=== PATIENT | male | born 1940 | race Caucasian/White ===

== ENCOUNTER → 2017-03-21 | Day surgery (SDC) | payer MEDICARE, OTHER ==
[~2017-03-21] MED LIST: ASCO10002 PO; ASPI-630 PO; IV RINGERS,LACTATED 1000ML 1,000 ML IV SCH; LEVO125T5 PO; LEVO88TA4 PO; LIDOCAINE 1% PF 2 ML VIAL. ID PRN; LIDOCAINE 2% PF Vial for OR 5 ML VIAL. ONE; MIDAZOLAM HCL/PF 2 MG/2 ML VIAL. IV PRN; MULT-18 PO; PRAV40TA2 PO; PROPOFOL 20 ML IV ONE; fentaNYL PF VIAL 100 MCG/2 ML VIAL IV PRN
[2017-03-21 10:21] VITALS: BP 102/55
== END | disposition home or self-care (01) ==
LOC: SURG 08:39
PROVIDERS: ATTEND Internal Medicine Gastroenterology
DX: K64.0 First degree hemorrhoids (principal); K57.30 Diverticulosis of large intestine without perforation or abscess without bleeding; E78.00 Pure hypercholesterolemia, unspecified; E03.9 Hypothyroidism, unspecified; E16.2 Hypoglycemia, unspecified; Z86.39 Personal history of other endocrine, nutritional and metabolic disease; Z90.49 Acquired absence of other specified parts of digestive tract; Z87.891 Personal history of nicotine dependence
CPT/HCPCS: 45378; J2704; J2001

== ENCOUNTER → 2017-11-09 | Outpatient (CLI) | payer MEDICARE, OTHER | END | disposition home or self-care (01) | LOC: KCIC US 07:46 | DX: N40.0 Benign prostatic hyperplasia without lower urinary tract symptoms (principal); D71 Functional disorders of polymorphonuclear neutrophils; Z90.49 Acquired absence of other specified parts of digestive tract | CPT/HCPCS: 76700; 76856 ==

== ENCOUNTER → 2017-11-21 | Outpatient (CLI) | payer MEDICARE, OTHER | END | disposition home or self-care (01) | LOC: ECHO 10:29 | DX: I51.7 Cardiomegaly (principal) | CPT/HCPCS: 93306 ==

== ENCOUNTER → 2017-11-25 | Outpatient (CLI) | payer MEDICARE, OTHER | END | disposition home or self-care (01) | LOC: KCIC 09:52 | DX: I51.7 Cardiomegaly (principal); M48.56XD Collapsed vertebra, not elsewhere classified, lumbar region, subsequent encounter for fracture with routine healing | CPT/HCPCS: 71046 ==

== ENCOUNTER → 2018-01-04 | Outpatient (CLI) | payer MEDICARE, OTHER | END | disposition home or self-care (01) | LOC: KCIC CT 11:36 | DX: M48.54XA Collapsed vertebra, not elsewhere classified, thoracic region, initial encounter for fracture (principal); I25.10 Atherosclerotic heart disease of native coronary artery without angina pectoris; D71 Functional disorders of polymorphonuclear neutrophils; E78.00 Pure hypercholesterolemia, unspecified; E03.9 Hypothyroidism, unspecified; Z87.891 Personal history of nicotine dependence; Z86.39 Personal history of other endocrine, nutritional and metabolic disease | CPT/HCPCS: 71250 ==

== ENCOUNTER → 2018-07-14 | Outpatient (CLI) | payer MEDICARE, OTHER ==
[2017-03-21 10:21] VITALS: BP 102/55
[~2018-07-14] MED LIST changes: -IV RINGERS,LACTATED 1000ML 1,000 ML IV SCH; -LIDOCAINE 1% PF 2 ML VIAL. ID PRN; -LIDOCAINE 2% PF Vial for OR 5 ML VIAL. ONE; -MIDAZOLAM HCL/PF 2 MG/2 ML VIAL. IV PRN; -PROPOFOL 20 ML IV ONE; -fentaNYL PF VIAL 100 MCG/2 ML VIAL IV PRN
--- NOTE | 2018-07-14 09:18 | KCIC ---
CT chest without contrast dated 07/14/2018. Comparison made to January 04, 2018. CLINICAL INDICATION: Follow-up interstitial lung disease. TECHNIQUE: Contiguous axial imaging the chest performed without the administration of intravenous contrast. Thin cut high-resolution imaging performed in inspiration using HRCT protocol. One or more of the following individualized dose reduction techniques were utilized for this examination: 1. Automated exposure control 2. Adjustment of the mA and/or kV according to patient size 3. Use of iterative reconstruction technique FINDINGS: Heart size mildly enlarged. No pericardial effusion. Coronary artery calcifications with prominent callus C[place] of the mitral valve. Mild aneurysmal dilation of the ascending thoracic aorta measuring 4 cm transverse dimension, unchanged. There are mildly enlarged subcarinal, precarinal and right paratracheal and left paratracheal lymph nodes, similar to prior study. Subcarinal lymph node measures up to 1.5 similar short axis, unchanged. There are also calcified mediastinal lymph nodes and left hilar lymph nodes. No axillary adenopathy. Central airways are patent. Diffuse bronchiectasis. There are irregular peripheral shadows throughout both lungs, basilar predominant with associated honeycomb cystic change, similar to prior study. There is some thickening of the fissures, unchanged. No pneumothorax. Superimposed mild emphysema. There is an area of consolidation in the superior segment right lower lobe with small air bronchogram. This abuts the pleura and is best appreciated on sagittal image 41. Was not present on the prior study. Limited images of the upper abdomen are unremarkable. Gallbladder surgically absent. Bone windows show no acute findings. There are multiple thoracic and upper lumbar wedge compression deformities, similar to prior study. IMPRESSION: 1. Moderate to severe interstitial fibrosis, possibly related to usual interstitial pneumonia, not significantly changed from prior study. 2. Small focal zone of consolidation in the superior segment right lower lobe is new from prior study. This could be related to superimposed pneumonia or atelectasis. Developing mass considered less likely. Continued follow-up imaging is recommended to ensure stability. 3. Mild mediastinal lymphadenopathy, nonspecific but unchanged. 4. Coronary artery calcifications and mild aortic ectasia. 5. Multiple remote thoracic and lumbar wedge compression fractures, unchanged. Electronically signed by: Julio Pierson MD (07/14/2018 9:13 AM) [id number]
== END | disposition home or self-care (01) ==
LOC: KCIC CT 08:30
PROVIDERS: ATTEND Internal Medicine Pulmonary Disease
DX: J84.10 Pulmonary fibrosis, unspecified (principal); J43.9 Emphysema, unspecified; I25.10 Atherosclerotic heart disease of native coronary artery without angina pectoris; I77.810 Thoracic aortic ectasia; R59.0 Localized enlarged lymph nodes; M48.54XD Collapsed vertebra, not elsewhere classified, thoracic region, subsequent encounter for fracture with routine healing; M48.56XD Collapsed vertebra, not elsewhere classified, lumbar region, subsequent encounter for fracture with routine healing; Z87.891 Personal history of nicotine dependence
CPT/HCPCS: 71250

== ENCOUNTER 2018-08-23 12:31 | Inpatient (IN) | payer MEDICARE, OTHER ==
[~2018-08-23] VITALS: Ht 180.3 cm; Wt 71.8 kg
[2018-08-23] MEDS ORDERED: IPRATRPIUM/ALBUTEROL 0.5/2.5MG 3 ML NEBU. NEB ONE (13:15)
--- NOTE | 2018-08-23 13:26 | PHYS DOC ---
Past Medical History Past Medical History: Cancer, Hypothyroid Additional Past Medical Histor: THYROID CA, "FIBROSIS LUNGS" Past Surgical History: Cholecystectomy, Other Additional Past Surgical Histo: THYROID, LEG Alcohol Use: None Drug Use: None Adult General Chief Complaint Chief Complaint: COUGH HPI HPI Patient is a 78-year-old male with a past history of pulmonary fibrosis who presents to the emergency department for evaluation. He states he was at home, when he began experiencing a large volume hemoptysis, filling up about half of a coffee cup. He called his lockstitch waistband setter, and was sent to the emergency department. He does report some chronic ongoing shortness of breath but is no more short of breath today than he has been at baseline. He has not had any fevers or chills, although he states he was diagnosed with pneumonia a few weeks ago and is currently completing a course of amoxicillin. There are no alleviating or exacerbating factors to his symptoms otherwise. Review of Systems Review of Systems Constitutional: Denies fever or chills [] Eyes: Denies change in visual acuity, redness, or eye pain [] HENT: Denies nasal congestion or sore throat [] Respiratory: No additional information not addressed in HPI [] Cardiovascular: The patient denies any chest pain, palpitations, or orthopnea [] GI: Denies abdominal pain, nausea, vomiting, bloody stools or diarrhea [] : Denies dysuria or hematuria [] Musculoskeletal: Denies back pain or joint pain [] Integument: Denies rash or skin lesions [] Neurologic: Denies headache, focal weakness or sensory changes [] Endocrine: Denies polyuria or polydipsia [] All other systems were reviewed and found to be within normal limits, except as documented in this note. Current Medications Current Medications Current Medications Medications (Trade) Dose Ordered Sig/Wendi Start Time Stop Time Status Last Admin Dose Admin Albuterol/ Ipratropium (Duoneb) 3 ml 1X ONCE 08/23/18 13:15 08/23/18 13:18 DC 08/23/18 14:02 3 ML Allergies Allergies Allergies Coded Allergies Type Severity Reaction Last Updated Verified No Known Drug Allergies 03/21/17 No Physical Exam Physical Exam PHYSICAL EXAM: CONSTITUTIONAL: Well developed, well nourished HEAD: normocephalic, atraumatic EENT: PERRL, EOMI. Conjunctivae normal color, sclerae non-icteric; moist mucous membranes. The patient has upper and lower dentures. No evidence of oral or pharyngeal bleeding. NECK: Supple, non-tender; no meningismus. LUNGS: There are scattered crackles in all lung sherman consistent with a history of pulmonary fibrosis with some rhonchi in the right greater than left bases. HEART: Regular rate and rhythm, there is a harsh holosystolic murmur CHEST: No deformity; non-tender ABDOMEN: The abdomen is soft, and non-tender, no masses or bruits. EXTREM: Normal ROM; no deformity, no calf tenderness. Normal pulses palpable in all extremities. There is no pedal edema. SKIN: No rash; no diaphoresis NEURO: Alert; normal speech and cognition; CN's grossly intact; strength grossly intact without focal deficit. BACK: No CVA TTP. Current Patient Data Vital Signs Vital Signs Date Time Temp Pulse Resp B/P (MAP) Pulse Ox O2 Delivery O2 Flow Rate FiO2 08/23/18 14:02 98 Room Air 08/23/18 13:41 76 22 131/65 (87) 08/23/18 12:46 98.9 98.9 Lab Values Laboratory Tests Test 08/23/18 12:50 White Blood Count 7.9 x10^3/uL (4.0-11.0) Red Blood Count 4.26 x10^6/uL (4.30-5.70) L Hemoglobin 12.1 g/dL (13.0-17.5) L Hematocrit 37.0 % (39.0-53.0) L Mean Corpuscular Volume 87 fL (79-100) Mean Corpuscular Hemoglobin 29 pg (25-35) Mean Corpuscular Hemoglobin Concent 33 g/dL (31-37) Red Cell Distribution Width 14.7 % (11.5-14.5) H Platelet Count 241 x10^3/uL (140-400) Neutrophils (%) (Auto) 67 % (31-73) Lymphocytes (%) (Auto) 21 % (24-48) L Monocytes (%) (Auto) 8 % (0-9) Eosinophils (%) (Auto) 3 % (0-3) Basophils (%) (Auto) 1 % (0-3) Neutrophils # (Auto) 5.3 x10^3uL (1.8-7.7) Lymphocytes # (Auto) 1.7 x10^3/uL (1.0-4.8) Monocytes # (Auto) 0.7 x10^3/uL (0.0-1.1) Eosinophils # (Auto) 0.2 x10^3/uL (0.0-0.7) Basophils # (Auto) 0.0 x10^3/uL (0.0-0.2) Prothrombin Time 13.5 SEC (11.7-14.0) Prothrombin Time INR 1.1 (0.8-1.1) Sodium Level 134 mmol/L (136-145) L Potassium Level 4.1 mmol/L (3.5-5.1) Chloride Level 98 mmol/L (98-107) Carbon Dioxide Level 26 mmol/L (21-32) Anion Gap 10 (6-14) Blood Urea Nitrogen 19 mg/dL (8-26) Creatinine 1.0 mg/dL (0.7-1.3) Estimated GFR (Cockcroft-Gault) 72.1 BUN/Creatinine Ratio 19 (6-20) Glucose Level 102 mg/dL (70-99) H Lactic Acid Level 1.1 mmol/L (0.4-2.0) Calcium Level 8.5 mg/dL (8.5-10.1) Total Bilirubin 0.6 mg/dL (0.2-1.0) Aspartate Amino Transferase (AST) 14 U/L (15-37) L Alanine Aminotransferase (ALT) 14 U/L (16-63) L Alkaline Phosphatase 79 U/L (46-116) Troponin I Quantitative 0.289 ng/mL (0.000-0.055) C-Reactive Protein, Quantitative 22.7 mg/L (0-3.3) H SB-Tqb-L-Type Natriuretic Peptide 379 pg/mL (0-449) Total Protein 8.8 g/dL (6.4-8.2) H Albumin 3.4 g/dL (3.4-5.0) Albumin/Globulin Ratio 0.6 (1.0-1.7) L Laboratory Tests 08/23/18 12:50 Laboratory Tests 08/23/18 12:50 EKG EKG [Normal sinus rhythm at a rate of 80 beats for minute with frequent APCs, left axis deviation, normal intervals, there are no acute ischemic ST/T changes.] Radiology/Procedures Radiology/Procedures [PROCEDURE: CHEST PA & LATERAL EXAM: CHEST 2 VIEWS. HISTORY: Shortness of breath, hemoptysis, pneumonia. COMPARISON: 11/25/2017. FINDINGS: Frontal and lateral views of the chest are obtained. Subpleural and basilar predominant interstitial opacities are not clearly changed. Lung volumes are small on the right greater than left. There is no pneumothorax or pleural effusion. The heart is mildly enlarged. Surgical clips are noted in the right upper quadrant and at the base of the neck. Moderate compression deformities are noted in the upper lumbar spine. IMPRESSION: 1. Stable interstitial fibrosis without clear superimposed infiltrate. 2. Mild cardiomegaly. ] Course & Med Decision Making Course & Med Decision Making Pertinent Labs and Imaging studies reviewed. (See chart for details) [2:25 PM: The patient's condition remains stable. I discussed the case with Dr. Flores, on-call for the patient's PCP, who will admit the patient for further observation and pulmonary consultation.] Dragon Disclaimer Dragon Disclaimer This electronic medical record was generated, in whole or in part, using a voice recognition dictation system. Departure Departure Impression: Primary Impression: Hemoptysis Additional Impression: Pulmonary fibrosis Disposition: ADMITTED INPATIENT Admitting Physician: Kiersten Flores Condition: STABLE Referrals: MILANA CLARK MD (PCP) Problem Qualifiers ALON FLANAGAN MD Aug 23, 2018 13:26
[2018-08-23 13:27] LABS: BASO % 1 % (0-3); EOS # 0.2 x10^3/uL (0.0-0.7); EOS % 3 % (0-3); HEMOGLOBIN 12.1 g/dL (13.0-17.5); LYMPH # 1.7 x10^3/uL (1.0-4.8); LYMPH % 21 % (24-48); MEAN CORPUSCULAR HEMOGLOBIN 29 pg (25-35); MEAN CORPUSCULAR HGB CONC 33 g/dL (31-37); MEAN CORPUSCULAR VOLUME 87 fL (79-100); MONO # 0.7 x10^3/uL (0.0-1.1); MONO % 8 % (0-9); NEUT # 5.3 x10^3uL (1.8-7.7); NEUT % 67 % (31-73); PLATELET COUNT 241 x10^3/uL (140-400); RED BLOOD COUNT 4.26 x10^6/uL (4.30-5.70); RED CELL DISTRIBUTION WIDTH 14.7 % (11.5-14.5); WHITE BLOOD COUNT 7.9 x10^3/uL (4.0-11.0)
[2018-08-23 13:36] LABS: PROTHROMBIN TIME PATIENT 13.5 SEC (11.7-14.0)
[2018-08-23 13:39] LABS: CALCIUM 8.5 mg/dL (8.5-10.1); GFR 72.1; POTASSIUM 4.1 mmol/L (3.5-5.1)
[2018-08-23 13:45] LABS: ALBUMIN 3.4 g/dL (3.4-5.0); ALBUMIN/GLOBULIN RATIO 0.6 (1.0-1.7); C-REACTIVE PROTEIN 22.7 mg/L (0-3.3); TOTAL BILIRUBIN 0.6 mg/dL (0.2-1.0); TOTAL PROTEIN 8.8 g/dL (6.4-8.2)
--- NOTE | 2018-08-23 13:52 | RAD ---
EXAM: CHEST 2 VIEWS. HISTORY: Shortness of breath, hemoptysis, pneumonia. COMPARISON: 11/25/2017. FINDINGS: Frontal and lateral views of the chest are obtained. Subpleural and basilar predominant interstitial opacities are not clearly changed. Lung volumes are small on the right greater than left. There is no pneumothorax or pleural effusion. The heart is mildly enlarged. Surgical clips are noted in the right upper quadrant and at the base of the neck. Moderate compression deformities are noted in the upper lumbar spine. IMPRESSION: 1. Stable interstitial fibrosis without clear superimposed infiltrate. 2. Mild cardiomegaly. Electronically signed by: Shweta Asif MD (08/23/2018 1:49 PM) [place] [id number]
--- NOTE | 2018-08-23 14:33 | EKG ---
[facility] [address] [place] [address] Test Date: 2018-08-23 Test Time: 13:34:37 Pat Name: ROSALVA LEONARDO Department: Room: Gender: M Client Strategist: : 1940 Requested By: ALON FLANAGAN Order Number: [id number] Reading MD: Tommy Lynn MD Measurements Intervals [place] Rate: 80 P: NC: QRS: -34 QRSD: 92 T: 28 QT: 388 QTc: 451 Interpretive Statements SR PAC'S Electronically Signed On 08-31-2018 9:48:35 CDT by Tommy Lynn MD
[2018-08-23] MEDS ORDERED: AMOX1TAB61 PO (19:21)
[2018-08-23 19:30] VITALS: BP 107/49
[2018-08-23] MEDS: AMOXICILLIN/K CLAV 875/125MG TABLET. PO SCH (22:38)
[2018-08-23 23:08] VITALS: BP 126/69
[2018-08-24 03:24] VITALS: BP 125/75
[2018-08-24] MEDS: LEVOTHYROXINE 125 MCG TABLET PO SCH (06:08)
[2018-08-24 06:55] VITALS: BP 124/68
[2018-08-24] MEDS: LACTOBACILLUS RHAMNOSUS GG 1 CAPSULE. PO SCH ×2 (08:21→22:29)
[2018-08-24] MEDS: AMOXICILLIN/K CLAV 875/125MG TABLET. PO SCH (08:21)
--- NOTE | 2018-08-24 10:48 | PDOC2 ---
KATLIN NEAL BASE MANAGER 08/24/18 1048: CARDIAC CONSULT DATE OF CONSULT Date of Consult DATE: 08/24/18 TIME: 10:40 REASON FOR CONSULT Reason for Consult: Increase trop REFERRING PHYSICIAN Referring Physician: Schuyler SOURCE Source: Chart review, Patient HISTORY OF PRESENT ILLNESS HISTORY OF PRESENT ILLNESS This is a pleasant 78 yo male admitted for complains of blood in the sputum. This is dark red sometimes it is large in amount. Denies any fever, night sweats. No HIDALGO or chest pain. He does have known valvular disease. Denies any exertional CP nor HIDALGO. He has lost only 17 pounds in the last 6 months. Denies any nausea, palpitations. No prior cardiac disease but significant for pulmonary fibrosis, MR. No changes to his activity tolerance. PAST MEDICAL HISTORY Cardiovascular: HTN, Hyperlipidemia, Valve insufficiency (MV stenosis), Pulmonary hypertension Pulmonary: Other (pulmonary fiborsis with prior asbestos exposure) CENTRAL NERVOUS SYSTEM: Other GI: GERD Heme/Onc: No pertinent hx Hepatobiliary: No pertinent hx Psych: No pertinent hx Musculoskeletal: Osteoarthritis ENT: Allergic Rhinitis Renal/: Benign prostatic enlarg. Endocrine: Diabetes (2), Hypothyroidism Dermatology: No pertinent hx PAST SURGICAL HISTORY Past Surgical History: Cholecystectomy, Other (partial thyroidectomy) FAMILY HISTORY Family History noncontributory to CV SOCIAL HISTORY Smoke: Quit (>10 yrs) ALCOHOL: none Drugs: None Lives: Alone CURRENT MEDICATIONS CURRENT MEDICATIONS Current Medications Medications (Trade) Dose Ordered Sig/Wendi Route PRN Reason Start Time Stop Time Status Last Admin Dose Admin Albuterol/ Ipratropium (Duoneb) 3 ml 1X ONCE NEB 08/23/18 13:15 08/23/18 13:18 DC 08/23/18 14:02 Amoxicillin/ Clavulanate Potassium (Augmentin 875/ 125mg) 1 tab BID PO 08/23/18 23:00 08/24/18 08:21 Levothyroxine Sodium (Synthroid) 125 mcg DAILY06 PO 08/24/18 06:00 08/24/18 06:08 Lactobacillus Rhamnosus (Culturelle) 1 cap BID PO 08/24/18 09:00 08/24/18 08:21 ALLERGIES ALLERGIES: Coded Allergies: No Known Drug Allergies (Unverified , 03/21/17) ROS Review of System 14 point ROS evaluated with pertinent positives noted per HPI PHYSICAL EXAM General: Alert, Oriented X3, Cooperative, No acute distress HEENT: Atraumatic, Mucous membr. moist/pink Lungs: Other (diffuse crackles, hemoptysis) Heart: Regular rate, Normal S1, Normal S2, Other (5/6 murmur pansystolic loudest to apex) Abdomen: Soft, No tenderness Extremities: No cyanosis, No edema Skin: No breakdown, No significant lesion Neuro: Strength at 5/5 X4 ext, Sensation intact Psych/Mental Status: Mental status NL, Mood NL MUSCULOSKELETAL: Osteoarthritic changes both hands VITALS VITALS Vital Signs Date Time Temp Pulse Resp B/P (MAP) Pulse Ox O2 Delivery O2 Flow Rate FiO2 08/24/18 08:00 Room Air 08/24/18 06:55 98.3 77 17 124/68 (86) 95 98.3 LABS Lab: Laboratory Tests Test 08/23/18 12:50 08/23/18 22:35 08/24/18 04:43 White Blood Count 7.9 x10^3/uL (4.0-11.0) Red Blood Count 4.26 x10^6/uL (4.30-5.70) Hemoglobin 12.1 g/dL (13.0-17.5) Hematocrit 37.0 % (39.0-53.0) Mean Corpuscular Volume 87 fL (79-100) Mean Corpuscular Hemoglobin 29 pg (25-35) Mean Corpuscular Hemoglobin Concent 33 g/dL (31-37) Red Cell Distribution Width 14.7 % (11.5-14.5) Platelet Count 241 x10^3/uL (140-400) Neutrophils (%) (Auto) 67 % (31-73) Lymphocytes (%) (Auto) 21 % (24-48) Monocytes (%) (Auto) 8 % (0-9) Eosinophils (%) (Auto) 3 % (0-3) Basophils (%) (Auto) 1 % (0-3) Neutrophils # (Auto) 5.3 x10^3uL (1.8-7.7) Lymphocytes # (Auto) 1.7 x10^3/uL (1.0-4.8) Monocytes # (Auto) 0.7 x10^3/uL (0.0-1.1) Eosinophils # (Auto) 0.2 x10^3/uL (0.0-0.7) Basophils # (Auto) 0.0 x10^3/uL (0.0-0.2) Erythrocyte Sedimentation Rate 44 (0-15) Prothrombin Time 13.5 SEC (11.7-14.0) Prothromb Time International Ratio 1.1 (0.8-1.1) Sodium Level 134 mmol/L (136-145) Potassium Level 4.1 mmol/L (3.5-5.1) Chloride Level 98 mmol/L (98-107) Carbon Dioxide Level 26 mmol/L (21-32) Anion Gap 10 (6-14) Blood Urea Nitrogen 19 mg/dL (8-26) Creatinine 1.0 mg/dL (0.7-1.3) Estimated GFR (Cockcroft-Gault) 72.1 BUN/Creatinine Ratio 19 (6-20) Glucose Level 102 mg/dL (70-99) Lactic Acid Level 1.1 mmol/L (0.4-2.0) Calcium Level 8.5 mg/dL (8.5-10.1) Total Bilirubin 0.6 mg/dL (0.2-1.0) Aspartate Amino Transf (AST/SGOT) 14 U/L (15-37) Alanine Aminotransferase (ALT/SGPT) 14 U/L (16-63) Alkaline Phosphatase 79 U/L (46-116) Troponin I Quantitative 0.289 ng/mL (0.000-0.055) 0.204 ng/mL (0.000-0.055) 0.185 ng/mL (0.000-0.055) C-Reactive Protein, Quantitative 22.7 mg/L (0-3.3) LU-Iaf-J-Type Natriuretic Peptide 379 pg/mL (0-449) Total Protein 8.8 g/dL (6.4-8.2) Albumin 3.4 g/dL (3.4-5.0) Albumin/Globulin Ratio 0.6 (1.0-1.7) IMAGES IMAGES IMPRESSION: 1. Moderate to severe interstitial fibrosis, possibly related to usual interstitial pneumonia, not significantly changed from prior study. 2. Small focal zone of consolidation in the superior segment right lower lobe is new from prior study. This could be related to superimposed pneumonia or atelectasis. Developing mass considered less likely. Continued follow-up imaging is recommended to ensure stability. 3. Mild mediastinal lymphadenopathy, nonspecific but unchanged. 4. Coronary artery calcifications and mild aortic ectasia. 5. Multiple remote thoracic and lumbar wedge compression fractures, unchanged. DATE: 07/14/18 0905 ECHOCARDIOGRAM ECHOCARDIOGRAM TTE <Conclusion> The left ventricular systolic function is normal and the ejection fraction is within normal range.The Ejection Fraction is 55%. There is normal LV segmental wall motion. The ascending aorta is mildly dilated at 3.5 cm. DATE: 11/21/17 1414 CEDRIC <Conclusion> The left ventricle is normal size. The left ventricular systolic function is normal and the ejection fraction is within normal range. The left atrium is mildly dilated. There is no significant aortic valvulve stenosis. No significant aortic regurgitation. Moderate to moderate severe eccentric mitral regurgitation. Trace to mild tricuspid regurgitation. Trace pulmonic regurgitation. DATE: 07/30/13 1346 ASSESSMENT/PLAN ASSESSMENT/PLAN 1. Hemoptysis: probably from combination of valvular disease and pulmonary fibrosis with recent PNA 2. Severe pulmonary fibrosis with past chronic asbestos exposure: No SOA 3. MR 4. Elevated troponin: peaked at 0.28. EKG SR with PACs/LAFB with biatrial enlargement and LVH. No acute ST-T wave changes. Possibly type 2. No cardiac symptoms. 5. Hx of Pneumonia: noted a month ago and treated as outpt 6. HTN: controlled. Denies 7. HLP: no antilipemics 8. DM2: Denies 9. Hypothyroidism: past partial thyroidectomy r/t CA 10. Coronary calcifications: per recent CT Recommendations Echo, TSH, lipids Depending on TTE result RHC/LHC would be a consideration as well as CEDRIC otherwise stress test. Pulmonary consult pending. ASA, statin per level NICANOR EASON MD 08/24/18 2310: CARDIAC CONSULT ASSESSMENT/PLAN ASSESSMENT/PLAN Pt. seen and examined. Agree with above EXPORT FREIGHT SPECIALIST note. Patient presenting with hemoptysis. Does not need any further CV eval after echo. If echo abn, consider outpt w/u. May need ENT eval for his hemoptysis, defer to primary and pulm. Thanks. Will follow along peripherally. No clear cardiac symptoms of note. KATLIN NEAL APRN Aug 24, 2018 10:48 NICANOR EASON MD Aug 24, 2018 23:10
[2018-08-24 10:54] VITALS: BP 137/68
--- NOTE | 2018-08-24 12:13 | HP ---
ADMIT DATE: 08/23/2018 CHIEF COMPLAINT: Hemoptysis. HISTORY OF PRESENT ILLNESS AND HOSPITAL COURSE: This patient is a 78-year-old male, who states on the day of admission, he started coughing up at least a cup of blood. Due to the severity of symptoms, he came to Emergency Room for further evaluation. He was found to have mild anemia in combination with chronic lung disease, as well as elevated troponin. Given these findings, he was admitted for further evaluation by Pulmonary and Cardiology. PAST MEDICAL HISTORY: Significant for: 1. History of partial thyroidectomy for thyroid cancer. 2. Hypothyroidism. 3. Hypercholesterol. 4. Mitral regurgitation. 5. Hypertension. 6. Type 2 diabetes, diet controlled. 7. Pulmonary fibrosis, possibly due from asbestos versus idiopathic pulmonary fibrosis. 8. BPH. 9. Reflux disease. 10. Recent weight loss. FAMILY HISTORY: Mother with complications of diabetes. Father with complications of throat cancer. SOCIAL HISTORY: The patient is a former smoker, smoked for approximately 10 years from his 20s to his 30s, approximately a pack per day. 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 The patient does not use alcohol. The patient lives alone and is retired. ALLERGIES: The patient has no known drug allergies. PAST SURGICAL HISTORY: Significant for cholecystectomy and partial thyroidectomy. REVIEW OF SYSTEMS: Positive for ongoing weight loss, weight documented at 174 in the office chart in 10/2017. Weight down to 158 today, the patient routinely was 190s during his adult life. The patient has no complaints of cough, fever. The patient has chronic shortness of breath due to pulmonary fibrosis. The patient denies any night sweats, nausea, vomiting, diarrhea. The patient had 16-pound weight loss in the last 10 months. PHYSICAL EXAMINATION: GENERAL: This is a well-nourished, well-developed male, in no apparent distress. On my exam, he is alert and oriented x 3. HEENT: Benign. NECK: Supple. CARDIAC: Regular rate and rhythm with a grade 2/3 soft systolic ejection murmur. LUNGS: Revealed coarse wheezes and breath sounds bilaterally. ABDOMEN: Soft and nontender. EXTREMITIES: Had 2+ pulses, no significant edema. NEUROLOGIC: Showed no unilateral findings. ASSESSMENT: 1. Hemoptysis. 2. Elevated troponin. 3. Pulmonary fibrosis. 4. Weight loss. PLAN: To proceed with Pulmonary consultation and Cardiology consultation, obtain CAT scan of the chest and monitor for further bleeding. MILANA CLARK MD DR: ROSALINA/aaron JOB#: [id number] / [id number]
--- NOTE | 2018-08-24 14:07 | CARD ---
MR#: [id number] Date of Study: 08/24/2018 Ordering Physician: KATLIN NEAL, Referring Physician: Christian MANTILLA Tech: Sahara Villarreal RDCS APPROVED REPORT EXAM: Two-dimensional and M-mode echocardiogram with Doppler and color Doppler. Other Information Quality : GoodHR: 77bpm Rhythm : NSR INDICATION Elevated Troponin 2D DIMENSIONS RVDd3.0 (2.9-3.5cm)Left Atrium(2D)4.8 (1.6-4.0cm) IVSd1.3 (0.7-1.1cm)Aortic Root(2D)3.9 (2.0-3.7cm) LVDd5.7 (3.9-5.9cm)LVOT Diameter2.3 (1.8-2.4cm) PWd1.4 (0.7-1.1cm)LVDs3.9 (2.5-4.0cm) FS (%) 31.8 %SV94.4 ml LVEF(%)59.2 (>50%) M-Mode DIMENSIONS Left Atrium(MM)4.76 (2.5-4.0cm)Aortic Root4.17 (2.2-3.7cm) Aortic Valve AoV Peak Long.125.5cm/sAoV VTI20.0cm AO Peak GR.6.3mmHgLVOT Peak Long.74.9cm/s AO Mean GR.3mmHgAVA (VMAX)2.38cm2 DAYANNA (VTI)2.40cm2 Mitral Valve MV E Ygmfsehn049.0cm/sMV E Peak Gr.6mmHg MV DECEL [id number] A Yzvlqbyf13.9cm/s MV E Mean Gr.3mmHgE/A Ratio1.4 MV A [id number] Pulmonary Valve PV Peak Lfiifkrs855.4cm/s Tricuspid Valve TR P. Gxtuijha174hr/sRAP REQDSPNK1obGn TR Peak Gr.15qpOoEDXS23ayIv LEFT VENTRICLE The left ventricle is normal size. There is mild concentric left ventricular hypertrophy. The left ve ntricular systolic function is normal. The Ejection Fraction is 55-60%. There is normal LV segmental wall motion. Transmitral Doppler flow pattern is Grade II-pseudonormal filling dynamics. RIGHT VENTRICLE The right ventricle is normal size. There is normal right ventricular wall thickness. The right ventr icular systolic function is normal. ATRIA The left atrium is moderately dilated. The right atrium size is normal. The interatrial septum is int act with no evidence for an atrial septal defect or patent foramen ovale as noted on 2-D or Doppler i maging. AORTIC VALVE The aortic valve is mildly calcified. The aortic valve is trileaflet. Doppler and Color Flow revealed no significant aortic regurgitation. There is no significant aortic valvular stenosis. There is no a ortic valvular vegetation. MITRAL VALVE Flail versus prolapsed posterior leaflet of mitral valve. There is no evidence of mitral valve prolap se. There is no mitral valve stenosis. Doppler and Color-flow revealed moderate to severe mitral regu rgitation. TRICUSPID VALVE The tricuspid valve is normal in structure and function. Doppler and Color Flow revealed trace tricus pid regurgitation. The PA pressure was estimated at 26 mmHg. There is no tricuspid valve prolapse or vegetation. There is no tricuspid valve stenosis. PULMONIC VALVE The pulmonic valve is not well visualized. GREAT VESSELS The aortic root is mildly enlarged. The ascending aorta is normal in size. The IVC is normal in size and collapses >50% with inspiration. PERICARDIAL EFFUSION There is no evidence of significant pericardial effusion. Critical Notification Critical Value: No <Conclusion> The left ventricular systolic function is normal. The Ejection Fraction is 55-60%. There is normal LV segmental wall motion. The left atrium is moderately dilated. Moderate to severe mitral regurgitation. Trace tricuspid regurgitation. The PA pressure was estimated at 26 mmHg. There is no evidence of significant pericardial effusion. Signed by : David Hurtado, Electronically Approved : 08/24/2018 14:05:59
[2018-08-24] MEDS ORDERED: PIP/TAZO PER PHARMACY MC PRN (14:30)
[2018-08-24] MEDS: VANCOMYCIN PER PHARMACY MC PRN ×3 (14:33→17:32)
--- NOTE | 2018-08-24 14:44 | CONS ---
DATE OF CONSULTATION: ATTENDING PHYSICIAN: Julio Payan MD REASON FOR CONSULTATION: Hemoptysis, pulmonary fibrosis. HISTORY OF PRESENT ILLNESS: The patient is a 78-year-old male who has been followed by my partner, Dr. Mike in the office. The patient has history of IPF, not biopsy proven but by characteristic CT chest findings. He started developed cough with purulent sputum production and was placed on Augmentin by Dr. Mike. The patient states that purulent sputum production started to improve; however, after he ran out of antibiotics, he started to have coughing up blood. The patient states that the hemoptysis has been persistent and has been consistent with bright red blood. He denies any fever, denies any chills, denies any weight loss. He has mild chronic exertional dyspnea with prolonged ambulation, otherwise done very well. He is not on any medication for his pulmonary fibrosis. CT of the chest was reviewed by me, which was done today. It has not been read by radiologist yet. He has unchanged findings of pulmonary fibrosis consistent with IPF. He has a persistent consolidation involving the right lower lobe. There appeared to be some cavitation in the right lower lobe mass-like density based on a previous CT from 07/14/2018. It is no longer seen. I have been asked to see him for further evaluation. He denies any headaches. No nausea, vomiting. No diarrhea. No dysuria. No focal weakness. No leg edema. PAST MEDICAL HISTORY: History of partial thyroidectomy for thyroid cancer, history of pulmonary fibrosis, highly likely IPF by characteristic CT chest findings, history of hypothyroidism, hypercholesterolemia, mitral regurgitation, hypertension, type 2 diabetes, BPH, reflux disease. PAST SURGICAL HISTORY: No recent surgeries. He had cholecystectomy and partial thyroidectomy in the past. SOCIAL HISTORY: Smoked for about 12 years before quitting some 40 years ago. 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 REVIEW OF SYSTEMS: Twelve-point system obtained. Pertinent positives discussed in my history of present illness, otherwise noncontributory. All systems that were negative were reviewed as well. MEDICATIONS: All reviewed. He is still on oral Augmentin. PHYSICAL EXAMINATION: VITAL SIGNS: Reviewed. He is afebrile, pulse ox is 96% on room air. NECK: Supple. LUNGS: With crackles, 1/3, at both the bases. CARDIOVASCULAR: Regular rate and rhythm. ABDOMEN: Soft, nontender. EXTREMITIES: With no pitting edema. LABORATORY DATA: Reviewed. ESR is 44. White cell count 7.9, hemoglobin is 12.1 and platelets are 241. Troponin is 0.2. TSH 4.2. BUN and creatinine 19 and 1.0. Echocardiogram showed an EF of 55-60%. The pulmonary artery pressure is 26. He has moderate to severe mitral regurgitation. IMPRESSION: 1. Persistent hemoptysis for the last 2 weeks in a patient who had a mass-like consolidation on CT chest in July. There appeared to be some cavitation at that time and the hemoptysis was likely related to infectious etiology such as pneumonia complicated by a lung abscess. The patient did improve initially with Augmentin, now has persistent and recurrent hemoptysis. His CT chest showing persistent consolidation. At this point, I would treat as an infectious etiology; however, the possibility of a lung malignancy and endobronchial lesion cannot be completely ruled out. 2. 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 3. Minimal history of tobacco use. Doubt clinically significant chronic obstructive pulmonary disease. 4. Mildly increased troponin level. RECOMMENDATION: 1. At this point, I will start IV antibiotics with Zosyn and vancomycin. 2. Discontinue Augmentin. 3. Monitor hemoptysis closely. If it does not improve with broad-spectrum antibiotics, then he would need a bronchoscopy. 4. I would also recommend doing a PET scan as an outpatient if no improvement in symptoms or chest CTs. 5. Add bronchodilators p.r.n. 6. Obtain procalcitonin level as well. 7. Further recommendations to follow. 8. The patient may be a candidate for IPF treatment with FDA approved medications. We will leave up to Dr. Mike as an outpatient. 9. Discussed with RN. We will follow along with you. LAUREL MOREL MD DR: GAGANDEEP/aaron JOB#: [id number] / [id number]
[2018-08-24 15:00] VITALS: BP 120/67
[2018-08-24] MEDS ORDERED: VANCOMYCIN 1.75 GM in IV NORMAL SALINE 500ML BAG 500 ML IV ONE (15:00)
--- NOTE | 2018-08-24 15:56 | NUR ---
SW following pt for anticipated dc needs. Chart reviewed. Pt lives at home alone. No discharge recommendations or SW needs noted at this time. Will continue to assess needs.
[2018-08-24] MEDS: PIPERACILLIN/TAZOBACTAM 3.375 GM in IV NORMAL SALINE 50ML 50 ML IV SCH ×2 (16:17→22:30)
[2018-08-24] MEDS: ASPIRIN ENTERIC COATED 81 MG TABLET.DR. PO SCH (16:17)
--- NOTE | 2018-08-24 16:18 | RAD ---
CT of the chest without contrast, 08/24/2018: HISTORY: Hemoptysis, weight loss, pulmonary fibrosis, asbestos exposure Noncontrast scans were obtained and compared to a study from 07/14/2018. There is extensive bilateral peripheral honeycombing and streaky opacities compatible with fibrosis. In some areas there appears to be a component of traction bronchiectasis. There are tree-in-bud type opacities in the superior aspect of the right lower lobe which have worsened. These are likely on an inflammatory basis. There is mild residual peripheral consolidation posteriorly in the superior segment of the right lower lobe. Scattered small pleural opacities are compatible with scarring. No pleural fluid is evident. There is calcific plaquing of the thoracic aorta. The ascending aorta is at the upper limits of normal in size measuring 4 cm in width. Moderate coronary artery calcification is present. There is considerable calcification of the mitral annulus. Calcified mediastinal and left hilar lymph nodes are present compatible with old granulomatous disease. Slightly enlarged mediastinal lymph nodes are unchanged. The largest of these lies in the subcarinal region and measures 1.5 cm in short axis dimension. Several thoracic and upper lumbar vertebral compression fractures are present and appear unchanged since 07/14/2018. IMPRESSION: 1. Moderate to severe pulmonary fibrosis. 2. Worsening mild right lower lobe tree-in-bud type opacities compatible with pneumonia. 3. Mild unchanged mediastinal adenopathy. 4. Coronary artery disease. PQRS Compliance Statement: One or more of the following individualized dose reduction techniques were utilized for this examination: 1. Automated exposure control 2. Adjustment of the mA and/or kV according to patient size 3. Use of iterative reconstruction technique Electronically signed by: Cornelio Berrios MD (08/24/2018 4:15 PM) [facility]
--- NOTE | 2018-08-24 17:33 | NUR ---
Pharmacy Vancomycin Dosing Note S:Consulted to monitor and dose vancomycin started 08/24/18. O:ROSALVA LEONARDO is a 78 year old M with CAP . Height: 5 feet, 11 inches Weight: 71.338611 kg [place] Body Weight: 75.30 Adjusted Body Weight: 73.90 Dosing Weight: Actual Other Antibiotics: ZOSYN LABS: Last BUN: Last Creatinine: 1.0 Creatinine Clearance: 60 mL/min Last WBC: 7.9 Last Procalcitonin: ORDERED Tmax (past 24 hours): 98.4 Microbiology: I/O: 600 Drug Levels: Last level: on at Last dose given 08/24/18 at 1500 Vancomycin Dosing: Loading Dose: 1750 mg x1 Dosing Weight: Actual Target Trough: 15-20 A: Based on: WEIGHT AND RENAL FUNCTION, VANCOMYCIN 1.75GM IV BOLUS GIVEN, P: 1. Begin Vancomycin 1000 mg IV q12h TOMORROW 2. Follow up Trough level on 08/26/18 at 0500 3. Pharmacy will continue to monitor, follow and adjust therapy as needed. REGAN JUARES [facility], 08/24/18 [id number]
[2018-08-24 19:52] VITALS: BP 105/57
[2018-08-24] MEDS: ATORVASTATIN CALCIUM 20 MG TABLET PO SCH (22:29)
[2018-08-24 23:21] VITALS: BP 110/57
[2018-08-25] MEDS: PIPERACILLIN/TAZOBACTAM 3.375 GM in IV NORMAL SALINE 50ML 50 ML IV SCH ×4 (02:30→18:14)
[2018-08-25 03:03] VITALS: BP 115/54
[2018-08-25] MEDS: LEVOTHYROXINE 125 MCG TABLET PO SCH (04:58)
[2018-08-25] MEDS: VANCOMYCIN 1 GM in IV NORMAL SALINE 250ML 250 ML IV SCH ×2 (04:59→17:03)
[2018-08-25 07:30] VITALS: BP 99/64
[2018-08-25] MEDS: ASPIRIN ENTERIC COATED 81 MG TABLET.DR. PO SCH (08:24)
[2018-08-25] MEDS: LACTOBACILLUS RHAMNOSUS GG 1 CAPSULE. PO SCH ×2 (08:24→20:10)
--- NOTE | 2018-08-25 09:42 | NUR ---
SW following. RN reported pt is independent with ADL's. No SW needs noted. Will continue to follow.
--- NOTE | 2018-08-25 10:32 | PDOC ---
PROGRESS NOTES Subjective Subjective Patient feels better but continues to have hemoptysis. Patient ambulatory Objective Objective Vital Signs Date Time Temp Pulse Resp B/P (MAP) Pulse Ox O2 Delivery O2 Flow Rate FiO2 08/25/18 08:00 Room Air 08/25/18 07:30 98.1 69 18 99/64 (76) 97 98.1 Intake and Output 08/25/18 07:00 Intake Total 2120 ml Balance 2120 ml Intake Oral 2120 ml # Voids 7 Physical Exam Abdomen: Normal bowel sounds Heart: Regular rate Extremities: No edema General: Alert Lungs: Other (coarse breath sounds throughout with wheezes.) Assessment Assessment Problems Medical Problems: (1) Hemoptysis Status: Acute (2) Pulmonary fibrosis Status: Acute Community-acquired pneumonia Hemoptysis Elevated troponin. Pulmonary fibrosis. Weight loss. Plan Plan of Care Continue IV antibiotics. Continue pulmonary toilet Consider bronchoscopy if indicated. Comment Review of Relevant I have reviewed the following items tri (where applicable) has been applied. Labs Laboratory Tests Test 08/23/18 12:50 08/23/18 22:35 08/24/18 04:43 08/25/18 04:45 White Blood Count 7.9 x10^3/uL (4.0-11.0) Red Blood Count 4.26 x10^6/uL (4.30-5.70) Hemoglobin 12.1 g/dL (13.0-17.5) Hematocrit 37.0 % (39.0-53.0) Mean Corpuscular Volume 87 fL (79-100) Mean Corpuscular Hemoglobin 29 pg (25-35) Mean Corpuscular Hemoglobin Concent 33 g/dL (31-37) Red Cell Distribution Width 14.7 % (11.5-14.5) Platelet Count 241 x10^3/uL (140-400) Neutrophils (%) (Auto) 67 % (31-73) Lymphocytes (%) (Auto) 21 % (24-48) Monocytes (%) (Auto) 8 % (0-9) Eosinophils (%) (Auto) 3 % (0-3) Basophils (%) (Auto) 1 % (0-3) Neutrophils # (Auto) 5.3 x10^3uL (1.8-7.7) Lymphocytes # (Auto) 1.7 x10^3/uL (1.0-4.8) Monocytes # (Auto) 0.7 x10^3/uL (0.0-1.1) Eosinophils # (Auto) 0.2 x10^3/uL (0.0-0.7) Basophils # (Auto) 0.0 x10^3/uL (0.0-0.2) Erythrocyte Sedimentation Rate 44 (0-15) Prothrombin Time 13.5 SEC (11.7-14.0) Prothromb Time International Ratio 1.1 (0.8-1.1) Sodium Level 134 mmol/L (136-145) Potassium Level 4.1 mmol/L (3.5-5.1) Chloride Level 98 mmol/L (98-107) Carbon Dioxide Level 26 mmol/L (21-32) Anion Gap 10 (6-14) Blood Urea Nitrogen 19 mg/dL (8-26) Creatinine 1.0 mg/dL (0.7-1.3) Estimated GFR (Cockcroft-Gault) 72.1 BUN/Creatinine Ratio 19 (6-20) Glucose Level 102 mg/dL (70-99) Lactic Acid Level 1.1 mmol/L (0.4-2.0) Calcium Level 8.5 mg/dL (8.5-10.1) Total Bilirubin 0.6 mg/dL (0.2-1.0) Aspartate Amino Transf (AST/SGOT) 14 U/L (15-37) Alanine Aminotransferase (ALT/SGPT) 14 U/L (16-63) Alkaline Phosphatase 79 U/L (46-116) Troponin I Quantitative 0.289 ng/mL (0.000-0.055) 0.204 ng/mL (0.000-0.055) 0.185 ng/mL (0.000-0.055) C-Reactive Protein, Quantitative 22.7 mg/L (0-3.3) CV-Ovy-P-Type Natriuretic Peptide 379 pg/mL (0-449) Total Protein 8.8 g/dL (6.4-8.2) Albumin 3.4 g/dL (3.4-5.0) Albumin/Globulin Ratio 0.6 (1.0-1.7) Triglycerides Level 35 mg/dL (0-150) Cholesterol Level 162 mg/dL (0-200) LDL Cholesterol, Calculated 114 mg/dL (0-100) VLDL Cholesterol, Calculated 7 mg/dL (0-40) Non-HDL Cholesterol Calculated 121 mg/dL (0-129) HDL Cholesterol 41 mg/dL (40-60) Cholesterol/HDL Ratio 4.0 Procalcitonin < 0.10 ng/mL (0.00-0.10) < 0.10 ng/mL (0.00-0.10) Thyroid Stimulating Hormone (TSH) 4.258 uIU/mL (0.358-3.74) Laboratory Tests Test 08/25/18 04:45 Procalcitonin < 0.10 ng/mL (0.00-0.10) Microbiology 08/23/18 Blood Culture - Preliminary, Resulted NO GROWTH AFTER 1 DAY Medications Current Medications Albuterol/ Ipratropium (Duoneb) 3 ml 1X ONCE NEB Last administered on 14:02; Start 08/23/18 at 13:15; Stop 08/23/18 at 13:18; Status DC Amoxicillin/ Clavulanate Potassium (Augmentin 875/ 125mg) 1 tab BID PO Last administered on 08/24/18at 08:21; Start 08/23/18 at 23:00; Stop 08/24/18 at 14:20 ; Status DC Levothyroxine Sodium (Synthroid) 125 mcg DAILY06 PO Last administered on at 04:58; Start 08/24/18 at 06:00 Lactobacillus Rhamnosus (Culturelle) 1 cap BID PO Last administered on 08:24; Start 08/24/18 at 09:00 Piperacillin Sod/ Tazobactam Sod (Zosyn Per Pharmacy) 1 each PRN DAILY PRN MC SEE COMMENTS; Start 08/24/18 at 14:30 Vancomycin HCl (Vanco Per Pharmacy) 1 each PRN DAILY PRN MC SEE COMMENTS Last administered on 08/24/18at 17:32; Start 08/24/18 at 14:30 Vancomycin HCl 1.75 gm/Sodium Chloride 500 ml @ 250 mls/hr 1X ONCE IV Last administered on 08/24/18at 17:20; Start 08/24/18 at 15:00; Stop 08/24/18 at 16:59 ; Status DC Piperacillin Sod/ Tazobactam Sod 3.375 gm/Sodium Chloride 50 ml @ 100 mls/hr Q6H IV Last administered on 08/25/18at 06:06; Start 08/24/18 at 14:30 Aspirin (Ecotrin) 81 mg DAILYWBKFT PO Last administered on 08/25/18at 08:24; Start 08/24/18 at 16:00 Atorvastatin Calcium (Lipitor) 20 mg QHS PO Last administered on 08/24/18at 22: 29; Start 08/24/18 at 21:00 Vancomycin HCl 1 gm/Sodium Chloride 250 ml @ 250 mls/hr Q12H IV Last administered on 08/25/18at 04:59; Start 08/25/18 at 05:30 Vancomycin HCl (Vancomycin Trough Level) 1 each 1X ONCE MC ; Start 08/26/18 at 05:00; Stop 08/26/18 at 05:01 Active Scripts Active Reported Augmentin 875-125 Tablet (Amoxicillin/Potassium Clav) 1 Each Tablet 1 Tab PO BID Levothyroxine Sodium 125 Mcg Tablet 125 Mcg PO DAILY Vitals/I & O Vital Sign - Last 24 Hours 08/24/18 08/24/18 08/24/18 08/24/18 10:54 15:00 19:52 19:57 Temp 97.7 97.6 98.0 97.7 97.6 98.0 Pulse 82 85 68 Resp 20 18 18 B/P (MAP) 137/68 (91) 120/67 (84) 105/57 (73) Pulse Ox 96 94 96 O2 Delivery Room Air Room Air Room Air Room Air 08/24/18 08/25/18 08/25/18 08/25/18 23:21 03:03 07:30 08:00 Temp 97.8 97.8 98.1 97.8 97.8 98.1 Pulse 66 66 69 Resp 18 18 18 B/P (MAP) 110/57 (74) 115/54 (74) 99/64 (76) Pulse Ox 96 96 97 O2 Delivery Room Air Room Air Room Air Room Air Intake and Output 08/24/18 08/24/18 08/25/18 15:00 23:00 07:00 Intake Total 520 ml 1300 ml 300 ml Balance 520 ml 1300 ml 300 ml MILANA CLARK MD Aug 25, 2018 10:32
[2018-08-25 10:53] VITALS: BP 107/68
--- NOTE | 2018-08-25 11:06 | PDOC ---
PULMONARY PROGRESS NOTES Subjective hemoptysis improved yesterday but re-occured this am, no soa Vitals Vital Signs Date Time Temp Pulse Resp B/P (MAP) Pulse Ox O2 Delivery O2 Flow Rate FiO2 08/25/18 10:53 98.2 78 19 107/68 (81) 97 Room Air 98.2 General: Alert, No acute distress Lungs: Crackles (bases) Cardiovascular: S1 Abdomen: Soft Neuro Exam: Alert Extremities: No Edema Skin: Warm Labs Laboratory Tests Test 08/23/18 12:50 08/23/18 22:35 08/24/18 04:43 08/25/18 04:45 White Blood Count 7.9 x10^3/uL (4.0-11.0) Red Blood Count 4.26 x10^6/uL (4.30-5.70) Hemoglobin 12.1 g/dL (13.0-17.5) Hematocrit 37.0 % (39.0-53.0) Mean Corpuscular Volume 87 fL (79-100) Mean Corpuscular Hemoglobin 29 pg (25-35) Mean Corpuscular Hemoglobin Concent 33 g/dL (31-37) Red Cell Distribution Width 14.7 % (11.5-14.5) Platelet Count 241 x10^3/uL (140-400) Neutrophils (%) (Auto) 67 % (31-73) Lymphocytes (%) (Auto) 21 % (24-48) Monocytes (%) (Auto) 8 % (0-9) Eosinophils (%) (Auto) 3 % (0-3) Basophils (%) (Auto) 1 % (0-3) Neutrophils # (Auto) 5.3 x10^3uL (1.8-7.7) Lymphocytes # (Auto) 1.7 x10^3/uL (1.0-4.8) Monocytes # (Auto) 0.7 x10^3/uL (0.0-1.1) Eosinophils # (Auto) 0.2 x10^3/uL (0.0-0.7) Basophils # (Auto) 0.0 x10^3/uL (0.0-0.2) Erythrocyte Sedimentation Rate 44 (0-15) Prothrombin Time 13.5 SEC (11.7-14.0) Prothromb Time International Ratio 1.1 (0.8-1.1) Sodium Level 134 mmol/L (136-145) Potassium Level 4.1 mmol/L (3.5-5.1) Chloride Level 98 mmol/L (98-107) Carbon Dioxide Level 26 mmol/L (21-32) Anion Gap 10 (6-14) Blood Urea Nitrogen 19 mg/dL (8-26) Creatinine 1.0 mg/dL (0.7-1.3) Estimated GFR (Cockcroft-Gault) 72.1 BUN/Creatinine Ratio 19 (6-20) Glucose Level 102 mg/dL (70-99) Lactic Acid Level 1.1 mmol/L (0.4-2.0) Calcium Level 8.5 mg/dL (8.5-10.1) Total Bilirubin 0.6 mg/dL (0.2-1.0) Aspartate Amino Transf (AST/SGOT) 14 U/L (15-37) Alanine Aminotransferase (ALT/SGPT) 14 U/L (16-63) Alkaline Phosphatase 79 U/L (46-116) Troponin I Quantitative 0.289 ng/mL (0.000-0.055) 0.204 ng/mL (0.000-0.055) 0.185 ng/mL (0.000-0.055) C-Reactive Protein, Quantitative 22.7 mg/L (0-3.3) OW-Fpq-O-Type Natriuretic Peptide 379 pg/mL (0-449) Total Protein 8.8 g/dL (6.4-8.2) Albumin 3.4 g/dL (3.4-5.0) Albumin/Globulin Ratio 0.6 (1.0-1.7) Triglycerides Level 35 mg/dL (0-150) Cholesterol Level 162 mg/dL (0-200) LDL Cholesterol, Calculated 114 mg/dL (0-100) VLDL Cholesterol, Calculated 7 mg/dL (0-40) Non-HDL Cholesterol Calculated 121 mg/dL (0-129) HDL Cholesterol 41 mg/dL (40-60) Cholesterol/HDL Ratio 4.0 Procalcitonin < 0.10 ng/mL (0.00-0.10) < 0.10 ng/mL (0.00-0.10) Thyroid Stimulating Hormone (TSH) 4.258 uIU/mL (0.358-3.74) Laboratory Tests Test 08/25/18 04:45 Procalcitonin < 0.10 ng/mL (0.00-0.10) Medications Active Scripts Medications Dose Route/Sig Max Daily Dose Days Date Category Augmentin 875-125 Tablet (Amoxicillin/Potassium Clav) 1 Each Tablet 1 Tab PO BID 08/23/18 Reported Levothyroxine Sodium 125 Mcg Tablet 125 Mcg PO DAILY 07/30/13 Reported Impression . 1. Persistent hemoptysis for the last 2 weeks in a patient who had a mass-like consolidation on CT chest in July. There appeared to be some cavitation at that time and the hemoptysis was likely related to infectious etiology such as pneumonia complicated by possible lung abscess. The patient did improve initially with Augmentin, now has persistent and recurrent hemoptysis. His CT chest showing residual consolidation. At this point, I would treat as an infectious etiology; however, the possibility of a lung malignancy and endobronchial lesion cannot be completely ruled out. 2. 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 3. Minimal history of tobacco use. Doubt clinically significant chronic obstructive pulmonary disease. 4. Mildly increased troponin level. Plan . 1. IV antibiotics with Zosyn and vancomycin. 2. off Augmentin. 3. Monitor hemoptysis closely. If it does not improve with broad-spectrum antibiotics, then he would need a bronchoscopy Tuesday. 4. I would also recommend doing a PET scan as an outpatient if no improvement in symptoms or chest CTs. 5. bronchodilators p.r.n. 6. Normal procalcitonin level . will do CTA chest to r/o PE as well causing hemoptysis 7. Further recommendations to follow. 8. The patient may be a candidate for IPF treatment with FDA approved medications. We will leave up to Dr. Mike as an outpatient. 9. Discussed with RN/ PT. We will follow along with you. LAUREL MOREL MD Aug 25, 2018 11:06
[2018-08-25] MEDS ORDERED: IOHEXOL 350 MG/ML 100 ML VIAL. IV ONE (11:15)
[2018-08-25] MEDS ORDERED: CONTRAST GIVEN. MC PRN (11:30)
[2018-08-25] MEDS: VANCOMYCIN PER PHARMACY MC PRN (13:32)
--- NOTE | 2018-08-25 15:29 | RAD ---
CTA of the chest with contrast, 08/25/2018: HISTORY: Persistent hemoptysis Multidetector CT imaging was performed following an IV bolus injection of iodinated contrast material. Multiplanar reconstructions were produced including coronal and sagittal MIP images. Comparison is made to yesterday's noncontrast exam. The central pulmonary arteries are well opacified and no filling defects are seen to suggest pulmonary emboli. There is mild aortic calcific plaquing without evidence of aneurysm. Moderate coronary artery calcifications are present. The heart is generally enlarged. There are calcified mediastinal lymph nodes compatible with old granulomatous disease. Slightly enlarged mediastinal and mildly prominent hilar lymph nodes are present. There are extensive fibrotic changes in both lungs with peripheral honeycombing and areas of traction bronchiectasis. There are tree-in-bud type opacities primarily in the right lower lobe. A smaller more dense focal consolidation is again noted posteriorly in the right lower lobe. There is an air-fluid level within this process suggesting an area of cavitation versus an infected bulla. Abscess or cavitary neoplasm cannot be excluded. This was present on yesterday's study but is better defined on today's thinner slices. No new pulmonary abnormality is seen when compared to yesterday's study. IMPRESSION: 1. No CT evidence of central pulmonary emboli. 2. Moderate to severe pulmonary fibrosis. 3. Probable superimposed pneumonitis in the right lower lobe with a small cavitary component posteriorly as described above. 4. Mild mediastinal and bilateral hilar adenopathy. 5. Cardiomegaly with coronary artery disease. PQRS Compliance Statement: One or more of the following individualized dose reduction techniques were utilized for this examination: 1. Automated exposure control 2. Adjustment of the mA and/or kV according to patient size 3. Use of iterative reconstruction technique Electronically signed by: Cornelio Berrios MD (08/25/2018 3:26 PM) [facility]
[2018-08-25] MEDS ORDERED: IOHEXOL 350 MG/ML 100 ML VIAL. ONE (16:15)
[2018-08-25 19:00] VITALS: BP 111/64
[2018-08-25] MEDS: ATORVASTATIN CALCIUM 20 MG TABLET PO SCH (20:10)
[2018-08-25 23:00] VITALS: BP 111/71
[2018-08-26] MEDS: PIPERACILLIN/TAZOBACTAM 3.375 GM in IV NORMAL SALINE 50ML 50 ML IV SCH ×5 (00:29→23:18)
[2018-08-26 03:00] VITALS: BP 105/62
[2018-08-26] MEDS: VANCOMYCIN 1 GM in IV NORMAL SALINE 250ML 250 ML IV SCH (05:38)
[2018-08-26 06:13] LABS: VANC TR 11.5 mcg/mL (10.0-20.0)
[2018-08-26] MEDS: VANCOMYCIN PER PHARMACY MC PRN (06:27)
--- NOTE | 2018-08-26 06:27 | NUR ---
Pharmacy Vancomycin Dosing Note S:Consulted to monitor and dose vancomycin started 08/24/18. O:ROSALVA LEONARDO is a 78 year old M with CAP possible lung abscesses . Height: 5 feet, 11 inches Weight: 71.493940 kg [place] Body Weight: 75.30 Adjusted Body Weight: 73.90 Dosing Weight: Actual Other Antibiotics: ZOSYN 3.375G IV Q6HRS LABS: Last BUN: 19 Last Creatinine: 1.0 Creatinine Clearance: 60 mL/min Last WBC: 7.9 Last Procalcitonin: < 0.1 Tmax (past 24 hours): 98.2 Microbiology: BLOOD CX (08/23): NGTD I/O: 2100/output not documented; 2 voids Drug Levels: Last Trough level: 11.5 on 08/26/18 at 0500 Last dose given 08/25/18 at 0549 Vancomycin Dosing: Loading Dose: 1750 mg x1 Dosing Weight: Actual Target Trough: 15-20 A: Based on: TROUGH P: 1. Begin Vancomycin 1250 mg IV q12h 2. Follow up Trough level on 08/28/18 at 0530 3. Pharmacy will continue to monitor, follow and adjust therapy as needed. KIMBERLY ROSENBERG RPH, [id number] Signed: 08/26/18 at 06 by KIMBERLY ROSENBERG RPH PHA Signed: 08/26/18 at 0628 by KIMBERLY ROSENBERG [facility]
[2018-08-26] MEDS: LEVOTHYROXINE 125 MCG TABLET PO SCH (06:28)
[2018-08-26 06:55] VITALS: BP 121/60
[2018-08-26] MEDS: ASPIRIN ENTERIC COATED 81 MG TABLET.DR. PO SCH (08:25)
[2018-08-26] MEDS: LACTOBACILLUS RHAMNOSUS GG 1 CAPSULE. PO SCH ×2 (08:25→20:51)
--- NOTE | 2018-08-26 09:09 | PDOC ---
PROGRESS NOTES Subjective Subjective Patient slowly improving. sputum with less blood Objective Objective Vital Signs Date Time Temp Pulse Resp B/P (MAP) Pulse Ox O2 Delivery O2 Flow Rate FiO2 08/26/18 06:55 97.8 67 17 121/60 (80) 96 Room Air 97.8 Intake and Output 08/26/18 07:00 Intake Total 1300 ml Output Total 250 ml Balance 1050 ml Intake Oral 1300 ml Output Urine Total 250 ml # Voids 7 Physical Exam Abdomen: Normal bowel sounds Heart: No murmurs Extremities: No edema General: Alert Lungs: Other (course) Assessment Assessment Problems Medical Problems: (1) Hemoptysis Status: Acute (2) Pulmonary fibrosis Status: Acute Community-acquired pneumonia Hemoptysis Elevated troponin. Pulmonary fibrosis. Weight loss. Plan Plan of Care Continue IV antibiotics. Continue pulmonary toilet Consider bronchoscopy Tuesday if continued symptoms PET scan as outpatient Comment Review of Relevant I have reviewed the following items tri (where applicable) has been applied. Labs Laboratory Tests Test 08/25/18 04:45 08/26/18 05:15 Procalcitonin < 0.10 ng/mL (0.00-0.10) Vancomycin Level Trough 11.5 mcg/mL (10.0-20.0) Vancomycin Last Dose Date 08/25/18 Vancomycin Last Dose Time 1730 Laboratory Tests Test 08/26/18 05:15 Vancomycin Level Trough 11.5 mcg/mL (10.0-20.0) Vancomycin Last Dose Date 08/25/18 Vancomycin Last Dose Time 1730 Microbiology 08/23/18 Blood Culture - Preliminary, Resulted NO GROWTH AFTER 2 DAYS Medications Current Medications Albuterol/ Ipratropium (Duoneb) 3 ml 1X ONCE NEB Last administered on at 14:02; Start 08/23/18 at 13:15; Stop 08/23/18 at 13:18; Status DC Amoxicillin/ Clavulanate Potassium (Augmentin 875/ 125mg) 1 tab BID PO Last administered on 08/24/18at 08:21; Start 08/23/18 at 23:00; Stop 08/24/18 at 14:20 ; Status DC Levothyroxine Sodium (Synthroid) 125 mcg DAILY06 PO Last administered on at 06:28; Start 08/24/18 at 06:00 Lactobacillus Rhamnosus (Culturelle) 1 cap BID PO Last administered on at 08:25; Start 08/24/18 at 09:00 Piperacillin Sod/ Tazobactam Sod (Zosyn Per Pharmacy) 1 each PRN DAILY PRN MC SEE COMMENTS; Start 08/24/18 at 14:30 Vancomycin HCl (Vanco Per Pharmacy) 1 each PRN DAILY PRN MC SEE COMMENTS Last administered on 08/26/18at 06:27; Start 08/24/18 at 14:30 Vancomycin HCl 1.75 gm/Sodium Chloride 500 ml @ 250 mls/hr 1X ONCE IV Last administered on 08/24/18at 17:20; Start 08/24/18 at 15:00; Stop 08/24/18 at 16:59 ; Status DC Piperacillin Sod/ Tazobactam Sod 3.375 gm/Sodium Chloride 50 ml @ 100 mls/hr Q6H IV Last administered on 08/26/18at 06:28; Start 08/24/18 at 14:30 Aspirin (Ecotrin) 81 mg DAILYWBKFT PO Last administered on 08/26/18at 08:25; Start 08/24/18 at 16:00 Atorvastatin Calcium (Lipitor) 20 mg QHS PO Last administered on 08/25/18at 20: 10; Start 08/24/18 at 21:00 Vancomycin HCl 1 gm/Sodium Chloride 250 ml @ 250 mls/hr Q12H IV Last administered on 08/26/18at 05:38; Start 08/25/18 at 05:30; Stop 08/26/18 at 12:00 Vancomycin HCl (Vancomycin Trough Level) 1 each 1X ONCE MC Last administered on 08/26/18at 05:00; Start 08/26/18 at 05:00; Stop 08/26/18 at 05:01; Status DC Iohexol (Omnipaque 350 Mg/ml) 90 ml 1X ONCE IV Last administered on 08/25/18at 14:40; Start 08/25/18 at 11:15; Stop 08/25/18 at 11:16; Status DC Info (CONTRAST GIVEN -- Rx MONITORING) 1 each PRN DAILY PRN MC SEE COMMENTS; Start 08/25/18 at 11:30; Stop 08/27/18 at 11:29 Iohexol (Omnipaque 350 Mg/ml) 100 ml STK-MED ONCE .ROUTE ; Start 08/25/18 at 16: 15; Stop 08/25/18 at 16:16; Status DC Vancomycin HCl 1.25 gm/Sodium Chloride 250 ml @ 167 mls/hr Q12H IV ; Start at 18:00 Vancomycin HCl (Vancomycin Trough Level) 1 each 1X ONCE MC ; Start 08/28/18 at 05:30; Stop 08/28/18 at 05:31 Active Scripts Active Reported Augmentin 875-125 Tablet (Amoxicillin/Potassium Clav) 1 Each Tablet 1 Tab PO BID Levothyroxine Sodium 125 Mcg Tablet 125 Mcg PO DAILY Vitals/I & O Vital Sign - Last 24 Hours 08/25/18 08/25/18 08/25/18 08/25/18 10:53 19:00 20:00 23:00 Temp 98.2 98.0 97.7 98.2 98.0 97.7 Pulse 78 70 62 Resp 19 18 18 B/P (MAP) 107/68 (81) 111/64 (80) 111/71 (84) Pulse Ox 97 95 93 O2 Delivery Room Air Room Air Room Air Room Air 08/26/18 08/26/18 03:00 06:55 Temp 98.3 97.8 98.3 97.8 Pulse 59 67 Resp 18 17 B/P (MAP) 105/62 (76) 121/60 (80) Pulse Ox 93 96 O2 Delivery Room Air Room Air Intake and Output 08/25/18 08/25/18 08/26/18 15:00 23:00 07:00 Intake Total 600 ml 700 ml Output Total 250 ml Balance 350 ml 700 ml MILANA CLARK MD Aug 26, 2018 09:09
--- NOTE | 2018-08-26 09:16 | PDOC ---
PULMONARY PROGRESS NOTES Subjective hemoptysis improved, no sob, no pain Vitals Vital Signs Date Time Temp Pulse Resp B/P (MAP) Pulse Ox O2 Delivery O2 Flow Rate FiO2 08/26/18 06:55 97.8 67 17 121/60 (80) 96 Room Air 97.8 ROS: No Nausea General: Alert, No acute distress HEENT: Other (nc at perrl ) Lungs: Crackles (bases) Cardiovascular: S1, S2 Abdomen: Soft, Non-tender Neuro Exam: Alert Extremities: No Edema Skin: Warm Labs Laboratory Tests Test 08/25/18 04:45 08/26/18 05:15 Procalcitonin < 0.10 ng/mL (0.00-0.10) Vancomycin Level Trough 11.5 mcg/mL (10.0-20.0) Vancomycin Last Dose Date 08/25/18 Vancomycin Last Dose Time 173 Laboratory Tests Test 08/26/18 05:15 Vancomycin Level Trough 11.5 mcg/mL (10.0-20.0) Vancomycin Last Dose Date 08/25/18 Vancomycin Last Dose Time 1730 Medications Active Scripts Medications Dose Route/Sig Max Daily Dose Days Date Category Augmentin 875-125 Tablet (Amoxicillin/Potassium Clav) 1 Each Tablet 1 Tab PO BID 08/23/18 Reported Levothyroxine Sodium 125 Mcg Tablet 125 Mcg PO DAILY 07/30/[address] 1. No CT evidence of central pulmonary emboli. 2. Moderate to severe pulmonary fibrosis. 3. Probable superimposed pneumonitis in the right lower lobe with a small cavitary component posteriorly as described above. 4. Mild mediastinal and bilateral hilar adenopathy. 5. Cardiomegaly with coronary artery disease. Impression . 1. Persistent hemoptysis for the last 2 weeks in a patient who had a mass-like consolidation on CT chest in July. There appeared to be some cavitation at that time and the hemoptysis was likely related to infectious etiology such as pneumonia complicated by possible lung abscess. The patient did improve initially with Augmentin, now has persistent and recurrent hemoptysis. His CT chest showing residual consolidation. At this point, I would treat as an infectious etiology; however, the possibility of a lung malignancy and endobronchial lesion cannot be completely ruled out. 2. 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 3. Minimal history of tobacco use. Doubt clinically significant chronic obstructive pulmonary disease. 4. Mildly increased troponin level. Plan . 1. IV antibiotics with Zosyn and vancomycin. 2. BD 3. Monitor hemoptysis closely. If it does not improve with broad-spectrum antibiotics, then he would need a bronchoscopy Tuesday. improving 4. PET scan as an outpatient if no improvement in symptoms or chest CTs. 5. The patient may be a candidate for IPF treatment with FDA approved medications. We will leave up to Dr. Mike as an outpatient. 6. Normal procalcitonin level . CTA chest reviewed, no PE 7. Further recommendations to follow. Discussed with PT. We will follow along with you. MICHOACANO HAYS MD Aug 26, 2018 09:15
[2018-08-26 10:37] VITALS: BP 116/58
[2018-08-26 11:52] LABS: CREATININE 1.1 mg/dL (0.7-1.3); GFR 64.6
[2018-08-26 14:40] VITALS: BP 108/66
[2018-08-26] MEDS: VANCOMYCIN 1.25 GM in IV NORMAL SALINE 250ML 250 ML IV SCH (19:27)
[2018-08-26 19:44] VITALS: BP 113/67
[2018-08-26] MEDS: ATORVASTATIN CALCIUM 20 MG TABLET PO SCH (20:51)
[2018-08-26 23:44] VITALS: BP 121/62
[2018-08-27 03:34] VITALS: BP 124/78
[2018-08-27] MEDS: PIPERACILLIN/TAZOBACTAM 3.375 GM in IV NORMAL SALINE 50ML 50 ML IV SCH ×4 (05:46→23:17)
[2018-08-27] MEDS: LEVOTHYROXINE 125 MCG TABLET PO SCH (06:28)
[2018-08-27] MEDS: VANCOMYCIN 1.25 GM in IV NORMAL SALINE 250ML 250 ML IV SCH ×2 (06:28→19:47)
[2018-08-27 06:55] VITALS: BP 109/66
[2018-08-27] MEDS: LACTOBACILLUS RHAMNOSUS GG 1 CAPSULE. PO SCH ×2 (08:25→19:54)
[2018-08-27] MEDS: ASPIRIN ENTERIC COATED 81 MG TABLET.DR. PO SCH (08:25)
[2018-08-27 09:06] LABS: GFR 72.1
--- NOTE | 2018-08-27 09:06 | PDOC ---
PULMONARY PROGRESS NOTES Subjective still has significant hemoptysis, no sob, no pain Vitals Vital Signs Date Time Temp Pulse Resp B/P (MAP) Pulse Ox O2 Delivery O2 Flow Rate FiO2 08/27/18 08:00 Room Air 08/27/18 06:55 97.6 75 17 109/66 (80) 97 97.6 ROS: No Nausea General: Alert, Oriented X4, No acute distress HEENT: Other (nc at perrl ) Lungs: Crackles (bases) Cardiovascular: S1, S2 Abdomen: Soft, Non-tender Neuro Exam: Alert Extremities: No Edema Skin: Warm Labs Laboratory Tests Test 08/26/18 05:15 Creatinine 1.1 mg/dL (0.7-1.3) Estimated GFR (Cockcroft-Gault) 64.6 Vancomycin Level Trough 11.5 mcg/mL (10.0-20.0) Vancomycin Last Dose Date 08/25/18 Vancomycin Last Dose Time 1730 Medications Active Scripts Medications Dose Route/Sig Max Daily Dose Days Date Category Augmentin 875-125 Tablet (Amoxicillin/Potassium Clav) 1 Each Tablet 1 Tab PO BID 08/23/18 Reported Levothyroxine Sodium 125 Mcg Tablet 125 Mcg PO DAILY 07/30/[address] 1. No CT evidence of central pulmonary emboli. 2. Moderate to severe pulmonary fibrosis. 3. Probable superimposed pneumonitis in the right lower lobe with a small cavitary component posteriorly as described above. 4. Mild mediastinal and bilateral hilar adenopathy. 5. Cardiomegaly with coronary artery disease. Impression . 1. Persistent hemoptysis for the last 2 weeks in a patient who had a mass-like consolidation on CT chest in July. There appeared to be some cavitation at that time and the hemoptysis was likely related to infectious etiology such as pneumonia complicated by possible lung abscess. The patient did improve initially with Augmentin, now has persistent and recurrent hemoptysis. His CT chest showing residual consolidation. At this point, I would treat as an infectious etiology; however, the possibility of a lung malignancy and endobronchial lesion cannot be completely ruled out. 2. 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 3. Minimal history of tobacco use. Doubt clinically significant chronic obstructive pulmonary disease. 4. Mildly increased troponin level. Plan . 1. IV antibiotics with Zosyn and vancomycin. 2. BD 3. still has sig hemoptysis bronch tuesday, npo after midnight 4. may need PET scan as an outpatient. 5. The patient may be a candidate for IPF treatment with FDA approved medications. We will leave up to Dr. Mike as an outpatient. 6. Normal procalcitonin level . CTA chest reviewed, no PE 7. Further recommendations to follow. Discussed with PT, RN. We will follow along with you. MICHOACANO HAYS MD Aug 27, 2018 09:06
[2018-08-27 10:39] VITALS: BP 105/53
[2018-08-27] MEDS: VANCOMYCIN PER PHARMACY MC PRN (11:49)
--- NOTE | 2018-08-27 14:28 | PDOC ---
PROGRESS NOTES Subjective Subjective Patient feels better but having increased hemoptysis this AM. Objective Objective Vital Signs Date Time Temp Pulse Resp B/P (MAP) Pulse Ox O2 Delivery O2 Flow Rate FiO2 08/27/18 10:39 97.7 59 18 105/53 (70) 96 Room Air 97.7 Intake and Output 08/27/18 07:00 Intake Total 2240 ml Output Total 1250 ml Balance 990 ml Intake Oral 2240 ml Output Urine Total 1250 ml # Voids 6 Physical Exam Abdomen: Normal bowel sounds Heart: Regular rate Extremities: No edema General: Alert Lungs: Other (Course BS) Assessment Assessment Problems Medical Problems: (1) Hemoptysis Status: Acute (2) Pulmonary fibrosis Status: Acute Community-acquired pneumonia Hemoptysis Elevated troponin. Pulmonary fibrosis. Weight loss. Plan Plan of Care Continue IV antibiotics. Continue pulmonary toilet Consider bronchoscopy Tuesday if continued symptoms PET scan as outpatient Comment Review of Relevant I have reviewed the following items tri (where applicable) has been applied. Labs Laboratory Tests Test 08/26/18 05:15 08/27/18 08:10 Creatinine 1.1 mg/dL (0.7-1.3) 1.0 mg/dL (0.7-1.3) Estimated GFR (Cockcroft-Gault) 64.6 72.1 Vancomycin Level Trough 11.5 mcg/mL (10.0-20.0) Vancomycin Last Dose Date 08/25/18 Vancomycin Last Dose Time 1730 Laboratory Tests Test 08/27/18 08:10 Creatinine 1.0 mg/dL (0.7-1.3) Estimated GFR (Cockcroft-Gault) 72.1 Microbiology 08/23/18 Blood Culture - Preliminary, Resulted NO GROWTH AFTER 4 DAYS 08/25/18 - Final, Complete 08/25/18 - Final, Complete 08/25/18 - Final, Complete 08/25/18 - Final, Complete 08/25/18 - Final, Complete 08/25/18 Gram Stain Evaluation - Final, Complete 08/25/18 Sputum Culture - Final, Complete 08/25/18 Sputum Result 1 - Final, Complete Medications Current Medications Albuterol/ Ipratropium (Duoneb) 3 ml 1X ONCE NEB Last administered on at 14:02; Start 08/23/18 at 13:15; Stop 08/23/18 at 13:18; Status DC Amoxicillin/ Clavulanate Potassium (Augmentin 875/ 125mg) 1 tab BID PO Last administered on 08/24/18 08:21; Start 08/23/18 at 23:00; Stop 08/24/18 at 14:20 ; Status DC Levothyroxine Sodium (Synthroid) 125 mcg DAILY06 PO Last administered on at 06:28; Start 08/24/18 at 06:00 Lactobacillus Rhamnosus (Culturelle) 1 cap BID PO Last administered on 08:25; Start 08/24/18 at 09:00 Piperacillin Sod/ Tazobactam Sod (Zosyn Per Pharmacy) 1 each PRN DAILY PRN MC SEE COMMENTS; Start 08/24/18 at 14:30 Vancomycin HCl (Vanco Per Pharmacy) 1 each PRN DAILY PRN MC SEE COMMENTS Last administered on 08/27/18at 11:49; Start 08/24/18 at 14:30 Vancomycin HCl 1.75 gm/Sodium Chloride 500 ml @ 250 mls/hr 1X ONCE IV Last administered on 08/24/18at 17:20; Start 08/24/18 at 15:00; Stop 08/24/18 at 16:59 ; Status DC Piperacillin Sod/ Tazobactam Sod 3.375 gm/Sodium Chloride 50 ml @ 100 mls/hr Q6H IV Last administered on 08/27/18 12:06; Start 08/24/18 at 14:30 Aspirin (Ecotrin) 81 mg DAILYWBKFT PO Last administered on 08/27/18 08:25; Start 08/24/18 at 16:00 Atorvastatin Calcium (Lipitor) 20 mg QHS PO Last administered on 08/26/18at 20: 51; Start 08/24/18 at 21:00 Vancomycin HCl 1 gm/Sodium Chloride 250 ml @ 250 mls/hr Q12H IV Last administered on 08/26/18 05:38; Start 08/25/18 at 05:30; Stop 08/26/18 at 12:00 ; Status DC Vancomycin HCl (Vancomycin Trough Level) 1 each 1X ONCE MC Last administered on 08/26/18at 05:00; Start 08/26/18 at 05:00; Stop 08/26/18 at 05:01; Status DC Iohexol (Omnipaque 350 Mg/ml) 90 ml 1X ONCE IV Last administered on 08/25/18at 14:40; Start 08/25/18 at 11:15; Stop 08/25/18 at 11:16; Status DC Info (CONTRAST GIVEN -- Rx MONITORING) 1 each PRN DAILY PRN MC SEE COMMENTS; Start 08/25/18 at 11:30; Stop 08/27/18 at 11:29; Status DC Iohexol (Omnipaque 350 Mg/ml) 100 ml STK-MED ONCE .ROUTE ; Start 08/25/18 at 16: 15; Stop 08/25/18 at 16:16; Status DC Vancomycin HCl 1.25 gm/Sodium Chloride 250 ml @ 167 mls/hr Q12H IV Last administered on 08/27/18at 06:28; Start 08/26/18 at 18:00 Vancomycin HCl (Vancomycin Trough Level) 1 each 1X ONCE MC ; Start 08/28/18 at 05:30; Stop 08/28/18 at 05:31 Active Scripts Active Reported Augmentin 875-125 Tablet (Amoxicillin/Potassium Clav) 1 Each Tablet 1 Tab PO BID Levothyroxine Sodium 125 Mcg Tablet 125 Mcg PO DAILY Vitals/I & O Vital Sign - Last 24 Hours 08/26/18 08/26/18 08/26/18 08/26/18 14:40 19:44 19:55 23:44 Temp 97.9 97.5 98.0 97.9 97.5 98.0 Pulse 68 72 65 Resp 20 16 16 B/P (MAP) 108/66 (80) 113/67 (82) 121/62 (81) Pulse Ox 99 96 96 O2 Delivery Room Air Room Air Room Air Room Air 08/27/18 08/27/18 08/27/18 08/27/18 03:34 06:55 08:00 10:39 Temp 97.4 97.6 97.7 97.4 97.6 97.7 Pulse 69 75 59 Resp 16 17 18 B/P (MAP) 124/78 (93) 109/66 (80) 105/53 (70) Pulse Ox 97 97 96 O2 Delivery Room Air Room Air Room Air Room Air Intake and Output 08/26/18 08/26/18 08/27/18 15:00 23:00 07:00 Intake Total 540 ml 1200 ml 500 ml Output Total 1250 ml Balance 540 ml 1200 ml -750 ml MILANA CLARK MD Aug 27, 2018 14:28
[2018-08-27 14:45] VITALS: BP 111/47
[2018-08-27 19:18] VITALS: BP 121/71
[2018-08-27] MEDS: ATORVASTATIN CALCIUM 20 MG TABLET PO SCH (19:54)
[2018-08-27 23:45] VITALS: BP 110/64
[2018-08-28 03:01] VITALS: BP 137/77
[2018-08-28] MEDS: PIPERACILLIN/TAZOBACTAM 3.375 GM in IV NORMAL SALINE 50ML 50 ML IV SCH ×4 (05:39→23:38)
[2018-08-28 06:40] LABS: VANC TR 16.2 mcg/mL (10.0-20.0)
[2018-08-28] MEDS: VANCOMYCIN PER PHARMACY MC PRN (06:51)
--- NOTE | 2018-08-28 06:51 | NUR ---
Pharmacy Vancomycin Dosing Note S:Consulted to monitor and dose vancomycin started 08/24/18. O:ROSALVA LEONARDO is a 78 year old M with CAP possible lung abscesses . Height: 5 feet, 11 inches Weight: 71.450834 kg [place] Body Weight: 75.30 Adjusted Body Weight: 73.90 Dosing Weight: Actual Other Antibiotics: ZOSYN 3.375G IV Q6HRS LABS: Last BUN: 19 Last Creatinine: 1.0 Creatinine Clearance: 60 mL/min Last WBC: 7.9 Last Procalcitonin: < 0.1 Tmax (past 24 hours): 98.2 Microbiology: BLOOD CX (08/23): NGTD I/O: 2240 / 1250; 2 voids Drug Levels: Last Trough level: 16.2, TRUE TROUGH 14.7 on 08/28/18 at 0530 Last dose given 08/27/18 at 0628 Vancomycin Dosing: Loading Dose: 1750 mg x1 Dosing Weight: Actual Target Trough: 15-20 A: Based on: TRUE TROUGH P: 1. Continue Vancomycin 1250 mg IV q12h 2. Follow up Trough level IF NEEDED 3. Pharmacy will continue to monitor, follow and adjust therapy as needed. KIMBERLY ROSENBERG RPH, 08/28/18 [id number] Signed: 08/28/18 at 0652 by KIMBERLY ROSENBERG RPH PHA
[2018-08-28 07:00] VITALS: BP 153/81
[2018-08-28] MEDS: ASPIRIN ENTERIC COATED 81 MG TABLET.DR. PO SCH (08:00)
[2018-08-28] MEDS: LEVOTHYROXINE 125 MCG TABLET PO SCH (08:41)
[2018-08-28] MEDS: LACTOBACILLUS RHAMNOSUS GG 1 CAPSULE. PO SCH ×2 (09:00→20:23)
[2018-08-28] MEDS ORDERED: LIDOCAINE 4% TOPICAL 50 ML SOLUTION. MM PRN (09:30)
[2018-08-28] MEDS ORDERED: LIDOCAINE 2% VISCOUS 100 ML BOTTLE. MM PRN (09:30)
[2018-08-28] MEDS ORDERED: LIDOCAINE 1% Multi-Dose 20 ML VIAL. INJ PRN (09:30)
[2018-08-28] MEDS ORDERED: ALBUTEROL SULFATE 2.5 MG/3 ML NEBU. NEB PRN (09:30)
[2018-08-28] MEDS ORDERED: EPINEPHrine 1 MG/ML VIAL INJ PRN (09:30)
--- NOTE | 2018-08-28 09:55 | PDOC ---
PULMONARY PROGRESS NOTES Subjective still has hemoptysis, no sob, no pain Vitals Vital Signs Date Time Temp Pulse Resp B/P (MAP) Pulse Ox O2 Delivery O2 Flow Rate FiO2 08/28/18 07:00 97.6 75 18 153/81 (105) 97 Room Air 97.6 ROS: No Nausea General: Alert, Oriented X4, No acute distress HEENT: Other (nc at perrl ) Lungs: Crackles (bases) Cardiovascular: S1, S2 Abdomen: Soft, Non-tender Neuro Exam: Alert Extremities: No Edema Skin: Warm Labs Laboratory Tests Test 08/27/18 08:10 08/28/18 05:30 Creatinine 1.0 mg/dL (0.7-1.3) Estimated GFR (Cockcroft-Gault) 72.1 Vancomycin Level Trough 16.2 mcg/mL (10.0-20.0) Vancomycin Last Dose Date 08/27/18 Vancomycin Last Dose Time 1800 Laboratory Tests Test 08/28/18 05:30 Vancomycin Level Trough 16.2 mcg/mL (10.0-20.0) Vancomycin Last Dose Date 08/27/18 Vancomycin Last Dose Time 1800 Medications Active Scripts Medications Dose Route/Sig Max Daily Dose Days Date Category Augmentin 875-125 Tablet (Amoxicillin/Potassium Clav) 1 Each Tablet 1 Tab PO BID 08/23/18 Reported Levothyroxine Sodium 125 Mcg Tablet 125 Mcg PO DAILY 07/30/[address] 1. No CT evidence of central pulmonary emboli. 2. Moderate to severe pulmonary fibrosis. 3. Probable superimposed pneumonitis in the right lower lobe with a small cavitary component posteriorly as described above. 4. Mild mediastinal and bilateral hilar adenopathy. 5. Cardiomegaly with coronary artery disease. Impression . 1. Persistent hemoptysis for the last 2 weeks in a patient who had a mass-like consolidation on CT chest in July. There appeared to be some cavitation at that time and the hemoptysis was likely related to infectious etiology such as pneumonia complicated by possible lung abscess. The patient did improve initially with Augmentin, now has persistent and recurrent hemoptysis. His CT chest showing residual consolidation. At this point, Abx have not improved symptoms, the possibility of a lung malignancy and endobronchial lesion cannot be completely ruled out. Bronch today 2. 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 3. Minimal history of tobacco use. Doubt clinically significant chronic obstructive pulmonary disease. 4. Mildly increased troponin level. Plan . 1. IV antibiotics with Zosyn and vancomycin. 2. BD 3. still has sig hemoptysis bronch today/ May need Bronchial angiogram 4. may need PET scan as an outpatient. 5. The patient may be a candidate for IPF treatment with FDA approved medications. We will leave up to Dr. Mike as an outpatient. 6. Normal procalcitonin level . CTA chest reviewed, no PE 7. Further recommendations to follow. Discussed with PT, RN. We will follow along with you. LAUREL MOREL MD Aug 28, 2018 09:55
[2018-08-28] MEDS: VANCOMYCIN 1.25 GM in IV NORMAL SALINE 250ML 250 ML IV SCH ×2 (10:11→20:23)
[2018-08-28 11:00] VITALS: BP 117/59
[2018-08-28] MEDS ORDERED: LIDOCAINE 1% Multi-Dose 20 ML VIAL. ONE (11:21)
[2018-08-28] MEDS ORDERED: LIDOCAINE 2% VISCOUS 100 ML BOTTLE. ONE (11:21)
[2018-08-28] MEDS ORDERED: EPINEPHrine 1 MG/ML VIAL ONE (11:21)
--- NOTE | 2018-08-28 12:51 | NUR ---
Pt taken to outpatient for bronchoscopy.
--- NOTE | 2018-08-28 13:05 | PDOC ---
PROGRESS NOTES Subjective Subjective Patient continues to have hemoptysis. Patient states that every time he gets up and walks that he has more production of sputum with blood. Bronchoscopy planned for 1:00 today. Objective Objective Vital Signs Date Time Temp Pulse Resp B/P (MAP) Pulse Ox O2 Delivery O2 Flow Rate FiO2 08/28/18 11:00 98.0 71 18 117/59 (78) 99 Room Air 98.0 Intake and Output 08/28/18 07:00 Intake Total 2020 ml Output Total 225 ml Balance 1795 ml Intake Oral 2020 ml Output Urine Total 225 ml # Voids 7 Physical Exam Abdomen: Normal bowel sounds Heart: Other (grade 3/6 systolic ejection murmur.) Extremities: No edema General: Alert Lungs: Other (coarse breath sounds and wheezing bilaterally.) Assessment Assessment Problems Medical Problems: (1) Hemoptysis Status: Acute (2) Pulmonary fibrosis Status: Acute Community-acquired pneumonia Hemoptysis Elevated troponin. Pulmonary fibrosis. Weight loss. Plan Plan of Care Continue IV antibiotics. Continue pulmonary toilet Bronchoscopy at 1 PM PET scan as outpatient Comment Review of Relevant I have reviewed the following items tri (where applicable) has been applied. Labs Laboratory Tests Test 08/27/18 08:10 08/28/18 05:30 Creatinine 1.0 mg/dL (0.7-1.3) Estimated GFR (Cockcroft-Gault) 72.1 Vancomycin Level Trough 16.2 mcg/mL (10.0-20.0) Vancomycin Last Dose Date 08/27/18 Vancomycin Last Dose Time 1800 Laboratory Tests Test 08/28/18 05:30 Vancomycin Level Trough 16.2 mcg/mL (10.0-20.0) Vancomycin Last Dose Date 08/27/18 Vancomycin Last Dose Time 1800 Microbiology 08/23/18 Blood Culture - Preliminary, Resulted NO GROWTH AFTER 4 DAYS 08/25/18 - Final, Complete 08/25/18 - Final, Complete 08/25/18 - Final, Complete 08/25/18 - Final, Complete 08/25/18 - Final, Complete 08/25/18 Gram Stain Evaluation - Final, Complete 08/25/18 Sputum Culture - Final, Complete 08/25/18 Sputum Result 1 - Final, Complete Medications Current Medications Albuterol/ Ipratropium (Duoneb) 3 ml 1X ONCE NEB Last administered on at 14:02; Start 08/23/18 at 13:15; Stop 08/23/18 at 13:18; Status DC Amoxicillin/ Clavulanate Potassium (Augmentin 875/ 125mg) 1 tab BID PO Last administered on 08/24/18 08:21; Start 08/23/18 at 23:00; Stop 08/24/18 at 14:20 ; Status DC Levothyroxine Sodium (Synthroid) 125 mcg DAILY06 PO Last administered on 08:41; Start 08/24/18 at 06:00 Lactobacillus Rhamnosus (Culturelle) 1 cap BID PO Last administered on 19:54; Start 08/24/18 at 09:00 Piperacillin Sod/ Tazobactam Sod (Zosyn Per Pharmacy) 1 each PRN DAILY PRN MC SEE COMMENTS; Start 08/24/18 at 14:30 Vancomycin HCl (Vanco Per Pharmacy) 1 each PRN DAILY PRN MC SEE COMMENTS Last administered on 08/28/18at 06:51; Start 08/24/18 at 14:30 Vancomycin HCl 1.75 gm/Sodium Chloride 500 ml @ 250 mls/hr 1X ONCE IV Last administered on 08/24/18 17:20; Start 08/24/18 at 15:00; Stop 08/24/18 at 16:59 ; Status DC Piperacillin Sod/ Tazobactam Sod 3.375 gm/Sodium Chloride 50 ml @ 100 mls/hr Q6H IV Last administered on 08/28/18 05:39; Start 08/24/18 at 14:30 Aspirin (Ecotrin) 81 mg DAILYWBKFT PO Last administered on 08/27/18at 08:25; Start 08/24/18 at 16:00 Atorvastatin Calcium (Lipitor) 20 mg QHS PO Last administered on 08/27/18 19: 54; Start 08/24/18 at 21:00 Vancomycin HCl 1 gm/Sodium Chloride 250 ml @ 250 mls/hr Q12H IV Last administered on 08/26/18 05:38; Start 08/25/18 at 05:30; Stop 08/26/18 at 12:00 ; Status DC Vancomycin HCl (Vancomycin Trough Level) 1 each 1X ONCE MC Last administered on 08/26/18at 05:00; Start 08/26/18 at 05:00; Stop 08/26/18 at 05:01; Status DC Iohexol (Omnipaque 350 Mg/ml) 90 ml 1X ONCE IV Last administered on 08/25/18at 14:40; Start 08/25/18 at 11:15; Stop 08/25/18 at 11:16; Status DC Info (CONTRAST GIVEN -- Rx MONITORING) 1 each PRN DAILY PRN MC SEE COMMENTS; Start 08/25/18 at 11:30; Stop 08/27/18 at 11:29; Status DC Iohexol (Omnipaque 350 Mg/ml) 100 ml STK-MED ONCE .ROUTE ; Start 08/25/18 at 16: 15; Stop 08/25/18 at 16:16; Status DC Vancomycin HCl 1.25 gm/Sodium Chloride 250 ml @ 167 mls/hr Q12H IV Last administered on 08/28/18at 10:11; Start 08/26/18 at 18:00 Vancomycin HCl (Vancomycin Trough Level) 1 each 1X ONCE MC Last administered on 08/28/18at 05:39; Start 08/28/18 at 05:30; Stop 08/28/18 at 05:31; Status DC Albuterol Sulfate (Ventolin Neb Soln) 2.5 mg PRN 1X PRN NEB SHORTNESS OF BREATH ; Start 08/28/18 at 09:30; Stop 08/29/18 at 09:29 Lidocaine HCl (Lidocaine 2% Viscous) 100 ml PRN 1X PRN MM MOUTH PAIN; Start at 09:30; Stop 08/29/18 at 09:29 Lidocaine HCl (Lidocaine 1% 20ml Vial) 20 ml PRN 1X PRN INJ SEE COMMENTS; Start 08/28/18 at 09:30; Stop 08/29/18 at 09:29 Epinephrine HCl (Adrenalin) 1 mg PRN 1X PRN INJ SEE COMMENTS; Start 08/28/18 at 09:30; Stop 08/29/18 at 09:29 Lidocaine HCl 50 ml PRN 1X PRN MM SEE COMMENTS; Start 08/28/18 at 09:30; Stop 08/29/18 at 09:29 Epinephrine HCl (Adrenalin) 1 mg STK-MED ONCE .ROUTE ; Start 08/28/18 at 11:21; Stop 08/28/18 at 11:22; Status DC Lidocaine HCl (Lidocaine 1% 20ml Vial) 20 ml STK-MED ONCE .ROUTE ; Start at 11:21; Stop 08/28/18 at 11:22; Status DC Lidocaine HCl (Lidocaine 2% Viscous) 100 ml STK-MED ONCE .ROUTE ; Start at 11:21; Stop 08/28/18 at 11:22; Status DC Ringer's Solution 1,000 ml @ 100 mls/hr Q10H IV ; Start 08/28/18 at 13:00 Active Scripts Active Reported Augmentin 875-125 Tablet (Amoxicillin/Potassium Clav) 1 Each Tablet 1 Tab PO BID Levothyroxine Sodium 125 Mcg Tablet 125 Mcg PO DAILY Vitals/I & O Vital Sign - Last 24 Hours 08/27/18 08/27/18 08/27/18 08/27/18 14:45 19:18 20:04 23:45 Temp 97.6 97.7 97.7 97.6 97.7 97.7 Pulse 74 76 70 Resp 18 16 16 B/P (MAP) 111/47 (68) 121/71 (88) 110/64 (79) Pulse Ox 95 96 96 O2 Delivery Room Air Room Air Room Air Room Air 08/28/18 08/28/18 08/28/18 08/28/18 03:01 07:00 08:00 11:00 Temp 97.7 97.6 98.0 97.7 97.6 98.0 Pulse 66 75 71 Resp 16 18 18 B/P (MAP) 137/77 (97) 153/81 (105) 117/59 (78) Pulse Ox 96 97 99 O2 Delivery Room Air Room Air Room Air Room Air Intake and Output 08/27/18 08/27/18 08/28/18 15:00 23:00 07:00 Intake Total 840 ml 780 ml 400 ml Output Total 225 ml Balance 840 ml 780 ml 175 ml MILANA CLARK MD Aug 28, 2018 13:05
[2018-08-28] MEDS: IV RINGERS,LACTATED 1000ML 1,000 ML IV SCH ×2 (13:10→23:00)
[2018-08-28] MEDS ORDERED: PROPOFOL 20 ML IV ONE (13:33)
--- NOTE | 2018-08-28 14:24 | OP ---
DATE OF SURGERY: INDICATIONS: Persistent hemoptysis. DESCRIPTION OF PROCEDURE: Informed consent was obtained from the patient. All risks and benefits were explained, and he agreed to proceed with the procedure. Propofol was used by Anesthesia for sedation. Bronch was introduced via the right nostril. The upper airway was passed. Vocal cords move equally with respirations. The trachea was entered. No tracheal lesions seen. Sarah was sharp. The right lung was first examined. All subsegments of right upper lobe, right middle and right lower lobe were examined. No endobronchial lesion seen. No remnants of any dark blood or recent bleeding seen. Bronch was then introduced into the left lung. Again, all the subsegments of left upper lobe, lingula and left lower lobe were examined. No endobronchial lesions seen. No remnants of any recent bleeding observed. While I was pulling the scope back, I did not see any abnormalities in the laryngeal area as well. IMPRESSION: 1. No endobronchial lesions seen. 2. No remnants of any recent bleeding observed in all the subsegments of both the lungs. 3. If the patient's hemoptysis does not resolve, then he would need a bronchial angiogram. LAUREL MOREL MD DR: GAGANDEEP/aaron JOB#: [id number] / [id number]
--- NOTE | 2018-08-28 14:40 | NUR ---
Pt returns from bronchoscopy. NPO until 3pm.
[2018-08-28 15:00] VITALS: BP 118/52
--- NOTE | 2018-08-28 16:07 | PATHOLOGY ---
Note [facility] Accession Number: [id number] TESTS RESULT FLAG UNITS REF RANGE LAB Clinician Provided Cytology Information No. of containers..01 Other (Miscellaneous) Source: SPUTUM DIAGNOSIS: 02 SPUTUM NEGATIVE FOR MALIGNANT CELLS. FEW BRONCHIAL EPITHELIAL CELLS AND PULMONARY MACROPHAGES, SQUAMOUS EPITHELIAL CELLS, AND INFLAMMATORY CELLS PRESENT. Signed out by: Hammad Sanchez MD, Pathologist NPI- [id number] Performed by: Angy Kinney, Associate Automation Engineer ([facility]) Gross description: 01 10ML, BROWN, CLOUDY /LCS FLAG LEGEND: L-Low Normal,H-High Normal,LL-Alert Low,HH-Alert High <-Panic Low,>-Panic High,A-Abnormal,AA-Critical Abnormal Performed at: [facility] [address] [place] [address] [address] [place] [address] Khari Loving MD, 02 [facility] [address] [place] [address] Hammad Sanchez MD, Specimen Comment: A courtesy copy of this report has been sent to Specimen Comment: [phone], , . Specimen Comment: Report sent to DR ANNALEE Ferris / DR CLARK Specimen Comment: A duplicate report has been generated due to demographic updates. Performed at: [address] [place] [address] [address] [place] [facility] [address], [place], [place] [id number] MD Khari Loving MD Phone: [phone]
[2018-08-28 19:00] VITALS: BP 93/58
[2018-08-28] MEDS: ATORVASTATIN CALCIUM 20 MG TABLET PO SCH (20:23)
[2018-08-28 23:00] VITALS: BP 121/70
[2018-08-29 03:00] VITALS: BP 117/61
[2018-08-29] MEDS: PIPERACILLIN/TAZOBACTAM 3.375 GM in IV NORMAL SALINE 50ML 50 ML IV SCH ×2 (05:26→12:50)
[2018-08-29] MEDS: LEVOTHYROXINE 125 MCG TABLET PO SCH (06:10)
[2018-08-29] MEDS: VANCOMYCIN 1.25 GM in IV NORMAL SALINE 250ML 250 ML IV SCH (06:12)
[2018-08-29 06:50] VITALS: BP 119/67
[2018-08-29] MEDS: ASPIRIN ENTERIC COATED 81 MG TABLET.DR. PO SCH (09:54)
[2018-08-29] MEDS: LACTOBACILLUS RHAMNOSUS GG 1 CAPSULE. PO SCH (09:54)
[2018-08-29] MEDS: VANCOMYCIN PER PHARMACY MC PRN ×2 (10:14→10:15)
--- NOTE | 2018-08-29 10:17 | PDOC ---
PULMONARY PROGRESS NOTES Subjective almost resolved hemoptysis Vitals Vital Signs Date Time Temp Pulse Resp B/P (MAP) Pulse Ox O2 Delivery O2 Flow Rate FiO2 08/29/18 06:50 97.5 69 17 119/67 (84) 94 Room Air 97.5 08/28/18 13:53 10 ROS: No Nausea General: Alert, Oriented X4, No acute distress HEENT: Other (nc at perrl ) Lungs: Crackles (bases) Cardiovascular: S1, S2 Abdomen: Soft, Non-tender Neuro Exam: Alert Extremities: No Edema Skin: Warm Labs Laboratory Tests Test 08/28/18 05:30 Vancomycin Level Trough 16.2 mcg/mL (10.0-20.0) Vancomycin Last Dose Date 08/27/18 Vancomycin Last Dose Time 1800 Medications Active Scripts Medications Dose Route/Sig Max Daily Dose Days Date Category Augmentin 875-125 Tablet (Amoxicillin/Potassium Clav) 1 Each Tablet 1 Tab PO BID 08/23/18 Reported Levothyroxine Sodium 125 Mcg Tablet 125 Mcg PO DAILY 07/30/[address] 1. No CT evidence of central pulmonary emboli. 2. Moderate to severe pulmonary fibrosis. 3. Probable superimposed pneumonitis in the right lower lobe with a small cavitary component posteriorly as described above. 4. Mild mediastinal and bilateral hilar adenopathy. 5. Cardiomegaly with coronary artery disease. Impression . 1. hemoptysis POA for the last 2 weeks in a patient who had a mass-like consolidation on CT chest in July. There appeared to be some cavitation at that time and the hemoptysis was likely related to infectious etiology such as pneumonia complicated by possible lung abscess. The patient did improve initially with Augmentin, and then had recurrent hemoptysis. His CT chest showing residual consolidation. s/p Bronch. No endobronchial lesion 2. 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 3. Minimal history of tobacco use. Doubt clinically significant chronic obstructive pulmonary disease. 4. Mildly increased troponin level. Plan . 1. change to PO abx 2. BD 3. Hemoptysis almost resolved.Bronch with no endobronchial lesion 4. ok with dc home on PO abx 5. The patient may be a candidate for IPF treatment with FDA approved medications. We will leave up to Dr. Mike as an outpatient. 6. Normal procalcitonin level . CTA chest reviewed, no PE Discussed with PT, RN. LAUREL MOREL MD Aug 29, 2018 10:17
[2018-08-29 10:26] VITALS: BP 119/71
[2018-08-29] MEDS ORDERED: ATOR20TA58 PO (13:12)
[2018-08-29] MEDS ORDERED: DOXY100T9 PO (13:16)
[2018-08-29 14:29] VITALS: BP 122/68
--- NOTE | 2018-08-29 15:45 | NUR ---
Reviewed d/c information with patient, no further questions for me at this time, understands to not take the doxy, and to instead take 14 tabs total BID. IV d/c with no complications. All belongings packed and sent with patient.
--- NOTE | 2018-09-18 18:39 | DS ---
DATE OF DISCHARGE: 08/29/2018 ADMIT DIAGNOSIS: Hemoptysis. SECONDARY DIAGNOSES: 1. Elevated troponin. 2. Pulmonary fibrosis. 3. Persistent weight loss. DISMISSAL DIAGNOSIS: 1. Community-acquired pneumonia. 2. Persistent hemoptysis. 3. Pulmonary fibrosis. 4. Elevated troponin. 5. Weight loss. 6. Chronic hypothyroidism. 7. High cholesterol. 8. Mitral regurgitation. 9. Hypertension. 10. Type 2 diabetes, diet controlled. 11. Benign prostatic hypertrophy. 12. Reflux disease. 13. Remote history of thyroid cancer, status post thyroidectomy. HISTORY OF PRESENT ILLNESS AND HOSPITAL COURSE: This patient is a 78-year-old male who had persistent hemoptysis, came to the Emergency Room, was found to have elevated troponins and persistent weight loss. Therefore, he was admitted for further evaluation by Cardiology and Pulmonary Medicine. CAT scan revealed recurrent pneumonia and the patient was reinstituted on antibiotics. He had pneumonia approximately one month prior to this admission. CAT scan also showed worsening pulmonary fibrosis with increased mediastinal adenopathy. Due to weight loss, concerns for cancer were entertained and the patient did undergo bronchoscopy which proved negative. The patient's hemoptysis decreased. Cardiology deemed troponin levels to be demand related and no acute cardiac abnormalities at this time. The patient was nearly back to baseline with decreased hemoptysis, therefore, he was discharged to home on the following medications: Atorvastatin 20 mg daily, Augmentin 875 b.i.d. and Synthroid 125 mcg daily. DISCHARGE INSTRUCTIONS: He will follow up in the office in 1 week for continued care and with Pulmonary Medicine for pulmonary fibrosis in 2-4 weeks. MILANA CLARK MD DR: ROSALINA/aaron JOB#: [id number] / [id number]
== END 2018-08-29 15:00 | disposition home or self-care (01) | DRG 871 ==
LOC: ER 12:31 → 6 SOUTH 14:25
PROVIDERS: ADMIT Family Medicine; ATTEND Family Medicine
PROC: 0BJ08ZZ Inspection of Tracheobronchial Tree, Via Natural or Artificial Opening Endoscopic (ICD-10-PCS; principal; 2018-08-28 13:30)
DX: A41.9 Sepsis, unspecified organism (principal); J85.1 Abscess of lung with pneumonia; R04.2 Hemoptysis; J44.0 Chronic obstructive pulmonary disease with (acute) lower respiratory infection; J84.112 Idiopathic pulmonary fibrosis; R63.4 Abnormal weight loss; R74.8 Abnormal levels of other serum enzymes; D64.9 Anemia, unspecified; E11.9 Type 2 diabetes mellitus without complications; E78.5 Hyperlipidemia, unspecified; I10 Essential (primary) hypertension; M19.90 Unspecified osteoarthritis, unspecified site; I25.10 Atherosclerotic heart disease of native coronary artery without angina pectoris; J84.89 Other specified interstitial pulmonary diseases; I34.0 Nonrheumatic mitral (valve) insufficiency; K21.9 Gastro-esophageal reflux disease without esophagitis; N40.0 Benign prostatic hyperplasia without lower urinary tract symptoms; E89.0 Postprocedural hypothyroidism; Z60.2 Problems related to living alone; Z77.090 Contact with and (suspected) exposure to asbestos; Z80.8 Family history of malignant neoplasm of other organs or systems; Z83.3 Family history of diabetes mellitus; Z85.850 Personal history of malignant neoplasm of thyroid; Z87.01 Personal history of pneumonia (recurrent); Z87.891 Personal history of nicotine dependence; Z90.49 Acquired absence of other specified parts of digestive tract; Z79.899 Other long term (current) drug therapy
CPT/HCPCS: 31622; 36415; 71046; 71250; 71275; 80053; 80061; 80202; 82565; 83605; 83880; 84145; 84443; 84484; 85025; 85610; 85651; 86140; 87040; 87070; 87205; 88112; 93005; 93306; 94640; J2543; J2704; J3370; J7040; J7050; J7120; J7613; J7620; Q9967; 99285-25; J7030

== ENCOUNTER → 2018-10-16 | Outpatient (CLI) | payer MEDICARE, OTHER ==
[~2018-10-16] MED LIST changes: +AMOX1TAB61 PO; +ATOR20TA58 PO; +DOXY100T9 PO
--- NOTE | 2018-10-16 15:27 | KCIC ---
CT CHEST WO CONTRAST Indication: Lung abscess. Exposure: One or more of the following individualized dose reduction techniques were utilized for this examination: 1. Automated exposure control 2. Adjustment of the mA and/or kV according to patient size 3. Use of iterative reconstruction technique. Technique: Standard imaging without intravenous contrast. Comparison with August 25, 2018 CTA of the chest. FINDINGS: Limited vascular evaluation without contrast no evidence of aortic aneurysm. Mild atheromatous calcification. Cardiac calcifications. Small mediastinal lymph nodes are again identified. No significant new pathologic lymph node enlargement is suspected. Limited hilar lymph node evaluation due to the lack of contrast. No dominant thyroid mass. No evidence of pericardial or pleural effusion. There is diffuse esophageal wall thickening, probably similar as prior study. Cavitary lesion at the posterior right lobe of the liver is again identified. The solid or consolidating component of this process has diminished, with slight increase in the amount of air density. Measures about 4.2 cm x 2.0 cm x 4.4 cm. Extensive fibrotic changes again seen with honeycombing. No dense areas of lobar consolidation are identified elsewhere in either lung. Apical pleural thickening and irregularity is again seen. Trachea and mainstem bronchi are patent. Limited scans through the upper abdomen again demonstrate perinephric stranding similar to prior study. No definite acute findings are seen in the upper abdomen. Degenerative spondylosis of the spine is again seen. Mild thoracic compression fracture deformities appear stable. IMPRESSION: 1. Decreased consolidation in the posterior left lower lobe since prior study. The amount of air within the cavitary lesion has increased. 2. Otherwise similar findings as prior study. Electronically signed by: Julio Ventura MD (10/16/2018 3:24 PM) [id number]
== END | disposition home or self-care (01) ==
LOC: KCIC CT 08:55
PROVIDERS: ATTEND Internal Medicine Pulmonary Disease
DX: J98.4 Other disorders of lung (principal); I70.8 Atherosclerosis of other arteries; I25.10 Atherosclerotic heart disease of native coronary artery without angina pectoris; K22.8 Other specified diseases of esophagus; K76.9 Liver disease, unspecified
CPT/HCPCS: 71250

== ENCOUNTER 2019-06-25 10:04 | Emergency (ER) | payer OTHER, MEDICARE ==
[~2019-06-25] VITALS: Ht 182.9 cm; Wt 79.4 kg
[~2019-06-25 10:04] MED LIST changes: +DOXY-96 PO; -DOXY100T9 PO
[2019-06-25 10:16] VITALS: BP 156/74
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
[2019-06-25] MEDS ORDERED: ACET-704 PO (11:39)
[2019-06-25] MEDS ORDERED: CYCL5TAB PO (11:39)
[2019-06-25] MEDS ORDERED: ACETAMINOPHEN/CODEINE 300/30MG TABLET. PO ONE (11:45)
== END 2019-06-25 11:48 | disposition home or self-care (01) ==
LOC: ER 10:04
DX: S16.1XXA Strain of muscle, fascia and tendon at neck level, initial encounter (principal); S43.409A Unspecified sprain of unspecified shoulder joint, initial encounter; M25.512 Pain in left shoulder; M25.511 Pain in right shoulder; E03.9 Hypothyroidism, unspecified; Z90.49 Acquired absence of other specified parts of digestive tract; Z98.890 Other specified postprocedural states; Z85.9 Personal history of malignant neoplasm, unspecified; V59.9XXA Occupant (driver) (passenger) of pick-up truck or van injured in unspecified traffic accident, initial encounter; Y93.89 Activity, other specified; Y92.413 State road as the place of occurrence of the external cause; Y99.8 Other external cause status
CPT/HCPCS: 70450; 72125; 73030; 99284

== ENCOUNTER → 2019-11-28 | Outpatient (CLI) | payer MEDICARE, BC ==
[~2019-11-28] MED LIST changes: +ACET-704 PO; +CYCL5TAB PO
--- NOTE | 2019-11-28 12:29 | KCIC ---
PA and lateral views of the chest. Comparison: CT from 10/16/2018. 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 No pneumothorax or effusion. Diffuse chronic interstitial opacities appear to progress slightly since the prior examination. Multiple lumbar age-indeterminate compression deformities are identified Impression: 1. Probable progression of the patient's interstitial fibrotic changes. 2. Multiple compression deformities of the lumbar spine age indeterminate but likely chronic. Correlate with any back pain. Electronically signed by: Gavino Moreno MD (11/28/2019 12:26 PM) [id number]
== END ==
LOC: KCIC 11:16
PROVIDERS: ATTEND Internal Medicine Pulmonary Disease
DX: R91.8 Other nonspecific abnormal finding of lung field (principal); M43.8X6 Other specified deforming dorsopathies, lumbar region; Z87.891 Personal history of nicotine dependence
CPT/HCPCS: 71046

== ENCOUNTER → 2020-03-31 | Outpatient (CLI) | payer MEDICARE, BC ==
[~2020-03-31] MED LIST changes: +ASCO100019 PO; -ASCO10002 PO
--- NOTE | 2020-03-31 16:34 | KCIC ---
Chest CT without contrast Clinical indications: Shortness of air. Productive cough. COMPARISON: October 16, 2018. TECHNIQUE: Noncontrast helical CT scanning of the chest was performed. Without IV contrast, the sensitivity to detect organ pathology is decreased. PQRS compliance Statement One or more of the following individualized dose reduction techniques were utilized for this study: 1. Automated exposure control 2. Adjustment of the mA and/or kV according to patient size 3. Use of iterative reconstruction technique FINDINGS: Calcified granulomatous lymph nodes are seen within the mediastinum. No enlarging thoracic lymphadenopathy is seen. Heart size is mildly enlarged. No pericardial effusion is seen. Calcified atheromatous disease of the coronary arteries is seen. Minimal right-sided pleural effusion is seen. Bilateral peripheral honeycombing is seen bilaterally with a lower lung zone predominance. This is unchanged. There is air-filled cystic lesion of the posterior aspect of the right lower lobe. This was seen previously but has enlarged. It measures 4.5 cm in greatest dimension. This could represent a prominent bulla which has increased in size. There is mild wall thickening. No air-fluid level is seen within it today. No lung consolidation is seen around it today.Bilateral dilated bronchi are seen consistent with bronchiectasis. Dilated bronchus is seen extending towards the superior medial edge of this bulla. No pneumothorax is seen. No adrenal mass is evident. Cyst of the left lobe of the liver is seen. Small hiatal hernia is present. No lytic process is seen. Multiple compression fractures of the spine are seen which are unchanged from the prior study. IMPRESSION: Chronic pulmonary fibrosis. Chronic bulla of the posterior right lower lobe with a thick wall. It has increased in size but no air-fluid level is seen within it. There is no new lung consolidation around it. However, a minimal right-sided pleural effusion is now seen. Chronic bronchiectasis. Mild cardiomegaly. Calcified atheromatous disease of the coronary arteries. Electronically signed by: Pro Horn MD (03/31/2020 4:32 PM) [id number]
== END ==
LOC: KCIC CT 12:20
PROVIDERS: ATTEND Family Medicine
DX: J47.9 Bronchiectasis, uncomplicated (principal); J84.10 Pulmonary fibrosis, unspecified; K76.89 Other specified diseases of liver; J98.4 Other disorders of lung; M48.50XA Collapsed vertebra, not elsewhere classified, site unspecified, initial encounter for fracture; I25.10 Atherosclerotic heart disease of native coronary artery without angina pectoris; I51.7 Cardiomegaly; Z87.09 Personal history of other diseases of the respiratory system
CPT/HCPCS: 71250

== ENCOUNTER 2020-05-24 14:20 | Inpatient (IN) | payer MEDICARE, BC ==
[~2020-05-24] VITALS: Ht 177.8 cm; Wt 64.0 kg
[2020-05-24] MEDS ORDERED: MORPHINE SULFATE 4 MG/ML VIAL. IV/SQ PRN ×2 (14:45)
[2020-05-24 15:07] LABS: BASO % 0 % (0-3); EOS % 0 % (0-3); HEMATOCRIT 30.4 % (39.0-53.0); LYMPH # 0.5 x10^3/uL (1.0-4.8); LYMPH % 4 % (24-48); MEAN CORPUSCULAR HEMOGLOBIN 28 pg (25-35); MEAN CORPUSCULAR HGB CONC 33 g/dL (31-37); MEAN CORPUSCULAR VOLUME 85 fL (79-100); MONO % 7 % (0-9); NEUT # 11.6 x10^3/uL (1.8-7.7); NEUT % 89 % (31-73); PLATELET COUNT 198 x10^3/uL (140-400); RED BLOOD COUNT 3.58 x10^6/uL (4.30-5.70); RED CELL DISTRIBUTION WIDTH 16.5 % (11.5-14.5)
[2020-05-24 15:23] LABS: CALCIUM 8.1 mg/dL (8.5-10.1); CREATININE 1.2 mg/dL (0.7-1.3); GFR 58.1; POTASSIUM 3.8 mmol/L (3.5-5.1)
[2020-05-24] MEDS ORDERED: IV NORMAL SALINE 1000ML BAG 1,000 ML IV ONE (15:30)
[2020-05-24 15:33] LABS: % LYMPHS 1 % (24-48); % MONOS 6 % (0-10); % SEGS 93 % (35-66)
--- NOTE | 2020-05-24 15:33 | RAD ---
AP chest x-ray HISTORY: Shortness of breath. COMPARISON: Chest x-ray November 28, 2019 FINDINGS: Mild cardiomegaly stable. Aortic arch calcified plaque. Surgical clips lower neck. No pneum othorax. No pleural effusions. Chronic pulmonary fibrosis again demonstrated however there are increa sed new opacities about the left perihilar lung and left lung base which raises suspicion of a superi mposed pneumonic infiltrate. IMPRESSION: Left perihilar and lower lobe infiltrate may represent pneumonia, superimposed upon a william kground of chronic pulmonary fibrosis. Electronically signed by: Gregorio Vasques MD (05/24/2020 3:30 PM) [id number]
[2020-05-24 15:34] LABS: PLT ESTIMATE ADEQUATE (ADEQUATE)
[2020-05-24 15:37] LABS: ALBUMIN 2.7 g/dL (3.4-5.0); ALBUMIN/GLOBULIN RATIO 0.6 (1.0-1.7); MAGNESIUM 1.8 mg/dL (1.8-2.4); TOTAL BILIRUBIN 1.1 mg/dL (0.2-1.0); TOTAL PROTEIN 7.6 g/dL (6.4-8.2)
[2020-05-24] MEDS ORDERED: ASPIRIN CHEWABLE 81 MG TABLET. PO ONE (15:45)
[2020-05-24] MEDS ORDERED: IOHEXOL 350 MG/ML 100 ML VIAL. IV ONE (16:00)
[2020-05-24] MEDS ORDERED: CONTRAST GIVEN. MC PRN (16:00)
[2020-05-24 16:15] LABS: INFLUENZA B PATIENT NEGATIVE (NEGATIVE)
[2020-05-24 16:17] LABS: INFLUENZA A PATIENT POSITIVE (NEGATIVE)
[2020-05-24] MEDS ORDERED: cefTRIAXone IV Push 1 GM VIAL. IVP ONE (16:30)
[2020-05-24] MEDS ORDERED: AZITHRMYCN 500MG IVPB FOR OMNI 250 ML IV ONE (16:30)
[2020-05-24] MEDS ORDERED: OSELTAMIVIR 75 MG CAPSULE PO ONE (16:34)
[2020-05-24] MEDS: OSELTAMIVIR 30 MG CAPSULE PO SCH (16:38)
--- NOTE | 2020-05-24 16:44 | PHYS DOC ---
Past Medical History Past Medical History: Cancer, Hypothyroid Additional Past Medical Histor: THYROID CA, "FIBROSIS LUNGS", HEART MURMUR (ANTOINETTE CARROLL APRN) Past Surgical History: Cholecystectomy, Other Additional Past Surgical Histo: THYROIDECTOMY, L LEG HARDWARE (ANTOINETTE CARROLL APRN) Smoking Status: Former Smoker Alcohol Use: None Drug Use: None (ANTOINETTE CARROLL APRN) General Adult EDM: Chief Complaint: SHORTNESS OF BREATH HPI: HPI: Patient is a 80 year old male with history of lung fibrosis, former smoker, hypothyroidism, who presents to the ED today complaining of shortness of breath, symptoms began a couple minutes prior to coming to the ED when he was at [facility]. Patient also reports coughing up blood yesterday. Denies any chest pain. Patient denies any fever. Denies any chest pain. He arrives in the ED with O2 sats at 69% on room air. He was put on 4 L of oxygen satting right now around 92%. (ANTOINETTE CARROLL APRN) Review of Systems: Review of Systems: Constitutional: Denies fever or chills. [] Eyes: Denies change in visual acuity. [] HENT: Denies nasal congestion or sore throat. [] Respiratory: Reports cough and shortness of breath. [] Cardiovascular: Denies chest pain or edema. [] GI: Denies abdominal pain, nausea, vomiting, bloody stools or diarrhea. [] : Denies dysuria. [] Musculoskeletal: Denies back pain or joint pain. [] Integument: Denies rash. [] Neurologic: Denies headache, focal weakness or sensory changes. [] Psychiatric: Denies depression or anxiety. [] (ANTOINETTE CARROLL APRN) Heart Score: Risk Factors: Risk Factors: DM, Current or recent (<one month) smoker, HTN, HLP, family history of CAD, obesity. Risk Scores: Score 0 - 3: 2.5% MACE over next 6 weeks - Discharge Home Score 4 - 6: 20.3% MACE over next 6 weeks - Admit for Clinical Observation Score 7 - 10: 72.7% MACE over next 6 weeks - Early Invasive Strategies (ANTOINETTE CARROLL APRN) Current Medications: Current Medications Medications (Trade) Dose Ordered Sig/Wendi Start Time Stop Time Status Last Admin Dose Admin Aspirin (Aspirin Chewable) 324 mg 1X ONCE 05/24/20 15:45 05/24/20 15:46 DC Azithromycin 250 ml @ 250 mls/hr 1X ONCE 05/24/20 16:30 05/24/20 17:29 Ceftriaxone Sodium (Rocephin) 1 gm 1X ONCE 05/24/20 16:30 05/24/20 16:32 DC Info (CONTRAST GIVEN -- Rx MONITORING) 1 each PRN DAILY PRN 05/24/20 16:00 05/26/20 15:59 Iohexol (Omnipaque 350 Mg/ml) 90 ml 1X ONCE 05/24/20 16:00 05/24/20 16:01 DC 05/24/20 16:23 90 ML Morphine Sulfate (Morphine Sulfate) 4 mg PRN Q15MIN PRN 05/24/20 14:45 05/25/20 14:44 UNV Oseltamivir Phosphate (Tamiflu) 75 mg STK-MED ONCE 05/24/20 16:34 05/24/20 16:34 DC Sodium Chloride 1,000 ml @ 1,000 mls/hr 1X ONCE 05/24/20 15:30 05/24/20 16:29 DC 05/24/20 15:27 1,000 MLS/HR (MUTUNGA,ANTOINETTE CONTRACT OFFICER) Allergies: Allergies: Allergies Coded Allergies Type Severity Reaction Last Updated Verified No Known Drug Allergies 08/28/18 No (MUTUNGA,ANTOINETTE CONTRACT OFFICER) Physical Exam: PE: Constitutional: Well developed, well nourished, no acute distress, non-toxic appearance. [] HENT: Normocephalic, atraumatic, bilateral external ears normal, oropharynx moist, no oral exudates, nose normal. [] Eyes: PERRLA, EOMI, conjunctiva normal, no discharge. [] Neck: Normal range of motion, no tenderness, supple, no stridor. [] Cardiovascular:Heart rate regular rhythm, Lungs & Thorax: Coarse lung sounds. Patient appears short of air on arrival. Abdomen: Bowel sounds normal, soft, no tenderness, no masses, no pulsatile masses. [] Skin: Warm, dry, no erythema, no rash. [] Back: No tenderness, no CVA tenderness. [] Extremities: No tenderness, no cyanosis, no clubbing, ROM intact, no edema. [] Neurologic: Alert and oriented X 3, normal motor function, normal sensory function, no focal deficits noted. [] Psychologic: Affect normal, judgement normal, mood normal. [] (ANTOINETTE CARROLL APRN) Current Patient Data: Labs: Laboratory Tests Test 05/24/20 14:45 05/24/20 15:22 White Blood Count 13.0 x10^3/uL (4.0-11.0) H Red Blood Count 3.58 x10^6/uL (4.30-5.70) L Hemoglobin 10.0 g/dL (13.0-17.5) L Hematocrit 30.4 % (39.0-53.0) L Mean Corpuscular Volume 85 fL (79-100) Mean Corpuscular Hemoglobin 28 pg (25-35) Mean Corpuscular Hemoglobin Concent 33 g/dL (31-37) Red Cell Distribution Width 16.5 % (11.5-14.5) H Platelet Count 198 x10^3/uL (140-400) Neutrophils (%) (Auto) 89 % (31-73) H Lymphocytes (%) (Auto) 4 % (24-48) L Monocytes (%) (Auto) 7 % (0-9) Eosinophils (%) (Auto) 0 % (0-3) Basophils (%) (Auto) 0 % (0-3) Neutrophils # (Auto) 11.6 x10^3/uL (1.8-7.7) H Lymphocytes # (Auto) 0.5 x10^3/uL (1.0-4.8) L Monocytes # (Auto) 1.0 x10^3/uL (0.0-1.1) Eosinophils # (Auto) 0.0 x10^3/uL (0.0-0.7) Basophils # (Auto) 0.0 x10^3/uL (0.0-0.2) Segmented Neutrophils % 93 % (35-66) H Lymphocytes % 1 % (24-48) L Monocytes % 6 % (0-10) Platelet Estimate Adequate (ADEQUATE) D-Dimer (Delores) 1.39 ug/mlFEU (0.00-0.50) H Sodium Level 133 mmol/L (136-145) L Potassium Level 3.8 mmol/L (3.5-5.1) Chloride Level 98 mmol/L (98-107) Carbon Dioxide Level 30 mmol/L (21-32) Anion Gap 5 (6-14) L Blood Urea Nitrogen 28 mg/dL (8-26) H Creatinine 1.2 mg/dL (0.7-1.3) Estimated GFR (Cockcroft-Gault) 58.1 BUN/Creatinine Ratio 23 (6-20) H Glucose Level 143 mg/dL (70-99) H Lactic Acid Level 1.9 mmol/L (0.4-2.0) Calcium Level 8.1 mg/dL (8.5-10.1) L Magnesium Level 1.8 mg/dL (1.8-2.4) Total Bilirubin 1.1 mg/dL (0.2-1.0) H Aspartate Amino Transferase (AST) 18 U/L (15-37) Alanine Aminotransferase (ALT) 14 U/L (16-63) L Alkaline Phosphatase 68 U/L (46-116) Troponin I Quantitative 0.094 ng/mL (0.000-0.055) FA-Iwi-W-Type Natriuretic Peptide 5559 pg/mL (0-449) H Total Protein 7.6 g/dL (6.4-8.2) Albumin 2.7 g/dL (3.4-5.0) L Albumin/Globulin Ratio 0.6 (1.0-1.7) L Procalcitonin 0.67 ng/mL (0.00-0.10) H Thyroid Stimulating Hormone (TSH) 1.490 uIU/mL (0.358-3.74) Influenza Type A Antigen Positive (NEGATIVE) Influenza Type B Antigen Negative (NEGATIVE) Laboratory Tests 05/24/20 14:45 Laboratory Tests 05/24/20 14:45 Vital Signs: Vital Signs Date Time Temp Pulse Resp B/P (MAP) Pulse Ox O2 Delivery O2 Flow Rate FiO2 05/24/20 14:20 98.6 116 24 96/55 (69) 69 Room Air 98.6 (ANTOINETTE CARROLL APRN) EKG: EK interpreted by Dr. Marin sinus rhythm HR 84 no STEMI[] (ANTOINETTE CARROLL APRN) Radiology/Procedures: Radiology/Procedures: []PROCEDURE: PORTABLE CHEST 1V AP chest x-ray HISTORY: Shortness of breath. COMPARISON: Chest x-ray November 28, 2019 FINDINGS: Mild cardiomegaly stable. Aortic arch calcified plaque. Surgical clips lower neck. No pneumothorax. No pleural effusions. Chronic pulmonary fibrosis again demonstrated however there are increased new opacities about the left perihilar lung and left lung base which raises suspicion of a superimposed pneumonic infiltrate. IMPRESSION: Left perihilar and lower lobe infiltrate may represent pneumonia, superimposed upon a background of chronic pulmonary fibrosis. Electronically signed by: Jeremy Vasques MD (05/24/2020 3:30 PM) [id number] DICTATED and SIGNED BY: JEREMY VASQUES MD DATE: 05/24/20 [id number] (ANTOINETTE CARROLL APRN) Course & Med Decision Making: Course & Med Decision Making Pertinent Labs and Imaging studies reviewed. (See chart for details) This is a 80-year-old male patient presenting to the ED today complaining of sudden onset of shortness of breath while he was at [employer]. Arrives in the ED with O2 sats of 69% on room air. Was put on oxygen 4 L currently satting above 92%. Patient is afebrile EKG is negative Chest x-ray noted for left perihilar and lower lobe infiltrate may represent pneumonia, superimposed upon a background of chronic pulmonary fibrosis. Positive for influenza A. CBC with a WBC of 13.3, CMP with no acute findings. Troponin 0.094, patient has no chest pain. This is likely from Covid, flu, or pneumonia. Was given an aspirin. BNP 5559. Lactic is normal. Procalcitonin 0.67. Patient was started on IV fluids. Also started on Rocephin and azithromycin. Given Tamiflu in the ED. Spoke with Dr. Lundy who accepted patient for admission (ANTOINETTE CARROLL APRN) Sydni Disclaimer: Sydni Disclaimer: This electronic medical record was generated, in whole or in part, using a voice recognition dictation system. (ANTOINETTE CARROLL APRN) Departure Departure Impression: Primary Impression: Left lower lobe pneumonia Qualified Codes: J18.9 - Pneumonia, unspecified organism Additional Impressions: Respiratory failure Qualified Codes: J96.01 - Acute respiratory failure with hypoxia Elevated troponin Person under investigation for COVID-19 Influenza A Disposition: 09 ADMITTED INPT THIS HOSP Condition: STABLE Referrals: MILANA CLARK MD (PCP) Attending Signature Attending Signature I have reviewed the PA/SENIOR PRODUCTION MANAGER's note and plan of care. I was available for consultation as needed during the patient's visit in the emergency department. I agree with the clinical impression, plan, and disposition. (MILANA MARIN DO) ANTOINETTE CARROLL APRN May 24, 2020 16:44 MILANA MARIN DO May 25, 2020 10:35
--- NOTE | 2020-05-24 16:54 | RAD ---
Study: CT CHEST WITH CONTRAST - PULMONARY ANGIOGRAM History: Shortness of breath Comparison: CT chest 03/31/[address] chest 01/04/2018 Technique: Helical CT of the chest performed after the administration of 90 mL Omnipaque 350 intrave nous contrast and timed for angiographic evaluation of the pulmonary arteries per PE protocol. Sheth l and sagittal 3D MIP reformations were obtained. One or more of the following individualized dose reduction techniques were utilized for this examinat ion: 1. Automated exposure control 2. Adjustment of the mA and/or kV according to patient size 3. Use of iterative reconstruction technique. Findings: Pulmonary Arteries: Contrast bolus is adequate. There is no acute pulmonary embolism. Heart/Systemic Vasculature: Mild cardiomegaly. There are coronary artery calcifications. Microcalcifi cations are noted. No pericardial effusion. The thoracic aorta is normal in caliber. Mild calcified a ortic atherosclerosis. Mediastinum: Mediastinal and hilar lymphadenopathy with ill-defined soft tissue extending along the c entral bronchovascular structures is similar to prior. Lungs: There are new bilateral ground glass opacities, greatest throughout the left lung. Subpleural cysts throughout both lungs with honeycombing, greatest in the bases, is unchanged. Large thick-angi d cavitary lesion with surrounding subpleural consolidation in the posterior superior segment right l ower lobe is redemonstrated. The cavitation is slightly larger, now 5.2 x 3.9 x 3.2 cm. This has cont inued to increase in size from 01/04/2018. There is a new small left pleural effusion. Neck/Axilla/Body Wall: Unremarkable. Upper Abdomen: Extensive calcifications in the spleen. Otherwise unremarkable. Bones: Multiple compression fractures including T3, T4 T6, T7 and L1 with up to moderate height loss are unchanged. No retropulsion of cortex. IMPRESSION: 1. No evidence for acute pulmonary embolism. 2. Large cavitary lesion with surrounding subpleural consolidation in the posterior superior segment right lower lobe has continued to mildly increase in size. Given the continued growth over time this is suspicious for malignancy. Consider biopsy or PET/CT. 3. New bilateral ground glass opacities, greatest throughout the left lung, may be infectious or inf lammatory. New small left pleural effusion. 4. 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 Mediastinal and hilar lymphadenopathy. 6. Multiple compression fractures, unchanged. Electronically signed by: Janice Mcdaniels MD (05/24/2020 4:51 PM) [id number]
--- NOTE | 2020-05-24 17:09 | EKG ---
[facility] [address] [place] [address] Test Date: 2020-05-24 Test Time: 15:26:22 Pat Name: ROSALVA LEONARDO Department: Room: Gender: M Pattern Chart Writer: : 1940 Requested By: ANTOINETTE ACRROLL Order Number: [id number] Reading MD: Measurements Intervals [place] Rate: 84 P: OR: QRS: -41 QRSD: 96 T: 37 QT: 368 QTc: 438 Interpretive Statements IRREGULAR RHYTHM, NO P-WAVE FOUND ABNORMAL LEFT AXIS DEVIATION R-S TRANSITION ZONE IN V LEADS DISPLACED TO THE RIGHT INCOMPLETE RIGHT BUNDLE BRANCH BLOCK ABNORMAL ECG RI6.01 No previous ECG available for comparison
--- NOTE | 2020-05-24 17:14 | PDOC1 ---
History and Physical Date of Admission Date of Admission DATE: 05/24/20 TIME: 17:13 Identification/Chief Complaint Chief Complaint Shortness of breath Source Source: Patient History of Present Illness History of Present Illness Mr Sullivan is an 80 yo M w/ PMHx thyroid cancer s/p resection on suppressive levothyroxine dosing, pulmonary fibrosis, heart murmur who presents to the ED today complaining of sudden onset of shortness of breath while he was at [employer] purchasing [employer] tickets. Noted with O2 saturations of 69% on room air. Was put on oxygen 4 L currently satting above 92%. Patient is afebrile. Patient also reports coughing up blood yesterday. Denies any chest pain. Patient denies any fever. Denies any chest pain. No recent sick contacts. He does recall while he was dressing a deer in his garage 2 days ago he started experiencing chills that he has since not been able to shake off. 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 EKG sinus rhythm HR 84 no STEMI Chest x-ray noted for left perihilar and lower lobe infiltrate may represent pneumonia, superimposed upon a background of chronic pulmonary fibrosis. Positive for influenza A. CBC with a WBC of 13.3, Hb 10, Platelets 198, Na 133, K 3.8, BUN 28, Cr 1.2, Glucose 143, d dimer 1.39, Troponin 0.094, Albumin 2.7, BNP 5559. Lactic is normal. Procalcitonin 0.67. TSH 1 With elevated d dimer a CTPA was performed revealing no PE, but T3, T4 T6, T7 and L1 compression fractures, large cavitary lesion with surrounding subpleural consolidation in the posterior superior segment right lower lobe has continued to mildly increase in size and new bilateral ground glass opacities, greatest throughout the left lung, may be infectious or inflammatory. New small left pleural effusion with similar UIP and mediastinal and hilar lymphadenopathy. Was given an aspirin. Patient was started on IV fluids. Also started on Rocephin and azithromycin. Given Tamiflu in the ED. Admitted for further care Past Medical History Cardiovascular: HTN, Hyperlipidemia, Valve insufficiency, Pulmonary hypertension Pulmonary: Other CENTRAL NERVOUS SYSTEM: Other GI: GERD Heme/Onc: No pertinent hx Hepatobiliary: No pertinent hx Psych: No pertinent hx Musculoskeletal: Osteoarthritis Renal/: Benign prostatic enlarg. Endocrine: Diabetes, Hypothyroidism Past Surgical History Past Surgical History: Cholecystectomy, Other Family History Family History Reviewed Family History: Family History Unknown Social History Smoke: Quit ALCOHOL: none Drugs: None Current Problem List Problem List Problems Medical Problems: (1) Elevated troponin Status: Acute (2) Left lower lobe pneumonia Status: Acute (3) Person under investigation for COVID-19 Status: Acute (4) Respiratory failure Status: Acute Current Medications Current Medications Current Medications Morphine Sulfate (Morphine Sulfate) 4 mg PRN Q15MIN PRN IV/SQ PAIN GREATER THAN 3/10; Start 05/24/20 at 14:45; Stop 05/25/20 at 14:44 Morphine Sulfate (Morphine Sulfate) 4 mg PRN Q15MIN PRN IV/SQ PAIN GREATER THAN 3/10; Start 05/24/20 at 14:45; Stop 05/25/20 at 14:44; Status UNV Sodium Chloride 1,000 ml @ 1,000 mls/hr 1X ONCE IV Last administered on 05/24/20at 15:27; Start 05/24/20 at 15:30; Stop 05/24/20 at 16:29; Status DC Aspirin (Aspirin Chewable) 324 mg 1X ONCE PO Last administered on 05/24/20at 16:20; Start 05/24/20 at 15:45; Stop 05/24/20 at 15:46; Status DC Iohexol (Omnipaque 350 Mg/ml) 90 ml 1X ONCE IV Last administered on 05/24/20at 16:23; Start 05/24/20 at 16:00; Stop 05/24/20 at 16:01; Status DC Info (CONTRAST GIVEN -- Rx MONITORING) 1 each PRN DAILY PRN MC SEE COMMENTS; Start 05/24/20 at 16:00; Stop 05/26/20 at 15:59 Oseltamivir Phosphate (Tamiflu) 30 mg BID PO Last administered on 05/24/20at 16:38; Start 05/24/20 at 17:00; Stop 05/29/20 at 16:59 Ceftriaxone Sodium (Rocephin) 1 gm 1X ONCE IVP Last administered on 05/24/20at 16:43; Start 05/24/20 at 16:30; Stop 05/24/20 at 16:32; Status DC Azithromycin 250 ml @ 250 mls/hr 1X ONCE IV Last administered on 05/24/20at 16:46; Start 05/24/20 at 16:30; Stop 05/24/20 at 17:29 Oseltamivir Phosphate (Tamiflu) 75 mg STK-MED ONCE PO ; Start 05/24/20 at 16:34; Stop 05/24/20 at 16:34; Status DC Active Scripts Active Cyclobenzaprine Hcl 5 Mg Tablet 1 Tab PO TID Tylenol With Codeine #3 Tablet (Acetaminophen/Codeine Phosphate) 1 Each Tablet 1 Tab PO PRN Q6HRS PRN Atorvastatin Calcium 20 Mg Tablet 20 Mg PO QHS 90 Days Reported Augmentin 875-125 Tablet (Amoxicillin/Potassium Clav) 1 Each Tablet 1 Tab PO BID Levothyroxine Sodium 125 Mcg Tablet 125 Mcg PO DAILY Allergies Allergies: Coded Allergies: No Known Drug Allergies (Unverified , 08/28/18) ROS General: YES: Chills, Fatigue, Malaise; No: Night Sweats, Appetite, Other PSYCHOLOGICAL ROS: No: Anxiety, Behavioral Disorder, Concentration difficultie, Decreased libido, Depression, Disorientation, Hallucinations, Hostility, Irritablity, Memory difficulties, Mood Swings, Obsessive thoughts, Physical abuse, Sexual abuse, Sleep disturbances, Suicidal ideation, Other Eyes: No Blurry vision, No Decreased vision, No Double vision, No Dry eyes, No Excessive tearing, No Eye Pain, No Itchy Eyes, No Loss of vision, No Photophobia, No Scotomata, No Uses contacts, No Uses glasses, No Other HEENT: No: Heacaches, Visual Changes, Hearing change, Nasal congestion, Nasal discharge, Oral lesions, Sinus pain, Sore Throat, Epistaxis, Sneezing, Snoring, Tinnitus, Vertigo, Vocal changes, Other ALLERGY AND IMMUNOLOGY: No: Hives, Insect Bite Sensitivity, Itchy/Watery Eyes, Nasal Congestion, Post Nasal Drip, Seasonal Allergies, Other Hematological and Lymphatic: No: Bleeding Problems, Blood Clots, Blood Transfusions, Brusing, Night Sweats, Pallor, Swollen Lymph Nodes, Other ENDOCRINE: No: Breast Changes, Galactorrhea, Hair Pattern Changes, Hot Flashes, Malaise/lethargy, Mood Swings, Palpitations, Polydipsia/polyuria, Skin Changes, Temperature Intolerance, Unexpected Weight Changes, Other Breast: No New/Changing Breast Lumps, No Nipple changes, No Nipple discharge, No Other Respiratory: YES: Cough, Hemoptysis, Shortness of breath, SOB with excertion, Sputum Changes, Tachypnea, Wheezing; No: Orthopnea, Pleuritic Pain, Stridor, Other Cardiovascular: No Chest Pain, No Palpitations, No Orthopnea, No Paroxysmal Noc. Dyspnea, No Edema, No Lt Headedness, No Other Gastrointestinal: No Nausea, No Vomiting, No Abdominal Pain, No Diarrhea, No Constipation, No Melena, No Hematochezia, No Other Genitourinary: No Dysuria, No Frequency, No Incontinence, No Hematuria, No Retention, No Discharge, No Urgency, No Pain, No Flank Pain, No Other, No , No , No , No , No , No , No Musculoskeletal: No Gait Disturbance, No Joint Pain, No Joint Stiffness, No Joint Swelling, No Muscle Pain, No Muscular Weakness, No Pain In:, No Swelling In:, No Other Neurological: No Behavorial Changes, No Bowel/Bladder ControlChng, No Confusion, No Dizziness, No Gait Disturbance, No Headaches, No Impaired Coord/balance, No Memory Loss, No Numbness/Tingling, No Seizures, No Speech Problems, No Tremors, No Visual Changes, No Weakness, No Other Skin: No Dry Skin, No Eczema, No Hair Changes, No Lumps, No Mole Changes, No Mottling, No Nail Changes, No Pruritus, No Rash, No Skin Lesion Changes, No Other, No Acne Physical Exam General: Alert, Oriented X3, Cooperative, moderate distress HEENT: Atraumatic, PERRLA, EOMI, Mucous membr. moist/pink Lungs: Other (bilateral fine crackles) Heart: S1S2, RRR, no thrills, no rubs, murmurs (3/6 BLANK) Abdomen: Normal bowel sounds, Soft, No tenderness, No hepatosplenomegaly, No masses Rectal Exam: not examined Extremities: No clubbing, No cyanosis, No edema, Normal pulses, No tenderness/swelling Skin: No rashes, No breakdown, No significant lesion Neuro: Normal gait, Normal speech, Strength at 5/5 X4 ext, Normal tone, Sensation intact, Cranial nerves 3-12 NL, Reflexes 2+ Psych/Mental Status: Mental status NL, Mood NL Vitals Vitals Vital Signs Date Time Temp Pulse Resp B/P (MAP) Pulse Ox O2 Delivery O2 Flow Rate FiO2 05/24/20 14:20 98.6 116 24 96/55 (69) 69 Room Air 98.6 Labs Labs Laboratory Tests Test 05/24/20 14:45 05/24/20 15:22 White Blood Count 13.0 x10^3/uL (4.0-11.0) Red Blood Count 3.58 x10^6/uL (4.30-5.70) Hemoglobin 10.0 g/dL (13.0-17.5) Hematocrit 30.4 % (39.0-53.0) Mean Corpuscular Volume 85 fL (79-100) Mean Corpuscular Hemoglobin 28 pg (25-35) Mean Corpuscular Hemoglobin Concent 33 g/dL (31-37) Red Cell Distribution Width 16.5 % (11.5-14.5) Platelet Count 198 x10^3/uL (140-400) Neutrophils (%) (Auto) 89 % (31-73) Lymphocytes (%) (Auto) 4 % (24-48) Monocytes (%) (Auto) 7 % (0-9) Eosinophils (%) (Auto) 0 % (0-3) Basophils (%) (Auto) 0 % (0-3) Neutrophils # (Auto) 11.6 x10^3/uL (1.8-7.7) Lymphocytes # (Auto) 0.5 x10^3/uL (1.0-4.8) Monocytes # (Auto) 1.0 x10^3/uL (0.0-1.1) Eosinophils # (Auto) 0.0 x10^3/uL (0.0-0.7) Basophils # (Auto) 0.0 x10^3/uL (0.0-0.2) Segmented Neutrophils % 93 % (35-66) Lymphocytes % 1 % (24-48) Monocytes % 6 % (0-10) Platelet Estimate Adequate (ADEQUATE) D-Dimer (Delores) 1.39 ug/mlFEU (0.00-0.50) Sodium Level 133 mmol/L (136-145) Potassium Level 3.8 mmol/L (3.5-5.1) Chloride Level 98 mmol/L (98-107) Carbon Dioxide Level 30 mmol/L (21-32) Anion Gap 5 (6-14) Blood Urea Nitrogen 28 mg/dL (8-26) Creatinine 1.2 mg/dL (0.7-1.3) Estimated GFR (Cockcroft-Gault) 58.1 BUN/Creatinine Ratio 23 (6-20) Glucose Level 143 mg/dL (70-99) Lactic Acid Level 1.9 mmol/L (0.4-2.0) Calcium Level 8.1 mg/dL (8.5-10.1) Magnesium Level 1.8 mg/dL (1.8-2.4) Total Bilirubin 1.1 mg/dL (0.2-1.0) Aspartate Amino Transf (AST/SGOT) 18 U/L (15-37) Alanine Aminotransferase (ALT/SGPT) 14 U/L (16-63) Alkaline Phosphatase 68 U/L (46-116) Troponin I Quantitative 0.094 ng/mL (0.000-0.055) PY-Ufl-R-Type Natriuretic Peptide 5559 pg/mL (0-449) Total Protein 7.6 g/dL (6.4-8.2) Albumin 2.7 g/dL (3.4-5.0) Albumin/Globulin Ratio 0.6 (1.0-1.7) Procalcitonin 0.67 ng/mL (0.00-0.10) Thyroid Stimulating Hormone (TSH) 1.490 uIU/mL (0.358-3.74) Influenza Type A Antigen Positive (NEGATIVE) Influenza Type B Antigen Negative (NEGATIVE) Laboratory Tests Test 05/24/20 14:45 05/24/20 15:22 White Blood Count 13.0 x10^3/uL (4.0-11.0) Red Blood Count 3.58 x10^6/uL (4.30-5.70) Hemoglobin 10.0 g/dL (13.0-17.5) Hematocrit 30.4 % (39.0-53.0) Mean Corpuscular Volume 85 fL (79-100) Mean Corpuscular Hemoglobin 28 pg (25-35) Mean Corpuscular Hemoglobin Concent 33 g/dL (31-37) Red Cell Distribution Width 16.5 % (11.5-14.5) Platelet Count 198 x10^3/uL (140-400) Neutrophils (%) (Auto) 89 % (31-73) Lymphocytes (%) (Auto) 4 % (24-48) Monocytes (%) (Auto) 7 % (0-9) Eosinophils (%) (Auto) 0 % (0-3) Basophils (%) (Auto) 0 % (0-3) Neutrophils # (Auto) 11.6 x10^3/uL (1.8-7.7) Lymphocytes # (Auto) 0.5 x10^3/uL (1.0-4.8) Monocytes # (Auto) 1.0 x10^3/uL (0.0-1.1) Eosinophils # (Auto) 0.0 x10^3/uL (0.0-0.7) Basophils # (Auto) 0.0 x10^3/uL (0.0-0.2) Segmented Neutrophils % 93 % (35-66) Lymphocytes % 1 % (24-48) Monocytes % 6 % (0-10) Platelet Estimate Adequate (ADEQUATE) D-Dimer (Delores) 1.39 ug/mlFEU (0.00-0.50) Sodium Level 133 mmol/L (136-145) Potassium Level 3.8 mmol/L (3.5-5.1) Chloride Level 98 mmol/L (98-107) Carbon Dioxide Level 30 mmol/L (21-32) Anion Gap 5 (6-14) Blood Urea Nitrogen 28 mg/dL (8-26) Creatinine 1.2 mg/dL (0.7-1.3) Estimated GFR (Cockcroft-Gault) 58.1 BUN/Creatinine Ratio 23 (6-20) Glucose Level 143 mg/dL (70-99) Lactic Acid Level 1.9 mmol/L (0.4-2.0) Calcium Level 8.1 mg/dL (8.5-10.1) Magnesium Level 1.8 mg/dL (1.8-2.4) Total Bilirubin 1.1 mg/dL (0.2-1.0) Aspartate Amino Transf (AST/SGOT) 18 U/L (15-37) Alanine Aminotransferase (ALT/SGPT) 14 U/L (16-63) Alkaline Phosphatase 68 U/L (46-116) Troponin I Quantitative 0.094 ng/mL (0.000-0.055) AL-Zzt-T-Type Natriuretic Peptide 5559 pg/mL (0-449) Total Protein 7.6 g/dL (6.4-8.2) Albumin 2.7 g/dL (3.4-5.0) Albumin/Globulin Ratio 0.6 (1.0-1.7) Procalcitonin 0.67 ng/mL (0.00-0.10) Thyroid Stimulating Hormone (TSH) 1.490 uIU/mL (0.358-3.74) Influenza Type A Antigen Positive (NEGATIVE) Influenza Type B Antigen Negative (NEGATIVE) Images Images Chest radiograph: Mild cardiomegaly stable. Aortic arch calcified plaque. Surgical clips lower neck. No pneumothorax. No pleural effusions. Chronic pulmonary fibrosis again demonstrated however there are increased new opacities about the left perihilar lung and left lung base which raises suspicion of a superimposed pneumonic infiltrate. IMPRESSION: Left perihilar and lower lobe infiltrate may represent pneumonia, superimposed upon a background of chronic pulmonary fibrosis. CTPA: Pulmonary Arteries: Contrast bolus is adequate. There is no acute pulmonary embolism. Heart/Systemic Vasculature: Mild cardiomegaly. There are coronary artery calcifications. Microcalcifications are noted. No pericardial effusion. The thoracic aorta is normal in caliber. Mild calcified aortic atherosclerosis. Mediastinum: Mediastinal and hilar lymphadenopathy with ill-defined soft tissue extending along the central bronchovascular structures is similar to prior. Lungs: There are new bilateral ground glass opacities, greatest throughout the left lung. Subpleural cysts throughout both lungs with honeycombing, greatest in the bases, is unchanged. Large thick-walled cavitary lesion with surrounding subpleural consolidation in the posterior superior segment right lower lobe is redemonstrated. The cavitation is slightly larger, now 5.2 x 3.9 x 3.2 cm. This has continued to increase in size from 01/04/2018. There is a new small left pleural effusion. Neck/Axilla/Body Wall: Unremarkable. Upper Abdomen: Extensive calcifications in the spleen. Otherwise unremarkable. Bones: Multiple compression fractures including T3, T4 T6, T7 and L1 with up to moderate height loss are unchanged. No retropulsion of cortex. IMPRESSION: 1. No evidence for acute pulmonary embolism. 2. Large cavitary lesion with surrounding subpleural consolidation in the posterior superior segment right lower lobe has continued to mildly increase in size. Given the continued growth over time this is suspicious for malignancy. Consider biopsy or PET/CT. 3. New bilateral ground glass opacities, greatest throughout the left lung, may be infectious or inflammatory. New small left pleural effusion. 4. 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 Mediastinal and hilar lymphadenopathy. 6. Multiple compression fractures, unchanged. VTE Prophylaxis Ordered VTE Prophylaxis Devices: Contraindicated VTE Pharmacological Prophylaxi: Yes Assessment/Plan Assessment/Plan A/P: Acute respiratory failure with hypoxia - likely related to influenza A, worsening of pulmonary fibrosis, enlarged cavitary lesion and possible COVID 19. Tamiflu, wean O2 as tolerated. Pulm toileting Sepsis - due to above, given fluids and tamiflu and empiric CAP antibiotics. will continue Influenza A - cont tamiflu. he did receive his flu vaccine this year Large cavitary lesion with surrounding subpleural consolidation in the posterior superior segment right lower lobe has continued to mildly increase in size - concerning for carcinoma. Consult pulm Hyponatremia - Na 133 likely hypovolemic, will hydrate and monitor Pneumonia - Abnormal CT chest - Bilateral ground glass opacities likely from influenza, however COVID 19 testing is also pending. 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
[2020-05-24] MEDS ORDERED: MULT-686 PO (20:06)
[2020-05-24 20:08] VITALS: BP 124/76
[2020-05-24] MEDS ORDERED: guaiFENesin ORAL 200 MG/10 ML LIQUID. PO PRN (20:15)
[2020-05-24] MEDS ORDERED: DOCUSATE SODIUM 100 MG CAPSULE. PO PRN (20:15)
[2020-05-24] MEDS ORDERED: ONDANSETRON PF 4 MG/2 ML VIAL. IV PRN (20:15)
[2020-05-24] MEDS: ALBUTEROL SULFATE 8GM INHALER. INH PRN (22:14)
[2020-05-24] MEDS: ENOXAPARIN 40 MG/0.4 ML SYRINGE. SQ SCH (22:15)
[2020-05-24] MEDS: DOXYCYCLINE HYCLATE 100 MG in IV DEXTROSE 5% 100ML 100 ML IV SCH (22:16)
[2020-05-24 23:51] VITALS: BP 104/60
[2020-05-25] VITALS (7 sets, daily range): BP systolic 98–151; BP diastolic 59–81
[2020-05-25] MEDS ORDERED: ONDANSETRON PF 4 MG/2 ML VIAL. IV PRN
[2020-05-25] MEDS ORDERED: MORPHINE SULFATE 2 MG/ML VIAL. IV PRN
[2020-05-25] MEDS ORDERED: ACETAMINOPHEN 325 MG TABLET. PO PRN
[2020-05-25 06:06] LABS: BASO # 0.1 x10^3/uL (0.0-0.2); BASO % 1 % (0-3); EOS # 0.1 x10^3/uL (0.0-0.7); EOS % 1 % (0-3); HEMATOCRIT 26.1 % (39.0-53.0); HEMOGLOBIN 8.5 g/dL (13.0-17.5); LYMPH # 0.7 x10^3/uL (1.0-4.8); LYMPH % 8 % (24-48); MEAN CORPUSCULAR HEMOGLOBIN 28 pg (25-35); MEAN CORPUSCULAR HGB CONC 33 g/dL (31-37); MEAN CORPUSCULAR VOLUME 85 fL (79-100); MONO # 0.7 x10^3/uL (0.0-1.1); MONO % 8 % (0-9); NEUT # 7.2 x10^3/uL (1.8-7.7); NEUT % 82 % (31-73); PLATELET COUNT 155 x10^3/uL (140-400); RED BLOOD COUNT 3.07 x10^6/uL (4.30-5.70); RED CELL DISTRIBUTION WIDTH 16.4 % (11.5-14.5); WHITE BLOOD COUNT 8.8 x10^3/uL (4.0-11.0)
[2020-05-25] MEDS: LEVOTHYROXINE 150 MCG TABLET PO SCH (06:33)
[2020-05-25] MEDS: ACETAMINOPHEN 325 MG TABLET. PO PRN ×3 (08:32→22:09)
[2020-05-25] MEDS: OSELTAMIVIR 30 MG CAPSULE PO SCH ×2 (08:36→21:53)
[2020-05-25] MEDS: ZINC SULFATE 220 MG CAPSULE. PO SCH (08:36)
[2020-05-25] MEDS: MULTIVITAMIN with MINERAL TABLET. PO SCH (08:36)
[2020-05-25] MEDS: DOXYCYCLINE HYCLATE 100 MG in IV DEXTROSE 5% 100ML 100 ML IV SCH ×2 (08:37→21:53)
--- NOTE | 2020-05-25 08:51 | CONS ---
DATE OF CONSULTATION: 05/25/2020 I was asked to see this 80-year-old gentleman for hemoptysis, influenza A, COVID-19 PUI. HISTORY OF PRESENT ILLNESS: He has history of [id number] smoking, quit smoking 40 years ago. He is a patient of Dr. Mike for pulmonary fibrosis, he is not on any treatment for that. He has had episodes of hemoptysis on and off for many years. He had a bronchoscopy done last August, which did not show any endobronchial lesion. He presented to the Emergency Room with shortness of breath, hemoptysis. He denies any chest pain, fever or chills. On arrival to the Emergency Room, his O2 saturation was 69% on room air. He was placed on 4 liters of oxygen. He is currently on 4 liters of oxygen, his saturation is 96%. PAST MEDICAL HISTORY: Pulmonary fibrosis, thyroid cancer, cholecystectomy, thyroidectomy for thyroid cancer, mitral regurgitation, hypertension, diabetes mellitus. SOCIAL HISTORY: History of [id number] smoking, quit smoking 40 years ago. FAMILY HISTORY: Hypertension. ALLERGIES: No known drug allergies. MEDICATIONS: Rocephin, doxycycline, Tamiflu, Lovenox 40 mg subcutaneous daily, Synthroid, zinc. REVIEW OF SYSTEMS: As mentioned as above. Overnight, he had a small amount of hemoptysis. Other systems are otherwise negative. PHYSICAL EXAMINATION: GENERAL: This is a thin gentleman. He is alert, no distress. VITAL SIGNS: His O2 saturation on 4 liters of oxygen is 96%, respiratory rate 22, heart rate 100, blood pressure 120/65, temperature 98. HEENT: Normocephalic, atraumatic. CARDIOVASCULAR: Regular rate and rhythm. LUNGS: Chest inspection, there are no accessory muscle use. ABDOMEN: There is no paradoxical abdominal motion. SKIN: There is no rash. LABORATORY DATA: I reviewed the following lab data. His CT angiogram did not show pulmonary embolism, but showed large cavitary lesion in the posterior superior segment of right lower lobe, continued to mildly increase in size. No bilateral ground-glass opacities, moderate to severe interstitial lung disease, mediastinal hilar lymphadenopathy, multiple compression fractures. His influenza A is positive. His troponin 0.09, 0.10, 0.09. Sodium 133, potassium 3.8, chloride 98, CO2 of 30, BUN 28, creatinine 1.2, lactic acid 1.9. BNP 5559. Procalcitonin 0.67. WBC is 13, hemoglobin 10, platelets 198. IMPRESSION: 1. Acute respiratory failure, multifactorial in etiology including influenza A, rule out COVID-19 pneumonia, interstitial lung disease, no pulmonary embolism. 2. Abnormal CT of the chest with slowly enlarging cavitary lesion and hemoptysis. Differential diagnosis including inflammatory versus infectious versus granulomatous versus malignancy. 3. History of thyroid cancer. 4. Mitral regurgitation. 5. Influenza A. 6. Elevated troponin? and non-ST elevation myocardial infarction. PLAN AND RECOMMENDATIONS: 1. Titrate the FiO2 to keep O2 saturation 92%. 2. Continue Tamiflu. 3. Follow up COVID-19 testing. 4. Monitor his hemoptysis. He may require bronchoscopy. I also would recommend PET scan as an outpatient as he has history of thyroid cancer. I will discuss with Dr. Guillory. 5. Obtain records from office. He has been followed by Dr. Mike. 6. The findings and recommendations were discussed with RN and the patient. Thank you very much for allowing me to participate in care of this very nice gentleman. MICHOACANO HAYS M.D. : GIN/aaron JOB#: [id number] / [id number]
[2020-05-25] MEDS: cefTRIAXone IV Push 1 GM VIAL. IVP SCH (09:48)
--- NOTE | 2020-05-25 12:52 | PDOC ---
GENERAL General: Patient examined chart reviewed today's hospital day 1 for this patient admitted with acute hypoxic respiratory failure found to have influenza A. He was also noted to have a large lung mass that appears to be increasing in size. Patient tells me that he has been working with his primary care doctor Dr. Payan on this and does not remember if he seen a lung doctor in recent time. He is on the Covid unit waiting for his test result. He does tell me he had a flu vaccination this year is surprised that he has contracted influenza. He is feeling about the same today still dyspneic. He is otherwise without acute complaint. We appreciate subspecialty support. Pulmonary has been consulted for next steps on the mass. Problems: (1) Lung mass (2) Influenza A (3) Person under investigation for COVID-19 VITAL SIGNS Vital Signs/I&O: Vital Signs Date Time Temp Pulse Resp B/P (MAP) Pulse Ox O2 Delivery O2 Flow Rate FiO2 05/25/20 11:00 97.8 85 22 136/66 (89) 96 Nasal Cannula 6.0 97.8 I & O 05/24/20 05/24/20 05/25/20 15:00 23:00 07:00 Intake Total 120 ml Output Total 200 ml Balance -80 ml In general the patient is pleasant dyspneic today otherwise in no acute distress HEENT exam is unremarkable Chest bilateral equal air entry though diminished throughout inspiratory and expiratory wheezes noted at the bilateral bases Heart S1-S2 normal regular rate and rhythm no murmurs or gallops are noted Abdomen soft nontender nondistended no masses organomegaly noted Extremity exam is unremarkable for acute abnormality ALLERGIES Allergies: Allergies Coded Allergies Type Severity Reaction Last Updated Verified No Known Drug Allergies 08/28/18 No MEDS Medications: Current Medications Medications (Trade) Dose Ordered Sig/Wendi Start Time Stop Time Status Last Admin Dose Admin Acetaminophen (Tylenol) 650 mg PRN Q4HRS PRN 05/25/20 00:00 05/25/20 23:59 Albuterol Sulfate (Ventolin Hfa) 1 puff PRN QID PRN 05/24/20 20:30 05/24/20 22:14 Aspirin (Aspirin Chewable) 324 mg 1X ONCE 05/24/20 15:45 05/24/20 15:46 DC 05/24/20 16:20 Azithromycin 250 ml @ 250 mls/hr 1X ONCE 05/24/20 16:30 05/24/20 17:29 DC 05/24/20 16:46 Ceftriaxone Sodium (Rocephin) 1 gm Q24H 05/25/20 09:30 05/25/20 09:48 Docusate Sodium (Colace) 100 mg PRN BID PRN 05/24/20 20:15 Doxycycline Hyclate 100 mg/ Dextrose 100 ml @ 50 mls/hr Q12HR 05/24/20 21:00 05/25/20 08:37 Enoxaparin Sodium (Lovenox 40mg Syringe) 40 mg Q24H 05/24/20 20:15 05/24/20 22:15 Guaifenesin (Robitussin) 200 mg PRN Q4HRS PRN 05/24/20 20:15 Info (CONTRAST GIVEN -- Rx MONITORING) 1 each PRN DAILY PRN 05/24/20 16:00 05/26/20 15:59 Iohexol (Omnipaque 350 Mg/ml) 90 ml 1X ONCE 05/24/20 16:00 05/24/20 16:01 DC 05/24/20 16:23 Levothyroxine Sodium (Synthroid) 150 mcg DAILY06 05/25/20 06:00 05/25/20 06:33 Morphine Sulfate (Morphine Sulfate) 2 mg PRN Q2HR PRN 05/25/20 00:00 05/25/20 23:59 Multivitamins (Thera M Plus) 1 tab DAILY 05/25/20 09:00 05/25/20 08:36 Ondansetron HCl (Zofran) 4 mg PRN Q8HRS PRN 05/25/20 00:00 05/25/20 00:03 DC Oseltamivir Phosphate (Tamiflu) 75 mg STK-MED ONCE 05/24/20 16:34 05/24/20 16:34 DC Sodium Chloride 1,000 ml @ 1,000 mls/hr 1X ONCE 05/24/20 15:30 05/24/20 16:29 DC 05/24/20 15:27 Zinc Sulfate (Orazinc) 220 mg DAILY 05/25/20 09:00 05/25/20 08:36 Zolpidem Tartrate (Ambien) 5 mg PRN QHS PRN 05/24/20 20:15 Current Medications Medications (Trade) Dose Ordered Sig/Wendi Route PRN Reason Start Time Stop Time Status Last Admin Dose Admin Sodium Chloride 1,000 ml @ 1,000 mls/hr 1X ONCE IV 05/24/20 15:30 05/24/20 16:29 DC 05/24/20 15:27 Aspirin (Aspirin Chewable) 324 mg 1X ONCE PO 05/24/20 15:45 05/24/20 15:46 DC 05/24/20 16:20 Iohexol (Omnipaque 350 Mg/ml) 90 ml 1X ONCE IV 05/24/20 16:00 05/24/20 16:01 DC 05/24/20 16:23 Oseltamivir Phosphate (Tamiflu) 30 mg BID PO 05/24/20 17:00 05/29/20 16:59 05/25/20 08:36 Ceftriaxone Sodium (Rocephin) 1 gm 1X ONCE IVP 05/24/20 16:30 05/24/20 16:32 DC 05/24/20 16:43 Azithromycin 250 ml @ 250 mls/hr 1X ONCE IV 05/24/20 16:30 05/24/20 17:29 DC 05/24/20 16:46 Acetaminophen (Tylenol) 650 mg PRN Q4HRS PRN PO TEMP OVER 100.4F OR MILD PAIN 05/24/20 20:15 05/25/20 08:32 Enoxaparin Sodium (Lovenox 40mg Syringe) 40 mg Q24H SQ 05/24/20 20:15 05/24/20 22:15 Levothyroxine Sodium (Synthroid) 150 mcg DAILY06 PO 05/25/20 06:00 05/25/20 06:33 Multivitamins (Thera M Plus) 1 tab DAILY PO 05/25/20 09:00 05/25/20 08:36 Zinc Sulfate (Orazinc) 220 mg DAILY PO 05/25/20 09:00 05/25/20 08:36 Albuterol Sulfate (Ventolin Hfa) 1 puff PRN QID PRN INH WHEEZING 05/24/20 20:30 05/24/20 22:14 Doxycycline Hyclate 100 mg/ Dextrose 100 ml @ 50 mls/hr Q12HR IV 05/24/20 21:00 05/25/20 08:37 Ceftriaxone Sodium (Rocephin) 1 gm Q24H IVP 05/25/20 09:30 05/25/20 09:48 LAB Lab: Laboratory Tests Test 05/24/20 14:45 05/24/20 15:22 05/24/20 21:45 05/25/20 00:30 White Blood Count 13.0 x10^3/uL (4.0-11.0) H Red Blood Count 3.58 x10^6/uL (4.30-5.70) L Hemoglobin 10.0 g/dL (13.0-17.5) L Hematocrit 30.4 % (39.0-53.0) L Mean Corpuscular Volume 85 fL (79-100) Mean Corpuscular Hemoglobin 28 pg (25-35) Mean Corpuscular Hemoglobin Concent 33 g/dL (31-37) Red Cell Distribution Width 16.5 % (11.5-14.5) H Platelet Count 198 x10^3/uL (140-400) Neutrophils (%) (Auto) 89 % (31-73) H Lymphocytes (%) (Auto) 4 % (24-48) L Monocytes (%) (Auto) 7 % (0-9) Eosinophils (%) (Auto) 0 % (0-3) Basophils (%) (Auto) 0 % (0-3) Neutrophils # (Auto) 11.6 x10^3/uL (1.8-7.7) H Lymphocytes # (Auto) 0.5 x10^3/uL (1.0-4.8) L Monocytes # (Auto) 1.0 x10^3/uL (0.0-1.1) Eosinophils # (Auto) 0.0 x10^3/uL (0.0-0.7) Basophils # (Auto) 0.0 x10^3/uL (0.0-0.2) Segmented Neutrophils % 93 % (35-66) H Lymphocytes % 1 % (24-48) L Monocytes % 6 % (0-10) Platelet Estimate Adequate (ADEQUATE) D-Dimer (Delores) 1.39 ug/mlFEU (0.00-0.50) H Sodium Level 133 mmol/L (136-145) L Potassium Level 3.8 mmol/L (3.5-5.1) Chloride Level 98 mmol/L (98-107) Carbon Dioxide Level 30 mmol/L (21-32) Anion Gap 5 (6-14) L Blood Urea Nitrogen 28 mg/dL (8-26) H Creatinine 1.2 mg/dL (0.7-1.3) Estimated GFR (Cockcroft-Gault) 58.1 BUN/Creatinine Ratio 23 (6-20) H Glucose Level 143 mg/dL (70-99) H Lactic Acid Level 1.9 mmol/L (0.4-2.0) Calcium Level 8.1 mg/dL (8.5-10.1) L Magnesium Level 1.8 mg/dL (1.8-2.4) Total Bilirubin 1.1 mg/dL (0.2-1.0) H Aspartate Amino Transferase (AST) 18 U/L (15-37) Alanine Aminotransferase (ALT) 14 U/L (16-63) L Alkaline Phosphatase 68 U/L (46-116) Troponin I Quantitative 0.094 ng/mL (0.000-0.055) 0.109 ng/mL (0.000-0.055) 0.092 ng/mL (0.000-0.055) XX-Tnw-X-Type Natriuretic Peptide 5559 pg/mL (0-449) H Total Protein 7.6 g/dL (6.4-8.2) Albumin 2.7 g/dL (3.4-5.0) L Albumin/Globulin Ratio 0.6 (1.0-1.7) L Procalcitonin 0.67 ng/mL (0.00-0.10) H Thyroid Stimulating Hormone (TSH) 1.490 uIU/mL (0.358-3.74) Influenza Type A Antigen Positive (NEGATIVE) Influenza Type B Antigen Negative (NEGATIVE) Test 05/25/20 02:30 White Blood Count 8.8 x10^3/uL (4.0-11.0) Red Blood Count 3.07 x10^6/uL (4.30-5.70) L Hemoglobin 8.5 g/dL (13.0-17.5) L Hematocrit 26.1 % (39.0-53.0) L Mean Corpuscular Volume 85 fL (79-100) Mean Corpuscular Hemoglobin 28 pg (25-35) Mean Corpuscular Hemoglobin Concent 33 g/dL (31-37) Red Cell Distribution Width 16.4 % (11.5-14.5) H Platelet Count 155 x10^3/uL (140-400) Neutrophils (%) (Auto) 82 % (31-73) H Lymphocytes (%) (Auto) 8 % (24-48) L Monocytes (%) (Auto) 8 % (0-9) Eosinophils (%) (Auto) 1 % (0-3) Basophils (%) (Auto) 1 % (0-3) Neutrophils # (Auto) 7.2 x10^3/uL (1.8-7.7) Lymphocytes # (Auto) 0.7 x10^3/uL (1.0-4.8) L Monocytes # (Auto) 0.7 x10^3/uL (0.0-1.1) Eosinophils # (Auto) 0.1 x10^3/uL (0.0-0.7) Basophils # (Auto) 0.1 x10^3/uL (0.0-0.2) Laboratory Tests 05/24/20 14:45 05/25/20 02:30 Laboratory Tests 05/24/20 14:45 IMAGING Imaging: PATIENT: ROSALVA LEONARDO HACCOUNT: [id number] : 1940 LOCATION: ER AGE: 80 SEX: M EXAM STATUS: REG ER ORD. PHYSICIAN: ANTOINETTE CARROLL APRN REASON: SOA PROCEDURE: CT ANGIOGRAPHY CHEST Study: CT CHEST WITH CONTRAST - PULMONARY ANGIOGRAM History: Shortness of breath Comparison: CT chest 03/31/[address] chest 01/04/2018 Technique: Helical CT of the chest performed after the administration of 90 mL Omnipaque 350 intravenous contrast and timed for angiographic evaluation of the pulmonary arteries per PE protocol. Coronal and sagittal 3D MIP reformations were obtained. One or more of the following individualized dose reduction techniques were utilized for this examination: 1. Automated exposure control 2. Adjustment of the mA and/or kV according to patient size 3. Use of iterative reconstruction technique. Findings: Pulmonary Arteries: Contrast bolus is adequate. There is no acute pulmonary embolism. Heart/Systemic Vasculature: Mild cardiomegaly. There are coronary artery calcifications. Microcalcifications are noted. No pericardial effusion. The thoracic aorta is normal in caliber. Mild calcified aortic atherosclerosis. Mediastinum: Mediastinal and hilar lymphadenopathy with ill-defined soft tissue extending along the central bronchovascular structures is similar to prior. Lungs: There are new bilateral ground glass opacities, greatest throughout the left lung. Subpleural cysts throughout both lungs with honeycombing, greatest in the bases, is unchanged. Large thick-walled cavitary lesion with surrounding subpleural consolidation in the posterior superior segment right lower lobe is redemonstrated. The cavitation is slightly larger, now 5.2 x 3.9 x 3.2 cm. This has continued to increase in size from 01/04/2018. There is a new small left pleural effusion. Neck/Axilla/Body Wall: Unremarkable. Upper Abdomen: Extensive calcifications in the spleen. Otherwise unremarkable. Bones: Multiple compression fractures including T3, T4 T6, T7 and L1 with up to moderate height loss are unchanged. No retropulsion of cortex. IMPRESSION: 1. No evidence for acute pulmonary embolism. 2. Large cavitary lesion with surrounding subpleural consolidation in the posterior superior segment right lower lobe has continued to mildly increase in size. Given the continued growth over time this is suspicious for malignancy. Consider biopsy or PET/CT. 3. New bilateral ground glass opacities, greatest throughout the left lung, may be infectious or inflammatory. New small left pleural effusion. 4. 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 Mediastinal and hilar lymphadenopathy. 6. Multiple compression fractures, unchanged. ASSESSMENT & PLAN A&P Plan as noted above This note was created using [employer] and may have omissions and/or errors due to the nature of real-time voice supervisor broadloom. Justifications for Admission Other Justification EDVIN LÓPEZ MD May 25, 2020 12:52
[2020-05-25] MEDS: ALBUTEROL SULFATE 8GM INHALER. INH PRN (21:52)
[2020-05-25] MEDS: ENOXAPARIN 40 MG/0.4 ML SYRINGE. SQ SCH (21:54)
[2020-05-25 22:56] LABS: BASE EXCESS ABG 1 mmol/L (-3-3); FIO2 ABG 50; HCO3 ABG 27 mmol/L (21-28); PCO2 ABG 46 mmHg (35-46); PO2 ABG 61 mmHg (65-108); SAT O2 ABG 90 % (92-99)
[2020-05-26] MEDS ORDERED: SODIUM CHLORIDE 0.65% NASAL SPRAY 45ML BOTTLE. NS PRN (02:00)
[2020-05-26 03:00] VITALS: BP 157/75
--- NOTE | 2020-05-26 05:15 | NUR ---
Patient noted to be desatting to mid 70's lower 80's with very slow recovery time. Respiratory notified, blood gasses drawn. Patient was admitted on 4 L NC, patient was at 8 L NC when this RN arrived. Respiratory placed patient on venti mask at 50%, patient eventually recovered. It was noticed by RN and patient that he is now having copious amounts of hemoptysis. Small amount noted on arrival by RN during prior shift stacker. Dr. Patricio notified of decline in respiratory status, verbal orders received to transfer patient to ICU if he continues to decline.
--- NOTE | 2020-05-26 05:20 | NUR ---
Patient began to desat to upper 70's low 80's with venti mask on, patient also complaining of venti mask being uncomfortable and dry. Patient requesting at this time to be placed back on NC, RN explains that this is not possible at this time as he will continue to desat even further and he will require transfer to ICU, patient VU. RT paged and they placed patient on 100% NRB. Patient's sat recovered to 95%, patient states "this mask is more comfortable then the other mask" and is agreeable to try this. RN also got saline mist spray ordered for patient d/t c/o dry nares. At time of this note patient is continuing to sat in the low 90's with NRB, will continue to monitor.
[2020-05-26] MEDS: LEVOTHYROXINE 150 MCG TABLET PO SCH (05:54)
[2020-05-26 07:56] VITALS: BP 136/82
[2020-05-26] MEDS: DOXYCYCLINE HYCLATE 100 MG in IV DEXTROSE 5% 100ML 100 ML IV SCH ×2 (08:02→20:49)
[2020-05-26] MEDS: cefTRIAXone IV Push 1 GM VIAL. IVP SCH (08:03)
[2020-05-26] MEDS: ZINC SULFATE 220 MG CAPSULE. PO SCH (08:03)
[2020-05-26] MEDS: OSELTAMIVIR 30 MG CAPSULE PO SCH ×2 (08:03→23:09)
[2020-05-26] MEDS: MULTIVITAMIN with MINERAL TABLET. PO SCH (08:03)
[2020-05-26 08:16] LABS: BASE EXCESS ABG 2 mmol/L (-3-3); HCO3 ABG 29 mmol/L (21-28); PCO2 ABG 57 mmHg (35-46); PO2 ABG 63 mmHg (65-108); SAT O2 ABG 91 % (92-99)
[2020-05-26 08:17] LABS: FIO2 ABG 100
--- NOTE | 2020-05-26 08:46 | PDOC ---
PULMONARY PROGRESS NOTE Subjective This note was in error disregard Diagnosis PROBLEM LIST Problems Medical Problems: (1) Elevated troponin Status: Acute (2) Influenza A Status: Acute (3) Left lower lobe pneumonia Status: Acute (4) Person under investigation for COVID-19 Status: Acute (5) Respiratory failure Status: Acute Objective Vital Signs Date Time Temp Pulse Resp B/P (MAP) Pulse Ox O2 Delivery O2 Flow Rate FiO2 05/26/20 07:56 97.6 119 28 136/82 (100) 89 NonRebreather Mask 15.0 97.6 Intake and Output 05/26/20 07:00 Intake Total 960 ml Output Total 1150 ml Balance -190 ml Intake Oral 860 ml IV Total 100 ml Output Urine Total 1150 ml # Voids 2 # Bowel Movements 1 VITALS/I&O Vital Sign - Last 24 Hours 05/25/20 05/25/20 05/25/20 05/25/20 11:00 15:00 16:00 19:00 Temp 97.8 98.0 99.3 98.2 97.8 98.0 99.3 98.2 Pulse 85 113 97 111 Resp 22 20 20 22 B/P (MAP) 136/66 (89) 144/61 (88) 151/81 (104) 132/64 (86) Pulse Ox 96 91 95 87 O2 Delivery Nasal Cannula Nasal Cannula Nasal Cannula Nasal Cannula O2 Flow Rate 6.0 6.0 2.0 2.0 05/25/20 05/25/20 05/25/20 05/26/20 21:00 23:00 23:15 03:00 Temp 98.2 98.0 98.2 98.0 Pulse 120 116 Resp 34 23 B/P (MAP) 138/62 (87) 157/75 (102) Pulse Ox 89 87 92 O2 Delivery Venturi Mask NonRebreather Mask Nasal Cannula NonRebreather Mask O2 Flow Rate 15.0 2.0 8.0 05/26/20 07:56 Temp 97.6 97.6 Pulse 119 Resp 28 B/P (MAP) 136/82 (100) Pulse Ox 89 O2 Delivery NonRebreather Mask O2 Flow Rate 15.0 Intake and Output 05/25/20 05/25/20 05/26/20 15:00 23:00 07:00 Intake Total 860 ml 100 ml Output Total 250 ml 500 ml 400 ml Balance 610 ml -400 ml -400 ml Review of Relevant I have reviewed the following items tri (where applicable) has been applied. Labs Laboratory Tests Test 05/24/20 14:45 05/24/20 15:22 05/24/20 21:45 05/25/20 00:30 White Blood Count 13.0 x10^3/uL (4.0-11.0) Red Blood Count 3.58 x10^6/uL (4.30-5.70) Hemoglobin 10.0 g/dL (13.0-17.5) Hematocrit 30.4 % (39.0-53.0) Mean Corpuscular Volume 85 fL (79-100) Mean Corpuscular Hemoglobin 28 pg (25-35) Mean Corpuscular Hemoglobin Concent 33 g/dL (31-37) Red Cell Distribution Width 16.5 % (11.5-14.5) Platelet Count 198 x10^3/uL (140-400) Neutrophils (%) (Auto) 89 % (31-73) Lymphocytes (%) (Auto) 4 % (24-48) Monocytes (%) (Auto) 7 % (0-9) Eosinophils (%) (Auto) 0 % (0-3) Basophils (%) (Auto) 0 % (0-3) Neutrophils # (Auto) 11.6 x10^3/uL (1.8-7.7) Lymphocytes # (Auto) 0.5 x10^3/uL (1.0-4.8) Monocytes # (Auto) 1.0 x10^3/uL (0.0-1.1) Eosinophils # (Auto) 0.0 x10^3/uL (0.0-0.7) Basophils # (Auto) 0.0 x10^3/uL (0.0-0.2) Segmented Neutrophils % 93 % (35-66) Lymphocytes % 1 % (24-48) Monocytes % 6 % (0-10) Platelet Estimate Adequate (ADEQUATE) D-Dimer (Delores) 1.39 ug/mlFEU (0.00-0.50) Sodium Level 133 mmol/L (136-145) Potassium Level 3.8 mmol/L (3.5-5.1) Chloride Level 98 mmol/L (98-107) Carbon Dioxide Level 30 mmol/L (21-32) Anion Gap 5 (6-14) Blood Urea Nitrogen 28 mg/dL (8-26) Creatinine 1.2 mg/dL (0.7-1.3) Estimated GFR (Cockcroft-Gault) 58.1 BUN/Creatinine Ratio 23 (6-20) Glucose Level 143 mg/dL (70-99) Lactic Acid Level 1.9 mmol/L (0.4-2.0) Calcium Level 8.1 mg/dL (8.5-10.1) Magnesium Level 1.8 mg/dL (1.8-2.4) Total Bilirubin 1.1 mg/dL (0.2-1.0) Aspartate Amino Transf (AST/SGOT) 18 U/L (15-37) Alanine Aminotransferase (ALT/SGPT) 14 U/L (16-63) Alkaline Phosphatase 68 U/L (46-116) Troponin I Quantitative 0.094 ng/mL (0.000-0.055) 0.109 ng/mL (0.000-0.055) 0.092 ng/mL (0.000-0.055) OV-Aqg-N-Type Natriuretic Peptide 5559 pg/mL (0-449) Total Protein 7.6 g/dL (6.4-8.2) Albumin 2.7 g/dL (3.4-5.0) Albumin/Globulin Ratio 0.6 (1.0-1.7) Procalcitonin 0.67 ng/mL (0.00-0.10) Thyroid Stimulating Hormone (TSH) 1.490 uIU/mL (0.358-3.74) Influenza Type A Antigen Positive (NEGATIVE) Influenza Type B Antigen Negative (NEGATIVE) Test 05/25/20 02:30 05/25/20 22:51 05/26/20 08:14 White Blood Count 8.8 x10^3/uL (4.0-11.0) Red Blood Count 3.07 x10^6/uL (4.30-5.70) Hemoglobin 8.5 g/dL (13.0-17.5) Hematocrit 26.1 % (39.0-53.0) Mean Corpuscular Volume 85 fL (79-100) Mean Corpuscular Hemoglobin 28 pg (25-35) Mean Corpuscular Hemoglobin Concent 33 g/dL (31-37) Red Cell Distribution Width 16.4 % (11.5-14.5) Platelet Count 155 x10^3/uL (140-400) Neutrophils (%) (Auto) 82 % (31-73) Lymphocytes (%) (Auto) 8 % (24-48) Monocytes (%) (Auto) 8 % (0-9) Eosinophils (%) (Auto) 1 % (0-3) Basophils (%) (Auto) 1 % (0-3) Neutrophils # (Auto) 7.2 x10^3/uL (1.8-7.7) Lymphocytes # (Auto) 0.7 x10^3/uL (1.0-4.8) Monocytes # (Auto) 0.7 x10^3/uL (0.0-1.1) Eosinophils # (Auto) 0.1 x10^3/uL (0.0-0.7) Basophils # (Auto) 0.1 x10^3/uL (0.0-0.2) O2 Saturation 90 % (92-99) 91 % (92-99) Arterial Blood pH 7.38 (7.35-7.45) 7.33 (7.35-7.45) Arterial Blood pCO2 at Patient Temp 46 mmHg (35-46) 57 mmHg (35-46) Arterial Blood pO2 at Patient Temp 61 mmHg (65-108) 63 mmHg (65-108) Arterial Blood HCO3 27 mmol/L (21-28) 29 mmol/L (21-28) Arterial Blood Base Excess 1 mmol/L (-3-3) 2 mmol/L (-3-3) FiO2 50 100 Laboratory Tests Test 05/25/20 22:51 05/26/20 08:14 O2 Saturation 90 % (92-99) 91 % (92-99) Arterial Blood pH 7.38 (7.35-7.45) 7.33 (7.35-7.45) Arterial Blood pCO2 at Patient Temp 46 mmHg (35-46) 57 mmHg (35-46) Arterial Blood pO2 at Patient Temp 61 mmHg (65-108) 63 mmHg (65-108) Arterial Blood HCO3 27 mmol/L (21-28) 29 mmol/L (21-28) Arterial Blood Base Excess 1 mmol/L (-3-3) 2 mmol/L (-3-3) FiO2 50 100 Microbiology 05/24/20 Blood Culture - Preliminary, Resulted NO GROWTH AFTER 1 DAY Medications Current Medications Morphine Sulfate (Morphine Sulfate) 4 mg PRN Q15MIN PRN IV/SQ PAIN GREATER THAN 3/10; Start 05/24/20 at 14:45; Stop 05/25/20 at 14:44; Status DC Morphine Sulfate (Morphine Sulfate) 4 mg PRN Q15MIN PRN IV/SQ PAIN GREATER THAN 3/10; Start 05/24/20 at 14:45; Stop 05/25/20 at 14:44; Status UNV Sodium Chloride 1,000 ml @ 1,000 mls/hr 1X ONCE IV Last administered on 05/24/20at 15:27; Start 05/24/20 at 15:30; Stop 05/24/20 at 16:29; Status DC Aspirin (Aspirin Chewable) 324 mg 1X ONCE PO Last administered on 05/24/20at 16:20; Start 05/24/20 at 15:45; Stop 05/24/20 at 15:46; Status DC Iohexol (Omnipaque 350 Mg/ml) 90 ml 1X ONCE IV Last administered on 05/24/20at 16:23; Start 05/24/20 at 16:00; Stop 05/24/20 at 16:01; Status DC Info (CONTRAST GIVEN -- Rx MONITORING) 1 each PRN DAILY PRN MC SEE COMMENTS; Start 05/24/20 at 16:00; Stop 05/26/20 at 15:59 Oseltamivir Phosphate (Tamiflu) 30 mg BID PO Last administered on 05/26/20at 08:03; Start 05/24/20 at 17:00; Stop 05/29/20 at 16:59 Ceftriaxone Sodium (Rocephin) 1 gm 1X ONCE IVP Last administered on 05/24/20at 16:43; Start 05/24/20 at 16:30; Stop 05/24/20 at 16:32; Status DC Azithromycin 250 ml @ 250 mls/hr 1X ONCE IV Last administered on 05/24/20at 16:46; Start 05/24/20 at 16:30; Stop 05/24/20 at 17:29; Status DC Oseltamivir Phosphate (Tamiflu) 75 mg STK-MED ONCE PO ; Start 05/24/20 at 16:34; Stop 05/24/20 at 16:34; Status DC Ondansetron HCl (Zofran) 4 mg PRN Q4HRS PRN IV NAUSEA/VOMITING; Start 05/24/20 at 20:15 Zolpidem Tartrate (Ambien) 5 mg PRN QHS PRN PO INSOMNIA; Start 05/24/20 at 20:15 Acetaminophen (Tylenol) 650 mg PRN Q4HRS PRN PO TEMP OVER 100.4F OR MILD PAIN Last administered on 05/25/20at 22:09; Start 05/24/20 at 20:15 Docusate Sodium (Colace) 100 mg PRN BID PRN PO HARD STOOLS; Start 05/24/20 at 20:15 Guaifenesin (Robitussin) 200 mg PRN Q4HRS PRN PO COUGH; Start 05/24/20 at 20:15 Enoxaparin Sodium (Lovenox 40mg Syringe) 40 mg Q24H SQ Last administered on 05/25/20at 21:54; Start 05/24/20 at 20:15 Levothyroxine Sodium (Synthroid) 150 mcg DAILY06 PO Last administered on 05/26/20 05:54; Start 05/25/20 at 06:00 Multivitamins (Thera M Plus) 1 tab DAILY PO Last administered on 05/26/20 08:03; Start 05/25/20 at 09:00 Zinc Sulfate (Orazinc) 220 mg DAILY PO Last administered on 05/26/20 08:03; Start 05/25/20 at 09:00 Albuterol Sulfate (Ventolin Hfa) 1 puff PRN QID PRN INH WHEEZING Last administered on 05/25/20at 21:52; Start 05/24/20 at 20:30 Doxycycline Hyclate 100 mg/ Dextrose 100 ml @ 50 mls/hr Q12HR IV Last administered on 05/26/20at 08:02; Start 05/24/20 at 21:00 Ceftriaxone Sodium (Rocephin) 1 gm Q24H IVP Last administered on 05/26/20at 08:03; Start 05/25/20 at 09:30 Ondansetron HCl (Zofran) 4 mg PRN Q8HRS PRN IV NAUSEA/VOMITING; Start 05/25/20 at 00:00; Stop 05/25/20 at 00:03; Status DC Morphine Sulfate (Morphine Sulfate) 2 mg PRN Q2HR PRN IV PAIN; Start 05/25/20 at 00:00; Stop 05/25/20 at 23:59; Status DC Acetaminophen (Tylenol) 650 mg PRN Q4HRS PRN PO FEVER > 100.3'F; Start 05/25/20 at 00:00; Stop 05/25/20 at 23:59; Status DC Sodium Chloride (Saline Mist Nasal) 1 petra PRN Q1HR PRN NS NASAL CONGESTION Last administered on 05/26/20at 02:10; Start 05/26/20 at 02:00 Active Scripts Active Reported Men 50 Plus Multivitamin Tab (Multivit-Min/FA/Lycopen/Lutein) 1 Each Tablet 1 Each PO DAILY Levothyroxine Sodium 125 Mcg Tablet 150 Mcg PO DAILY KAVITHA MCKENNA MD May 26, 2020 08:46
[2020-05-26] MEDS: methylPREDNISolone SOD SUCC PF 40 MG/ML VIAL. IV SCH ×2 (10:26→20:49)
[2020-05-26 11:33] VITALS: BP 152/79
--- NOTE | 2020-05-26 11:59 | PDOC ---
[employer] PROGRESS NOTE Date of Service DOS: DATE: 05/26/20 TIME: 11:57 Chief Complaint Chief Complaint Acute respiratory failure with hypoxia Pulmonary fibrosis Influenza Sepsis Possible lung cancer Large cavitary lesion with surrounding subpleural consolidation in the posterior superior segment right lower lobe has continued to mildly increase in size - concerning for carcinoma. Hyponatremia Pneumonia Elevated Troponin 0.094 Severe protein calorie malnutrition T3, T4 T6, T7 and L1 compression fractures Hypothyroidism History of Present Illness History of Present Illness 05/26/2020 Patient seen and examined on the [facility] floor He is gasping for air appears to possibly be terminal On BiPAP Discussed with RN and case management Chart reviewed I asked case management to arrange possible hospice Vitals/I&O Vitals/I&O: Vital Signs Date Time Temp Pulse Resp B/P (MAP) Pulse Ox O2 Delivery O2 Flow Rate FiO2 05/26/20 11:33 97.1 119 42 152/79 (103) 100 BiPAP/CPAP 97.1 05/26/20 08:00 15.0 I & O 05/25/20 05/25/20 05/26/20 15:00 23:00 07:00 Intake Total 860 ml 100 ml Output Total 250 ml 500 ml 400 ml Balance 610 ml -400 ml -400 ml Physical Exam General: Alert, Oriented X3, Cooperative, moderate distress Lungs: Crackles Abdomen: Normal bowel sounds, Soft, No tenderness, No hepatosplenomegaly, No masses Extremities: No clubbing, No cyanosis, No edema, Normal pulses, No tenderness/swelling Skin: No rashes, No breakdown, No significant lesion Labs Labs: Laboratory Tests Test 05/25/20 22:51 05/26/20 08:14 O2 Saturation 90 % (92-99) 91 % (92-99) Arterial Blood pH 7.38 (7.35-7.45) 7.33 (7.35-7.45) Arterial Blood pCO2 at Patient Temp 46 mmHg (35-46) 57 mmHg (35-46) Arterial Blood pO2 at Patient Temp 61 mmHg (65-108) 63 mmHg (65-108) Arterial Blood HCO3 27 mmol/L (21-28) 29 mmol/L (21-28) Arterial Blood Base Excess 1 mmol/L (-3-3) 2 mmol/L (-3-3) FiO2 50 100 Assessment and Plan Assessmemt and Plan Problems Medical Problems: (1) Elevated troponin Status: Acute (2) Influenza A Status: Acute (3) Left lower lobe pneumonia Status: Acute (4) Person under investigation for COVID-19 Status: Acute (5) Respiratory failure Status: Acute Acute respiratory failure with hypoxia - likely related to influenza A, worsening of pulmonary fibrosis, enlarged cavitary lesion and possible COVID 19. Tamiflu, wean O2 as tolerated. Pulm toileting Sepsis - due to above, given fluids and tamiflu and empiric CAP antibiotics. will continue Influenza A - cont tamiflu. he did receive his flu vaccine this year Large cavitary lesion with surrounding subpleural consolidation in the posterior superior segment right lower lobe has continued to mildly increase in size - concerning for carcinoma. Consult pulm Hyponatremia - Na 133 likely hypovolemic, will hydrate and monitor Pneumonia - Abnormal CT chest - Bilateral ground glass opacities likely from influenza, however COVID 19 testing is also pending. 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 Medications: Current Medications Medications (Trade) Dose Ordered Sig/Wendi Route PRN Reason Start Time Stop Time Status Last Admin Dose Admin Sodium Chloride (Saline Mist Nasal) 1 petra PRN Q1HR PRN NS NASAL CONGESTION 05/26/20 02:00 05/26/20 02:10 Lorazepam (Ativan Inj) 1 mg PRN Q2HR PRN IVP ANXIETY / AGITATION 05/26/20 10:30 05/26/20 10:26 Methylprednisolone Sodium Succinate (SOLU-Medrol 40MG VIAL) 40 mg Q12HR IV 05/26/20 11:00 05/26/20 10:26 Justifications for Admission Other Justification DEVON RUSH III DO May 26, 2020 11:59
--- NOTE | 2020-05-26 13:53 | PDOC ---
PULMONARY PROGRESS NOTES DATE: 05/26/20 TIME: 13:39 Subjective Patient still short of air, coughed up bright red blood this morning. Vitals Vital Signs Date Time Temp Pulse Resp B/P (MAP) Pulse Ox O2 Delivery O2 Flow Rate FiO2 05/26/20 11:33 97.1 119 42 152/79 (103) 100 BiPAP/CPAP 97.1 05/26/20 08:00 15.0 Comments Patient seen during the pandemic, no respiratory distress noted no paroxysmal breathing pattern no increasing edema no skin rashes ROS: No Nausea, No Chest Pain Lungs: Crackles Labs Laboratory Tests Test 05/24/20 14:45 05/24/20 15:22 05/24/20 21:45 05/25/20 00:30 White Blood Count 13.0 x10^3/uL (4.0-11.0) Red Blood Count 3.58 x10^6/uL (4.30-5.70) Hemoglobin 10.0 g/dL (13.0-17.5) Hematocrit 30.4 % (39.0-53.0) Mean Corpuscular Volume 85 fL (79-100) Mean Corpuscular Hemoglobin 28 pg (25-35) Mean Corpuscular Hemoglobin Concent 33 g/dL (31-37) Red Cell Distribution Width 16.5 % (11.5-14.5) Platelet Count 198 x10^3/uL (140-400) Neutrophils (%) (Auto) 89 % (31-73) Lymphocytes (%) (Auto) 4 % (24-48) Monocytes (%) (Auto) 7 % (0-9) Eosinophils (%) (Auto) 0 % (0-3) Basophils (%) (Auto) 0 % (0-3) Neutrophils # (Auto) 11.6 x10^3/uL (1.8-7.7) Lymphocytes # (Auto) 0.5 x10^3/uL (1.0-4.8) Monocytes # (Auto) 1.0 x10^3/uL (0.0-1.1) Eosinophils # (Auto) 0.0 x10^3/uL (0.0-0.7) Basophils # (Auto) 0.0 x10^3/uL (0.0-0.2) Segmented Neutrophils % 93 % (35-66) Lymphocytes % 1 % (24-48) Monocytes % 6 % (0-10) Platelet Estimate Adequate (ADEQUATE) D-Dimer (Delores) 1.39 ug/mlFEU (0.00-0.50) Sodium Level 133 mmol/L (136-145) Potassium Level 3.8 mmol/L (3.5-5.1) Chloride Level 98 mmol/L (98-107) Carbon Dioxide Level 30 mmol/L (21-32) Anion Gap 5 (6-14) Blood Urea Nitrogen 28 mg/dL (8-26) Creatinine 1.2 mg/dL (0.7-1.3) Estimated GFR (Cockcroft-Gault) 58.1 BUN/Creatinine Ratio 23 (6-20) Glucose Level 143 mg/dL (70-99) Lactic Acid Level 1.9 mmol/L (0.4-2.0) Calcium Level 8.1 mg/dL (8.5-10.1) Magnesium Level 1.8 mg/dL (1.8-2.4) Total Bilirubin 1.1 mg/dL (0.2-1.0) Aspartate Amino Transf (AST/SGOT) 18 U/L (15-37) Alanine Aminotransferase (ALT/SGPT) 14 U/L (16-63) Alkaline Phosphatase 68 U/L (46-116) Troponin I Quantitative 0.094 ng/mL (0.000-0.055) 0.109 ng/mL (0.000-0.055) 0.092 ng/mL (0.000-0.055) VG-Fge-E-Type Natriuretic Peptide 5559 pg/mL (0-449) Total Protein 7.6 g/dL (6.4-8.2) Albumin 2.7 g/dL (3.4-5.0) Albumin/Globulin Ratio 0.6 (1.0-1.7) Procalcitonin 0.67 ng/mL (0.00-0.10) Thyroid Stimulating Hormone (TSH) 1.490 uIU/mL (0.358-3.74) Influenza Type A Antigen Positive (NEGATIVE) Influenza Type B Antigen Negative (NEGATIVE) Test 05/25/20 02:30 05/25/20 22:51 05/26/20 08:14 White Blood Count 8.8 x10^3/uL (4.0-11.0) Red Blood Count 3.07 x10^6/uL (4.30-5.70) Hemoglobin 8.5 g/dL (13.0-17.5) Hematocrit 26.1 % (39.0-53.0) Mean Corpuscular Volume 85 fL (79-100) Mean Corpuscular Hemoglobin 28 pg (25-35) Mean Corpuscular Hemoglobin Concent 33 g/dL (31-37) Red Cell Distribution Width 16.4 % (11.5-14.5) Platelet Count 155 x10^3/uL (140-400) Neutrophils (%) (Auto) 82 % (31-73) Lymphocytes (%) (Auto) 8 % (24-48) Monocytes (%) (Auto) 8 % (0-9) Eosinophils (%) (Auto) 1 % (0-3) Basophils (%) (Auto) 1 % (0-3) Neutrophils # (Auto) 7.2 x10^3/uL (1.8-7.7) Lymphocytes # (Auto) 0.7 x10^3/uL (1.0-4.8) Monocytes # (Auto) 0.7 x10^3/uL (0.0-1.1) Eosinophils # (Auto) 0.1 x10^3/uL (0.0-0.7) Basophils # (Auto) 0.1 x10^3/uL (0.0-0.2) O2 Saturation 90 % (92-99) 91 % (92-99) Arterial Blood pH 7.38 (7.35-7.45) 7.33 (7.35-7.45) Arterial Blood pCO2 at Patient Temp 46 mmHg (35-46) 57 mmHg (35-46) Arterial Blood pO2 at Patient Temp 61 mmHg (65-108) 63 mmHg (65-108) Arterial Blood HCO3 27 mmol/L (21-28) 29 mmol/L (21-28) Arterial Blood Base Excess 1 mmol/L (-3-3) 2 mmol/L (-3-3) FiO2 50 100 Laboratory Tests Test 05/25/20 22:51 05/26/20 08:14 O2 Saturation 90 % (92-99) 91 % (92-99) Arterial Blood pH 7.38 (7.35-7.45) 7.33 (7.35-7.45) Arterial Blood pCO2 at Patient Temp 46 mmHg (35-46) 57 mmHg (35-46) Arterial Blood pO2 at Patient Temp 61 mmHg (65-108) 63 mmHg (65-108) Arterial Blood HCO3 27 mmol/L (21-28) 29 mmol/L (21-28) Arterial Blood Base Excess 1 mmol/L (-3-3) 2 mmol/L (-3-3) FiO2 50 100 Medications Active Scripts Medications Dose Route/Sig Max Daily Dose Days Date Category Men 50 Plus Multivitamin Tab (Multivit-Min/FA/Lycopen/Lutein) 1 Each Tablet 1 Each PO DAILY 05/24/20 Reported Levothyroxine Sodium 125 Mcg Tablet 150 Mcg PO DAILY 07/30/13 Reported Impression . IMPRESSION: 1. Acute respiratory failure, multifactorial in etiology including influenza A, rule out COVID-19 pneumonia, interstitial lung disease, no pulmonary embolism. 2. Abnormal CT of the chest with slowly enlarging cavitary lesion and hemoptysis. Differential diagnosis including inflammatory versus infectious versus granulomatous versus malignancy. 3. History of thyroid cancer. 4. Mitral regurgitation. 5. Influenza A. 6. Elevated troponin? and non-ST elevation myocardial infarction. 7. Positive influenza A 8. Possible COVID-19 9. Elevated troponin 10. Chronic interstitial lung disease, possible IPF Plan . We will continue current support, May require a bronchoscopy in the future, will await SARS-CoV-2 results Oxygen supplementation Empiric antibiotics Hold anticoagulation Consult cardiology KAVITHA MCKENNA MD May 26, 2020 13:53
--- NOTE | 2020-05-26 14:00 | NUR ---
Pt family friend, Maikel Harkins, called to receive an update; Maikel stated that pt does not have any family in town but his grandson is his emergency contact. Maikel stated he was the one to bring patient to hospital and he has possession of his wallet and house keys. Maikle's phone number is [phone]. Will continue to monitor.
[2020-05-26 15:14] VITALS: BP 130/77
--- NOTE | 2020-05-26 16:00 | NUR ---
This RN updated dar Jauregui about the amount of oxygen patient is needing. PT dar stated "I appreciate you guys doing everything." This RN explained Bi-pap to family member and he verbalized understanding of the next steps after being placed on a Bi-pap, i.e, ICU transfer and possible intubation. Dar verbalized understanding of the plan of care moving forward. Dar requested to be called with any updates or changes, regardless of the time. Will continue to monitor.
--- NOTE | 2020-05-26 17:45 | NUR ---
Per Dr. Jones, no need to re-swab for COVID. Okay to transfer.
[2020-05-26 19:00] VITALS: BP 116/63
[2020-05-26] MEDS: LACTOBACILLUS RHAMNOSUS GG 1 CAPSULE. PO SCH (20:50)
[2020-05-26 23:00] VITALS: BP 124/69
[2020-05-27 03:00] VITALS: BP 132/67
[2020-05-27] MEDS: LEVOTHYROXINE 150 MCG TABLET PO SCH (05:13)
[2020-05-27 07:00] VITALS: BP 114/66
--- NOTE | 2020-05-27 07:25 | NUR ---
IP: Pt being influenza + required droplet precautions for 7 days and 24 hours without a fever whichever is longest.
--- NOTE | 2020-05-27 07:52 | PDOC2 ---
MARINO PERLA INSIDE SALES EXECUTIVE 05/27/20 0752: CARDIAC CONSULT DATE OF CONSULT Date of Consult DATE: 05/27/20 TIME: 07:49 REASON FOR CONSULT Reason for Consult: Elevated troponin REFERRING PHYSICIAN Referring Physician: Dr. Guillory SOURCE Source: Chart review, Patient HISTORY OF PRESENT ILLNESS HISTORY OF PRESENT ILLNESS This is an 80 yo male who presented with shortness of breath and hemoptysis. Patient reports he ambulated in gas station the day of arrival and became very dyspneic. Nearly passed out so he decided to come to the ED for further evaluation and treatment. Was noted to be significantly hypoxic upon arrival with oxygen saturations in the upper 60's. Was placed on NC. Troponin notes to be mildly elevated, which prompted this consult. David any chest pain, dizziness, diaphoresis, or nausea/vomiting. SOA has improved. PAST MEDICAL HISTORY GI: GERD Heme/Onc: Cancer (thyroid) PAST SURGICAL HISTORY Past Surgical History: Cholecystectomy, Other (thrroidectomy) FAMILY HISTORY Family History: Hypertension SOCIAL HISTORY Smoke: Quit ALCOHOL: none Drugs: None CURRENT MEDICATIONS CURRENT MEDICATIONS Current Medications Medications (Trade) Dose Ordered Sig/Wendi Route PRN Reason Start Time Stop Time Status Last Admin Dose Admin Lorazepam (Ativan Inj) 1 mg PRN Q2HR PRN IVP ANXIETY / AGITATION 05/26/20 10:30 05/26/20 10:26 Methylprednisolone Sodium Succinate (SOLU-Medrol 40MG VIAL) 40 mg Q12HR IV 05/26/20 11:00 05/26/20 20:49 ALLERGIES ALLERGIES: Coded Allergies: No Known Drug Allergies (Unverified , 08/28/18) ROS Review of System 14 point ROS conducted with pertinent positives noted above in hPI PHYSICAL EXAM General: Alert, Oriented X3, Cooperative, No acute distress HEENT: Atraumatic Lungs: Other (diminished, on NC) Heart: Other (ST with PAC's ) Abdomen: Soft, No tenderness Extremities: No edema, Normal pulses Skin: No significant lesion Neuro: Normal speech, Sensation intact Psych/Mental Status: Mental status NL, Mood NL MUSCULOSKELETAL: Osteoarthritic changes both hands VITALS/I&O VITALS/I&O: Vital Signs Date Time Temp Pulse Resp B/P (MAP) Pulse Ox O2 Delivery O2 Flow Rate FiO2 05/27/20 03:50 98 BiPAP/CPAP 05/27/20 03:00 97.9 115 23 132/67 (88) 15.0 97.9 I & O 05/26/20 05/26/20 05/27/20 15:00 23:00 07:00 Intake Total 200 ml 50 ml 0 ml Output Total 200 ml Balance 200 ml 50 ml -200 ml LABS Lab: Laboratory Tests Test 05/26/20 08:14 O2 Saturation 91 % (92-99) L Arterial Blood pH 7.33 (7.35-7.45) L Arterial Blood pCO2 at Patient Temp 57 mmHg (35-46) H Arterial Blood pO2 at Patient Temp 63 mmHg (65-108) L Arterial Blood HCO3 29 mmol/L (21-28) H Arterial Blood Base Excess 2 mmol/L (-3-3) FiO2 100 ECHOCARDIOGRAM ECHOCARDIOGRAM <Conclusion> The left ventricular systolic function is normal. The Ejection Fraction is 55-60%. There is normal LV segmental wall motion. The left atrium is moderately dilated. Moderate to severe mitral regurgitation. Trace tricuspid regurgitation. The PA pressure was estimated at 26 mmHg. There is no evidence of significant pericardial effusion. DATE: 08/24/181405 ASSESSMENT/PLAN ASSESSMENT/PLAN 1. Acute respiratory failure in setting of PNA, influenza A, ILD. Plans for bronch 2. Hemoptysis; CT also noted with enlarging cavitary lesion with concerns for possible malignancy 3. Influenza A; Tamiflu 4. Mild troponin elevation; peak 0.109. Most probably type II, demand ischemia. CP free. 5. Valvular disease; moderate to severe mitral regurgitation per echo 08/29 6. H/o thyroid CA; s/p thyroidectomy Recommendations ASA if no further hemoptysis Lipids Echo to assess LV systolic function Consider outpatient ischemic evaluation Lung optimization, ongoing treatment of Influenza NICANOR EASON MD 05/27/20 1627: CARDIAC CONSULT ASSESSMENT/PLAN ASSESSMENT/PLAN Patient seen and examined. Agree with above nurse practitioner note. Supportive care. MARINO PERLA APRN May 27, 2020 07:52 NICANOR EASON MD May 27, 2020 16:27
--- NOTE | 2020-05-27 08:45 | PDOC ---
PULMONARY PROGRESS NOTES DATE: 05/27/20 TIME: 08:45 Subjective Patient still short of air, coughed up bright red blood this morning. Vitals Vital Signs Date Time Temp Pulse Resp B/P (MAP) Pulse Ox O2 Delivery O2 Flow Rate FiO2 05/27/20 07:49 96 BiPAP/CPAP 05/27/20 07:00 97.1 95 20 114/66 (82) 15.0 97.1 Comments Patient seen during the COVID-19 pandemic, no respiratory distress noted no paroxysmal breathing pattern no increasing edema no skin rashes ROS: No Nausea, No Chest Pain Lungs: Crackles Labs Laboratory Tests Test 05/25/20 22:51 05/26/20 08:14 O2 Saturation 90 % (92-99) 91 % (92-99) Arterial Blood pH 7.38 (7.35-7.45) 7.33 (7.35-7.45) Arterial Blood pCO2 at Patient Temp 46 mmHg (35-46) 57 mmHg (35-46) Arterial Blood pO2 at Patient Temp 61 mmHg (65-108) 63 mmHg (65-108) Arterial Blood HCO3 27 mmol/L (21-28) 29 mmol/L (21-28) Arterial Blood Base Excess 1 mmol/L (-3-3) 2 mmol/L (-3-3) FiO2 50 100 Medications Active Scripts Medications Dose Route/Sig Max Daily Dose Days Date Category Men 50 Plus Multivitamin Tab (Multivit-Min/FA/Lycopen/Lutein) 1 Each Tablet 1 Each PO DAILY 05/24/20 Reported Levothyroxine Sodium 125 Mcg Tablet 150 Mcg PO DAILY 07/30/13 Reported Impression . IMPRESSION: 1. Acute respiratory failure, multifactorial in etiology including influenza A, rule out COVID-19 pneumonia, interstitial lung disease, no pulmonary embolism. 2. Abnormal CT of the chest with slowly enlarging cavitary lesion and hemoptysis. Differential diagnosis including inflammatory versus infectious versus granulomatous versus malignancy. 3. History of thyroid cancer. 4. Mitral regurgitation. 5. Influenza A. 6. Elevated troponin? and non-ST elevation myocardial infarction. 7. Positive influenza A 8. Possible COVID-19 9. Elevated troponin 10. Chronic interstitial lung disease, possible IPF Plan . We will continue current support, May require a bronchoscopy in the future, will await SARS-CoV-2 results Oxygen supplementation Empiric antibiotics Hold anticoagulation Consult cardiology KAVITHA MCKENNA MD May 27, 2020 08:45
[2020-05-27] MEDS: MULTIVITAMIN with MINERAL TABLET. PO SCH (10:02)
[2020-05-27] MEDS: LACTOBACILLUS RHAMNOSUS GG 1 CAPSULE. PO SCH ×2 (10:02→20:18)
[2020-05-27] MEDS: OSELTAMIVIR 30 MG CAPSULE PO SCH ×2 (10:03→20:18)
[2020-05-27] MEDS: DOXYCYCLINE HYCLATE 100 MG in IV DEXTROSE 5% 100ML 100 ML IV SCH ×2 (10:03→20:18)
[2020-05-27] MEDS: ZINC SULFATE 220 MG CAPSULE. PO SCH (10:03)
[2020-05-27] MEDS: cefTRIAXone IV Push 1 GM VIAL. IVP SCH (10:04)
[2020-05-27] MEDS: methylPREDNISolone SOD SUCC PF 40 MG/ML VIAL. IV SCH ×2 (10:04→20:18)
[2020-05-27 10:53] VITALS: BP 121/68
[2020-05-27 14:16] LABS: CHOLESTEROL/HDL RATIO 3.7
[2020-05-27 15:00] VITALS: BP 114/74
[2020-05-27 19:00] VITALS: BP 120/83
[2020-05-27] MEDS: ACETAMINOPHEN 325 MG TABLET. PO PRN (22:34)
[2020-05-27 23:00] VITALS: BP 130/80
[2020-05-28 03:00] VITALS: BP 129/78
[2020-05-28] MEDS: LEVOTHYROXINE 150 MCG TABLET PO SCH (05:08)
[2020-05-28 07:00] VITALS: BP 134/55
--- NOTE | 2020-05-28 08:21 | PDOC ---
PULMONARY PROGRESS NOTES DATE: 05/28/20 TIME: 08:20 Subjective Patient feels better not coughing up any blood today. Vitals Vital Signs Date Time Temp Pulse Resp B/P (MAP) Pulse Ox O2 Delivery O2 Flow Rate FiO2 05/28/20 05:30 100 Nasal Cannula 10.0 05/28/20 03:00 97.5 113 20 129/78 (95) 97.5 ROS: No Nausea, No Chest Pain General: Alert Lungs: Crackles Cardiovascular: S1, S2 Abdomen: Soft Neuro Exam: Alert Extremities: No Edema Labs Laboratory Tests Test 05/27/20 13:33 Triglycerides Level 64 mg/dL (0-150) Cholesterol Level 110 mg/dL (0-200) LDL Cholesterol, Calculated 67 mg/dL (0-100) VLDL Cholesterol, Calculated 13 mg/dL (0-40) Non-HDL Cholesterol Calculated 80 mg/dL (0-129) HDL Cholesterol 30 mg/dL (40-60) Cholesterol/HDL Ratio 3.7 Laboratory Tests Test 05/27/20 13:33 Triglycerides Level 64 mg/dL (0-150) Cholesterol Level 110 mg/dL (0-200) LDL Cholesterol, Calculated 67 mg/dL (0-100) VLDL Cholesterol, Calculated 13 mg/dL (0-40) Non-HDL Cholesterol Calculated 80 mg/dL (0-129) HDL Cholesterol 30 mg/dL (40-60) Cholesterol/HDL Ratio 3.7 Medications Active Scripts Medications Dose Route/Sig Max Daily Dose Days Date Category Men 50 Plus Multivitamin Tab (Multivit-Min/FA/Lycopen/Lutein) 1 Each Tablet 1 Each PO DAILY 05/24/20 Reported Levothyroxine Sodium 125 Mcg Tablet 150 Mcg PO DAILY 07/30/13 Reported Impression . IMPRESSION: 1. Acute respiratory failure, multifactorial in etiology including influenza A, rule out COVID-19 pneumonia, interstitial lung disease, no pulmonary embolism. 2. Abnormal CT of the chest with slowly enlarging cavitary lesion and hemoptysis. Differential diagnosis including inflammatory versus infectious versus granulomatous versus malignancy. 3. History of thyroid cancer. 4. Mitral regurgitation. 5. Influenza A. 6. Elevated troponin? and non-ST elevation myocardial infarction. 7. Positive influenza A 8. Possible COVID-19 9. Elevated troponin 10. Chronic interstitial lung disease, possible IPF Plan . Reviewed risks benefits and alternatives to bronchoscopy patient consented Hold anticoagulation Oxygen supplementation Empiric antibiotics Consult cardiology KAVITHA MCKENNA MD May 28, 2020 08:20
[2020-05-28] MEDS ORDERED: EPINEPHrine 1 MG/ML VIAL INJ PRN (09:00)
[2020-05-28] MEDS ORDERED: LIDOCAINE 1% Multi-Dose 20 ML VIAL. INJ PRN (09:00)
[2020-05-28] MEDS ORDERED: LIDOCAINE 4% TOPICAL 50 ML SOLUTION. MM PRN (09:00)
[2020-05-28] MEDS ORDERED: LIDOCAINE 2% VISCOUS 100 ML BOTTLE. MM PRN (09:00)
[2020-05-28] MEDS ORDERED: ALBUTEROL SULFATE 2.5 MG/3 ML NEBU. NEB ONE (09:30)
[2020-05-28] MEDS: methylPREDNISolone SOD SUCC PF 40 MG/ML VIAL. IV SCH ×2 (09:33→22:18)
[2020-05-28] MEDS: cefTRIAXone IV Push 1 GM VIAL. IVP SCH (09:34)
[2020-05-28] MEDS ORDERED: PROPOFOL 10 MG/ML (20ML) VIAL. IV ONE (10:14)
[2020-05-28] MEDS ORDERED: EPINEPHrine 1 MG/ML VIAL ONE (10:40)
[2020-05-28] MEDS ORDERED: LIDOCAINE 4% TOPICAL 50 ML SOLUTION. ONE (10:40)
[2020-05-28] MEDS ORDERED: LIDOCAINE 2% VISCOUS 100 ML BOTTLE. ONE (10:40)
[2020-05-28] MEDS ORDERED: LIDOCAINE 1% Multi-Dose 20 ML VIAL. ONE (10:40)
[2020-05-28] MEDS: IV RINGERS,LACTATED 1000ML 1,000 ML IV SCH (10:41)
[2020-05-28 11:00] VITALS: BP 132/67
--- NOTE | 2020-05-28 12:28 | PDOC ---
CARDIO Progress Notes Date and Time Date of Service 05/28/20 Time of Evaluation 1220 Subjective Subjective: No Chest Pain, No Palpitations, Other (SOA improved. Slighty SOA post bronch ) Vitals Vitals Vital Signs Date Time Temp Pulse Resp B/P (MAP) Pulse Ox O2 Delivery O2 Flow Rate FiO2 05/28/20 12:01 99 101 24 131/78 98 Nasal Cannula 8 99.0 Weight Weight [ ] Input and Output Intake and Output Intake and Output 05/28/20 07:00 Intake Total 1590 ml Output Total 900 ml Balance 690 ml Intake Oral 1590 ml Output Urine Total 900 ml Laboratory Labs Laboratory Tests Test 05/27/20 13:33 Triglycerides Level 64 mg/dL (0-150) Cholesterol Level 110 mg/dL (0-200) LDL Cholesterol, Calculated 67 mg/dL (0-100) VLDL Cholesterol, Calculated 13 mg/dL (0-40) Non-HDL Cholesterol Calculated 80 mg/dL (0-129) HDL Cholesterol 30 mg/dL (40-60) Cholesterol/HDL Ratio 3.7 Microbiology Micro Microbiology 05/24/20 Blood Culture - Preliminary, Resulted NO GROWTH AFTER 3 DAYS Physical Exam HEENT: Neck Supple W Full Motion Chest: Symmetric LUNGS: Other (on NC) Heart: S1S2, RRR (SR/ST, SA), murmurs (2/6 systolic murmur ) Abdomen: Soft N/T Extremities: No Edema Neurology: alert, oriented, follow commands Assessment Assessment 1. Acute respiratory failure in setting of PNA, influenza A, ILD. Plans for bronch 2. Hemoptysis; CT also noted with enlarging cavitary lesion with concerns for possible malignancy 3. Influenza A; Tamiflu 4. Mild troponin elevation; peak 0.109. Most probably type II, demand ischemia. CP free. 5. Valvular disease; moderate to severe mitral regurgitation per echo 08/29 6. H/o thyroid CA; s/p thyroidectomy Recommendations ASA therapy Consider outpatient ischemic evaluation Lung optimization, ongoing treatment of Influenza Supportive care Justicifation of Admission Dx: Justifications for Admission: Justification of Admission Dx: Yes Comments: PNA, influenza MARINO PERLA APRN May 28, 2020 12:28
--- NOTE | 2020-05-28 13:42 | PDOC4 ---
PROCEDURE Procedure Bronchoscopy, bronchoalveolar lavage Date of procedure 05/28/2020 Indication patient with hemoptysis, enlarging right lower lobe cavitary mass risk benefits and alternatives reviewed with patient he consented Anesthesia please see anesthesia's note Description: Timeout was performed prior to sedation, vital signs and O2 saturation were maintained within normal limits throughout the procedure. Patient was sedated, bronchoscope was passed through the right nares. Vocal cords were identified moving bilaterally without any dysfunction. The vocal cords were then anesthetized with a total of 5 cc of 4% lidocaine. The bronchoscope was passed through the vocal cords into the proximal trachea. The proximal and distal trachea was normal. The right and left segments and subsegments were inspected. There was no endobronchial lesion. There was no evidence of bleeding. There was no evidence of old blood clots. The scope was wedged into the posterior segment of the right lower lobe. The bronchial lavage was performed the return was slightly cloudy in nature. Findings #1 normal vocal cords #2 normal trachea #3 no endobronchial lesion #4 no active bleeding. Patient tolerated procedure well with no immediate complications. We will await the BAL results. KAVITHA MCKENNA MD May 28, 2020 13:42
[2020-05-28] MEDS: OSELTAMIVIR 30 MG CAPSULE PO SCH ×2 (13:55→22:17)
[2020-05-28] MEDS: LACTOBACILLUS RHAMNOSUS GG 1 CAPSULE. PO SCH ×2 (13:55→22:17)
[2020-05-28] MEDS: MULTIVITAMIN with MINERAL TABLET. PO SCH (13:55)
[2020-05-28] MEDS: DOXYCYCLINE HYCLATE 100 MG in IV DEXTROSE 5% 100ML 100 ML IV SCH ×2 (13:55→22:17)
[2020-05-28] MEDS: ZINC SULFATE 220 MG CAPSULE. PO SCH (13:55)
[2020-05-28 15:00] VITALS: BP 107/65
[2020-05-28 19:00] VITALS: BP 110/71
[2020-05-28 23:00] VITALS: BP 106/68
[2020-05-29] MEDS: IV RINGERS,LACTATED 1000ML 1,000 ML IV SCH ×2 (00:05→12:01)
[2020-05-29 03:00] VITALS: BP 94/62
[2020-05-29 07:00] VITALS: BP 119/53
[2020-05-29] MEDS: LEVOTHYROXINE 150 MCG TABLET PO SCH (07:35)
--- NOTE | 2020-05-29 08:18 | PDOC ---
PULMONARY PROGRESS NOTES DATE: 05/29/20 TIME: 08:18 Subjective Pt. remains on 8 liters N/C no further hemoptysis afebrile no other concerns from nursing Vitals Vital Signs Date Time Temp Pulse Resp B/P (MAP) Pulse Ox O2 Delivery O2 Flow Rate FiO2 05/29/20 05:06 95 BiPAP/CPAP 05/29/20 03:00 104 94/62 (73) 05/28/20 23:00 97.9 24 2.0 97.9 ROS: No Nausea, No Chest Pain General: Alert Lungs: Crackles Cardiovascular: S1, S2 Abdomen: Soft Neuro Exam: Alert Extremities: No Edema Labs Laboratory Tests Test 05/27/20 13:33 Triglycerides Level 64 mg/dL (0-150) Cholesterol Level 110 mg/dL (0-200) LDL Cholesterol, Calculated 67 mg/dL (0-100) VLDL Cholesterol, Calculated 13 mg/dL (0-40) Non-HDL Cholesterol Calculated 80 mg/dL (0-129) HDL Cholesterol 30 mg/dL (40-60) Cholesterol/HDL Ratio 3.7 Medications Active Scripts Medications Dose Route/Sig Max Daily Dose Days Date Category Men 50 Plus Multivitamin Tab (Multivit-Min/FA/Lycopen/Lutein) 1 Each Tablet 1 Each PO DAILY 05/24/20 Reported Levothyroxine Sodium 125 Mcg Tablet 150 Mcg PO DAILY 07/30/13 Reported Impression . IMPRESSION: 1. Acute respiratory failure, multifactorial in etiology including influenza A, rule out COVID-19 pneumonia, interstitial lung disease, no pulmonary embolism. 2. Abnormal CT of the chest with slowly enlarging cavitary lesion and hemoptysis. Differential diagnosis including inflammatory versus infectious versus granulomatous versus malignancy. 3. History of thyroid cancer. 4. Mitral regurgitation. 5. Influenza A. 6. Elevated troponin? and non-ST elevation myocardial infarction. 7. Positive influenza A 8. Possible COVID-19 9. Elevated troponin 10. Chronic interstitial lung disease, possible IPF Plan . Continue supplemental oxygen as needed to keep sats above 92% Wean oxygen as tolerated and D/C BIPAP NEBS change steroids to po, with taper Continue ABX: rocephin and DOXY 6 min walk prior to D/C S/P bronchoscopy on 05/28/20-- see report follow BAL Hold anticoagulation Follow cardiologys recs PT/OT DVT/GI PPX D/W KAVITHA GLEASON MD May 29, 2020 08:18
[2020-05-29] MEDS: MULTIVITAMIN with MINERAL TABLET. PO SCH (08:34)
[2020-05-29] MEDS: ASPIRIN ENTERIC COATED 81 MG TABLET.DR. PO SCH (08:34)
[2020-05-29] MEDS: OSELTAMIVIR 30 MG CAPSULE PO SCH (08:34)
[2020-05-29] MEDS: ZINC SULFATE 220 MG CAPSULE. PO SCH (08:34)
[2020-05-29] MEDS: LACTOBACILLUS RHAMNOSUS GG 1 CAPSULE. PO SCH ×2 (08:34→23:38)
[2020-05-29] MEDS: cefTRIAXone IV Push 1 GM VIAL. IVP SCH (08:34)
[2020-05-29] MEDS: methylPREDNISolone SOD SUCC PF 40 MG/ML VIAL. IV SCH (08:34)
[2020-05-29] MEDS: DOXYCYCLINE HYCLATE 100 MG in IV DEXTROSE 5% 100ML 100 ML IV SCH ×2 (08:35→23:38)
--- NOTE | 2020-05-29 09:24 | PDOC ---
[employer] PROGRESS NOTE Date of Service DOS: DATE: 05/29/20 TIME: 09:20 Chief Complaint Chief Complaint Acute respiratory failure with hypoxia Pulmonary fibrosis Influenza Sepsis Possible lung cancer Large cavitary lesion with surrounding subpleural consolidation in the posterior superior segment right lower lobe has continued to mildly increase in size - concerning for carcinoma. Hyponatremia Pneumonia Elevated Troponin 0.094 Severe protein calorie malnutrition T3, T4 T6, T7 and L1 compression fractures Hypothyroidism History of Present Illness History of Present Illness 05/26/2020 Patient seen and examined on the [facility] floor He is gasping for air appears to possibly be terminal On BiPAP Discussed with RN and case management Chart reviewed I asked case management to arrange possible hospice 05/29 Patient seen and examined Discussed with RN Chart Reviewed Patient is comfortable but short of breath Vitals/I&O Vitals/I&O: Vital Signs Date Time Temp Pulse Resp B/P (MAP) Pulse Ox O2 Delivery O2 Flow Rate FiO2 05/29/20 08:59 96 Nasal Cannula 10.0 05/29/20 07:00 98.0 84 18 119/53 (75) 98.0 I & O 05/28/20 05/28/20 05/29/20 15:00 23:00 07:00 Intake Total 200 ml 300 ml 100 ml Output Total 200 ml 600 ml 150 ml Balance 0 ml -300 ml -50 ml Physical Exam General: Alert, Oriented X3, Cooperative, No acute distress Heart: Regular rate, Other (ST with PAC's ) Lungs: Crackles Abdomen: Soft, No tenderness Extremities: No edema, Normal pulses Skin: No rashes, No significant lesion Review of Systems Review of Systems: Denies headache or changes in vision. Denies chest pain or palpitations. Assessment and Plan Assessmemt and Plan Problems Medical Problems: (1) Elevated troponin Status: Acute (2) Influenza A Status: Acute (3) Left lower lobe pneumonia Status: Acute (4) [facility] Status: Acute (5) Respiratory failure Status: Acute Assessment: Acute respiratory failure with hypoxia Pulmonary fibrosis Influenza Sepsis Possible lung cancer Large cavitary lesion with surrounding subpleural consolidation in the posterior superior segment right lower lobe has continued to mildly increase in size - con cerning for carcinoma. Hyponatremia Pneumonia Elevated Troponin 0.094 Severe protein calorie malnutrition T3, T4 T6, T7 and L1 compression fractures Hypothyroidism Plan: IV antibiotics O2 Breathing treatments DVT prophylaxis PT/OT Home meds Full code Comment Review of Relevant I have reviewed the following items tri (where applicable) has been applied. Medications: Current Medications Medications (Trade) Dose Ordered Sig/Wendi Route PRN Reason Start Time Stop Time Status Last Admin Dose Admin Albuterol Sulfate (Ventolin Neb Soln) 2.5 mg 1X ONCE NEB 05/28/20 09:30 05/28/20 09:31 DC 05/28/20 10:45 Ringer's Solution 1,000 ml @ 75 mls/hr [id number] IV 05/28/20 10:45 05/28/20 10:41 Aspirin (Ecotrin) 81 mg [id number] PO 05/29/20 08:00 05/29/20 08:34 Justifications for Admission Other Justification DEVON RUSH III DO May 29, 2020 09:24
[2020-05-29 11:00] VITALS: BP 124/76
--- NOTE | 2020-05-29 11:42 | PDOC ---
CARDIO Progress Notes Date and Time Date of Service 05/29/20 Time of Evaluation 1140 Subjective Subjective: No Chest Pain, No Palpitations, Other (Not more SOA) Vitals Vitals Vital Signs Date Time Temp Pulse Resp B/P (MAP) Pulse Ox O2 Delivery O2 Flow Rate FiO2 05/29/20 11:00 97.9 112 18 124/76 (92) 91 Nasal Cannula 8.0 97.9 Weight Weight [ ] Input and Output Intake and Output Intake and Output 05/29/20 07:00 Intake Total 600 ml Output Total 950 ml Balance -350 ml Intake Oral 400 ml IV Total 200 ml Output Urine Total 950 ml Microbiology Micro Microbiology 05/28/20 - Final, Complete 05/24/20 Blood Culture - Preliminary, Resulted NO GROWTH AFTER 4 DAYS Physical Exam HEENT: Neck Supple W Full Motion Chest: Symmetric LUNGS: Other (on NC) Heart: S1S2, RRR (SR/ST, SA), murmurs (2/6 systolic murmur ) Abdomen: Soft N/T Extremities: No Edema Neurology: alert, oriented, follow commands Assessment Assessment 1. Acute respiratory failure in setting of PNA, influenza A, ILD. S/p bronch 2. Hemoptysis; CT also noted with enlarging cavitary lesion vs malignancy 3. Influenza A; Tamiflu 4. Mild troponin elevation; peak 0.109. Most probably type II, demand ischemia. CP free. 5. Valvular disease; moderate to severe mitral regurgitation per echo 08/29 6. H/o thyroid CA; s/p thyroidectomy Recommendations ASA therapy Consider outpatient ischemic evaluation Lung optimization, ongoing treatment of Influenza Supportive care Justicifation of Admission Dx: Justifications for Admission: Justification of Admission Dx: Yes MARINO PERLA APRN May 29, 2020 11:42
[2020-05-29 15:00] VITALS: BP 138/63
--- NOTE | 2020-05-29 17:06 | PATHOLOGY ---
Note [facility] Accession Number: [id number] TESTS RESULT FLAG UNITS REF RANGE LAB Clinician Provided Cytology Information No. of containers..01 Other (Miscellaneous) Source: RLL BAL DIAGNOSIS: 02 RLL BAL NEGATIVE FOR MALIGNANT CELLS. BRONCHIAL EPITHELIAL CELLS, PULMONARY MACROPHAGES, AND NEUTROPHILS PRESENT. THIS INTERPRETATION INCLUDES EVALUATION OF A CELL BLOCK. Signed out by: 02 Hammad Sanchez MD, Pathologist NPI- [id number] Performed by: Elkin Servin, High Tension Tester ([facility]) Gross description: 01 7.5ML, URBINA, 1TP 1CB /LCS 05/29/2020 0746 Local FLAG LEGEND: L-Low Normal,H-High Normal,LL-Alert Low,HH-Alert High <-Panic Low,>-Panic High,A-Abnormal,AA-Critical Abnormal Performed at: [address] [facility] [address] [place] [address] Tapan Vick MD, 02 [facility] [address] [place] [address] Hammad Sanchez MD, Specimen Comment: A courtesy copy of this report has been sent to [phone], [phone] Specimen Comment: [id number] Specimen Comment: Report sent to DR MCKENNA / DR CLARK Specimen Comment: A duplicate report has been generated due to demographic updates. Performed at: 01 [facility] [address], [place], [place] [id number] MD Tapan Vick MD Phone: [phone]
[2020-05-29 19:08] VITALS: BP 153/83
[2020-05-29 23:12] VITALS: BP 131/74
[2020-05-29] MEDS: METOPROLOL TART IMMED RELEASE 25 MG TABLET. PO SCH (23:38)
[2020-05-29] MEDS: ZOLPIDEM 5 MG TABLET. PO PRN (23:43)
[2020-05-30] MEDS: IV RINGERS,LACTATED 1000ML 1,000 ML IV SCH ×2 (02:45→15:33)
[2020-05-30 03:12] VITALS: BP 152/69
[2020-05-30] MEDS: LEVOTHYROXINE 150 MCG TABLET PO SCH (06:59)
[2020-05-30 07:00] VITALS: BP 123/62
[2020-05-30] MEDS: ASPIRIN ENTERIC COATED 81 MG TABLET.DR. PO SCH (08:22)
[2020-05-30] MEDS: LACTOBACILLUS RHAMNOSUS GG 1 CAPSULE. PO SCH ×2 (08:22→20:09)
[2020-05-30] MEDS: predniSONE 10 MG TABLET PO SCH (08:22)
[2020-05-30] MEDS: METOPROLOL TART IMMED RELEASE 25 MG TABLET. PO SCH ×2 (08:23→20:10)
[2020-05-30] MEDS: ZINC SULFATE 220 MG CAPSULE. PO SCH (08:23)
[2020-05-30] MEDS: cefTRIAXone IV Push 1 GM VIAL. IVP SCH (08:24)
[2020-05-30] MEDS: MULTIVITAMIN with MINERAL TABLET. PO SCH (08:24)
[2020-05-30] MEDS: DOXYCYCLINE HYCLATE 100 MG in IV DEXTROSE 5% 100ML 100 ML IV SCH ×2 (08:24→20:11)
[2020-05-30 09:31] LABS: BASO % 0 % (0-3); EOS # 0.2 x10^3/uL (0.0-0.7); EOS % 2 % (0-3); HEMATOCRIT 31.6 % (39.0-53.0); HEMOGLOBIN 10.2 g/dL (13.0-17.5); LYMPH # 0.6 x10^3/uL (1.0-4.8); LYMPH % 6 % (24-48); MEAN CORPUSCULAR HEMOGLOBIN 28 pg (25-35); MEAN CORPUSCULAR HGB CONC 32 g/dL (31-37); MEAN CORPUSCULAR VOLUME 85 fL (79-100); MONO # 0.6 x10^3/uL (0.0-1.1); MONO % 7 % (0-9); NEUT # 7.4 x10^3/uL (1.8-7.7); NEUT % 84 % (31-73); PLATELET COUNT 217 x10^3/uL (140-400); RED BLOOD COUNT 3.71 x10^6/uL (4.30-5.70); RED CELL DISTRIBUTION WIDTH 15.4 % (11.5-14.5); WHITE BLOOD COUNT 8.8 x10^3/uL (4.0-11.0)
--- NOTE | 2020-05-30 09:33 | PDOC ---
PULMONARY PROGRESS NOTES DATE: 05/30/20 TIME: 09:33 Subjective Patient with mild hemoptysis today. Requires oxygen 8 L Vitals Vital Signs Date Time Temp Pulse Resp B/P (MAP) Pulse Ox O2 Delivery O2 Flow Rate FiO2 05/30/20 08:49 92 Nasal Cannula 10.0 05/30/20 08:23 94 123/62 05/30/20 07:00 98.1 30 98.1 ROS: No Nausea, No Chest Pain General: Alert Lungs: Crackles Cardiovascular: S1, S2 Abdomen: Soft Neuro Exam: Alert Extremities: No Edema Medications Active Scripts Medications Dose Route/Sig Max Daily Dose Days Date Category Men 50 Plus Multivitamin Tab (Multivit-Min/FA/Lycopen/Lutein) 1 Each Tablet 1 Each PO DAILY 05/24/20 Reported Levothyroxine Sodium 125 Mcg Tablet 150 Mcg PO DAILY 07/30/13 Reported Impression . IMPRESSION: 1. Acute respiratory failure, multifactorial in etiology including influenza A, rule out COVID-19 pneumonia, interstitial lung disease, no pulmonary embolism. 2. Abnormal CT of the chest with slowly enlarging cavitary lesion and hemoptysis. Differential diagnosis including inflammatory versus infectious versus granulomatous versus malignancy. 3. History of thyroid cancer. 4. Mitral regurgitation. 5. Influenza A. 6. Elevated troponin? and non-ST elevation myocardial infarction. 7. Positive influenza A 8. Possible COVID-19 9. Elevated troponin 10. Chronic interstitial lung disease, possible IPF 11. Status post bronchoscopy BAL negative so far AFB smear negative Plan . Discussed with RN with quantitate hemoptysis Wean oxygen as tolerated and D/C BIPAP NEBS change steroids to po, with taper Continue ABX: rocephin and DOXY 6 min walk prior to D/C S/P bronchoscopy on 05/28/20-- see report follow BAL Hold anticoagulation Follow cardiologys recs PT/OT DVT/GI PPX D/W KAVITHA GLEASON MD May 30, 2020 09:33
[2020-05-30 09:52] LABS: CREATININE 0.6 mg/dL (0.7-1.3); GFR 129.3; POTASSIUM 4.5 mmol/L (3.5-5.1)
--- NOTE | 2020-05-30 10:33 | PDOC ---
[employer] PROGRESS NOTE Date of Service DOS: DATE: 05/30/20 TIME: 10:30 Chief Complaint Chief Complaint Acute respiratory failure with hypoxia Pulmonary fibrosis Influenza Sepsis Possible lung cancer Large cavitary lesion with surrounding subpleural consolidation in the posterior superior segment right lower lobe has continued to mildly increase in size - concerning for carcinoma. Hyponatremia Pneumonia Elevated Troponin 0.094 Severe protein calorie malnutrition T3, T4 T6, T7 and L1 compression fractures Hypothyroidism History of Present Illness History of Present Illness 05/26/2020 Patient seen and examined on the [facility]-19 floor He is gasping for air appears to possibly be terminal On BiPAP Discussed with RN and case management Chart reviewed I asked case management to arrange possible hospice 05/29 Patient seen and examined Discussed with RN Chart Reviewed Patient is comfortable but short of breath 05/30 Patient seen and examined Discussed with RN Discussed with case management Chart reviewed Patient is short of breath but is comfortable Vitals/I&O Vitals/I&O: Vital Signs Date Time Temp Pulse Resp B/P (MAP) Pulse Ox O2 Delivery O2 Flow Rate FiO2 05/30/20 08:49 92 Nasal Cannula 10.0 05/30/20 08:23 94 123/62 05/30/20 07:00 98.1 30 98.1 I & O 05/29/20 05/29/20 05/30/20 15:00 23:00 07:00 Intake Total 600 ml 200 ml 180 ml Output Total 200 ml 400 ml 150 ml Balance 400 ml -200 ml 30 ml Physical Exam General: Alert, Oriented X3, Cooperative, No acute distress Heart: Regular rate, Other (ST with PAC's, patient has 4/6 systolic and diastolic murmur) Lungs: Crackles Abdomen: Soft, No tenderness Extremities: No edema, Normal pulses Skin: No rashes, No significant lesion Labs Labs: Laboratory Tests Test 05/30/20 08:55 05/30/20 09:15 Sodium Level 135 mmol/L (136-145) Potassium Level 4.5 mmol/L (3.5-5.1) Chloride Level 96 mmol/L (98-107) Carbon Dioxide Level 38 mmol/L (21-32) Anion Gap 1 (6-14) Blood Urea Nitrogen 26 mg/dL (8-26) Creatinine 0.6 mg/dL (0.7-1.3) Estimated GFR (Cockcroft-Gault) 129.3 Glucose Level 143 mg/dL (70-99) Calcium Level 8.0 mg/dL (8.5-10.1) White Blood Count 8.8 x10^3/uL (4.0-11.0) Red Blood Count 3.71 x10^6/uL (4.30-5.70) Hemoglobin 10.2 g/dL (13.0-17.5) Hematocrit 31.6 % (39.0-53.0) Mean Corpuscular Volume 85 fL (79-100) Mean Corpuscular Hemoglobin 28 pg (25-35) Mean Corpuscular Hemoglobin Concent 32 g/dL (31-37) Red Cell Distribution Width 15.4 % (11.5-14.5) Platelet Count 217 x10^3/uL (140-400) Neutrophils (%) (Auto) 84 % (31-73) Lymphocytes (%) (Auto) 6 % (24-48) Monocytes (%) (Auto) 7 % (0-9) Eosinophils (%) (Auto) 2 % (0-3) Basophils (%) (Auto) 0 % (0-3) Neutrophils # (Auto) 7.4 x10^3/uL (1.8-7.7) Lymphocytes # (Auto) 0.6 x10^3/uL (1.0-4.8) Monocytes # (Auto) 0.6 x10^3/uL (0.0-1.1) Eosinophils # (Auto) 0.2 x10^3/uL (0.0-0.7) Basophils # (Auto) 0.0 x10^3/uL (0.0-0.2) Review of Systems Review of Systems: Denies chest pain or palpitations Denies headache or changes in vision Denies itching or rashes Assessment and Plan Assessmemt and Plan Problems Medical Problems: (1) Elevated troponin Status: Acute (2) Influenza A Status: Acute (3) Left lower lobe pneumonia Status: Acute (4) Person under investigation for COVID-19 Status: Acute (5) Respiratory failure Status: Acute Assessment: Acute respiratory failure with hypoxia Pulmonary fibrosis Influenza Sepsis Possible lung cancer Large cavitary lesion with surrounding subpleural consolidation in the posterior superior segment right lower lobe has continued to mildly increase in size - concerning for carcinoma. Hyponatremia Pneumonia Elevated Troponin 0.094 Severe protein calorie malnutrition T3, T4 T6, T7 and L1 compression fractures Hypothyroidism Plan: O2 IV antibiotics Breathing treatments Discharge disposition pending DVT prophylaxis PT/OT Full code Home meds Comment Review of Relevant I have reviewed the following items tri (where applicable) has been applied. Medications: Current Medications Medications (Trade) Dose Ordered Sig/Wendi Route PRN Reason Start Time Stop Time Status Last Admin Dose Admin Prednisone (Prednisone) 40 mg DAILY PO 05/30/20 09:00 06/02/20 08:59 05/30/20 08:22 Metoprolol Tartrate (Lopressor) 12.5 mg BID PO 05/29/20 21:00 05/30/20 08:23 Justifications for Admission Other Justification DEVON RUSH III DO May 30, 2020 10:33
[2020-05-30 10:46] VITALS: BP 116/58
--- NOTE | 2020-05-30 14:30 | CARD ---
MR#: [id number] Date of Study: 05/29/2020 Ordering Physician: MARINO PERLA, Referring Physician: MARINO PERLA, Tech: Yin Jacobo FABRICIO APPROVED REPORT EXAM: Two-dimensional and M-mode echocardiogram with Doppler and color Doppler. Other Information Quality : Good INDICATION Elevated Troponin, Influenza A 2D DIMENSIONS Left Atrium(2D)4.9 (1.6-4.0cm)IVSd1.2 (0.7-1.1cm) Aortic Root(2D)3.7 (2.0-3.7cm)LVDd5.2 (3.9-5.9cm) LVOT Diameter2.1 (1.8-2.4cm)PWd1.1 (0.7-1.1cm) LVDs3.2 (2.5-4.0cm)FS (%) 39.1 % SV89.5 mlLVEF(%)60.0 (>50%) Aortic Valve AoV Peak Long.111.6cm/sAoV VTI18.6cm AO Peak GR.5.0mmHgLVOT VTI 12.19cm AO Mean GR.3mmHgAVA (VTI)2.20cm2 Mitral Valve MV E Sqpifode432.4cm/sMV DECEL MAKV378yl MV A Xducroei212.6cm/sE/A Ratio1.1 TDI Lateral E' P. V3.80cm/sMedial E' P. V6.24cm/s E/Lateral E'36.4E/Medial E'22.2 Tricuspid Valve TR P. Vibaijfc902hs/sRAP [id number] TR Peak Gr.[id number] LEFT VENTRICLE The left ventricle is normal size. There is mild concentric left ventricular hypertrophy. The left ve ntricular systolic function is normal and the ejection fraction is within normal range. The Ejection Fraction is 55-60%. There is normal LV segmental wall motion. Transmitral Doppler flow pattern is Gra de II-pseudonormal filling dynamics. RIGHT VENTRICLE The right ventricle is normal size. The right ventricular systolic function is normal. ATRIA The left atrium is mildly dilated. The right atrium size is normal. The interatrial septum is intact with no evidence for an atrial septal defect or patent foramen ovale as noted on 2-D or Doppler imagi ng. AORTIC VALVE The aortic valve is mildly thickened but opens well. Doppler and Color Flow revealed mild aortic regu rgitation. There is no significant aortic valvular stenosis. MITRAL VALVE The mitral valve is mildly thickened. Mitral annular calcification is mild to moderate. There is no e vidence of mitral valve prolapse. There is no mitral valve stenosis. Doppler and Color-flow revealed moderate eccentric mitral regurgitation. TRICUSPID VALVE The tricuspid valve is normal in structure and function. Doppler and Color Flow revealed mild tricusp id regurgitation. The PA pressure was estimated at 50 mmHg. There is no tricuspid valve stenosis. PULMONIC VALVE The pulmonic valve is not well visualized. Doppler and Color Flow revealed no pulmonic valvular regur gitation. There is no pulmonic valvular stenosis. GREAT VESSELS The aortic root is normal in size. The ascending aorta is not well seen. The IVC is normal in size an d collapses <50% with inspiration. PERICARDIAL EFFUSION There is no evidence of significant pericardial effusion. Critical Notification Critical Value: No <Conclusion> The left ventricle is normal size. The left ventricular systolic function is normal and the ejection fraction is within normal range. The Ejection Fraction is 55-60%. There is normal LV segmental wall motion. There is mild concentric left ventricular hypertrophy. Doppler and Color Flow revealed mild aortic regurgitation. There is no significant aortic valvular stenosis. Doppler and Color-flow revealed moderate eccentric mitral regurgitation. Doppler and Color Flow revealed mild tricuspid regurgitation. The PA pressure was estimated at 50 mmHg. Signed by : José Miguel Moses MD Electronically Approved : 05/30/2020 14:29:49
[2020-05-30 14:49] VITALS: BP 117/69
[2020-05-30 19:00] VITALS: BP 131/64
[2020-05-30] MEDS: ZOLPIDEM 5 MG TABLET. PO PRN (20:09)
[2020-05-30 23:00] VITALS: BP 114/69
[2020-05-31 03:00] VITALS: BP 133/76
[2020-05-31 07:00] VITALS: BP 111/59
[2020-05-31] MEDS: LEVOTHYROXINE 150 MCG TABLET PO SCH (07:14)
[2020-05-31 07:25] LABS: BASO % 0 % (0-3); EOS # 0.2 x10^3/uL (0.0-0.7); EOS % 3 % (0-3); HEMOGLOBIN 10.1 g/dL (13.0-17.5); LYMPH # 0.5 x10^3/uL (1.0-4.8); LYMPH % 6 % (24-48); MEAN CORPUSCULAR HEMOGLOBIN 28 pg (25-35); MEAN CORPUSCULAR HGB CONC 33 g/dL (31-37); MEAN CORPUSCULAR VOLUME 84 fL (79-100); MONO # 0.7 x10^3/uL (0.0-1.1); MONO % 10 % (0-9); NEUT # 6.1 x10^3/uL (1.8-7.7); NEUT % 81 % (31-73); PLATELET COUNT 203 x10^3/uL (140-400); RED BLOOD COUNT 3.67 x10^6/uL (4.30-5.70); RED CELL DISTRIBUTION WIDTH 15.4 % (11.5-14.5); WHITE BLOOD COUNT 7.6 x10^3/uL (4.0-11.0)
[2020-05-31 07:42] LABS: CALCIUM 7.9 mg/dL (8.5-10.1); CREATININE 0.5 mg/dL (0.7-1.3); GFR 159.6; POTASSIUM 4.2 mmol/L (3.5-5.1)
[2020-05-31] MEDS: ASPIRIN ENTERIC COATED 81 MG TABLET.DR. PO SCH (08:00)
--- NOTE | 2020-05-31 08:42 | PDOC ---
[employer] PROGRESS NOTE Date of Service DOS: DATE: 05/31/20 TIME: 08:40 Chief Complaint Chief Complaint Acute respiratory failure with hypoxia Pulmonary fibrosis Influenza Sepsis Possible lung cancer Large cavitary lesion with surrounding subpleural consolidation in the posterior superior segment right lower lobe has continued to mildly increase in size - concerning for carcinoma. Hyponatremia Pneumonia Elevated Troponin 0.094 Severe protein calorie malnutrition T3, T4 T6, T7 and L1 compression fractures Hypothyroidism History of Present Illness History of Present Illness 05/26/2020 Patient seen and examined on the [facility]- floor He is gasping for air appears to possibly be terminal On BiPAP Discussed with RN and case management Chart reviewed I asked case management to arrange possible hospice 05/29 Patient seen and examined Discussed with RN Chart Reviewed Patient is comfortable but short of breath 05/30 Patient seen and examined Discussed with RN Discussed with case management Chart reviewed Patient is short of breath but is comfortable 05/31 Patient seen and examined Discussed with RN Chart Reviewed Patient is tired and short of breath Vitals/I&O Vitals/I&O: Vital Signs Date Time Temp Pulse Resp B/P (MAP) Pulse Ox O2 Delivery O2 Flow Rate FiO2 05/31/20 07:00 98.2 84 20 111/59 (76) 90 Room Air 10.0 98.2 I & O 0 05/30/20 05/30/20 05/31/20 15:00 23:00 07:00 Intake Total 500 ml 400 ml 200 ml Output Total 600 ml 550 ml Balance -100 ml -150 ml 200 ml Physical Exam General: Alert, Oriented X3, Cooperative, No acute distress Heart: Regular rate, Other (ST with PAC's, patient has 4/6 systolic and diastolic murmur) Lungs: Crackles Abdomen: Soft, No tenderness Extremities: No edema, Normal pulses Skin: No rashes, No significant lesion Labs Labs: Laboratory Tests Test 05/30/20 08:55 05/30/20 09:15 05/31/20 07:00 Sodium Level 135 mmol/L (136-145) 136 mmol/L (136-145) Potassium Level 4.5 mmol/L (3.5-5.1) 4.2 mmol/L (3.5-5.1) Chloride Level 96 mmol/L (98-107) 95 mmol/L (98-107) Carbon Dioxide Level 38 mmol/L (21-32) 41 mmol/L (21-32) Anion Gap 1 (6-14) 0 (6-14) Blood Urea Nitrogen 26 mg/dL (8-26) 21 mg/dL (8-26) Creatinine 0.6 mg/dL (0.7-1.3) 0.5 mg/dL (0.7-1.3) Estimated GFR (Cockcroft-Gault) 129.3 159.6 Glucose Level 143 mg/dL (70-99) 101 mg/dL (70-99) Calcium Level 8.0 mg/dL (8.5-10.1) 7.9 mg/dL (8.5-10.1) White Blood Count 8.8 x10^3/uL (4.0-11.0) 7.6 x10^3/uL (4.0-11.0) Red Blood Count 3.71 x10^6/uL (4.30-5.70) 3.67 x10^6/uL (4.30-5.70) Hemoglobin 10.2 g/dL (13.0-17.5) 10.1 g/dL (13.0-17.5) Hematocrit 31.6 % (39.0-53.0) 31.0 % (39.0-53.0) Mean Corpuscular Volume 85 fL (79-100) 84 fL (79-100) Mean Corpuscular Hemoglobin 28 pg (25-35) 28 pg (25-35) Mean Corpuscular Hemoglobin Concent 32 g/dL (31-37) 33 g/dL (31-37) Red Cell Distribution Width 15.4 % (11.5-14.5) 15.4 % (11.5-14.5) Platelet Count 217 x10^3/uL (140-400) 203 x10^3/uL (140-400) Neutrophils (%) (Auto) 84 % (31-73) 81 % (31-73) Lymphocytes (%) (Auto) 6 % (24-48) 6 % (24-48) Monocytes (%) (Auto) 7 % (0-9) 10 % (0-9) Eosinophils (%) (Auto) 2 % (0-3) 3 % (0-3) Basophils (%) (Auto) 0 % (0-3) 0 % (0-3) Neutrophils # (Auto) 7.4 x10^3/uL (1.8-7.7) 6.1 x10^3/uL (1.8-7.7) Lymphocytes # (Auto) 0.6 x10^3/uL (1.0-4.8) 0.5 x10^3/uL (1.0-4.8) Monocytes # (Auto) 0.6 x10^3/uL (0.0-1.1) 0.7 x10^3/uL (0.0-1.1) Eosinophils # (Auto) 0.2 x10^3/uL (0.0-0.7) 0.2 x10^3/uL (0.0-0.7) Basophils # (Auto) 0.0 x10^3/uL (0.0-0.2) 0.0 x10^3/uL (0.0-0.2) Review of Systems Review of Systems: Denies chest pain Denies urgency or burning with urination Denies headache or changes in vision Denies itching or rashes Assessment and Plan Assessmemt and Plan Problems Medical Problems: (1) Elevated troponin Status: Acute (2) Influenza A Status: Acute (3) Left lower lobe pneumonia Status: Acute (4) Person under investigation for COVID-19 Status: Acute (5) Respiratory failure Status: Acute Assessment: Acute respiratory failure with hypoxia Pulmonary fibrosis Influenza Sepsis Possible lung cancer Large cavitary lesion with surrounding subpleural consolidation in the posterior superior segment right lower lobe has continued to mildly increase in size - concerning for carcinoma. Hyponatremia Pneumonia Elevated Troponin 0.094 Severe protein calorie malnutrition T3, T4 T6, T7 and L1 compression fractures Hypothyroidism Plan: O2 Breathing treatments IV antibiotics DVT prophylaxis PT/OT Full code Home meds Comment Review of Relevant I have reviewed the following items tri (where applicable) has been applied. Medications: Current Medications Medications (Trade) Dose Ordered Sig/Wendi Route PRN Reason Start Time Stop Time Status Last Admin Dose Admin Prednisone (Prednisone) 40 mg DAILY PO 05/30/20 09:00 06/02/20 08:59 05/30/20 08:22 Justifications for Admission Other Justification DEVON RUSH III DO May 31, 2020 08:42
[2020-05-31] MEDS: cefTRIAXone IV Push 1 GM VIAL. IVP SCH (09:38)
[2020-05-31] MEDS: DOXYCYCLINE HYCLATE 100 MG in IV DEXTROSE 5% 100ML 100 ML IV SCH ×2 (09:39→21:15)
[2020-05-31] MEDS: LACTOBACILLUS RHAMNOSUS GG 1 CAPSULE. PO SCH ×2 (09:48→21:22)
[2020-05-31] MEDS: predniSONE 10 MG TABLET PO SCH (09:48)
[2020-05-31] MEDS: METOPROLOL TART IMMED RELEASE 25 MG TABLET. PO SCH ×2 (09:49→21:22)
[2020-05-31] MEDS: ZINC SULFATE 220 MG CAPSULE. PO SCH (09:49)
[2020-05-31] MEDS: MULTIVITAMIN with MINERAL TABLET. PO SCH (09:49)
--- NOTE | 2020-05-31 10:37 | PDOC ---
PULMONARY PROGRESS NOTES DATE: 05/31/20 TIME: 10:36 Subjective Less hemoptysis today not more short of air Vitals Vital Signs Date Time Temp Pulse Resp B/P (MAP) Pulse Ox O2 Delivery O2 Flow Rate FiO2 05/31/20 09:49 84 111/59 05/31/20 07:00 98.2 20 90 Room Air 10.0 98.2 ROS: No Nausea, No Chest Pain General: Alert Lungs: Crackles Cardiovascular: S1, S2 Abdomen: Soft Neuro Exam: Alert Extremities: No Edema Labs Laboratory Tests Test 05/30/20 08:55 05/30/20 09:15 05/31/20 07:00 Sodium Level 135 mmol/L (136-145) 136 mmol/L (136-145) Potassium Level 4.5 mmol/L (3.5-5.1) 4.2 mmol/L (3.5-5.1) Chloride Level 96 mmol/L (98-107) 95 mmol/L (98-107) Carbon Dioxide Level 38 mmol/L (21-32) 41 mmol/L (21-32) Anion Gap 1 (6-14) 0 (6-14) Blood Urea Nitrogen 26 mg/dL (8-26) 21 mg/dL (8-26) Creatinine 0.6 mg/dL (0.7-1.3) 0.5 mg/dL (0.7-1.3) Estimated GFR (Cockcroft-Gault) 129.3 159.6 Glucose Level 143 mg/dL (70-99) 101 mg/dL (70-99) Calcium Level 8.0 mg/dL (8.5-10.1) 7.9 mg/dL (8.5-10.1) White Blood Count 8.8 x10^3/uL (4.0-11.0) 7.6 x10^3/uL (4.0-11.0) Red Blood Count 3.71 x10^6/uL (4.30-5.70) 3.67 x10^6/uL (4.30-5.70) Hemoglobin 10.2 g/dL (13.0-17.5) 10.1 g/dL (13.0-17.5) Hematocrit 31.6 % (39.0-53.0) 31.0 % (39.0-53.0) Mean Corpuscular Volume 85 fL (79-100) 84 fL (79-100) Mean Corpuscular Hemoglobin 28 pg (25-35) 28 pg (25-35) Mean Corpuscular Hemoglobin Concent 32 g/dL (31-37) 33 g/dL (31-37) Red Cell Distribution Width 15.4 % (11.5-14.5) 15.4 % (11.5-14.5) Platelet Count 217 x10^3/uL (140-400) 203 x10^3/uL (140-400) Neutrophils (%) (Auto) 84 % (31-73) 81 % (31-73) Lymphocytes (%) (Auto) 6 % (24-48) 6 % (24-48) Monocytes (%) (Auto) 7 % (0-9) 10 % (0-9) Eosinophils (%) (Auto) 2 % (0-3) 3 % (0-3) Basophils (%) (Auto) 0 % (0-3) 0 % (0-3) Neutrophils # (Auto) 7.4 x10^3/uL (1.8-7.7) 6.1 x10^3/uL (1.8-7.7) Lymphocytes # (Auto) 0.6 x10^3/uL (1.0-4.8) 0.5 x10^3/uL (1.0-4.8) Monocytes # (Auto) 0.6 x10^3/uL (0.0-1.1) 0.7 x10^3/uL (0.0-1.1) Eosinophils # (Auto) 0.2 x10^3/uL (0.0-0.7) 0.2 x10^3/uL (0.0-0.7) Basophils # (Auto) 0.0 x10^3/uL (0.0-0.2) 0.0 x10^3/uL (0.0-0.2) Laboratory Tests Test 05/31/20 07:00 White Blood Count 7.6 x10^3/uL (4.0-11.0) Red Blood Count 3.67 x10^6/uL (4.30-5.70) Hemoglobin 10.1 g/dL (13.0-17.5) Hematocrit 31.0 % (39.0-53.0) Mean Corpuscular Volume 84 fL (79-100) Mean Corpuscular Hemoglobin 28 pg (25-35) Mean Corpuscular Hemoglobin Concent 33 g/dL (31-37) Red Cell Distribution Width 15.4 % (11.5-14.5) Platelet Count 203 x10^3/uL (140-400) Neutrophils (%) (Auto) 81 % (31-73) Lymphocytes (%) (Auto) 6 % (24-48) Monocytes (%) (Auto) 10 % (0-9) Eosinophils (%) (Auto) 3 % (0-3) Basophils (%) (Auto) 0 % (0-3) Neutrophils # (Auto) 6.1 x10^3/uL (1.8-7.7) Lymphocytes # (Auto) 0.5 x10^3/uL (1.0-4.8) Monocytes # (Auto) 0.7 x10^3/uL (0.0-1.1) Eosinophils # (Auto) 0.2 x10^3/uL (0.0-0.7) Basophils # (Auto) 0.0 x10^3/uL (0.0-0.2) Sodium Level 136 mmol/L (136-145) Potassium Level 4.2 mmol/L (3.5-5.1) Chloride Level 95 mmol/L (98-107) Carbon Dioxide Level 41 mmol/L (21-32) Anion Gap 0 (6-14) Blood Urea Nitrogen 21 mg/dL (8-26) Creatinine 0.5 mg/dL (0.7-1.3) Estimated GFR (Cockcroft-Gault) 159.6 Glucose Level 101 mg/dL (70-99) Calcium Level 7.9 mg/dL (8.5-10.1) Medications Active Scripts Medications Dose Route/Sig Max Daily Dose Days Date Category Men 50 Plus Multivitamin Tab (Multivit-Min/FA/Lycopen/Lutein) 1 Each Tablet 1 Each PO DAILY 05/24/20 Reported Levothyroxine Sodium 125 Mcg Tablet 150 Mcg PO DAILY 07/30/13 Reported Impression . IMPRESSION: 1. Acute respiratory failure, multifactorial in etiology including influenza A, rule out COVID-19 pneumonia, interstitial lung disease, no pulmonary embolism. 2. Abnormal CT of the chest with slowly enlarging cavitary lesion and hemoptysis. Differential diagnosis including inflammatory versus infectious versus granulomatous versus malignancy. 3. History of thyroid cancer. 4. Mitral regurgitation. 5. Influenza A. 6. Elevated troponin? and non-ST elevation myocardial infarction. 7. Positive influenza A 8. Possible COVID-19 9. Elevated troponin 10. Chronic interstitial lung disease, possible IPF 11. Status post bronchoscopy BAL negative so far AFB smear negative Plan . We will continue close monitoring discussed with RN Discussed with RN with quantitate hemoptysis Wean oxygen as tolerated and D/C BIPAP NEBS change steroids to po, with taper Continue ABX: rocephin and DOXY 6 min walk prior to D/C S/P bronchoscopy on 05/28/20-- see report follow BAL Hold anticoagulation Follow cardiologys recs PT/OT DVT/GI PPX D/W KAVITHA GLEASON MD May 31, 2020 10:37
[2020-05-31 11:00] VITALS: BP 112/53
[2020-05-31 15:00] VITALS: BP 115/62
[2020-05-31 19:00] VITALS: BP 121/74
[2020-05-31] MEDS: ZOLPIDEM 5 MG TABLET. PO PRN (21:21)
--- NOTE | 2020-05-31 22:35 | NUR ---
Patient heard breathing loud, this resume writer enters room, patient has oxygen off, telemetry off, gasping,laying across the bed, this resume writer and DIESEL MACHINIST puts on oxygen, pulls patient up in bed, Saturation at 55%, the non-rebreather placed, Rapid Response called, patient non-verbal, not responding, The BIPAP is applied per RT, saturations did slowly increase, 12 lead EKG obtained, Rapid team assess, Monitoring.
[2020-05-31 23:00] VITALS: BP 129/82
--- NOTE | 2020-06-01 01:41 | NUR ---
Patient frequently pulling off his BIPAP mask, is informed of the need to keep on, without it, has the potential for intubation, unsure if patient is in understanding, saturation drops, non-rebreather placed, 15L,
[2020-06-01 03:01] VITALS: BP 119/74
[2020-06-01] MEDS: LEVOTHYROXINE 150 MCG TABLET PO SCH (06:43)
[2020-06-01 07:36] LABS: BASO % 0 % (0-3); EOS # 0.2 x10^3/uL (0.0-0.7); EOS % 2 % (0-3); LYMPH # 0.5 x10^3/uL (1.0-4.8); LYMPH % 5 % (24-48); MEAN CORPUSCULAR HEMOGLOBIN 28 pg (25-35); MEAN CORPUSCULAR HGB CONC 32 g/dL (31-37); MEAN CORPUSCULAR VOLUME 85 fL (79-100); MONO # 0.7 x10^3/uL (0.0-1.1); MONO % 8 % (0-9); NEUT # 7.8 x10^3/uL (1.8-7.7); NEUT % 85 % (31-73); PLATELET COUNT 235 x10^3/uL (140-400); RED BLOOD COUNT 3.63 x10^6/uL (4.30-5.70); RED CELL DISTRIBUTION WIDTH 15.8 % (11.5-14.5); WHITE BLOOD COUNT 9.2 x10^3/uL (4.0-11.0)
[2020-06-01 07:46] LABS: BLOOD UREA NITROGEN 20 mg/dL (8-26); CALCIUM 7.9 mg/dL (8.5-10.1); CARBON DIOXIDE 43 mmol/L (21-32); CHLORIDE 93 mmol/L (98-107); CREATININE 0.7 mg/dL (0.7-1.3); GFR 108.2; GLUCOSE 115 mg/dL (70-99); POTASSIUM 4.6 mmol/L (3.5-5.1); SODIUM 133 mmol/L (136-145)
[2020-06-01] MEDS: predniSONE 10 MG TABLET PO SCH (07:56)
[2020-06-01] MEDS: ZINC SULFATE 220 MG CAPSULE. PO SCH (07:57)
[2020-06-01] MEDS: cefTRIAXone IV Push 1 GM VIAL. IVP SCH (07:58)
[2020-06-01] MEDS: LACTOBACILLUS RHAMNOSUS GG 1 CAPSULE. PO SCH ×2 (07:58→21:00)
[2020-06-01] MEDS: MULTIVITAMIN with MINERAL TABLET. PO SCH (07:58)
[2020-06-01] MEDS: METOPROLOL TART IMMED RELEASE 25 MG TABLET. PO SCH ×2 (07:58→21:00)
[2020-06-01 07:59] VITALS: BP 110/71
[2020-06-01] MEDS: DOXYCYCLINE HYCLATE 100 MG in IV DEXTROSE 5% 100ML 100 ML IV SCH ×2 (07:59→21:06)
[2020-06-01] MEDS: ALBUTEROL SULFATE 8GM INHALER. INH PRN (08:00)
--- NOTE | 2020-06-01 10:18 | PDOC ---
PROGRESS NOTES Date of Service: DATE: 06/01/20 TIME: 10:18 Chief Complaint Chief Complaint IMPRESSION Acute respiratory failure with hypoxia Pulmonary fibrosis Influenza Sepsis Possible lung cancer Large cavitary lesion with surrounding subpleural consolidation in the posterior superior segment right lower lobe has continued to mildly increase in size - concerning for carcinoma. Hyponatremia Pneumonia Elevated Troponin 0.094 Severe protein calorie malnutrition T3, T4 T6, T7 and L1 compression fractures Hypothyroidism plan conservative care History of Present Illness History of Present Illness 06/01 Patient seen and examined BEDSIDE He is gasping for air appears to possibly be terminal On BiPAP Discussed with RN and case management Chart reviewed I asked case management to arrange possible hospice 05/29 Patient seen and examined Discussed with RN Chart Reviewed Patient is comfortable but short of breath 05/30 Patient seen and examined Discussed with RN Discussed with case management Chart reviewed Patient is short of breath but is comfortable 05/31 Patient seen and examined Discussed with RN Chart Reviewed Patient is tired and short of breath Vitals Vitals Vital Signs Date Time Temp Pulse Resp B/P (MAP) Pulse Ox O2 Delivery O2 Flow Rate FiO2 06/01/20 07:59 97.8 106 24 110/71 (84) 94 NonRebreather Mask 15.0 97.8 Physical Exam General: Alert, Oriented X3, Cooperative, No acute distress, mild distress Heart: Regular rate, Other (ST with PAC's, patient has 4/6 systolic and diastolic murmur) Lungs: Crackles Abdomen: Soft, No tenderness Extremities: No edema, Normal pulses Skin: No rashes, No significant lesion Labs LABS Study: CT CHEST WITH CONTRAST - PULMONARY ANGIOGRAM History: Shortness of breath Comparison: CT chest 03/31/[address] chest 01/04/2018 Technique: Helical CT of the chest performed after the administration of 90 mL Omnipaque 350 intravenous contrast and timed for angiographic evaluation of the pulmonary arteries per PE protocol. Coronal and sagittal 3D MIP reformations were obtained. One or more of the following individualized dose reduction techniques were utilized for this examination: 1. Automated exposure control 2. Adjustment of the mA and/or kV according to patient size 3. Use of iterative reconstruction technique. Findings: Pulmonary Arteries: Contrast bolus is adequate. There is no acute pulmonary embolism. Heart/Systemic Vasculature: Mild cardiomegaly. There are coronary artery calcifications. Microcalcifications are noted. No pericardial effusion. The thoracic aorta is normal in caliber. Mild calcified aortic atherosclerosis. Mediastinum: Mediastinal and hilar lymphadenopathy with ill-defined soft tissue extending along the central bronchovascular structures is similar to prior. Lungs: There are new bilateral ground glass opacities, greatest throughout the left lung. Subpleural cysts throughout both lungs with honeycombing, greatest in the bases, is unchanged. Large thick-walled cavitary lesion with surrounding subpleural consolidation in the posterior superior segment right lower lobe is redemonstrated. The cavitation is slightly larger, now 5.2 x 3.9 x 3.2 cm. This has continued to increase in size from 01/04/2018. There is a new small left pleural effusion. Neck/Axilla/Body Wall: Unremarkable. Upper Abdomen: Extensive calcifications in the spleen. Otherwise unremarkable. Bones: Multiple compression fractures including T3, T4 T6, T7 and L1 with up to moderate height loss are unchanged. No retropulsion of cortex. IMPRESSION: 1. No evidence for acute pulmonary embolism. 2. Large cavitary lesion with surrounding subpleural consolidation in the posterior superior segment right lower lobe has continued to mildly increase in size. Given the continued growth over time this is suspicious for malignancy. Consider biopsy or PET/CT. 3. New bilateral ground glass opacities, greatest throughout the left lung, may be infectious or inflammatory. New small left pleural effusion. 4. 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 Mediastinal and hilar lymphadenopathy. 6. Multiple compression fractures, unchanged. Electronically signed by: Janice Mcdaniels MD (05/24/2020 4:51 PM) [id number] Laboratory Tests Test 05/31/20 22:55 06/01/20 06:35 Glucose (Fingerstick) 140 mg/dL (70-99) White Blood Count 9.2 x10^3/uL (4.0-11.0) Red Blood Count 3.63 x10^6/uL (4.30-5.70) Hemoglobin 10.0 g/dL (13.0-17.5) Hematocrit 31.0 % (39.0-53.0) Mean Corpuscular Volume 85 fL (79-100) Mean Corpuscular Hemoglobin 28 pg (25-35) Mean Corpuscular Hemoglobin Concent 32 g/dL (31-37) Red Cell Distribution Width 15.8 % (11.5-14.5) Platelet Count 235 x10^3/uL (140-400) Neutrophils (%) (Auto) 85 % (31-73) Lymphocytes (%) (Auto) 5 % (24-48) Monocytes (%) (Auto) 8 % (0-9) Eosinophils (%) (Auto) 2 % (0-3) Basophils (%) (Auto) 0 % (0-3) Neutrophils # (Auto) 7.8 x10^3/uL (1.8-7.7) Lymphocytes # (Auto) 0.5 x10^3/uL (1.0-4.8) Monocytes # (Auto) 0.7 x10^3/uL (0.0-1.1) Eosinophils # (Auto) 0.2 x10^3/uL (0.0-0.7) Basophils # (Auto) 0.0 x10^3/uL (0.0-0.2) Sodium Level 133 mmol/L (136-145) Potassium Level 4.6 mmol/L (3.5-5.1) Chloride Level 93 mmol/L (98-107) Carbon Dioxide Level 43 mmol/L (21-32) Anion Gap (6-14) Blood Urea Nitrogen 20 mg/dL (8-26) Creatinine 0.7 mg/dL (0.7-1.3) Estimated GFR (Cockcroft-Gault) 108.2 Glucose Level 115 mg/dL (70-99) Calcium Level 7.9 mg/dL (8.5-10.1) Assessment and Plan Assessmemt and Plan Problems Medical Problems: (1) Elevated troponin Status: Acute (2) Influenza A Status: Acute (3) Left lower lobe pneumonia Status: Acute (4) Person under investigation for COVID-19 Status: Acute (5) Respiratory failure Status: Acute Comment Review of Relevant I have reviewed the following items tri (where applicable) has been applied. Labs Laboratory Tests Test 05/31/20 07:00 05/31/20 22:55 06/01/20 06:35 White Blood Count 7.6 x10^3/uL (4.0-11.0) 9.2 x10^3/uL (4.0-11.0) Red Blood Count 3.67 x10^6/uL (4.30-5.70) 3.63 x10^6/uL (4.30-5.70) Hemoglobin 10.1 g/dL (13.0-17.5) 10.0 g/dL (13.0-17.5) Hematocrit 31.0 % (39.0-53.0) 31.0 % (39.0-53.0) Mean Corpuscular Volume 84 fL (79-100) 85 fL (79-100) Mean Corpuscular Hemoglobin 28 pg (25-35) 28 pg (25-35) Mean Corpuscular Hemoglobin Concent 33 g/dL (31-37) 32 g/dL (31-37) Red Cell Distribution Width 15.4 % (11.5-14.5) 15.8 % (11.5-14.5) Platelet Count 203 x10^3/uL (140-400) 235 x10^3/uL (140-400) Neutrophils (%) (Auto) 81 % (31-73) 85 % (31-73) Lymphocytes (%) (Auto) 6 % (24-48) 5 % (24-48) Monocytes (%) (Auto) 10 % (0-9) 8 % (0-9) Eosinophils (%) (Auto) 3 % (0-3) 2 % (0-3) Basophils (%) (Auto) 0 % (0-3) 0 % (0-3) Neutrophils # (Auto) 6.1 x10^3/uL (1.8-7.7) 7.8 x10^3/uL (1.8-7.7) Lymphocytes # (Auto) 0.5 x10^3/uL (1.0-4.8) 0.5 x10^3/uL (1.0-4.8) Monocytes # (Auto) 0.7 x10^3/uL (0.0-1.1) 0.7 x10^3/uL (0.0-1.1) Eosinophils # (Auto) 0.2 x10^3/uL (0.0-0.7) 0.2 x10^3/uL (0.0-0.7) Basophils # (Auto) 0.0 x10^3/uL (0.0-0.2) 0.0 x10^3/uL (0.0-0.2) Sodium Level 136 mmol/L (136-145) 133 mmol/L (136-145) Potassium Level 4.2 mmol/L (3.5-5.1) 4.6 mmol/L (3.5-5.1) Chloride Level 95 mmol/L (98-107) 93 mmol/L (98-107) Carbon Dioxide Level 41 mmol/L (21-32) 43 mmol/L (21-32) Anion Gap 0 (6-14) (6-14) Blood Urea Nitrogen 21 mg/dL (8-26) 20 mg/dL (8-26) Creatinine 0.5 mg/dL (0.7-1.3) 0.7 mg/dL (0.7-1.3) Estimated GFR (Cockcroft-Gault) 159.6 108.2 Glucose Level 101 mg/dL (70-99) 115 mg/dL (70-99) Calcium Level 7.9 mg/dL (8.5-10.1) 7.9 mg/dL (8.5-10.1) Glucose (Fingerstick) 140 mg/dL (70-99) Laboratory Tests Test 05/31/20 22:55 06/01/20 06:35 Glucose (Fingerstick) 140 mg/dL (70-99) White Blood Count 9.2 x10^3/uL (4.0-11.0) Red Blood Count 3.63 x10^6/uL (4.30-5.70) Hemoglobin 10.0 g/dL (13.0-17.5) Hematocrit 31.0 % (39.0-53.0) Mean Corpuscular Volume 85 fL (79-100) Mean Corpuscular Hemoglobin 28 pg (25-35) Mean Corpuscular Hemoglobin Concent 32 g/dL (31-37) Red Cell Distribution Width 15.8 % (11.5-14.5) Platelet Count 235 x10^3/uL (140-400) Neutrophils (%) (Auto) 85 % (31-73) Lymphocytes (%) (Auto) 5 % (24-48) Monocytes (%) (Auto) 8 % (0-9) Eosinophils (%) (Auto) 2 % (0-3) Basophils (%) (Auto) 0 % (0-3) Neutrophils # (Auto) 7.8 x10^3/uL (1.8-7.7) Lymphocytes # (Auto) 0.5 x10^3/uL (1.0-4.8) Monocytes # (Auto) 0.7 x10^3/uL (0.0-1.1) Eosinophils # (Auto) 0.2 x10^3/uL (0.0-0.7) Basophils # (Auto) 0.0 x10^3/uL (0.0-0.2) Sodium Level 133 mmol/L (136-145) Potassium Level 4.6 mmol/L (3.5-5.1) Chloride Level 93 mmol/L (98-107) Carbon Dioxide Level 43 mmol/L (21-32) Anion Gap (6-14) Blood Urea Nitrogen 20 mg/dL (8-26) Creatinine 0.7 mg/dL (0.7-1.3) Estimated GFR (Cockcroft-Gault) 108.2 Glucose Level 115 mg/dL (70-99) Calcium Level 7.9 mg/dL (8.5-10.1) Microbiology 05/28/20 AFB Specimen Processing Tissue - Final, Resulted 05/28/20 Acid Fast Bacilli Culture, Resulted Pending 05/28/20 Gram Stain - Final, Resulted 05/28/20 Fungal Culture, Resulted Pending 05/28/20 Fungal Culture Result 1, Resulted Pending 05/24/20 Blood Culture - Final, Complete NO GROWTH AFTER 5 DAYS Medications Current Medications Morphine Sulfate (Morphine Sulfate) 4 mg PRN Q15MIN PRN IV/SQ PAIN GREATER THAN 3/10; Start 05/24/20 at 14:45; Stop 05/25/20 at 14:44; Status DC Morphine Sulfate (Morphine Sulfate) 4 mg PRN Q15MIN PRN IV/SQ PAIN GREATER THAN 3/10; Start 05/24/20 at 14:45; Stop 05/25/20 at 14:44; Status UNV Sodium Chloride 1,000 ml @ 1,000 mls/hr 1X ONCE IV Last administered on 05/24/20at 15:27; Start 05/24/20 at 15:30; Stop 05/24/20 at 16:29; Status DC Aspirin (Aspirin Chewable) 324 mg 1X ONCE PO Last administered on 05/24/20at 16:20; Start 05/24/20 at 15:45; Stop 05/24/20 at 15:46; Status DC Iohexol (Omnipaque 350 Mg/ml) 90 ml 1X ONCE IV Last administered on 05/24/20at 16:23; Start 05/24/20 at 16:00; Stop 05/24/20 at 16:01; Status DC Info (CONTRAST GIVEN -- Rx MONITORING) 1 each PRN DAILY PRN MC SEE COMMENTS; Start 05/24/20 at 16:00; Stop 05/26/20 at 15:59; Status DC Oseltamivir Phosphate (Tamiflu) 30 mg BID PO Last administered on 05/29/20at 08:34; Start 05/24/20 at 17:00; Stop 05/29/20 at 16:59; Status DC Ceftriaxone Sodium (Rocephin) 1 gm 1X ONCE IVP Last administered on 05/24/20at 16:43; Start 05/24/20 at 16:30; Stop 05/24/20 at 16:32; Status DC Azithromycin 250 ml @ 250 mls/hr 1X ONCE IV Last administered on 05/24/20at 16:46; Start 05/24/20 at 16:30; Stop 05/24/20 at 17:29; Status DC Oseltamivir Phosphate (Tamiflu) 75 mg STK-MED ONCE PO ; Start 05/24/20 at 16:34; Stop 05/24/20 at 16:34; Status DC Ondansetron HCl (Zofran) 4 mg PRN Q4HRS PRN IV NAUSEA/VOMITING Last administered on 05/29/20at 17:57; Start 05/24/20 at 20:15 Zolpidem Tartrate (Ambien) 5 mg PRN QHS PRN PO INSOMNIA Last administered on 05/31/20at 21:21; Start 05/24/20 at 20:15 Acetaminophen (Tylenol) 650 mg PRN Q4HRS PRN PO TEMP OVER 100.4F OR MILD PAIN Last administered on 05/27/20at 22:34; Start 05/24/20 at 20:15 Docusate Sodium (Colace) 100 mg PRN BID PRN PO HARD STOOLS; Start 05/24/20 at 20:15 Guaifenesin (Robitussin) 200 mg PRN Q4HRS PRN PO COUGH Last administered on 05/27/20 20:25; Start 05/24/20 at 20:15 Enoxaparin Sodium (Lovenox 40mg Syringe) 40 mg Q24H SQ Last administered on 05/25/20at 21:54; Start 05/24/20 at 20:15; Stop 05/26/20 at 13:55; Status DC Levothyroxine Sodium (Synthroid) 150 mcg DAILY06 PO Last administered on 06/01/20 06:43; Start 05/25/20 at 06:00 Multivitamins (Thera M Plus) 1 tab DAILY PO Last administered on 06/01/20 07:58; Start 05/25/20 at 09:00 Zinc Sulfate (Orazinc) 220 mg DAILY PO Last administered on 06/01/20 07:57; Start 05/25/20 at 09:00 Albuterol Sulfate (Ventolin Hfa) 1 puff PRN QID PRN INH WHEEZING Last administered on 06/01/20at 08:00; Start 05/24/20 at 20:30 Doxycycline Hyclate 100 mg/ Dextrose 100 ml @ 50 mls/hr Q12HR IV Last administered on 06/01/20 07:59; Start 05/24/20 at 21:00 Ceftriaxone Sodium (Rocephin) 1 gm Q24H IVP Last administered on 06/01/20 07:58; Start 05/25/20 at 09:30 Ondansetron HCl (Zofran) 4 mg PRN Q8HRS PRN IV NAUSEA/VOMITING; Start 05/25/20 at 00:00; Stop 05/25/20 at 00:03; Status DC Morphine Sulfate (Morphine Sulfate) 2 mg PRN Q2HR PRN IV PAIN; Start 05/25/20 at 00:00; Stop 05/25/20 at 23:59; Status DC Acetaminophen (Tylenol) 650 mg PRN Q4HRS PRN PO FEVER > 100.3'F; Start 05/25/20 at 00:00; Stop 05/25/20 at 23:59; Status DC Sodium Chloride (Saline Mist Nasal) 1 petra PRN Q1HR PRN NS NASAL CONGESTION Last administered on 05/26/20at 02:10; Start 05/26/20 at 02:00 Lorazepam (Ativan Inj) 1 mg PRN Q2HR PRN IVP ANXIETY / AGITATION Last administered on 05/27/20at 22:40; Start 05/26/20 at 10:30 Methylprednisolone Sodium Succinate (SOLU-Medrol 40MG VIAL) 40 mg Q12HR IV Last administered on 05/29/20at 08:34; Start 05/26/20 at 11:00; Stop 05/29/20 at 14:53; Status DC Lactobacillus Rhamnosus (Culturelle) 1 cap BID PO Last administered on 06/01/20at 07:58; Start 05/26/20 at 21:00 Lidocaine HCl (Lidocaine 2% Viscous) 100 ml PRN 1X PRN MM FOR PROCEDURE Last administered on 05/28/20at 10:50; Start 05/28/20 at 09:00; Stop 05/29/20 at 08:59; Status DC Lidocaine HCl (Lidocaine 1% 20ml Vial) 20 ml PRN 1X PRN INJ SEE COMMENTS Last administered on 05/28/20at 10:44; Start 05/28/20 at 09:00; Stop 05/29/20 at 08:59; Status DC Epinephrine HCl (Adrenalin) 1 mg PRN 1X PRN INJ SEE COMMENTS; Start 05/28/20 at 09:00; Stop 05/29/20 at 08:59; Status DC Lidocaine HCl (Lidocaine 4% Topical) 50 ml PRN 1X PRN MM SEE COMMENTS Last administered on 05/28/20at 10:43; Start 05/28/20 at 09:00; Stop 05/29/20 at 08:59; Status DC Albuterol Sulfate (Ventolin Neb Soln) 2.5 mg 1X ONCE NEB Last administered on 05/28/20at 10:45; Start 05/28/20 at 09:30; Stop 05/28/20 at 09:31; Status DC Propofol (Diprivan) 200 mg STK-MED ONCE IV ; Start 05/28/20 at 10:14; Stop 05/28/20 at 10:14; Status DC Ringer's Solution 1,000 ml @ 75 mls/hr [id number] IV Last administered on 05/28/20at 10:41; Start 05/28/20 at 10:45; Stop 05/31/20 at 07:18; Status DC Epinephrine HCl (Adrenalin) 1 mg STK-MED ONCE .ROUTE ; Start 05/28/20 at 10:40; Stop 05/28/20 at 10:40; Status DC Lidocaine HCl (Lidocaine 1% 20ml Vial) 20 ml STK-MED ONCE .ROUTE ; Start 05/28/20 at 10:40; Stop 05/28/20 at 10:40; Status DC Lidocaine HCl (Lidocaine 2% Viscous) 100 ml STK-MED ONCE .ROUTE ; Start 05/28/20 at 10:40; Stop 05/28/20 at 10:40; Status DC Lidocaine HCl (Lidocaine 4% Topical) 50 ml STK-MED ONCE .ROUTE ; Start 05/28/20 at 10:40; Stop 05/28/20 at 10:40; Status DC Aspirin (Ecotrin) 81 mg [id number] PO Last administered on 05/30/20at 08:22; Start 05/29/20 at 08:00; Stop 05/31/20 at 10:21; Status DC Prednisone (Prednisone) 40 mg DAILY PO Last administered on 06/01/20at 07:56; Start 05/30/20 at 09:00; Stop 06/02/20 at 08:59 Metoprolol Tartrate (Lopressor) 12.5 mg BID PO Last administered on 06/01/20at 07:58; Start 05/29/20 at 21:00 Active Scripts Active Reported Men 50 Plus Multivitamin Tab (Multivit-Min/FA/Lycopen/Lutein) 1 Each Tablet 1 Each PO DAILY Levothyroxine Sodium 125 Mcg Tablet 150 Mcg PO DAILY Vitals/I & O Vital Sign - Last 24 Hours 05/31/20 05/31/20 05/31/20 05/31/20 11:00 15:00 19:00 20:00 Temp 98.2 98.3 97.3 98.2 98.3 97.3 Pulse 85 119 86 Resp 18 18 24 B/P (MAP) 112/53 (72) 115/62 (79) 121/74 (90) Pulse Ox 79 76 91 O2 Delivery Room Air Room Air Nasal Cannula Nasal Cannula O2 Flow Rate 10.0 10.0 10.0 05/31/20 05/31/20 05/31/20 06/01/20 21:22 22:50 23:00 03:01 Temp 98.3 97.6 98.3 97.6 Pulse 86 88 82 Resp 20 20 B/P (MAP) 121/74 129/82 (98) 119/74 (89) Pulse Ox 100 100 100 O2 Delivery Nasal Cannula NonRebreather Mask 06/01/20 06/01/20 07:58 07:59 Temp 97.8 97.8 Pulse 95 106 Resp 24 B/P (MAP) 110/71 110/71 (84) Pulse Ox 94 O2 Delivery NonRebreather Mask O2 Flow Rate 15.0 Intake and Output 05/31/20 05/31/20 06/01/20 15:00 23:00 07:00 Intake Total 250 ml 250 ml Output Total 200 ml 550 ml Balance 50 ml 250 ml -550 ml Justicifation of Admission Dx: Justifications for Admission: Justification of Admission Dx: Yes YASSINE MARISCAL MD Jun 01, 2020 10:18
[2020-06-01 11:00] VITALS: BP 101/77
--- NOTE | 2020-06-01 11:43 | NUR ---
IP: May remove pt from droplet precautions.
[2020-06-01] MEDS: ALBUTEROL SULFATE 2.5 MG/3 ML NEBU. NEB SCH ×3 (12:05→20:00)
--- NOTE | 2020-06-01 12:48 | PDOC ---
PULMONARY PROGRESS NOTES DATE: 06/01/20 TIME: 12:46 Subjective Patient reports less hemoptysis Increased shortness of breath and hypoxia overnight with rapid response On 11 L nasal cannula No other concerns from nursing Vitals Vital Signs Date Time Temp Pulse Resp B/P (MAP) Pulse Ox O2 Delivery O2 Flow Rate FiO2 06/01/20 12:06 94 BiPAP/CPAP 06/01/20 11:00 98.6 82 24 101/77 (85) 11.0 98.6 ROS: No Nausea, No Chest Pain General: Alert Lungs: Crackles Cardiovascular: S1, S2 Abdomen: Soft Neuro Exam: Alert Extremities: No Edema Labs Laboratory Tests Test 05/31/20 07:00 05/31/20 22:55 06/01/20 06:35 White Blood Count 7.6 x10^3/uL (4.0-11.0) 9.2 x10^3/uL (4.0-11.0) Red Blood Count 3.67 x10^6/uL (4.30-5.70) 3.63 x10^6/uL (4.30-5.70) Hemoglobin 10.1 g/dL (13.0-17.5) 10.0 g/dL (13.0-17.5) Hematocrit 31.0 % (39.0-53.0) 31.0 % (39.0-53.0) Mean Corpuscular Volume 84 fL (79-100) 85 fL (79-100) Mean Corpuscular Hemoglobin 28 pg (25-35) 28 pg (25-35) Mean Corpuscular Hemoglobin Concent 33 g/dL (31-37) 32 g/dL (31-37) Red Cell Distribution Width 15.4 % (11.5-14.5) 15.8 % (11.5-14.5) Platelet Count 203 x10^3/uL (140-400) 235 x10^3/uL (140-400) Neutrophils (%) (Auto) 81 % (31-73) 85 % (31-73) Lymphocytes (%) (Auto) 6 % (24-48) 5 % (24-48) Monocytes (%) (Auto) 10 % (0-9) 8 % (0-9) Eosinophils (%) (Auto) 3 % (0-3) 2 % (0-3) Basophils (%) (Auto) 0 % (0-3) 0 % (0-3) Neutrophils # (Auto) 6.1 x10^3/uL (1.8-7.7) 7.8 x10^3/uL (1.8-7.7) Lymphocytes # (Auto) 0.5 x10^3/uL (1.0-4.8) 0.5 x10^3/uL (1.0-4.8) Monocytes # (Auto) 0.7 x10^3/uL (0.0-1.1) 0.7 x10^3/uL (0.0-1.1) Eosinophils # (Auto) 0.2 x10^3/uL (0.0-0.7) 0.2 x10^3/uL (0.0-0.7) Basophils # (Auto) 0.0 x10^3/uL (0.0-0.2) 0.0 x10^3/uL (0.0-0.2) Sodium Level 136 mmol/L (136-145) 133 mmol/L (136-145) Potassium Level 4.2 mmol/L (3.5-5.1) 4.6 mmol/L (3.5-5.1) Chloride Level 95 mmol/L (98-107) 93 mmol/L (98-107) Carbon Dioxide Level 41 mmol/L (21-32) 43 mmol/L (21-32) Anion Gap 0 (6-14) (6-14) Blood Urea Nitrogen 21 mg/dL (8-26) 20 mg/dL (8-26) Creatinine 0.5 mg/dL (0.7-1.3) 0.7 mg/dL (0.7-1.3) Estimated GFR (Cockcroft-Gault) 159.6 108.2 Glucose Level 101 mg/dL (70-99) 115 mg/dL (70-99) Calcium Level 7.9 mg/dL (8.5-10.1) 7.9 mg/dL (8.5-10.1) Glucose (Fingerstick) 140 mg/dL (70-99) Laboratory Tests Test 05/31/20 22:55 06/01/20 06:35 Glucose (Fingerstick) 140 mg/dL (70-99) White Blood Count 9.2 x10^3/uL (4.0-11.0) Red Blood Count 3.63 x10^6/uL (4.30-5.70) Hemoglobin 10.0 g/dL (13.0-17.5) Hematocrit 31.0 % (39.0-53.0) Mean Corpuscular Volume 85 fL (79-100) Mean Corpuscular Hemoglobin 28 pg (25-35) Mean Corpuscular Hemoglobin Concent 32 g/dL (31-37) Red Cell Distribution Width 15.8 % (11.5-14.5) Platelet Count 235 x10^3/uL (140-400) Neutrophils (%) (Auto) 85 % (31-73) Lymphocytes (%) (Auto) 5 % (24-48) Monocytes (%) (Auto) 8 % (0-9) Eosinophils (%) (Auto) 2 % (0-3) Basophils (%) (Auto) 0 % (0-3) Neutrophils # (Auto) 7.8 x10^3/uL (1.8-7.7) Lymphocytes # (Auto) 0.5 x10^3/uL (1.0-4.8) Monocytes # (Auto) 0.7 x10^3/uL (0.0-1.1) Eosinophils # (Auto) 0.2 x10^3/uL (0.0-0.7) Basophils # (Auto) 0.0 x10^3/uL (0.0-0.2) Sodium Level 133 mmol/L (136-145) Potassium Level 4.6 mmol/L (3.5-5.1) Chloride Level 93 mmol/L (98-107) Carbon Dioxide Level 43 mmol/L (21-32) Anion Gap (6-14) Blood Urea Nitrogen 20 mg/dL (8-26) Creatinine 0.7 mg/dL (0.7-1.3) Estimated GFR (Cockcroft-Gault) 108.2 Glucose Level 115 mg/dL (70-99) Calcium Level 7.9 mg/dL (8.5-10.1) Medications Active Scripts Medications Dose Route/Sig Max Daily Dose Days Date Category Men 50 Plus Multivitamin Tab (Multivit-Min/FA/Lycopen/Lutein) 1 Each Tablet 1 Each PO DAILY 05/24/20 Reported Levothyroxine Sodium 125 Mcg Tablet 150 Mcg PO DAILY 07/30/13 Reported Impression . IMPRESSION: 1. Acute respiratory failure, multifactorial in etiology including influenza A, rule out COVID-19 pneumonia, interstitial lung disease, no pulmonary embolism. 2. Abnormal CT of the chest with slowly enlarging cavitary lesion and hemoptysis. Differential diagnosis including inflammatory versus infectious versus granulomatous versus malignancy. 3. History of thyroid cancer. 4. Mitral regurgitation. 5. Influenza A. 6. Elevated troponin? and non-ST elevation myocardial infarction. 7. Positive influenza A 8. Possible COVID-19 9. Elevated troponin 10. Chronic interstitial lung disease, possible IPF 11. Status post bronchoscopy BAL negative so far AFB smear negative Plan . Continue supplemental oxygen to keep oxygen saturations greater than 92%, currently on 11 L nasal cannula Hypoxia and rapid response overnight, will obtain new chest x-ray today, pending Continue to quantitate hemoptysis NEBS change steroids to po, with taper Continue ABX: rocephin and DOXY 6 min walk prior to D/C S/P bronchoscopy on 05/28/20-- see report follow BAL Hold anticoagulation Follow cardiologys recs PT/OT DVT/GI PPX D/W KAVITHA GLEASON MD Jun 01, 2020 12:48
[2020-06-01 15:59] VITALS: BP 126/78
--- NOTE | 2020-06-01 18:00 | NUR ---
Patient has been placed back on bi-pap. Has mitts on, as kept pulling off O2, telemetry, pulse ox. Have spoke with RT, will be up to eval pt, and poss recommend blood gases.
--- NOTE | 2020-06-01 18:23 | RAD ---
Examination: XR CHEST 1V History: Reason: resp. failure / Comparison/Correlation: 05/24/2020 Findings: Portable frontal view of the chest was obtained. Surgical clips are present at the base of the neck. Heart size is normal. Extensive interstitial infiltrates have diffusely increased compared to the betzy or exam. No significant pleural effusion. No pneumothorax. Pulmonary vasculature is at the upper limi ts of normal. Right upper quadrant surgical clips are present. No pneumothorax. Impression: Marked increased interstitial infiltrates since the prior exam diffusely. Electronically signed by: Wallace Veal MD (06/01/2020 6:21 PM) [facility]
[2020-06-01 19:00] VITALS: BP 125/67
[2020-06-01 23:01] VITALS: BP 105/56
[2020-06-02] VITALS (7 sets, daily range): BP systolic 107–140; BP diastolic 17–105
--- NOTE | 2020-06-02 00:18 | RAD ---
CT head without contrast dated 06/02/2020. Comparison made to 06/25/2019. CLINICAL INDICATION: Pain after fall. TECHNIQUE: Contiguous axial imaging the head was performed from skull base to vertex. No contrast administered. One or more of the following individualized dose reduction techniques were utilized for this examinat ion: 1. Automated exposure control 2. Adjustment of the mA and/or kV according to patient size 3. Use of iterative reconstruction technique. FINDINGS: Ventricles and sulci are within normal limits for age. No midline shift or mass effect. Brain parench yma is of normal attenuation. No hemorrhage or extra-axial collection. Posterior fossa and brainstem unremarkable. Visualized paranasal sinuses and mastoid air cells are clear. No apparent calvarial abnormality. IMPRESSION: 1. No evidence of acute intracranial abnormality. Electronically signed by: Julio iPerson MD (06/02/2020 12:16 AM) L[facility]
--- NOTE | 2020-06-02 00:56 | NUR ---
@ [id number], this RN was informed by JOSELINE Clement that pt was on the floor. This RN was in the med room getting pain med for another pt and ativan for this said pt. PRAVEEN Bell who was doing I/O's at that time claimed she heard the alarm go off and went in to check the pt who was found on the floor. When this RN went to check pt, he was on the floor face down and was attempting to get up, and he's on his knees when staff assisted him back to bed. Pt able to move all extremities. Noted reddened area to his forehead and skin tear to his left hand. Machine Loader, JOSELINE Rees was informed. Paged out Dr. Martinez who ordered CT of his head. Attempted to get hold of la Jauregui grandson via crusher and binder operator but wasnt able to talk to him. Ct scan head resulted without acute findings. Pt continues to be lethargic, didnt claim any discomfort. Neuro checks done.
[2020-06-02] MEDS: LEVOTHYROXINE 150 MCG TABLET PO SCH (06:00)
[2020-06-02] MEDS: ALBUTEROL SULFATE 2.5 MG/3 ML NEBU. NEB SCH ×4 (07:24→21:40)
[2020-06-02 08:18] LABS: BASE EXCESS ABG 16 mmol/L (-3-3); HCO3 ABG 45 mmol/L (21-28); PO2 ABG 134 mmHg (65-108); SAT O2 ABG 98 % (92-99)
[2020-06-02 08:19] LABS: PCO2 ABG 78 mmHg (35-46)
[2020-06-02 08:20] LABS: FIO2 ABG 60/BIPAP
--- NOTE | 2020-06-02 08:33 | PDOC ---
PULMONARY PROGRESS NOTES DATE: 06/02/20 TIME: 08:33 Subjective Patient now requiring BiPAP, hemoptysis is diminished, Vitals Vital Signs Date Time Temp Pulse Resp B/P (MAP) Pulse Ox O2 Delivery O2 Flow Rate FiO2 06/02/20 07:24 98 BiPAP/CPAP 06/02/20 03:04 97.9 111 20 114/66 (82) 97.9 06/01/20 11:00 11.0 ROS: No Nausea, No Chest Pain General: Alert Lungs: Crackles Cardiovascular: S1, S2 Abdomen: Soft Neuro Exam: Alert Extremities: No Edema Labs Laboratory Tests Test 05/31/20 22:55 06/01/20 06:35 06/01/20 21:40 06/02/20 08:00 Glucose (Fingerstick) 140 mg/dL (70-99) 115 mg/dL (70-99) White Blood Count 9.2 x10^3/uL (4.0-11.0) Red Blood Count 3.63 x10^6/uL (4.30-5.70) Hemoglobin 10.0 g/dL (13.0-17.5) Hematocrit 31.0 % (39.0-53.0) Mean Corpuscular Volume 85 fL (79-100) Mean Corpuscular Hemoglobin 28 pg (25-35) Mean Corpuscular Hemoglobin Concent 32 g/dL (31-37) Red Cell Distribution Width 15.8 % (11.5-14.5) Platelet Count 235 x10^3/uL (140-400) Neutrophils (%) (Auto) 85 % (31-73) Lymphocytes (%) (Auto) 5 % (24-48) Monocytes (%) (Auto) 8 % (0-9) Eosinophils (%) (Auto) 2 % (0-3) Basophils (%) (Auto) 0 % (0-3) Neutrophils # (Auto) 7.8 x10^3/uL (1.8-7.7) Lymphocytes # (Auto) 0.5 x10^3/uL (1.0-4.8) Monocytes # (Auto) 0.7 x10^3/uL (0.0-1.1) Eosinophils # (Auto) 0.2 x10^3/uL (0.0-0.7) Basophils # (Auto) 0.0 x10^3/uL (0.0-0.2) Sodium Level 133 mmol/L (136-145) Potassium Level 4.6 mmol/L (3.5-5.1) Chloride Level 93 mmol/L (98-107) Carbon Dioxide Level 43 mmol/L (21-32) Anion Gap (6-14) Blood Urea Nitrogen 20 mg/dL (8-26) Creatinine 0.7 mg/dL (0.7-1.3) Estimated GFR (Cockcroft-Gault) 108.2 Glucose Level 115 mg/dL (70-99) Calcium Level 7.9 mg/dL (8.5-10.1) O2 Saturation 98 % (92-99) Arterial Blood pH 7.38 (7.35-7.45) Arterial Blood pCO2 at Patient Temp 78 mmHg (35-46) Arterial Blood pO2 at Patient Temp 134 mmHg (65-108) Arterial Blood HCO3 45 mmol/L (21-28) Arterial Blood Base Excess 16 mmol/L (-3-3) FiO2 60/bipap Laboratory Tests Test 06/01/20 21:40 06/02/20 08:00 Glucose (Fingerstick) 115 mg/dL (70-99) O2 Saturation 98 % (92-99) Arterial Blood pH 7.38 (7.35-7.45) Arterial Blood pCO2 at Patient Temp 78 mmHg (35-46) Arterial Blood pO2 at Patient Temp 134 mmHg (65-108) Arterial Blood HCO3 45 mmol/L (21-28) Arterial Blood Base Excess 16 mmol/L (-3-3) FiO2 60/bipap Medications Active Scripts Medications Dose Route/Sig Max Daily Dose Days Date Category Men 50 Plus Multivitamin Tab (Multivit-Min/FA/Lycopen/Lutein) 1 Each Tablet 1 Each PO DAILY 05/24/20 Reported Levothyroxine Sodium 125 Mcg Tablet 150 Mcg PO DAILY 07/30/13 Reported Impression . IMPRESSION: 1. Acute respiratory failure, multifactorial in etiology including influenza A, rule out COVID-19 pneumonia, interstitial lung disease, no pulmonary embolism. 2. Abnormal CT of the chest with slowly enlarging cavitary lesion and hemoptysis. Differential diagnosis including inflammatory versus infectious versus granulomatous versus malignancy. 3. History of thyroid cancer. 4. Mitral regurgitation. 5. Influenza A. 6. Elevated troponin? and non-ST elevation myocardial infarction. 7. Positive influenza A 8. SARS-CoV-2 negative 9. Elevated troponin 10. Chronic interstitial lung disease, possible IPF 11. Status post bronchoscopy BAL negative so far AFB smear negative Plan . Patient requiring BiPAP, continue current support We will ask social service to see if he qualifies for long-term acute care Patient requiring noninvasive ventilation, continue antibiotics, DC steroids Continue to quantitate hemoptysis NEBS change steroids to po, with taper Continue ABX: rocephin and DOXY 6 min walk prior to D/C S/P bronchoscopy on 05/28/20-- see report follow BAL Hold anticoagulation Follow cardiologys recs PT/OT DVT/GI PPX D/W RN KAVITHA MCKENNA MD Jun 02, 2020 08:33
[2020-06-02] MEDS: cefTRIAXone IV Push 1 GM VIAL. IVP SCH (08:58)
[2020-06-02] MEDS: DOXYCYCLINE HYCLATE 100 MG in IV DEXTROSE 5% 100ML 100 ML IV SCH ×2 (08:58→22:11)
[2020-06-02] MEDS: ZINC SULFATE 220 MG CAPSULE. PO SCH (09:11)
[2020-06-02] MEDS: LACTOBACILLUS RHAMNOSUS GG 1 CAPSULE. PO SCH ×2 (09:11→21:00)
[2020-06-02] MEDS: MULTIVITAMIN with MINERAL TABLET. PO SCH (09:11)
[2020-06-02] MEDS: METOPROLOL TART IMMED RELEASE 25 MG TABLET. PO SCH ×2 (09:11→21:00)
[2020-06-02 12:42] LABS: BASO % 0 % (0-3); EOS # 0.2 x10^3/uL (0.0-0.7); EOS % 2 % (0-3); HEMATOCRIT 31.9 % (39.0-53.0); HEMOGLOBIN 10.4 g/dL (13.0-17.5); LYMPH # 0.4 x10^3/uL (1.0-4.8); LYMPH % 5 % (24-48); MEAN CORPUSCULAR HEMOGLOBIN 28 pg (25-35); MEAN CORPUSCULAR HGB CONC 33 g/dL (31-37); MEAN CORPUSCULAR VOLUME 85 fL (79-100); MONO # 0.7 x10^3/uL (0.0-1.1); MONO % 8 % (0-9); NEUT # 7.3 x10^3/uL (1.8-7.7); NEUT % 84 % (31-73); PLATELET COUNT 271 x10^3/uL (140-400); RED BLOOD COUNT 3.74 x10^6/uL (4.30-5.70); RED CELL DISTRIBUTION WIDTH 15.7 % (11.5-14.5); WHITE BLOOD COUNT 8.7 x10^3/uL (4.0-11.0)
[2020-06-02 13:03] LABS: BLOOD UREA NITROGEN 23 mg/dL (8-26); C-REACTIVE PROTEIN 49.2 mg/L (0-3.3); CALCIUM 7.8 mg/dL (8.5-10.1); CARBON DIOXIDE 41 mmol/L (21-32); CHLORIDE 97 mmol/L (98-107); CREATININE 0.8 mg/dL (0.7-1.3); GFR 92.8; GLUCOSE 138 mg/dL (70-99); POTASSIUM 4.8 mmol/L (3.5-5.1); SODIUM 136 mmol/L (136-145)
--- NOTE | 2020-06-02 14:30 | PDOC ---
[facility] [facility] PROGRESS NOTE Date of Service DOS: DATE: 06/02/20 TIME: 14:26 Chief Complaint Chief Complaint IMPRESSION Acute respiratory failure with hypoxia Pulmonary fibrosis Influenza Sepsis Possible lung cancer Large cavitary lesion with surrounding subpleural consolidation in the posterior superior segment right lower lobe has continued to mildly increase in size - concerning for carcinoma. Hyponatremia Pneumonia Elevated Troponin 0.094 Severe protein calorie malnutrition T3, T4 T6, T7 and L1 compression fractures Hypothyroidism plan conservative care History of Present Illness History of Present Illness 06/02/2020 Patient seen and evaluated bedside. He is currently breathing on BiPAP. I discussion with patient regarding his worsening respiratory status, patient states he would not want intubation and mechanical ventilation. Continue current medical manage with antibiotics and breathing treatments. Discussed with RN. 06/01 Patient seen and examined BEDSIDE He is gasping for air appears to possibly be terminal On BiPAP Discussed with RN and case management Chart reviewed I asked case management to arrange possible hospice 05/29 Patient seen and examined Discussed with RN Chart Reviewed Patient is comfortable but short of breath 05/30 Patient seen and examined Discussed with RN Discussed with case management Chart reviewed Patient is short of breath but is comfortable 05/31 Patient seen and examined Discussed with RN Chart Reviewed Patient is tired and short of breath Vitals/I&O Vitals/I&O: Vital Signs Date Time Temp Pulse Resp B/P (MAP) Pulse Ox O2 Delivery O2 Flow Rate FiO2 06/02/20 11:36 99 BiPAP/CPAP 06/02/20 11:00 97.5 87 24 124/105 (111) 97.5 06/01/20 11:00 11.0 I & O 06/01/20 06/01/20 06/02/20 15:00 23:00 07:00 Intake Total 120 ml Output Total 350 ml 400 ml 550 ml Balance -230 ml -400 ml -550 ml Physical Exam General: Alert, Oriented X3, Cooperative, No acute distress, mild distress Heart: Regular rate, Other (ST with PAC's, patient has 4/6 systolic and diastolic murmur) Lungs: Crackles Abdomen: Soft, No tenderness Extremities: No edema, Normal pulses Skin: No rashes, No significant lesion Labs Labs: Laboratory Tests Test 06/01/20 21:40 06/02/20 08:00 06/02/20 12:30 Glucose (Fingerstick) 115 mg/dL (70-99) O2 Saturation 98 % (92-99) Arterial Blood pH 7.38 (7.35-7.45) Arterial Blood pCO2 at Patient Temp 78 mmHg (35-46) Arterial Blood pO2 at Patient Temp 134 mmHg (65-108) Arterial Blood HCO3 45 mmol/L (21-28) Arterial Blood Base Excess 16 mmol/L (-3-3) FiO2 60/bipap White Blood Count 8.7 x10^3/uL (4.0-11.0) Red Blood Count 3.74 x10^6/uL (4.30-5.70) Hemoglobin 10.4 g/dL (13.0-17.5) Hematocrit 31.9 % (39.0-53.0) Mean Corpuscular Volume 85 fL (79-100) Mean Corpuscular Hemoglobin 28 pg (25-35) Mean Corpuscular Hemoglobin Concent 33 g/dL (31-37) Red Cell Distribution Width 15.7 % (11.5-14.5) Platelet Count 271 x10^3/uL (140-400) Neutrophils (%) (Auto) 84 % (31-73) Lymphocytes (%) (Auto) 5 % (24-48) Monocytes (%) (Auto) 8 % (0-9) Eosinophils (%) (Auto) 2 % (0-3) Basophils (%) (Auto) 0 % (0-3) Neutrophils # (Auto) 7.3 x10^3/uL (1.8-7.7) Lymphocytes # (Auto) 0.4 x10^3/uL (1.0-4.8) Monocytes # (Auto) 0.7 x10^3/uL (0.0-1.1) Eosinophils # (Auto) 0.2 x10^3/uL (0.0-0.7) Basophils # (Auto) 0.0 x10^3/uL (0.0-0.2) Sodium Level 136 mmol/L (136-145) Potassium Level 4.8 mmol/L (3.5-5.1) Chloride Level 97 mmol/L (98-107) Carbon Dioxide Level 41 mmol/L (21-32) Anion Gap (6-14) Blood Urea Nitrogen 23 mg/dL (8-26) Creatinine 0.8 mg/dL (0.7-1.3) Estimated GFR (Cockcroft-Gault) 92.8 Glucose Level 138 mg/dL (70-99) Calcium Level 7.8 mg/dL (8.5-10.1) C-Reactive Protein, Quantitative 49.2 mg/L (0-3.3) Review of Systems Review of Systems: Denies fever, denies nausea, denies chest pain. Assessment and Plan Assessmemt and Plan Problems Medical Problems: (1) Elevated troponin Status: Acute (2) Influenza A Status: Acute (3) Left lower lobe pneumonia Status: Acute (4) Person under investigation for COVID-19 Status: Acute (5) Respiratory failure Status: Acute Comment Review of Relevant I have reviewed the following items tri (where applicable) has been applied. Justifications for Admission Other Justification ROYA ONEIL MD Jun 02, 2020 14:30
--- NOTE | 2020-06-03 02:20 | NUR ---
Patient's niece, Racquel, calls the desk, says that patient is calling her at her home, saying that he is being held here like a prisoner, and someone needs to get him out of here, this freelance writer informs will check. as entering the patient's room, noted patient had hung up the phone, he is informed that Racquel called to check on him, he replied that 'All of my family have been called...they're coming to get me out of this retirement and take me home." freelance writer informs him that Racquel is in bed, and recovering from pneumonia, "Yeh, and she's got covid..she needs to be home". Patient is encouraged to rest, and speak with physician in the morning regarding discharging. pt verbalized to agree.
[2020-06-03 03:00] VITALS: BP 115/55
[2020-06-03] MEDS: LEVOTHYROXINE 150 MCG TABLET PO SCH (06:00)
[2020-06-03 07:00] VITALS: BP 109/51
[2020-06-03] MEDS: ZINC SULFATE 220 MG CAPSULE. PO SCH (07:20)
[2020-06-03] MEDS: METOPROLOL TART IMMED RELEASE 25 MG TABLET. PO SCH (07:20)
[2020-06-03] MEDS: MULTIVITAMIN with MINERAL TABLET. PO SCH (07:20)
[2020-06-03] MEDS: LACTOBACILLUS RHAMNOSUS GG 1 CAPSULE. PO SCH (07:20)
[2020-06-03] MEDS: DOXYCYCLINE HYCLATE 100 MG in IV DEXTROSE 5% 100ML 100 ML IV SCH (07:23)
[2020-06-03] MEDS: cefTRIAXone IV Push 1 GM VIAL. IVP SCH (07:24)
[2020-06-03] MEDS: ALBUTEROL SULFATE 2.5 MG/3 ML NEBU. NEB SCH ×4 (08:00→19:23)
[2020-06-03 09:09] LABS: HEMATOCRIT 32.2 % (39.0-53.0); HEMOGLOBIN 10.5 g/dL (13.0-17.5); MEAN CORPUSCULAR HEMOGLOBIN 28 pg (25-35); MEAN CORPUSCULAR HGB CONC 33 g/dL (31-37); MEAN CORPUSCULAR VOLUME 85 fL (79-100); RED BLOOD COUNT 3.77 x10^6/uL (4.30-5.70); RED CELL DISTRIBUTION WIDTH 15.8 % (11.5-14.5); WHITE BLOOD COUNT 7.1 x10^3/uL (4.0-11.0)
[2020-06-03 09:10] LABS: BASO % 0 % (0-3); EOS # 0.2 x10^3/uL (0.0-0.7); EOS % 3 % (0-3); LYMPH # 0.4 x10^3/uL (1.0-4.8); LYMPH % 6 % (24-48); MONO # 0.7 x10^3/uL (0.0-1.1); MONO % 10 % (0-9); NEUT # 5.8 x10^3/uL (1.8-7.7); NEUT % 82 % (31-73); PLATELET COUNT 282 x10^3/uL (140-400)
[2020-06-03 09:20] LABS: CREATININE 0.6 mg/dL (0.7-1.3); GFR 129.3; POTASSIUM 4.5 mmol/L (3.5-5.1)
--- NOTE | 2020-06-03 10:03 | PDOC ---
[facility] [facility] PROGRESS NOTE Date of Service DOS: DATE: 06/03/20 TIME: 09:58 Chief Complaint Chief Complaint IMPRESSION Acute respiratory failure with hypoxia Pulmonary fibrosis Influenza Sepsis Possible lung cancer Large cavitary lesion with surrounding subpleural consolidation in the posterior superior segment right lower lobe has continued to mildly increase in size - concerning for carcinoma. Hyponatremia Pneumonia Elevated Troponin 0.094 Severe protein calorie malnutrition T3, T4 T6, T7 and L1 compression fractures Hypothyroidism plan conservative care History of Present Illness History of Present Illness 06/03/2020 Patient seen and evaluated bedside. Afebrile, breathing on 10 L. Denies further episodes of hemoptysis. He was received 10 days of antibiotic treatment. He will discharge to LTAC today. Greater than 30 minutes was spent managing the discharge this patient. 06/02/2020 Patient seen and evaluated bedside. He is currently breathing on BiPAP. I discussion with patient regarding his worsening respiratory status, patient states he would not want intubation and mechanical ventilation. Continue current medical manage with antibiotics and breathing treatments. Discussed with RN. 06/01 Patient seen and examined BEDSIDE He is gasping for air appears to possibly be terminal On BiPAP Discussed with RN and case management Chart reviewed I asked case management to arrange possible hospice 05/29 Patient seen and examined Discussed with RN Chart Reviewed Patient is comfortable but short of breath 05/30 Patient seen and examined Discussed with RN Discussed with case management Chart reviewed Patient is short of breath but is comfortable 05/31 Patient seen and examined Discussed with RN Chart Reviewed Patient is tired and short of breath Vitals/I&O Vitals/I&O: Vital Signs Date Time Temp Pulse Resp B/P (MAP) Pulse Ox O2 Delivery O2 Flow Rate FiO2 06/03/20 08:00 Bi-pap 10.0 06/03/20 07:40 96 06/03/20 07:20 85 115/55 06/03/20 07:00 98.7 16 98.7 I & O 06/02/20 06/02/20 06/03/20 15:00 23:00 07:00 Intake Total 100 ml Output Total 200 ml 200 ml Balance -200 ml -100 ml Physical Exam General: Alert, Oriented X3, Cooperative, No acute distress, mild distress Heart: Regular rate, Other (ST with PAC's, patient has 4/6 systolic and diastolic murmur) Lungs: Crackles Abdomen: Soft, No tenderness Extremities: No edema, Normal pulses Skin: No rashes, No significant lesion Labs Labs: Laboratory Tests Test 06/02/20 12:30 06/03/20 07:35 06/03/20 07:55 White Blood Count 8.7 x10^3/uL (4.0-11.0) 7.1 x10^3/uL (4.0-11.0) Red Blood Count 3.74 x10^6/uL (4.30-5.70) 3.77 x10^6/uL (4.30-5.70) Hemoglobin 10.4 g/dL (13.0-17.5) 10.5 g/dL (13.0-17.5) Hematocrit 31.9 % (39.0-53.0) 32.2 % (39.0-53.0) Mean Corpuscular Volume 85 fL (79-100) 85 fL (79-100) Mean Corpuscular Hemoglobin 28 pg (25-35) 28 pg (25-35) Mean Corpuscular Hemoglobin Concent 33 g/dL (31-37) 33 g/dL (31-37) Red Cell Distribution Width 15.7 % (11.5-14.5) 15.8 % (11.5-14.5) Platelet Count 271 x10^3/uL (140-400) 282 x10^3/uL (140-400) Neutrophils (%) (Auto) 84 % (31-73) 82 % (31-73) Lymphocytes (%) (Auto) 5 % (24-48) 6 % (24-48) Monocytes (%) (Auto) 8 % (0-9) 10 % (0-9) Eosinophils (%) (Auto) 2 % (0-3) 3 % (0-3) Basophils (%) (Auto) 0 % (0-3) 0 % (0-3) Neutrophils # (Auto) 7.3 x10^3/uL (1.8-7.7) 5.8 x10^3/uL (1.8-7.7) Lymphocytes # (Auto) 0.4 x10^3/uL (1.0-4.8) 0.4 x10^3/uL (1.0-4.8) Monocytes # (Auto) 0.7 x10^3/uL (0.0-1.1) 0.7 x10^3/uL (0.0-1.1) Eosinophils # (Auto) 0.2 x10^3/uL (0.0-0.7) 0.2 x10^3/uL (0.0-0.7) Basophils # (Auto) 0.0 x10^3/uL (0.0-0.2) 0.0 x10^3/uL (0.0-0.2) Sodium Level 136 mmol/L (136-145) 138 mmol/L (136-145) Potassium Level 4.8 mmol/L (3.5-5.1) 4.5 mmol/L (3.5-5.1) Chloride Level 97 mmol/L (98-107) 93 mmol/L (98-107) Carbon Dioxide Level 41 mmol/L (21-32) 42 mmol/L (21-32) Anion Gap (6-14) 3 (6-14) Blood Urea Nitrogen 23 mg/dL (8-26) 20 mg/dL (8-26) Creatinine 0.8 mg/dL (0.7-1.3) 0.6 mg/dL (0.7-1.3) Estimated GFR (Cockcroft-Gault) 92.8 129.3 Glucose Level 138 mg/dL (70-99) 76 mg/dL (70-99) Calcium Level 7.8 mg/dL (8.5-10.1) 8.0 mg/dL (8.5-10.1) C-Reactive Protein, Quantitative 49.2 mg/L (0-3.3) Review of Systems Review of Systems: Shortness of breath. Denies fever, denies hemoptysis. Assessment and Plan Assessmemt and Plan Problems Medical Problems: (1) Elevated troponin Status: Acute (2) Influenza A Status: Acute (3) Left lower lobe pneumonia Status: Acute (4) Person under investigation for COVID-19 Status: Acute (5) Respiratory failure Status: Acute Comment Review of Relevant I have reviewed the following items tri (where applicable) has been applied. Justifications for Admission Other Justification ROYA ONEIL MD Jun 03, 2020 10:03
[2020-06-03] MEDS ORDERED: ASPI-630 PO (10:19)
[2020-06-03] MEDS ORDERED: METO25TA4 PO (10:19)
--- NOTE | 2020-06-03 10:26 | SNU/HH DC ---
DISCHARGE ORDERS DISCHARGE INFORMATION: DISCHARGE DATE: Jun 03, 2020 FINAL DIAGNOSIS Problems Medical Problems: (1) Elevated troponin Status: Acute (2) Influenza A Status: Acute (3) Left lower lobe pneumonia Status: Acute (4) Person under investigation for COVID-19 Status: Acute (5) Respiratory failure Status: Acute CONDITION ON DISCHARGE: Stable CODE STATUS: Code Status: DNR/DNI (DNI) LTAC: ADMIT TO LTAC: Yes POST DISCHARGE ORDERS: ACTIVITY ORDERS: Activity as tolerated WEIGHT BEARING STATUS: As tolerated DIET AFTER DISCHARGE: NPO (N.p.o. due to failed swallow study, ST following) CHECKS AFTER DISCHARGE: CHECKS AFTER DISCHARGE: Check blood press - daily TREATMENT/EQUIPMENT ORDERS: Speech Language Pathology For: Evaluation/Treatment (ST following at previous facility, will likely need TPN) DISCHARGE MEDICATIONS: Home Meds Active Scripts Aspirin (ASPIRIN) 81 Mg Tab.chew, 1 TAB PO DAILY for Afib, #30 TAB 3 Refills Prov:ROYA ONEIL MD 06/03/20 Metoprolol Tartrate (METOPROLOL TARTRATE) 25 Mg Tablet, 12.5 MG PO BID for Afib, #60 TAB 2 Refills Prov:ROYA ONEIL MD 06/03/20 Reported Medications Multivit-Min/FA/Lycopen/Lutein (Men 50 Plus Multivitamin Tab) 1 Each Tablet, 1 EACH PO DAILY for supplement, TAB 05/24/20 Levothyroxine Sodium (LEVOTHYROXINE SODIUM) 125 Mcg Tablet, 150 MCG PO DAILY for hypothyroidism 07/30/13 ROYA ONEIL MD Jun 03, 2020 10:26
--- NOTE | 2020-06-03 10:35 | PDOC3 ---
Discharge Summary Visit Information Date of Admission: May 24, 2020 Date of Discharge: Jun 03, 2020 Final Diagnosis Problems Medical Problems: (1) Elevated troponin Status: Acute (2) Influenza A Status: Acute (3) Left lower lobe pneumonia Status: Acute (4) Person under investigation for COVID-19 Status: Acute (5) Respiratory failure Status: Acute Brief Hospital Course Allergies Allergies Coded Allergies Type Severity Reaction Last Updated Verified No Known Drug Allergies 05/28/20 No Vital Signs Vital Signs Date Time Temp Pulse Resp B/P (MAP) Pulse Ox O2 Delivery O2 Flow Rate FiO2 06/03/20 08:00 Bi-pap 10.0 06/03/20 07:40 96 06/03/20 07:20 85 115/55 06/03/20 07:00 98.7 16 98.7 Lab Results Laboratory Tests Test 06/01/20 21:40 06/02/20 08:00 06/02/20 12:30 06/03/20 07:35 Glucose (Fingerstick) 115 mg/dL (70-99) O2 Saturation 98 % (92-99) Arterial Blood pH 7.38 (7.35-7.45) Arterial Blood pCO2 at Patient Temp 78 mmHg (35-46) Arterial Blood pO2 at Patient Temp 134 mmHg (65-108) Arterial Blood HCO3 45 mmol/L (21-28) Arterial Blood Base Excess 16 mmol/L (-3-3) FiO2 60/bipap White Blood Count 8.7 x10^3/uL (4.0-11.0) Red Blood Count 3.74 x10^6/uL (4.30-5.70) Hemoglobin 10.4 g/dL (13.0-17.5) Hematocrit 31.9 % (39.0-53.0) Mean Corpuscular Volume 85 fL (79-100) Mean Corpuscular Hemoglobin 28 pg (25-35) Mean Corpuscular Hemoglobin Concent 33 g/dL (31-37) Red Cell Distribution Width 15.7 % (11.5-14.5) Platelet Count 271 x10^3/uL (140-400) Neutrophils (%) (Auto) 84 % (31-73) Lymphocytes (%) (Auto) 5 % (24-48) Monocytes (%) (Auto) 8 % (0-9) Eosinophils (%) (Auto) 2 % (0-3) Basophils (%) (Auto) 0 % (0-3) Neutrophils # (Auto) 7.3 x10^3/uL (1.8-7.7) Lymphocytes # (Auto) 0.4 x10^3/uL (1.0-4.8) Monocytes # (Auto) 0.7 x10^3/uL (0.0-1.1) Eosinophils # (Auto) 0.2 x10^3/uL (0.0-0.7) Basophils # (Auto) 0.0 x10^3/uL (0.0-0.2) Sodium Level 136 mmol/L (136-145) 138 mmol/L (136-145) Potassium Level 4.8 mmol/L (3.5-5.1) 4.5 mmol/L (3.5-5.1) Chloride Level 97 mmol/L (98-107) 93 mmol/L (98-107) Carbon Dioxide Level 41 mmol/L (21-32) 42 mmol/L (21-32) Anion Gap (6-14) 3 (6-14) Blood Urea Nitrogen 23 mg/dL (8-26) 20 mg/dL (8-26) Creatinine 0.8 mg/dL (0.7-1.3) 0.6 mg/dL (0.7-1.3) Estimated GFR (Cockcroft-Gault) 92.8 129.3 Glucose Level 138 mg/dL (70-99) 76 mg/dL (70-99) Calcium Level 7.8 mg/dL (8.5-10.1) 8.0 mg/dL (8.5-10.1) C-Reactive Protein, Quantitative 49.2 mg/L (0-3.3) Test 06/03/20 07:55 White Blood Count 7.1 x10^3/uL (4.0-11.0) Red Blood Count 3.77 x10^6/uL (4.30-5.70) Hemoglobin 10.5 g/dL (13.0-17.5) Hematocrit 32.2 % (39.0-53.0) Mean Corpuscular Volume 85 fL (79-100) Mean Corpuscular Hemoglobin 28 pg (25-35) Mean Corpuscular Hemoglobin Concent 33 g/dL (31-37) Red Cell Distribution Width 15.8 % (11.5-14.5) Platelet Count 282 x10^3/uL (140-400) Neutrophils (%) (Auto) 82 % (31-73) Lymphocytes (%) (Auto) 6 % (24-48) Monocytes (%) (Auto) 10 % (0-9) Eosinophils (%) (Auto) 3 % (0-3) Basophils (%) (Auto) 0 % (0-3) Neutrophils # (Auto) 5.8 x10^3/uL (1.8-7.7) Lymphocytes # (Auto) 0.4 x10^3/uL (1.0-4.8) Monocytes # (Auto) 0.7 x10^3/uL (0.0-1.1) Eosinophils # (Auto) 0.2 x10^3/uL (0.0-0.7) Basophils # (Auto) 0.0 x10^3/uL (0.0-0.2) Laboratory Tests Test 06/02/20 12:30 06/03/20 07:35 06/03/20 07:55 White Blood Count 8.7 x10^3/uL (4.0-11.0) 7.1 x10^3/uL (4.0-11.0) Red Blood Count 3.74 x10^6/uL (4.30-5.70) 3.77 x10^6/uL (4.30-5.70) Hemoglobin 10.4 g/dL (13.0-17.5) 10.5 g/dL (13.0-17.5) Hematocrit 31.9 % (39.0-53.0) 32.2 % (39.0-53.0) Mean Corpuscular Volume 85 fL (79-100) 85 fL (79-100) Mean Corpuscular Hemoglobin 28 pg (25-35) 28 pg (25-35) Mean Corpuscular Hemoglobin Concent 33 g/dL (31-37) 33 g/dL (31-37) Red Cell Distribution Width 15.7 % (11.5-14.5) 15.8 % (11.5-14.5) Platelet Count 271 x10^3/uL (140-400) 282 x10^3/uL (140-400) Neutrophils (%) (Auto) 84 % (31-73) 82 % (31-73) Lymphocytes (%) (Auto) 5 % (24-48) 6 % (24-48) Monocytes (%) (Auto) 8 % (0-9) 10 % (0-9) Eosinophils (%) (Auto) 2 % (0-3) 3 % (0-3) Basophils (%) (Auto) 0 % (0-3) 0 % (0-3) Neutrophils # (Auto) 7.3 x10^3/uL (1.8-7.7) 5.8 x10^3/uL (1.8-7.7) Lymphocytes # (Auto) 0.4 x10^3/uL (1.0-4.8) 0.4 x10^3/uL (1.0-4.8) Monocytes # (Auto) 0.7 x10^3/uL (0.0-1.1) 0.7 x10^3/uL (0.0-1.1) Eosinophils # (Auto) 0.2 x10^3/uL (0.0-0.7) 0.2 x10^3/uL (0.0-0.7) Basophils # (Auto) 0.0 x10^3/uL (0.0-0.2) 0.0 x10^3/uL (0.0-0.2) Sodium Level 136 mmol/L (136-145) 138 mmol/L (136-145) Potassium Level 4.8 mmol/L (3.5-5.1) 4.5 mmol/L (3.5-5.1) Chloride Level 97 mmol/L (98-107) 93 mmol/L (98-107) Carbon Dioxide Level 41 mmol/L (21-32) 42 mmol/L (21-32) Anion Gap (6-14) 3 (6-14) Blood Urea Nitrogen 23 mg/dL (8-26) 20 mg/dL (8-26) Creatinine 0.8 mg/dL (0.7-1.3) 0.6 mg/dL (0.7-1.3) Estimated GFR (Cockcroft-Gault) 92.8 129.3 Glucose Level 138 mg/dL (70-99) 76 mg/dL (70-99) Calcium Level 7.8 mg/dL (8.5-10.1) 8.0 mg/dL (8.5-10.1) C-Reactive Protein, Quantitative 49.2 mg/L (0-3.3) Brief Hospital Course Mr. Sullivan is a 80 old male who presented with acute respiratory failure with hypoxia, hemoptysis, influenza A, sepsis, community-acquired pneumonia, pulmonary fibrosis. Consultations placed to pulmonology and cardiology. He had echocardiogram that showed ejection fraction 55-60%, mild concentric left ventricular hypertrophy, PA pressure estimated at 50 mmHg. He had bronchoscopy with bronchoalveolar lavage that showed normal vocal cords, normal trachea, no endobronchial lesion, no active bleeding. Pathology report from right lower lobe bronchoalveolar lavage was negative for malignant cells, but did show bronchial epithelial cells, pulmonary macrophages, and neutrophils. He was treated with a 10-day course of IV antibiotics and supportive oxygen. He had some runs of A. fib during his hospital course, he was placed on metoprolol 12.5 mg twice daily. Due to his elevated Has-Bled score and recent hemoptysis, he will be discharged on aspirin. After further discussion with patient his CODE STATUS was changed to DNI. He was accepted and discharged to [facility]. Discharge Information Condition at Discharge: Stable Disposition/Orders: D/C to Another Facility Scheduled Aspirin (Aspirin) 81 Mg Tab.chew, 1 TAB PO DAILY for Afib, #30 Ref 3 Prescribed by: ROYA ONEIL MD on 06/03/20 1019 Levothyroxine Sodium (Levothyroxine Sodium) 125 Mcg Tablet, 150 MCG PO DAILY for hypothyroidism, (Reported) Entered as Reported by: PARRIS COUGHLIN on 07/30/13 1524 Last Action: Continued on 05/24/202011 by LELE ZELAYA MD Metoprolol Tartrate (Metoprolol Tartrate) 25 Mg Tablet, 12.5 MG PO BID for Afib, #60 Ref 2 Prescribed by: ROYA ONEIL MD on 06/03/20 1019 Multivit-Min/FA/Lycopen/Lutein (Men 50 Plus Multivitamin Tab) 1 Each Tablet, 1 EACH PO DAILY for supplement, (Reported) Entered as Reported by: JESUS GLEASON RN on 05/24/202005 Last Action: Converted on 05/24/202011 by LELE ZELAYA MD Justicifation of Admission Dx: Justifications for Admission: Justification of Admission Dx: Yes ROYA ONEIL MD Jun 03, 2020 10:35
[2020-06-03 11:00] VITALS: BP 110/61
--- NOTE | 2020-06-03 12:35 | PDOC ---
PULMONARY PROGRESS NOTES DATE: 06/03/20 TIME: 12:31 Subjective Patient on 10 liters N/C hemoptysis is resolved afebrile overnight Vitals Vital Signs Date Time Temp Pulse Resp B/P (MAP) Pulse Ox O2 Delivery O2 Flow Rate FiO2 06/03/20 11:00 98.7 108 18 110/61 (77) 98 Nasal Cannula 10.0 98.7 ROS: No Nausea, No Chest Pain General: Alert, Oriented X4 Lungs: Crackles Cardiovascular: S1, S2 Abdomen: Soft Neuro Exam: Alert Extremities: No Edema Skin: Warm, Dry Labs Laboratory Tests Test 06/01/20 21:40 06/02/20 08:00 06/02/20 12:30 06/03/20 07:35 Glucose (Fingerstick) 115 mg/dL (70-99) O2 Saturation 98 % (92-99) Arterial Blood pH 7.38 (7.35-7.45) Arterial Blood pCO2 at Patient Temp 78 mmHg (35-46) Arterial Blood pO2 at Patient Temp 134 mmHg (65-108) Arterial Blood HCO3 45 mmol/L (21-28) Arterial Blood Base Excess 16 mmol/L (-3-3) FiO2 60/bipap White Blood Count 8.7 x10^3/uL (4.0-11.0) Red Blood Count 3.74 x10^6/uL (4.30-5.70) Hemoglobin 10.4 g/dL (13.0-17.5) Hematocrit 31.9 % (39.0-53.0) Mean Corpuscular Volume 85 fL (79-100) Mean Corpuscular Hemoglobin 28 pg (25-35) Mean Corpuscular Hemoglobin Concent 33 g/dL (31-37) Red Cell Distribution Width 15.7 % (11.5-14.5) Platelet Count 271 x10^3/uL (140-400) Neutrophils (%) (Auto) 84 % (31-73) Lymphocytes (%) (Auto) 5 % (24-48) Monocytes (%) (Auto) 8 % (0-9) Eosinophils (%) (Auto) 2 % (0-3) Basophils (%) (Auto) 0 % (0-3) Neutrophils # (Auto) 7.3 x10^3/uL (1.8-7.7) Lymphocytes # (Auto) 0.4 x10^3/uL (1.0-4.8) Monocytes # (Auto) 0.7 x10^3/uL (0.0-1.1) Eosinophils # (Auto) 0.2 x10^3/uL (0.0-0.7) Basophils # (Auto) 0.0 x10^3/uL (0.0-0.2) Sodium Level 136 mmol/L (136-145) 138 mmol/L (136-145) Potassium Level 4.8 mmol/L (3.5-5.1) 4.5 mmol/L (3.5-5.1) Chloride Level 97 mmol/L (98-107) 93 mmol/L (98-107) Carbon Dioxide Level 41 mmol/L (21-32) 42 mmol/L (21-32) Anion Gap (6-14) 3 (6-14) Blood Urea Nitrogen 23 mg/dL (8-26) 20 mg/dL (8-26) Creatinine 0.8 mg/dL (0.7-1.3) 0.6 mg/dL (0.7-1.3) Estimated GFR (Cockcroft-Gault) 92.8 129.3 Glucose Level 138 mg/dL (70-99) 76 mg/dL (70-99) Calcium Level 7.8 mg/dL (8.5-10.1) 8.0 mg/dL (8.5-10.1) C-Reactive Protein, Quantitative 49.2 mg/L (0-3.3) Test 06/03/20 07:55 White Blood Count 7.1 x10^3/uL (4.0-11.0) Red Blood Count 3.77 x10^6/uL (4.30-5.70) Hemoglobin 10.5 g/dL (13.0-17.5) Hematocrit 32.2 % (39.0-53.0) Mean Corpuscular Volume 85 fL (79-100) Mean Corpuscular Hemoglobin 28 pg (25-35) Mean Corpuscular Hemoglobin Concent 33 g/dL (31-37) Red Cell Distribution Width 15.8 % (11.5-14.5) Platelet Count 282 x10^3/uL (140-400) Neutrophils (%) (Auto) 82 % (31-73) Lymphocytes (%) (Auto) 6 % (24-48) Monocytes (%) (Auto) 10 % (0-9) Eosinophils (%) (Auto) 3 % (0-3) Basophils (%) (Auto) 0 % (0-3) Neutrophils # (Auto) 5.8 x10^3/uL (1.8-7.7) Lymphocytes # (Auto) 0.4 x10^3/uL (1.0-4.8) Monocytes # (Auto) 0.7 x10^3/uL (0.0-1.1) Eosinophils # (Auto) 0.2 x10^3/uL (0.0-0.7) Basophils # (Auto) 0.0 x10^3/uL (0.0-0.2) Laboratory Tests Test 06/03/20 07:35 06/03/20 07:55 Sodium Level 138 mmol/L (136-145) Potassium Level 4.5 mmol/L (3.5-5.1) Chloride Level 93 mmol/L (98-107) Carbon Dioxide Level 42 mmol/L (21-32) Anion Gap 3 (6-14) Blood Urea Nitrogen 20 mg/dL (8-26) Creatinine 0.6 mg/dL (0.7-1.3) Estimated GFR (Cockcroft-Gault) 129.3 Glucose Level 76 mg/dL (70-99) Calcium Level 8.0 mg/dL (8.5-10.1) White Blood Count 7.1 x10^3/uL (4.0-11.0) Red Blood Count 3.77 x10^6/uL (4.30-5.70) Hemoglobin 10.5 g/dL (13.0-17.5) Hematocrit 32.2 % (39.0-53.0) Mean Corpuscular Volume 85 fL (79-100) Mean Corpuscular Hemoglobin 28 pg (25-35) Mean Corpuscular Hemoglobin Concent 33 g/dL (31-37) Red Cell Distribution Width 15.8 % (11.5-14.5) Platelet Count 282 x10^3/uL (140-400) Neutrophils (%) (Auto) 82 % (31-73) Lymphocytes (%) (Auto) 6 % (24-48) Monocytes (%) (Auto) 10 % (0-9) Eosinophils (%) (Auto) 3 % (0-3) Basophils (%) (Auto) 0 % (0-3) Neutrophils # (Auto) 5.8 x10^3/uL (1.8-7.7) Lymphocytes # (Auto) 0.4 x10^3/uL (1.0-4.8) Monocytes # (Auto) 0.7 x10^3/uL (0.0-1.1) Eosinophils # (Auto) 0.2 x10^3/uL (0.0-0.7) Basophils # (Auto) 0.0 x10^3/uL (0.0-0.2) Medications Active Scripts Medications Dose Route/Sig Max Daily Dose Days Date Category Men 50 Plus Multivitamin Tab (Multivit-Min/FA/Lycopen/Lutein) 1 Each Tablet 1 Each PO DAILY 05/24/20 Reported Levothyroxine Sodium 125 Mcg Tablet 150 Mcg PO DAILY 07/30/13 Reported Impression . IMPRESSION: 1. Acute respiratory failure, multifactorial in etiology including influenza A, rule out COVID-19 pneumonia, interstitial lung disease, no pulmonary embolism. 2. Abnormal CT of the chest with slowly enlarging cavitary lesion and hemoptysis. Differential diagnosis including inflammatory versus infectious versus granulomatous versus malignancy.-- possible sarcodosis 3. History of thyroid cancer. 4. Mitral regurgitation. 5. Influenza A. 6. Elevated troponin? and non-ST elevation myocardial infarction. 7. Positive influenza A 8. SARS-CoV-2 negative 9. Elevated troponin 10. Chronic interstitial lung disease, possible IPF 11. Status post bronchoscopy BAL negative so far AFB smear negative, Plan . Continue supplemental oxygen on 10 liters N/C during the Day Pt. instructed to wear BIPAP at night Continue to quantitate hemoptysis-- resolved on exam today NEBS D/C ABX has completed full course S/P bronchoscopy on 05/28/20-- see report follow BAL which is negative Hold anticoagulation Follow cardiologys recs PT/OT DVT/GI PPX D/W RN OK to D/C to LTACH/SNF Please follow up in our office in 06/2020 LAUREL MOREL MD Jun 03, 2020 12:35
[2020-06-03 15:00] VITALS: BP 109/41
--- NOTE | 2020-06-03 17:25 | NUR ---
Wound Care Received WC consult for L hand skin tear, photo assessed. Pt is ready for discharge and wound was already dressed. Per JOSELINE Kirby, unnecessary to eval at this time.
--- NOTE | 2020-06-03 19:50 | NUR ---
pt was picked up by EMS for transfer. Pt denies discomfort.
== END 2020-06-03 19:40 | DRG 871 ==
LOC: ER 14:20 → 6 SOUTH 16:51 → 5 NORTH 05-26 19:09
PROVIDERS: ADMIT Internal Medicine; ATTEND Internal Medicine
PROC: 5A09357 Assistance with Respiratory Ventilation, Less than 24 Consecutive Hours, Continuous Positive Airway Pressure (ICD-10-PCS; 2020-05-26)
PROC: 5A09357 Assistance with Respiratory Ventilation, Less than 24 Consecutive Hours, Continuous Positive Airway Pressure (ICD-10-PCS; 2020-05-27)
PROC: 0B9F8ZX Drainage of Right Lower Lung Lobe, Via Natural or Artificial Opening Endoscopic, Diagnostic (ICD-10-PCS; principal; 2020-05-28 11:00)
PROC: 5A09357 Assistance with Respiratory Ventilation, Less than 24 Consecutive Hours, Continuous Positive Airway Pressure (ICD-10-PCS; 2020-05-29)
PROC: 5A09357 Assistance with Respiratory Ventilation, Less than 24 Consecutive Hours, Continuous Positive Airway Pressure (ICD-10-PCS; 2020-06-01)
PROC: 5A09357 Assistance with Respiratory Ventilation, Less than 24 Consecutive Hours, Continuous Positive Airway Pressure (ICD-10-PCS; 2020-06-02)
PROC: 5A09357 Assistance with Respiratory Ventilation, Less than 24 Consecutive Hours, Continuous Positive Airway Pressure (ICD-10-PCS; 2020-06-03)
DX: A41.9 Sepsis, unspecified organism (principal); J96.01 Acute respiratory failure with hypoxia; E43 Unspecified severe protein-calorie malnutrition; J10.08 Influenza due to other identified influenza virus with other specified pneumonia; J18.9 Pneumonia, unspecified organism; E87.1 Hypo-osmolality and hyponatremia; M48.56XA Collapsed vertebra, not elsewhere classified, lumbar region, initial encounter for fracture; R04.2 Hemoptysis; E11.9 Type 2 diabetes mellitus without complications; Z68.20 Body mass index [BMI] 20.0-20.9, adult; E78.5 Hyperlipidemia, unspecified; E86.1 Hypovolemia; E89.0 Postprocedural hypothyroidism; I10 Essential (primary) hypertension; K21.9 Gastro-esophageal reflux disease without esophagitis; M19.90 Unspecified osteoarthritis, unspecified site; I25.10 Atherosclerotic heart disease of native coronary artery without angina pectoris; I27.20 Pulmonary hypertension, unspecified; I34.0 Nonrheumatic mitral (valve) insufficiency; I48.91 Unspecified atrial fibrillation; J84.112 Idiopathic pulmonary fibrosis; Z20.828 Contact with and (suspected) exposure to other viral communicable diseases; Z79.82 Long term (current) use of aspirin; Z79.899 Other long term (current) drug therapy; Z82.49 Family history of ischemic heart disease and other diseases of the circulatory system; Z85.850 Personal history of malignant neoplasm of thyroid; Z87.891 Personal history of nicotine dependence; Z90.49 Acquired absence of other specified parts of digestive tract
CPT/HCPCS: 31622; 36415; 36600; 70450; 71045; 71275; 80048; 80053; 80061; 82805; 82962; 83605; 83735; 83880; 84145; 84443; 84484; 85007; 85025; 85379; 86140; 87040; 87070; 87102; 87116; 87205; 87804; 88112; 88305; 93005; 93306; 94640; 94660; 94760; 96361; 96365; 96375; 99285; J0456; J0696; J1650; J2060; J2405; J2704; J2920; J3490; J7030; J7060; J7120; J7512; Q9967; U0003; 92526-GN; 92610-GN; G0378; J7613

== ENCOUNTER 2020-07-11 11:34 | Inpatient (IN) | payer MEDICARE, BC ==
[~2020-07-11] VITALS: Ht 177.8 cm; Wt 67.8 kg
[2020-07-11] VITALS (10 sets, daily range): BP systolic 108–140; BP diastolic 52–80
[~2020-07-11 11:34] MED LIST changes: +METO25TA4 PO; +MULT-686 PO
[2020-07-11] MEDS ORDERED: IV NORMAL SALINE 1000ML BAG 1,000 ML IV SCH (11:45)
[2020-07-11] MEDS ORDERED: VANCOMYCIN PER PHARMACY MC PRN (11:45)
[2020-07-11] MEDS ORDERED: methylPREDNISolone SOD SUCC PF 125 MG/2 ML VIAL. IV ONE (11:45)
[2020-07-11] MEDS ORDERED: PIPERACILLIN/TAZOBACTAM 4.5 GM in IV NORMAL SALINE 100ML 100 ML IV ONE (11:45)
--- NOTE | 2020-07-11 11:46 | PHYS DOC ---
Past Medical History Past Medical History: Cancer, Hypothyroid Additional Past Medical Histor: THYROID CA, "FIBROSIS LUNGS", HEART MURMUR Past Surgical History: Cholecystectomy, Other Additional Past Surgical Histo: THYROIDECTOMY, L LEG HARDWARE Smoking Status: Former Smoker Alcohol Use: None Drug Use: None General Adult HPI: HPI: 80-year-old male past medical history significant for thyroid cancer s/p resection on suppressive levothyroxine dosing, pulmonary fibrosis/pulm htn, hypertension, hyperlipidemia, discharged from [facility] 06/03 s/p post influenza pneumonia requiring oxygen (no PE on CTA chest), presents to the ED from his rehab facility with concern for hypoxia, was 88% on 15 L nasal cannula, EMS placed patient on NRB. Physician at rehab performed cxr and was concerned for pna. Pt is a FC. Is Ed pt c/o dyspnea and "I need to go to the bathroom." Review of Systems: Review of Systems: Constitutional: Denies fever or chills. [] Eyes: Denies change in visual acuity. [] HENT: Denies nasal congestion or sore throat. [] Respiratory: Denies cough or hemoptysis Cardiovascular: Denies chest pain or edema. [] GI: Denies abdominal pain, nausea, vomiting, bloody stools or diarrhea. [] : Denies dysuria or hematuria Musculoskeletal: Denies back pain or joint pain. [] Integument: Denies rash or diaphoresis Neurologic: Denies headache, focal weakness or sensory changes. [] Endocrine: Denies polyuria or polydipsia. [] Lymphatic: Denies swollen glands. [] Psychiatric: Denies depression or anxiety. [] Heart Score: Risk Factors: Risk Factors: DM, Current or recent (<one month) smoker, HTN, HLP, family history of CAD, obesity. Risk Scores: Score 0 - 3: 2.5% MACE over next 6 weeks - Discharge Home Score 4 - 6: 20.3% MACE over next 6 weeks - Admit for Clinical Observation Score 7 - 10: 72.7% MACE over next 6 weeks - Early Invasive Strategies Allergies: Allergies: Allergies Coded Allergies Type Severity Reaction Last Updated Verified No Known Drug Allergies 05/28/20 No Physical Exam: PE: Constitutional: Well developed, well nourished, no acute distress, non-toxic appearance. HENT: Normocephalic, atraumatic, Eyes: EOMI, conjunctiva normal, no discharge. Neck: Normal range of motion, supple, Cardiovascular: S1/2 present, tachycardic Lungs & Thorax: Speaking in full sentences-becomes tachypneic and winded, bilateral equal chest rise, bl middle and lower lobe crackles and rales, no wheezing, on NRB Abdomen: soft, no tenderness, Skin: Warm, dry, no erythema, no rash. [] Back: No tenderness, no CVA tenderness. [] Extremities: No tenderness, no cyanosis, no edema Neurologic: Alert and oriented X 3, normal motor function, normal sensory function, no focal deficits noted. [] Psychologic: Affect normal, judgement normal, mood normal. [] EKG: EKG: Atrial fibrillation at 107 bpm, left axis deviation, QTC 459, no T wave inversions, no ST elevations or ST depressions-EMR was reviewed and patient went in and out of A. fib on his prior admission Radiology/Procedures: Radiology/Procedures: IMAGING REPORT Signed PATIENT: ROSALVA LEONARDO: [id number] : 1940 LOCATION: ER AGE: 80 SEX: M EXAM STATUS: REG ER ORD. PHYSICIAN: AZALIA FARRELL DO REASON: soa PROCEDURE: PORTABLE CHEST 1V EXAM: Chest, single view. HISTORY: Shortness of air. COMPARISON: 06/01/2020 FINDINGS: A frontal view of the chest is obtained. There is diffuse mixed inters titial and alveolar infiltrate superimposed on chronic interstitial changes. There are stable suspected trace pleural effusions. There is no pneumothorax. There is stable enlargement of the cardiac silhouette. There are surgical clips within the neck. IMPRESSION: Stable diffuse infiltrate likely superimposed on chronic interstitial changes. Electronically signed by: Opal Macedo MD (07/11/2020 12:45 PM) [id number] DICTATED and SIGNED BY: OPAL MACEDO MD DATE: 07/11/20 [id number] IMAGING REPORT Signed PATIENT: ROSALVA LEONARDO: [id number] : 1940 LOCATION: [address] [place] [address] AGE: 80 SEX: M EXAM STATUS: ADM IN ORD. PHYSICIAN: AZALIA FARRELL DO REASON: hypoxia, soa, r/o pe PROCEDURE: CT ANGIOGRAPHY CHEST INDICATION: Reason: hypoxia, soa, r/o pe / Spl. Instructions: INJ 100ML OMNI 350 / History: COMPARISON: May 24, 2020 TECHNIQUE: Axial CT images obtained through the chest. Intravenous contrast utilized. Angiogram 3D images processed per protocol. One or more of the following individualized dose reduction techniques were utilized for this examination: 1. Automated exposure control; 2. Adjustment of the mA and/or kV according to patient size; 3. Use of iterative reconstruction technique. FINDINGS: Multifocal opacities throughout the bilateral lungs which appears increased from prior. This includes consolidative, groundglass and interstitial component. There is again some chronic interstitial lung disease with fibrosis and cystic changes to the bilateral lungs. Small left greater than right pleural effusion. Repeat demonstration of a cavitary lesion within the right lung dependently with fluid and air within it centrally. This cavitary lesion measures up to 6 cm. Interval increase in dense opacity at the right lung base. Degenerative changes throughout the spine with multilevel central canal and neural foraminal stenosis. Splenic calcified granulomas. Lymphadenopathy is seen within the mediastinum and hilum. There are some calcified lymph nodes as well. Calcific atherosclerosis throughout the vascula ture. Mitral annulus calcifications. Coronary artery calcific atherosclerosis. Portion of ascending thoracic aorta is obscured by motion without aneurysm at visualized portions of thoracic aorta. There is some fluid in the pericardial recess. Degenerative changes throughout the spine. No embolus in the main, right main or left main pulmonary artery. The more peripheral vessels are obscured by motion and airspace consolidation. Compression deformities of multiple thoracic vertebral bodies again seen IMPRESSION: Interval increase in the multifocal opacities throughout the bilateral lungs which could be secondary to multifocal infiltrate with a component of edema also possible. Repeat demonstration of cavitary lesion with thick eden within the right lung w hich again could be neoplastic or infectious in nature. There are some additional masslike regions within the bilateral lungs which could be related to consolidation but follow-up will be needed to ensure that these appropriately decreases to exclude neoplasm. Follow-up will be needed if the patient's lymphadenopathy is well since it could be reactive or neoplastic There is a large amount of motion which limits evaluation for pulmonary embolus. No embolus in the main, right main or left main pulmonary artery. More peripherally the vessels are poorly evaluated. There is some regions of relative low density seen at some of the peripheral pulmonary vessels but this is unreliable given the motion. Could be artifactual in nature but a follow-up could be obtained at a later time to better opacify the peripheral pulmonary arteries to ensure that there is not a peripheral embolus contributing. Electronically signed by: Magen Delaney MD (07/11/2020 2:51 PM) [id number] DICTATED and SIGNED BY: MAGEN DELANEY MD DATE: 07/11/20 [id number] 0 IMAGING REPORT Signed PATIENT: ROSALVA LEONARDO HACCOUNT: [id number] : 1940 LOCATION: [address] [place] [address] AGE: 80 SEX: M EXAM STATUS: ADM IN ORD. PHYSICIAN: YASSINE MARISCAL MD REASON: LOW HEMOGLOBIN SOA PROCEDURE: CT ABDOMEN PELVIS WO CONTRAST EXAM: CT Abdomen and Pelvis without IV contrast CLINICAL HISTORY: Reason: LOW HEMOGLOBIN SOA / Spl. Instructions: / History: . COMPARISON: none TECHNIQUE: Helical CT of the abdomen and pelvis without intravenous contrast. Axial, coronal and sagittal reformatted images were generated. PQRS compliance statement - One or more of the following individualized dose reduction techniques were utilized for this study: 1. Automated exposure control 2. Adjustment of the mA and/or kV according to patient size 3. Use of iterative reconstruction technique FINDINGS: Lack of intravenous contrast limits evaluation of solid organs, vasculature, and lymph nodes. Lower chest: Please see dedicated CT chest report from same day for full thoracic details including pleural effusions and parenchymal opacities Abdomen and Pelvis: Contrast is seen within the renal collecting systems from previous administration. No definite renal lesion. No hydronephrosis. No hydroureter. Appendix is normal. Moderate to large volume colonic stool content is seen. No small or large bowel dilatation. No bowel obstruction. Colonic diverticulosis without evidence for acute diverticulitis. Large volume stool is seen within the rectum with associated mild infiltration. Hypodense left hepatic lobe lesion is too small to accurately characterize, possibly cystic. Calcified granuloma are seen within the spleen. Adrenal glands are normal. Pancreas is grossly unremarkable. Small volume pelvic ascites. No abdominal or pelvic lymphadenopathy. Bones: Hip joint degenerative changes are seen. Lower lumbar spine degenerative changes are seen. Height loss at multiple vertebral bodies, likely age-indeterminate compression fractures. IMPRESSION: 1. Marked stool content within the rectum with associated infiltration may be seen with stercoral colitis. 2. Colonic diverticulosis without evidence for acute diverticulitis. 3. Small volume pelvic ascites 4. No bowel obstruction. Electronically signed by: Jose G Dos Santos MD (07/11/2020 3:33 PM) [facility] DICTATED and SIGNED BY: JOSE G DOS SANTOS MD DATE: 07/11/20 [id number] 0 Course & Med Decision Making: Course & Med Decision Making Pertinent Labs and Imaging studies reviewed. (See chart for details) COVID-19 CRITERIA: The patient was evaluated during the global COVID-19 pandemic, and that diagnosis was suspected/considered upon their initial presentation. Their evaluation, treatment and testing was consistent with current guidelines for patients who present with complaints or symptoms that may be related to COVID-19. Concern for acute hypoxic and hypercapnic respiratory failure, placed on BiPAP on arrival. Initial carbon dioxide was 75. Repeat blood gas on BiPAP after 1 hour showed carbon dioxide of 70. Labs show significant drop in hemoglobin from 10.5-7.1, normocytic anemia. No obvious signs of blood loss on physical exam. Lung sounds with moderate and lower lobe crackles, no wheezing. CTA chest/abd/pelvis performed. Due to the BiPAP with high levels of carbon dioxide, will admit to ICU, concern for airway compromise. Abx started. Covid pending. Patient accepted by Dr. Mariscal and pulmonology consultation placed. I have spoken with the patient and/or caregivers. I have explained the patient's condition, diagnosis and treatment plan based on the information available to me at this time. I have answered the patient's and/or caregivers questions and answered any concerns. The patient and/or caregivers have as good an understanding of the patient's diagnosis, condition and treatment plan as can be expected at this point. The patient has been stabilized within the capability of the emergency department. The patient will be transported for further care and management or will be moved to an observation or inpatient service. I have communicated with the staff or medical practitioner taking over this patient's care. Critical Care: Authorized and Performed by: Azalia Farrell DO Total critical care time: approximately 45 minutes Due to a high probability of clinically significant, life threatening deterioration, the patient required my highest level of preparedness to intervene emergently and I personally spent this critical care time directly and personally managing the patient. This critical care time included obtaining a history; examining the patient; pulse oximetry; ventilator management if necessary; ordering and review of studies; arranging urgent treatment with development of a management plan; evaluation of patient's response to treatment; frequent reassessment; discussion with patient/family; and, discussions with other providers. This critical care time was performed to assess and manage the high probability of imminent, life-threatening deterioration that could result in multi-organ failure. It was exclusive of separately billable procedures and treating other patients and teaching time. Please see MDM section and the rest of the note for further information on patient assessment and treatment. Dragon Disclaimer: Dragon Disclaimer: This electronic medical record was generated, in whole or in part, using a voice recognition dictation system. Departure Departure Impression: Primary Impression: Acute respiratory failure with hypoxia and hypercapnia Additional Impression: Normocytic anemia Disposition: ADMITTED INPT THIS HOSP Admitting Physician: TONE (Dr. Mariscal) Condition: CRITICAL Referrals: MILANA CLARK MD (PCP) AZALIA FARRELL DO Jul 11, 2020 11:46
[2020-07-11 11:54] LABS: BASE EXCESS COOX 13 mmol/L (-3-3); HCO3 COOX 40 mmol/L (21-28); METHEMOGLOBIN 0.4 % (0.0-1.9); OXYHEMOGLOBIN 96.2 %; PO2 COOX 109 mmHg (65-108); SAT O2 COOX 98 % (92-99)
[2020-07-11 11:56] LABS: BILIRUBIN,URINE NEGATIVE (NEG); CLARITY,URINE CLEAR; COLOR,URINE YELLOW; NITRITE,URINE NEGATIVE (NEG); PH,URINE 6.5 (<5.0-8.0); PROTEIN,URINE 100 mg/dL (NEG-TRACE)
[2020-07-11 12:06] LABS: BACTERIA,URINE 0 /HPF (0-FEW); RBC,URINE 0 /HPF (0-2); WBC,URINE RARE /HPF (0-4)
[2020-07-11 12:12] LABS: BASO % 0 % (0-3); EOS % 1 % (0-3); HEMATOCRIT 22.3 % (39.0-53.0); HEMOGLOBIN 7.1 g/dL (13.0-17.5); LYMPH # 0.6 x10^3/uL (1.0-4.8); LYMPH % 6 % (24-48); MEAN CORPUSCULAR HEMOGLOBIN 28 pg (25-35); MEAN CORPUSCULAR HGB CONC 32 g/dL (31-37); MEAN CORPUSCULAR VOLUME 88 fL (79-100); MONO # 0.6 x10^3/uL (0.0-1.1); MONO % 7 % (0-9); NEUT # 7.8 x10^3/uL (1.8-7.7); NEUT % 86 % (31-73); PLATELET COUNT 177 x10^3/uL (140-400); RED BLOOD COUNT 2.54 x10^6/uL (4.30-5.70)
[2020-07-11 12:13] LABS: INFLUENZA A PATIENT NEGATIVE (NEGATIVE); INFLUENZA B PATIENT NEGATIVE (NEGATIVE)
[2020-07-11] MEDS ORDERED: VANCOMYCIN 1.5 GM in IV NORMAL SALINE 500ML BAG 500 ML IV ONE (12:15)
[2020-07-11 12:19] LABS: BLOOD UREA NITROGEN 21 mg/dL (8-26); BUN/CREATININE RATIO 35 (6-20); CALCIUM 7.3 mg/dL (8.5-10.1); CARBON DIOXIDE 40 mmol/L (21-32); CHLORIDE 92 mmol/L (98-107); CREATININE 0.6 mg/dL (0.7-1.3); GFR 129.3; GLUCOSE 239 mg/dL (70-99); POTASSIUM 4.6 mmol/L (3.5-5.1); SODIUM 131 mmol/L (136-145)
[2020-07-11 12:21] LABS: PCO2 COOX 75 mmHg (35-46)
[2020-07-11 12:25] LABS: ALBUMIN 2.1 g/dL (3.4-5.0); ALBUMIN/GLOBULIN RATIO 0.6 (1.0-1.7); ALK PHOS 58 U/L (46-116); ALT (SGPT) 24 U/L (16-63); AST (SGOT) 20 U/L (15-37); CREATINE KINASE 15 U/L (39-308); TOTAL BILIRUBIN 0.6 mg/dL (0.2-1.0); TOTAL PROTEIN 5.8 g/dL (6.4-8.2)
--- NOTE | 2020-07-11 12:47 | RAD ---
EXAM: Chest, single view. HISTORY: Shortness of air. COMPARISON: 06/01/2020 FINDINGS: A frontal view of the chest is obtained. There is diffuse mixed interstitial and alveolar i nfiltrate superimposed on chronic interstitial changes. There are stable suspected trace pleural effu sions. There is no pneumothorax. There is stable enlargement of the cardiac silhouette. There are joanna gical clips within the neck. IMPRESSION: Stable diffuse infiltrate likely superimposed on chronic interstitial changes. Electronically signed by: Opal López MD (07/11/2020 12:45 PM) [id number]
[2020-07-11 12:54] LABS: % BANDS 7 % (0-9); % BASOS 1 % (0-3); % LYMPHS 5 % (24-48); % METAS 1 % (0-0); % MONOS 5 % (0-10); % SEGS 81 % (35-66)
[2020-07-11 12:57] LABS: ANISOCYTOSIS SLIGHT; HYPOCHROMIA SLIGHT; OVALOCYTES FEW; PLT ESTIMATE ADEQUATE (ADEQUATE); POLYCHROMASIA SLIGHT; STOMATOCYTES FEW
[2020-07-11] MEDS ORDERED: CONTRAST GIVEN. MC PRN (13:00)
[2020-07-11] MEDS ORDERED: IOHEXOL 350 MG/ML 100 ML VIAL. IV ONE (13:00)
[2020-07-11 13:02] LABS: BASE EXCESS ABG 13 mmol/L (-3-3); HCO3 ABG 40 mmol/L (21-28); PO2 ABG 80 mmHg (65-108); SAT O2 ABG 95 % (92-99)
[2020-07-11 13:06] LABS: FIO2 ABG 45; PCO2 ABG 71 mmHg (35-46)
[2020-07-11] MEDS ORDERED: ONDANSETRON PF 4 MG/2 ML VIAL. IV PRN (13:45)
[2020-07-11] MEDS ORDERED: ACETAMINOPHEN 325 MG TABLET. PO PRN ×2 (13:45→16:30)
--- NOTE | 2020-07-11 14:43 | PDOC1 ---
History and Physical Date of Admission Date of Admission DATE: 07/11/20 TIME: 14:41 History of Present Illness History of Present Illness RECENTLY ADMITTED acute respiratory failure with hypoxia, hemoptysis, influenza A, sepsis, community-acquired pneumonia, pulmonary fibrosis. echocardiogram that showed ejection fraction 55-60%, mild concentric left ventricular hypertrophy, PA pressure estimated at 50 mmHg. He had bronchoscopy with bronchoalveolar lavage that showed normal vocal cords, normal trachea, no endobronchial lesion, no active bleeding. discharged from [facility] 06/03 s/p post influenza pneumonia requiring oxygen (no PE on CTA chest), presents to the ED from his rehab facility with concern for hypoxia, was 88% on 15 L nasal cannula, EMS placed patient on NRB. Physician at rehab performed cxr and was concerned for pna CODE STATUS was changed to DNI. He was accepted and discharged to [facility]. Moderate to severe mitral regurgitation. recent echo Trace tricuspid regurgitation. The PA pressure was estimated at 26 mmHg. Past Medical History Past Medical History Past Medical History Past Medical History: Cancer, Hypothyroid Additional Past Medical Histor: THYROID CA, "FIBROSIS LUNGS", HEART MURMUR Past Surgical History: Cholecystectomy, Other Additional Past Surgical Histo: THYROIDECTOMY, L LEG HARDWARE Smoking Status: Former Smoker Alcohol Use: None Drug Use: None fhx copd Cardiovascular: HTN, Hyperlipidemia, Valve insufficiency, Pulmonary hypertension Pulmonary: Other CENTRAL NERVOUS SYSTEM: Other GI: GERD Heme/Onc: Cancer Hepatobiliary: No pertinent hx Psych: No pertinent hx Musculoskeletal: Osteoarthritis Renal/: Benign prostatic enlarg. Endocrine: Diabetes, Hypothyroidism Past Surgical History Past Surgical History: Cholecystectomy, Other Family History Family History: Hypertension Social History ALCOHOL: none Drugs: None Current Problem List Problem List Problems Medical Problems: (1) Acute respiratory failure with hypoxia and hypercapnia Status: Acute (2) Normocytic anemia Status: Acute Current Medications Current Medications Current Medications Sodium Chloride 1,000 ml @ 1,000 mls/hr Q1H IV Last administered on 07/11/20at 12:04; Start 07/11/20 at 11:45; Stop 07/11/20 at 12:44; Status DC Methylprednisolone Sodium Succinate (SOLU-Medrol 125MG VIAL) 125 mg 1X ONCE IV Last administered on 07/11/20at 12:04; Start 07/11/20 at 11:45; Stop 07/11/20 at 11:46; Status DC Piperacillin Sod/ Tazobactam Sod 4.5 gm/Sodium Chloride 100 ml @ 200 mls/hr 1X ONCE IV Last administered on 07/11/20at 12:32; Start 07/11/20 at 11:45; Stop 07/11/20 at 12:14; Status DC Vancomycin HCl (Vanco Per Pharmacy) 1 each PRN DAILY PRN MC SEE COMMENTS; Start 07/11/20 at 11:45 Vancomycin HCl 1.5 gm/Sodium Chloride 500 ml @ 250 mls/hr 1X ONCE IV ; Start 07/11/20 at 12:15; Stop 07/11/20 at 14:14; Status Cancel Iohexol (Omnipaque 350 Mg/ml) 100 ml 1X ONCE IV Last administered on 07/11/20at 13:25; Start 07/11/20 at 13:00; Stop 07/11/20 at 13:01; Status DC Info (CONTRAST GIVEN -- Rx MONITORING) 1 each PRN DAILY PRN MC SEE COMMENTS; Start 07/11/20 at 13:00; Stop 07/13/20 at 12:59 Ondansetron HCl (Zofran) 4 mg PRN Q8HRS PRN IV NAUSEA/VOMITING; Start 07/11/20 at 13:45; Stop 07/12/20 at 13:44 Acetaminophen (Tylenol) 650 mg PRN Q4HRS PRN PO FEVER > 100.3'F; Start 07/11/20 at 13:45; Stop 07/12/20 at 13:44 Vancomycin HCl 2 gm/Sodium Chloride 500 ml @ 250 mls/hr ONCE ONCE IV ; Start 07/11/20 at 14:45; Stop 07/11/20 at 16:44 Active Scripts Active Aspirin 81 Mg Tab.chew 1 Tab PO DAILY Metoprolol Tartrate 25 Mg Tablet 12.5 Mg PO BID Reported Men 50 Plus Multivitamin Tab (Multivit-Min/FA/Lycopen/Lutein) 1 Each Tablet 1 Each PO DAILY Levothyroxine Sodium 125 Mcg Tablet 150 Mcg PO DAILY Allergies Allergies: Coded Allergies: No Known Drug Allergies (Unverified , 05/28/20) Vitals Vitals Vital Signs Date Time Temp Pulse Resp B/P (MAP) Pulse Ox O2 Delivery O2 Flow Rate FiO2 07/11/20 12:15 98.4 113 32 103/61 (75) 99 NonRebreather Mask 15.0 98.4 Labs Labs Laboratory Tests Test 07/11/20 11:40 07/11/20 11:43 07/11/20 11:54 07/11/20 13:00 O2 Saturation 98 % (92-99) 95 % (92-99) Arterial Blood pH 7.35 (7.35-7.45) 7.37 (7.35-7.45) Arterial Blood pCO2 at Patient Temp 75 mmHg (35-46) 71 mmHg (35-46) Arterial Blood pO2 at Patient Temp 109 mmHg (65-108) 80 mmHg (65-108) Arterial Blood HCO3 40 mmol/L (21-28) 40 mmol/L (21-28) Arterial Blood Base Excess 13 mmol/L (-3-3) 13 mmol/L (-3-3) Oxyhemoglobin 96.2 % Methemoglobin 0.4 % (0.0-1.9) Carbon Monoxide, Quantitative 1.0 % (0.0-1.9) FiO2 100 45 Urine Collection Type Unknown Urine Color Yellow Urine Clarity Clear Urine pH 6.5 (<5.0-8.0) Urine Specific [place] 1.020 (1.000-1.030) Urine Protein 100 mg/dL (NEG-TRACE) Urine Glucose (UA) 100 mg/dL (NEG) Urine Ketones (Stick) Negative mg/dL (NEG) Urine Blood Negative (NEG) Urine Nitrite Negative (NEG) Urine Bilirubin Negative (NEG) Urine Urobilinogen Dipstick 1.0 mg/dL (0.2 mg/dL) Urine Leukocyte Esterase Negative (NEG) Urine RBC 0 /HPF (0-2) Urine WBC Rare /HPF (0-4) Urine Squamous Epithelial Cells None /LPF Urine Bacteria 0 /HPF (0-FEW) Influenza Type A Antigen Negative (NEGATIVE) Influenza Type B Antigen Negative (NEGATIVE) White Blood Count 9.0 x10^3/uL (4.0-11.0) Red Blood Count 2.54 x10^6/uL (4.30-5.70) Hemoglobin 7.1 g/dL (13.0-17.5) Hematocrit 22.3 % (39.0-53.0) Mean Corpuscular Volume 88 fL (79-100) Mean Corpuscular Hemoglobin 28 pg (25-35) Mean Corpuscular Hemoglobin Concent 32 g/dL (31-37) Red Cell Distribution Width 20.0 % (11.5-14.5) Platelet Count 177 x10^3/uL (140-400) Neutrophils (%) (Auto) 86 % (31-73) Lymphocytes (%) (Auto) 6 % (24-48) Monocytes (%) (Auto) 7 % (0-9) Eosinophils (%) (Auto) 1 % (0-3) Basophils (%) (Auto) 0 % (0-3) Neutrophils # (Auto) 7.8 x10^3/uL (1.8-7.7) Lymphocytes # (Auto) 0.6 x10^3/uL (1.0-4.8) Monocytes # (Auto) 0.6 x10^3/uL (0.0-1.1) Eosinophils # (Auto) 0.0 x10^3/uL (0.0-0.7) Basophils # (Auto) 0.0 x10^3/uL (0.0-0.2) Segmented Neutrophils % 81 % (35-66) Band Neutrophils % 7 % (0-9) Lymphocytes % 5 % (24-48) Monocytes % 5 % (0-10) Basophils % 1 % (0-3) Metamyelocytes % 1 % (0-0) Platelet Estimate Adequate (ADEQUATE) Polychromasia Slight Hypochromasia Slight Basophilic Stippling Present Anisocytosis Slight Ovalocytes Few Stomatocytes Few Sodium Level 131 mmol/L (136-145) Potassium Level 4.6 mmol/L (3.5-5.1) Chloride Level 92 mmol/L (98-107) Carbon Dioxide Level 40 mmol/L (21-32) Anion Gap (6-14) Blood Urea Nitrogen 21 mg/dL (8-26) Creatinine 0.6 mg/dL (0.7-1.3) Estimated GFR (Cockcroft-Gault) 129.3 BUN/Creatinine Ratio 35 (6-20) Glucose Level 239 mg/dL (70-99) Lactic Acid Level 1.6 mmol/L (0.4-2.0) Calcium Level 7.3 mg/dL (8.5-10.1) Total Bilirubin 0.6 mg/dL (0.2-1.0) Aspartate Amino Transf (AST/SGOT) 20 U/L (15-37) Alanine Aminotransferase (ALT/SGPT) 24 U/L (16-63) Alkaline Phosphatase 58 U/L (46-116) Creatine Kinase 15 U/L (39-308) Troponin I Quantitative < 0.017 ng/mL (0.000-0.055) US-Ckx-L-Type Natriuretic Peptide 2261 pg/mL (0-449) Total Protein 5.8 g/dL (6.4-8.2) Albumin 2.1 g/dL (3.4-5.0) Albumin/Globulin Ratio 0.6 (1.0-1.7) Thyroid Stimulating Hormone (TSH) 3.386 uIU/mL (0.358-3.74) Laboratory Tests Test 07/11/20 11:40 07/11/20 11:43 07/11/20 11:54 07/11/20 13:00 O2 Saturation 98 % (92-99) 95 % (92-99) Arterial Blood pH 7.35 (7.35-7.45) 7.37 (7.35-7.45) Arterial Blood pCO2 at Patient Temp 75 mmHg (35-46) 71 mmHg (35-46) Arterial Blood pO2 at Patient Temp 109 mmHg (65-108) 80 mmHg (65-108) Arterial Blood HCO3 40 mmol/L (21-28) 40 mmol/L (21-28) Arterial Blood Base Excess 13 mmol/L (-3-3) 13 mmol/L (-3-3) Oxyhemoglobin 96.2 % Methemoglobin 0.4 % (0.0-1.9) Carbon Monoxide, Quantitative 1.0 % (0.0-1.9) FiO2 100 45 Urine Collection Type Unknown Urine Color Yellow Urine Clarity Clear Urine pH 6.5 (<5.0-8.0) Urine Specific [place] 1.020 (1.000-1.030) Urine Protein 100 mg/dL (NEG-TRACE) Urine Glucose (UA) 100 mg/dL (NEG) Urine Ketones (Stick) Negative mg/dL (NEG) Urine Blood Negative (NEG) Urine Nitrite Negative (NEG) Urine Bilirubin Negative (NEG) Urine Urobilinogen Dipstick 1.0 mg/dL (0.2 mg/dL) Urine Leukocyte Esterase Negative (NEG) Urine RBC 0 /HPF (0-2) Urine WBC Rare /HPF (0-4) Urine Squamous Epithelial Cells None /LPF Urine Bacteria 0 /HPF (0-FEW) Influenza Type A Antigen Negative (NEGATIVE) Influenza Type B Antigen Negative (NEGATIVE) White Blood Count 9.0 x10^3/uL (4.0-11.0) Red Blood Count 2.54 x10^6/uL (4.30-5.70) Hemoglobin 7.1 g/dL (13.0-17.5) Hematocrit 22.3 % (39.0-53.0) Mean Corpuscular Volume 88 fL (79-100) Mean Corpuscular Hemoglobin 28 pg (25-35) Mean Corpuscular Hemoglobin Concent 32 g/dL (31-37) Red Cell Distribution Width 20.0 % (11.5-14.5) Platelet Count 177 x10^3/uL (140-400) Neutrophils (%) (Auto) 86 % (31-73) Lymphocytes (%) (Auto) 6 % (24-48) Monocytes (%) (Auto) 7 % (0-9) Eosinophils (%) (Auto) 1 % (0-3) Basophils (%) (Auto) 0 % (0-3) Neutrophils # (Auto) 7.8 x10^3/uL (1.8-7.7) Lymphocytes # (Auto) 0.6 x10^3/uL (1.0-4.8) Monocytes # (Auto) 0.6 x10^3/uL (0.0-1.1) Eosinophils # (Auto) 0.0 x10^3/uL (0.0-0.7) Basophils # (Auto) 0.0 x10^3/uL (0.0-0.2) Segmented Neutrophils % 81 % (35-66) Band Neutrophils % 7 % (0-9) Lymphocytes % 5 % (24-48) Monocytes % 5 % (0-10) Basophils % 1 % (0-3) Metamyelocytes % 1 % (0-0) Platelet Estimate Adequate (ADEQUATE) Polychromasia Slight Hypochromasia Slight Basophilic Stippling Present Anisocytosis Slight Ovalocytes Few Stomatocytes Few Sodium Level 131 mmol/L (136-145) Potassium Level 4.6 mmol/L (3.5-5.1) Chloride Level 92 mmol/L (98-107) Carbon Dioxide Level 40 mmol/L (21-32) Anion Gap (6-14) Blood Urea Nitrogen 21 mg/dL (8-26) Creatinine 0.6 mg/dL (0.7-1.3) Estimated GFR (Cockcroft-Gault) 129.3 BUN/Creatinine Ratio 35 (6-20) Glucose Level 239 mg/dL (70-99) Lactic Acid Level 1.6 mmol/L (0.4-2.0) Calcium Level 7.3 mg/dL (8.5-10.1) Total Bilirubin 0.6 mg/dL (0.2-1.0) Aspartate Amino Transf (AST/SGOT) 20 U/L (15-37) Alanine Aminotransferase (ALT/SGPT) 24 U/L (16-63) Alkaline Phosphatase 58 U/L (46-116) Creatine Kinase 15 U/L (39-308) Troponin I Quantitative < 0.017 ng/mL (0.000-0.055) SE-Vnf-U-Type Natriuretic Peptide 2261 pg/mL (0-449) Total Protein 5.8 g/dL (6.4-8.2) Albumin 2.1 g/dL (3.4-5.0) Albumin/Globulin Ratio 0.6 (1.0-1.7) Thyroid Stimulating Hormone (TSH) 3.386 uIU/mL (0.358-3.74) Images Images Date of procedure 05/28/2020 Indication patient with hemoptysis, enlarging right lower lobe cavitary mass risk benefits and alternatives reviewed with patient he consented Anesthesia please see anesthesia's note Description: Timeout was performed prior to sedation, vital signs and O2 saturation were maintained within normal limits throughout the procedure. Patient was sedated, bronchoscope was passed through the right nares. Vocal cords were identified moving bilaterally without any dysfunction. The vocal cords were then anesthetized with a total of 5 cc of 4% lidocaine. The bronchos cope was passed through the vocal cords into the proximal trachea. The proximal and distal trachea was normal. The right and left segments and subsegments were inspected. There was no endobronchial lesion. There was no evidence of bleeding. There was no evidence of old blood clots. The scope was wedged into the posterior segment of the right lower lobe. The bronchial lavage was performed the return was slightly cloudy in nature. Findings #1 normal vocal cords #2 normal trachea #3 no endobronchial lesion #4 no active bleeding. Patient tolerated procedure well with no immediate complications. We will await the BAL results. KAVITHA MCKENNA MD May 28, 2020 13:42 SIGNED BY: KAVITHA MCKENNA MD DATE: 05/28/20 1342 SEX: M EXAM STATUS: REG ER ORD. PHYSICIAN: ANTOINETTE CARROLL APRN REASON: SOA PROCEDURE: CT ANGIOGRAPHY CHEST Study: CT CHEST WITH CONTRAST - PULMONARY ANGIOGRAM History: Shortness of breath Comparison: CT chest 03/31/[address] chest 01/04/2018 Technique: Helical CT of the chest performed after the administration of 90 mL Omnipaque 350 intravenous contrast and timed for angiographic evaluation of the pulmonary arteries per PE protocol. Coronal and sagittal 3D MIP reformations were obtained. One or more of the following individualized dose reduction techniques were uti lized for this examination: 1. Automated exposure control 2. Adjustment of the mA and/or kV according to patient size 3. Use of iterative reconstruction technique. Findings: Pulmonary Arteries: Contrast bolus is adequate. There is no acute pulmonary embolism. Heart/Systemic Vasculature: Mild cardiomegaly. There are coronary artery calcifications. Microcalcifications are noted. No pericardial effusion. The thoracic aorta is normal in caliber. Mild calcified aortic atherosclerosis. Mediastinum: Mediastinal and hilar lymphadenopathy with ill-defined soft tissue extending along the central bronchovascular structures is similar to prior. Lungs: There are new bilateral ground glass opacities, greatest throughout the left lung. Subpleural cysts throughout both lungs with honeycombing, greatest in the bases, is unchanged. Large thick-walled cavitary lesion with surrounding subpleural consolidation in the posterior superior segment right lower lobe is redemonstrated. The cavitation is slightly larger, now 5.2 x 3.9 x 3.2 cm. This has continued to increase in size from 01/04/2018. There is a new small left pleural effusion. Neck/Axilla/Body Wall: Unremarkable. Upper Abdomen: Extensive calcifications in the spleen. Otherwise unremarkable. Bones: Multiple compression fractures including T3, T4 T6, T7 and L1 with up to moderate height loss are unchanged. No retropulsion of cortex. IMPRESSION: 1. No evidence for acute pulmonary embolism. 2. Large cavitary lesion with surrounding subpleural consolidation in the posterior superior segment right lower lobe has continued to mildly increase in size. Given the continued growth over time this is suspicious for malignancy. Consider biopsy or PET/CT. 3. New bilateral ground glass opacities, greatest throughout the left lung, may be infectious or inflammatory. New small left pleural effusion. 4. 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 Mediastinal and hilar lymphadenopathy. 6. Multiple compression fractures, unchanged. Electronically signed by: Janice Mcdaniels MD (05/24/2020 4:51 PM) [id number] DICTATED and SIGNED BY: JANICE MCDANIELS MD DATE: 05/24/20 [id number] ROCEDURE: PORTABLE CHEST 1V EXAM: Chest, single view. HISTORY: Shortness of air. COMPARISON: 06/01/2020 FINDINGS: A frontal view of the chest is obtained. There is diffuse mixed interstitial and alveolar infiltrate superimposed on chronic interstitial changes. There are stable suspected trace pleural effusions. There is no pneumothorax. There is stable enlargement of the cardiac silhouette. There are surgical clips within the neck. IMPRESSION: Stable diffuse infiltrate likely superimposed on chronic interstitial changes. Electronically signed by: Opal Macedo MD (07/11/2020 12:45 PM) [id number] DICTATED and SIGNED BY: OPAL MACEDO MD DATE: 07/11/20 [id number] VTE Prophylaxis Ordered VTE Prophylaxis Devices: No VTE Pharmacological Prophylaxi: Yes Assessment/Plan Assessment/Plan DICTATED PNEUMONIA, aspiration type SEVERE HYPERCAPNIC FAILURE Moderate to severe mitral regurgitation. Trace tricuspid regurgitation. The PA pressure was estimated at 26 mmHg. MILD HYPONATREMIA PLAN ADMIT ICU, CONSULT PULMONARY BIPAP SUPPORT Need to address code status, goals of care ID CONSULT Justifications for Admission Other Justification YASSINE MARISCAL MD Jul 11, 2020 14:42
[2020-07-11] MEDS ORDERED: VANCOMYCIN 2 GM in IV NORMAL SALINE 500ML BAG 500 ML IV ONE (14:45)
--- NOTE | 2020-07-11 14:53 | RAD ---
INDICATION: Reason: hypoxia, soa, r/o pe / Spl. Instructions: INJ 100ML OMNI 350 / History: COMPARISON: May 24, 2020 TECHNIQUE: Axial CT images obtained through the chest. Intravenous contrast utilized. Angiogram 3D images proce ssed per protocol. One or more of the following individualized dose reduction techniques were utilized for this examinat ion: 1. Automated exposure control; 2. Adjustment of the mA and/or kV according to patient size; 3 . Use of iterative reconstruction technique. FINDINGS: Multifocal opacities throughout the bilateral lungs which appears increased from prior. This include s consolidative, groundglass and interstitial component. There is again some chronic interstitial lung disease with fibrosis and cystic changes to the bilater al lungs. Small left greater than right pleural effusion. Repeat demonstration of a cavitary lesion within the right lung dependently with fluid and air within it centrally. This cavitary lesion measures up to 6 cm. Interval increase in dense opacity at the ri ght lung base. Degenerative changes throughout the spine with multilevel central canal and neural foraminal stenosis . Splenic calcified granulomas. Lymphadenopathy is seen within the mediastinum and hilum. There are some calcified lymph nodes as wel l. Calcific atherosclerosis throughout the vasculature. Mitral annulus calcifications. Coronary arter y calcific atherosclerosis. Portion of ascending thoracic aorta is obscured by motion without aneurys m at visualized portions of thoracic aorta. There is some fluid in the pericardial recess. Degenerative changes throughout the spine. No embolus in the main, right main or left main pulmonary artery. The more peripheral vessels are obs cured by motion and airspace consolidation. Compression deformities of multiple thoracic vertebral chiki dies again seen IMPRESSION: Interval increase in the multifocal opacities throughout the bilateral lungs which could be secondary to multifocal infiltrate with a component of edema also possible. Repeat demonstration of cavitary lesion with thick eden within the right lung which again could be n eoplastic or infectious in nature. There are some additional masslike regions within the bilateral lungs which could be related to conso lidation but follow-up will be needed to ensure that these appropriately decreases to exclude neoplas m. Follow-up will be needed if the patient's lymphadenopathy is well since it could be reactive or ne oplastic There is a large amount of motion which limits evaluation for pulmonary embolus. No embolus in the ma in, right main or left main pulmonary artery. More peripherally the vessels are poorly evaluated. The re is some regions of relative low density seen at some of the peripheral pulmonary vessels but this is unreliable given the motion. Could be artifactual in nature but a follow-up could be obtained at a later time to better opacify the peripheral pulmonary arteries to ensure that there is not a periphe ral embolus contributing. Electronically signed by: Arturo Zaragoza MD (07/11/2020 2:51 PM) [id number]
--- NOTE | 2020-07-11 15:35 | RAD ---
EXAM: CT Abdomen and Pelvis without IV contrast CLINICAL HISTORY: Reason: LOW HEMOGLOBIN SOA / Spl. Instructions: / History: . COMPARISON: none TECHNIQUE: Helical CT of the abdomen and pelvis without intravenous contrast. Axial, coronal and sagi ttal reformatted images were generated. PQRS compliance statement - One or more of the following individualized dose reduction techniques wer e utilized for this study: 1. Automated exposure control 2. Adjustment of the mA and/or kV according to patient size 3. Use of iterative reconstruction technique FINDINGS: Lack of intravenous contrast limits evaluation of solid organs, vasculature, and lymph nodes. Lower chest: Please see dedicated CT chest report from same day for full thoracic details including pleural effusi ons and parenchymal opacities Abdomen and Pelvis: Contrast is seen within the renal collecting systems from previous administration. No definite renal lesion. No hydronephrosis. No hydroureter. Appendix is normal. Moderate to large volume colonic stool content is seen. No small or large bowel d ilatation. No bowel obstruction. Colonic diverticulosis without evidence for acute diverticulitis. La rge volume stool is seen within the rectum with associated mild infiltration. Hypodense left hepatic lobe lesion is too small to accurately characterize, possibly cystic. Calcifie d granuloma are seen within the spleen. Adrenal glands are normal. Pancreas is grossly unremarkable. Small volume pelvic ascites. No abdominal or pelvic lymphadenopathy. Bones: Hip joint degenerative changes are seen. Lower lumbar spine degenerative changes are seen. Height los s at multiple vertebral bodies, likely age-indeterminate compression fractures. IMPRESSION: 1. Marked stool content within the rectum with associated infiltration may be seen with stercoral co litis. 2. Colonic diverticulosis without evidence for acute diverticulitis. 3. Small volume pelvic ascites 4. No bowel obstruction. Electronically signed by: Jose G Min MD (07/11/2020 3:33 PM) [facility]
--- NOTE | 2020-07-11 15:37 | PDOC2 ---
GI CONSULT Date of Service: DATE: 07/11/20 TIME: 15:26 Reason For Consult: anemia HPI: HPI: 80 y/o male sent from rehab in [place] for shortness of breath. We are asked to see for anemia. Here last month and Hgb in 10s - now 7.1. He reports ongoing hemoptysis. Denies hematochezia and melena. H/o GERD ("I think they were giving me something for that"). Denies dysphagia. No n/v, abd pain, diarrhea, constipation, or weight loss. H/o recent pneumonia and interstitial lung disease, also cavitary lung lesion, and abnormal swallow evals in the past. No previous EGD. Had colonoscopy w/ Dr. Benjamin in 03/2017 - cannot view procedure report, [facility] - he thinks this was normal. S/p cholecystectomy. No pancreas, liver, or PUD history. On ASA. PMH: PMH: per chart: A Fib, GERD, DM, thyroid cancer, pneumonia, mitral regurg, pulmonary fibrosis cholecystectomy, thyroidectomy, bronchoscopy FH: Family History: No pertinent hx Social History: Smoke: Quit ALCOHOL: none Drugs: None ROS: GEN: Denies fevers, chills, sweats HEENT: Denies blurred vision, sore throat CV: Denies chest pain RESP: +SOA GI: Per HPI : Denies hematuria, dysuria ENDO: Denies weight changes NEURO: Denies confusion, dizziness MSK: Denies weakness, joint pain/swelling SKIN: Denies jaundice, pruritus Vitals: Vitals: Vital Signs Date Time Temp Pulse Resp B/P (MAP) Pulse Ox O2 Delivery O2 Flow Rate FiO2 07/11/20 14:00 90 30 99 BiPAP/CPAP 07/11/20 13:30 97/55 (69) 07/11/20 12:15 98.4 15.0 98.4 Labs: Labs: Laboratory Tests Test 07/11/20 11:40 07/11/20 11:43 07/11/20 11:54 07/11/20 13:00 O2 Saturation 98 % (92-99) 95 % (92-99) Arterial Blood pH 7.35 (7.35-7.45) 7.37 (7.35-7.45) Arterial Blood pCO2 at Patient Temp 75 mmHg (35-46) 71 mmHg (35-46) Arterial Blood pO2 at Patient Temp 109 mmHg (65-108) 80 mmHg (65-108) Arterial Blood HCO3 40 mmol/L (21-28) 40 mmol/L (21-28) Arterial Blood Base Excess 13 mmol/L (-3-3) 13 mmol/L (-3-3) Oxyhemoglobin 96.2 % Methemoglobin 0.4 % (0.0-1.9) Carbon Monoxide, Quantitative 1.0 % (0.0-1.9) FiO2 100 45 Urine Collection Type Unknown Urine Color Yellow Urine Clarity Clear Urine pH 6.5 (<5.0-8.0) Urine Specific [place] 1.020 (1.000-1.030) Urine Protein 100 mg/dL (NEG-TRACE) Urine Glucose (UA) 100 mg/dL (NEG) Urine Ketones (Stick) Negative mg/dL (NEG) Urine Blood Negative (NEG) Urine Nitrite Negative (NEG) Urine Bilirubin Negative (NEG) Urine Urobilinogen Dipstick 1.0 mg/dL (0.2 mg/dL) Urine Leukocyte Esterase Negative (NEG) Urine RBC 0 /HPF (0-2) Urine WBC Rare /HPF (0-4) Urine Squamous Epithelial Cells None /LPF Urine Bacteria 0 /HPF (0-FEW) Influenza Type A Antigen Negative (NEGATIVE) Influenza Type B Antigen Negative (NEGATIVE) White Blood Count 9.0 x10^3/uL (4.0-11.0) Red Blood Count 2.54 x10^6/uL (4.30-5.70) Hemoglobin 7.1 g/dL (13.0-17.5) Hematocrit 22.3 % (39.0-53.0) Mean Corpuscular Volume 88 fL (79-100) Mean Corpuscular Hemoglobin 28 pg (25-35) Mean Corpuscular Hemoglobin Concent 32 g/dL (31-37) Red Cell Distribution Width 20.0 % (11.5-14.5) Platelet Count 177 x10^3/uL (140-400) Neutrophils (%) (Auto) 86 % (31-73) Lymphocytes (%) (Auto) 6 % (24-48) Monocytes (%) (Auto) 7 % (0-9) Eosinophils (%) (Auto) 1 % (0-3) Basophils (%) (Auto) 0 % (0-3) Neutrophils # (Auto) 7.8 x10^3/uL (1.8-7.7) Lymphocytes # (Auto) 0.6 x10^3/uL (1.0-4.8) Monocytes # (Auto) 0.6 x10^3/uL (0.0-1.1) Eosinophils # (Auto) 0.0 x10^3/uL (0.0-0.7) Basophils # (Auto) 0.0 x10^3/uL (0.0-0.2) Segmented Neutrophils % 81 % (35-66) Band Neutrophils % 7 % (0-9) Lymphocytes % 5 % (24-48) Monocytes % 5 % (0-10) Basophils % 1 % (0-3) Metamyelocytes % 1 % (0-0) Platelet Estimate Adequate (ADEQUATE) Polychromasia Slight Hypochromasia Slight Basophilic Stippling Present Anisocytosis Slight Ovalocytes Few Stomatocytes Few Sodium Level 131 mmol/L (136-145) Potassium Level 4.6 mmol/L (3.5-5.1) Chloride Level 92 mmol/L (98-107) Carbon Dioxide Level 40 mmol/L (21-32) Anion Gap (6-14) Blood Urea Nitrogen 21 mg/dL (8-26) Creatinine 0.6 mg/dL (0.7-1.3) Estimated GFR (Cockcroft-Gault) 129.3 BUN/Creatinine Ratio 35 (6-20) Glucose Level 239 mg/dL (70-99) Lactic Acid Level 1.6 mmol/L (0.4-2.0) Calcium Level 7.3 mg/dL (8.5-10.1) Total Bilirubin 0.6 mg/dL (0.2-1.0) Aspartate Amino Transf (AST/SGOT) 20 U/L (15-37) Alanine Aminotransferase (ALT/SGPT) 24 U/L (16-63) Alkaline Phosphatase 58 U/L (46-116) Creatine Kinase 15 U/L (39-308) Troponin I Quantitative < 0.017 ng/mL (0.000-0.055) ON-Ksy-Y-Type Natriuretic Peptide 2261 pg/mL (0-449) Total Protein 5.8 g/dL (6.4-8.2) Albumin 2.1 g/dL (3.4-5.0) Albumin/Globulin Ratio 0.6 (1.0-1.7) Thyroid Stimulating Hormone (TSH) 3.386 uIU/mL (0.358-3.74) Allergies: Coded Allergies: No Known Drug Allergies (Unverified , 05/28/20) Medications: Current Medications Medications (Trade) Dose Ordered Sig/Wendi Route PRN Reason Start Time Stop Time Status Last Admin Dose Admin Sodium Chloride 1,000 ml @ 1,000 mls/hr Q1H IV 07/11/20 11:45 07/11/20 12:44 DC 07/11/20 12:04 Methylprednisolone Sodium Succinate (SOLU-Medrol 125MG VIAL) 125 mg 1X ONCE IV 07/11/20 11:45 07/11/20 11:46 DC 07/11/20 12:04 Piperacillin Sod/ Tazobactam Sod 4.5 gm/Sodium Chloride 100 ml @ 200 mls/hr 1X ONCE IV 07/11/20 11:45 07/11/20 12:14 DC 07/11/20 12:32 Iohexol (Omnipaque 350 Mg/ml) 100 ml 1X ONCE IV 07/11/20 13:00 07/11/20 13:01 DC 07/11/20 13:25 Imaging: Imaging: Chest CTA IMPRESSION: Interval increase in the multifocal opacities throughout the bilateral lungs which could be secondary to multifocal infiltrate with a component of edema also possible. Repeat demonstration of cavitary lesion with thick eden within the right lung which again could be neoplastic or infectious in nature. There are some additional masslike regions within the bilateral lungs which could be related to consolidation but follow-up will be needed to ensure that these appropriately decreases to exclude neoplasm. Follow-up will be needed if the patient's lymphadenopathy is well since it could be reactive or neoplastic There is a large amount of motion which limits evaluation for pulmonary embolus. No embolus in the main, right main or left main pulmonary artery. More peripherally the vessels are poorly evaluated. There is some regions of relative low density seen at some of the peripheral pulmonary vessels but this is unreliable given the motion. Could be artifactual in nature but a follow-up could be obtained at a later time to better opacify the peripheral pulmonary arteries to ensure that there is not a peripheral embolus contributing. CXR IMPRESSION: Stable diffuse infiltrate likely superimposed on chronic interstitial changes. CT A/P ?done PE: GEN: some distress - obviously short of breath - breathing mask, O2 sat 80 - nurses present to place BiPAP - in COVID isolation HEENT: Atraumatic, PERRL LUNGS: diminished HEART: tachycardic ABD: NABS, S/ND/NT EXTREMITY: No edema SKIN: No rashes, no jaundice NEURO/PSYCH: A & O 3 A/P: A/P: SOA, abnormal chest imaging Hemoptysis - chronic Anemia - Hgb lower than last admission in GERD - ?treated CRC scree - colonoscopy in 2016 S/p cholecystectomy H/o A Fib on ASA R/o COVID -- Address lung issues, await COVID testing. Check anemia parameters, add PPI, observe for bleeding. NITISH HUNTER Jul 11, 2020 15:36
[2020-07-11] MEDS ORDERED: BISACODYL 10 MG SUPP.RECT. PR PRN (16:30)
[2020-07-11] MEDS ORDERED: MORPHINE SULFATE 2 MG/ML VIAL. IV PRN (16:30)
[2020-07-11] MEDS ORDERED: 0.9 % SODIUM CHLORIDE 10 ML DISP.SYRIN. IV PRN (16:30)
[2020-07-11] MEDS ORDERED: HYDROcodone/APAP 5/325MG 1 TAB TABLET PO PRN (16:30)
[2020-07-11] MEDS ORDERED: ONDANSETRON PF 4 MG/2 ML VIAL. IVP PRN (16:30)
[2020-07-11] MEDS ORDERED: CALCIUM CARBONATE 500 MG TAB.CHEW PO PRN (16:30)
[2020-07-11 16:37] LABS: MAGNESIUM 1.9 mg/dL (1.8-2.4); PHOSPHORUS 3.2 mg/dL (2.6-4.7)
[2020-07-11] MEDS: ENOXAPARIN 40 MG/0.4 ML SYRINGE. SQ SCH (17:00)
[2020-07-11] MEDS ORDERED: AMOX1TAB11 PO (17:08)
[2020-07-11] MEDS ORDERED: HYDR10SY16 PO (17:08)
[2020-07-11] MEDS ORDERED: INSU100V38 SQ (17:08)
[2020-07-11] MEDS ORDERED: ONDA4TAB7 PO (17:08)
[2020-07-11] MEDS ORDERED: SULF1TAB23 PO (17:08)
[2020-07-11] MEDS ORDERED: INSU100I13 SQ (17:08)
[2020-07-11] MEDS ORDERED: ACET325T21 PO (17:08)
[2020-07-11] MEDS ORDERED: MELA3TAB4 PO (17:08)
[2020-07-11] MEDS ORDERED: MULT-114 PO (17:08)
[2020-07-11] MEDS ORDERED: CODE10LI PO (17:08)
[2020-07-11] MEDS ORDERED: ALBU2.5V8 INH (17:08)
[2020-07-11] MEDS ORDERED: MAG30ORA PO ×2 (17:08)
[2020-07-11] MEDS ORDERED: ATROVENT HFA12.9 GM IH (17:08)
[2020-07-11] MEDS ORDERED: ERGO500089 PO (17:08)
[2020-07-11] MEDS ORDERED: PRED-220 PO (17:08)
--- NOTE | 2020-07-11 17:10 | HP ---
ADMIT DATE: 07/11/2020 ADMISSION HISTORY CHIEF COMPLAINT: Difficulty breathing. HISTORY OF PRESENT ILLNESS: This is a pleasant 80-year-old unfortunate male with a history of pulmonary fibrosis, thyroid cancer, hypertension, recent pneumonia, discharged on 06/03 with post-influenza pneumonia, presented today to the ER with hypoxia, was on 15 liters nasal cannula. EMS placed the patient on nonrebreather facemask. Chest x-ray at the facility was concerning for pneumonia. He was recently admitted with hypoxia, hemoptysis and underwent a bronchoscopy. Echo showed a PA pressure of 50 mmHg. Bronchoscopy showed normal vocal cords, trachea. No endobronchial lesions with no active bleeding. His code status was changed to DNI. He was found to have moderate to severe mitral regurgitation. PAST MEDICAL HISTORY: Significant pulmonary fibrosis, thyroid cancer, cholecystectomy, former tobacco use with COPD, hyperlipidemia, pulmonary hypertension, osteoarthritis, benign prostatic hypertrophy. FAMILY HISTORY: Positive for hypertension. REVIEW OF SYSTEMS: The patient complains mainly of shortness of breath. Denies fever or chills. Denies chest pain. Denies nasal congestion. Denies abdominal pain, vomiting or bloody stools. Denies back pain, rash, or headache. He complains of generalized weakness, but no focal weakness. No polyuria or polydipsia. Denies swollen glands or lymph nodes. Denies depression or anxiety. A 14-point review of systems otherwise negative. PHYSICAL EXAMINATION: GENERAL: This is a chronically ill-appearing, thin male, in no acute distress,, ill, frail on BiPAP support, nontoxic. HEENT: Throat and pharynx clear. NECK: Supple. CARDIOVASCULAR: Tachycardic rhythm without S3. LUNGS: Show bilateral lower lobe crackles and rales. No wheezing. He is on nonrebreather.on bipap support ABDOMEN: Soft and without tenderness or mass. BACK: Without CVA tenderness. EXTREMITIES: Show no edema or tenderness. NEUROLOGIC: He is alert and oriented, was not ambulated. His affect is normal. Mood is normal. LABORATORY DATA: EKG shows AFib at 107 with a QTc of 459. No ST-segment depression. Chest x-ray shows mixed alveolar infiltrate superimposed on chronic interstitial changes. There is no pneumothorax. CT angiography of the chest shows multifocal opacities, increased from prior. There was ground-glass appearance. There is chronic interstitial lung disease with fibrosis and cystic changes present. Small left greater than right pleural effusion. In essence, there was an increase in multifocal opacities, which could be secondary to multifocal infiltrate or component of edema, noted cavitary lesion with thick eden in the right lung, which could be neoplastic or infectious. Additional mass-like regions within bilateral lungs, which could be consolidation. CT abdomen and pelvis shows marked stool present in the rectum with colitis, colonic diverticulosis without evidence of acute diverticulitis. Small volume of pelvic ascites. No bowel obstruction. ASSESSMENT: This is an unfortunate 80-year-old male who has multifocal multiorgan system disease, pulmonary fibrosis and severe hypercapnia with a large cavitary lesion in lung and likely aspiration-type pneumonia. [id number] mitral regurgitation, mild hyponatremia. We will admit to ICU. Consult pulmonary BiPAP support. Infectious Disease consult and Gastroenterology consult. Critical care time on this patient was 38 minutes. Prognosis is guarded. , bowel regimen, emperic iv antibiotics The patient likely would qualify for hospice intake if the patient and family are willing to consider this option as the length of life is likely less than 6 months if his disease continues to progress as normally expected. Therefore, he would be an excellent candidate for hospice and end of life palliative care. 40 min cc time YASSINE MARISCAL MD DR: MAGO/aaron JOB#: [id number] / [id number] COLBY
[2020-07-11] MEDS ORDERED: PIP/TAZO PER PHARMACY MC PRN (17:15)
--- NOTE | 2020-07-11 17:45 | NUR ---
Pharmacy Vancomycin Dosing Note S:Consulted to monitor and dose vancomycin started 07/11/20. O:ROSALVA LEONARDO is a 80 year old M with HCAP . Height: 6 feet, 0 inches Weight: 86.3 kg [place] Body Weight: 77.60 Adjusted Body Weight: 81.08 Dosing Weight: Actual Other Antibiotics: ZOSYN LABS: Last BUN: 21 Last Creatinine: 0.6 Creatinine Clearance: 66 mL/min Last WBC: 9 Last Procalcitonin: Tmax (past 24 hours): 98.4 Microbiology: I/O: Drug Levels: Last level: on at Last dose given 07/11/20 at 1630 Vancomycin Dosing: Loading Dose: 2000 mg x1 Dosing Weight: Actual Target Trough: 15-20 A: Based on: WEIGHT, CRCL~66, PRIOR DOSING P: 1. INITIATE Vancomycin 1250 mg IV q12h AFTER 2000 MG DOSE 2. Follow up Trough level on 07/13/20 at 0400 3. Pharmacy will continue to monitor, follow and adjust therapy as needed. [facility], 07/11/20 [id number]
[2020-07-11] MEDS ORDERED: PIPERACILLIN/TAZOBACTAM 4.5 GM in IV NORMAL SALINE 100ML 100 ML IV SCH (18:00)
[2020-07-11] MEDS ORDERED: SODIUM CHLORIDE 0.65% NASAL SPRAY 45ML BOTTLE. NS PRN (18:15)
[2020-07-11] MEDS: PIPERACILLIN/TAZOBACTAM 3.375 GM in IV NORMAL SALINE 50ML 50 ML IV SCH (19:50)
[2020-07-11] MEDS: PANTOPRAZOLE IV PUSH 40 MG VIAL. IVP SCH (19:51)
[2020-07-11] MEDS: IV NORMAL SALINE 1000ML BAG 1,000 ML IV SCH (19:51)
--- NOTE | 2020-07-11 20:06 | NUR ---
Patient arrived on the unit at 1500 accompanied by ED RN. Patient alert and oriented x4, able to answer admission questions when asked. Patient on bipap at 45% tolerating well, vital signs stable. Family aware of admission. Regarding code status, patient was DNI prior to arriving on the unit, when asked if he wanted chest compressions the patient decided no, that he wanted to be a full DNR. Notified Dr. Murphy, order placed in computer. Consults called. will continue to monitor.
[2020-07-11] MEDS: FAMOTIDINE 20 MG/2 ML VIAL IVP SCH (20:12)
[2020-07-11] MEDS: DOCUSATE SODIUM 100 MG CAPSULE. PO SCH (20:12)
[2020-07-11] MEDS: SENNOSIDES/DOCUSATE 8.6/50MG TABLET. PO SCH (20:12)
[2020-07-12] VITALS (14 sets, daily range): BP systolic 106–132; BP diastolic 61–74
[2020-07-12] MEDS: PIPERACILLIN/TAZOBACTAM 3.375 GM in IV NORMAL SALINE 50ML 50 ML IV SCH ×2 (00:20→06:44)
[2020-07-12] MEDS ORDERED: VANCOMYCIN 1.25 GM in IV NORMAL SALINE 250ML 250 ML IV SCH (04:30)
[2020-07-12 05:21] LABS: BASO % 0 % (0-3); EOS % 0 % (0-3); HEMATOCRIT 22.1 % (39.0-53.0); HEMOGLOBIN 7.1 g/dL (13.0-17.5); LYMPH # 0.6 x10^3/uL (1.0-4.8); LYMPH % 8 % (24-48); MEAN CORPUSCULAR HEMOGLOBIN 28 pg (25-35); MEAN CORPUSCULAR HGB CONC 32 g/dL (31-37); MEAN CORPUSCULAR VOLUME 87 fL (79-100); MONO # 0.5 x10^3/uL (0.0-1.1); MONO % 7 % (0-9); NEUT % 85 % (31-73); PLATELET COUNT 180 x10^3/uL (140-400); RED BLOOD COUNT 2.53 x10^6/uL (4.30-5.70); RED CELL DISTRIBUTION WIDTH 19.6 % (11.5-14.5); WHITE BLOOD COUNT 7.1 x10^3/uL (4.0-11.0)
[2020-07-12 05:40] LABS: CREATININE 0.5 mg/dL (0.7-1.3); GFR 159.6
[2020-07-12 05:41] LABS: PROTHROMBIN TIME PATIENT 14.9 SEC (11.7-14.0)
[2020-07-12 05:50] LABS: ALBUMIN/GLOBULIN RATIO 0.5 (1.0-1.7); ALK PHOS 54 U/L (46-116); ALT (SGPT) 26 U/L (16-63); AST (SGOT) 19 U/L (15-37); BLOOD UREA NITROGEN 21 mg/dL (8-26); BUN/CREATININE RATIO 42 (6-20); CALCIUM 7.6 mg/dL (8.5-10.1); CARBON DIOXIDE 41 mmol/L (21-32); CHLORIDE 97 mmol/L (98-107); CREATININE 0.5 mg/dL (0.7-1.3); GFR 159.6; GLUCOSE 131 mg/dL (70-99); POTASSIUM 4.5 mmol/L (3.5-5.1); SODIUM 133 mmol/L (136-145); TOTAL BILIRUBIN 0.4 mg/dL (0.2-1.0); TOTAL PROTEIN 6.3 g/dL (6.4-8.2)
--- NOTE | 2020-07-12 07:08 | PDOC ---
Infectious Disease Note Vital Sign Vital Signs Vital Signs Date Time Temp Pulse Resp B/P (MAP) Pulse Ox O2 Delivery O2 Flow Rate FiO2 07/12/20 06:00 102 127/74 (91) 96 BiPAP/CPAP 07/12/20 05:00 97.8 26 97.8 07/11/20 22:00 10.0 Labs Lab Laboratory Tests Test 07/11/20 11:40 07/11/20 11:43 07/11/20 11:54 07/11/20 13:00 O2 Saturation 98 % (92-99) 95 % (92-99) Arterial Blood pH 7.35 (7.35-7.45) 7.37 (7.35-7.45) Arterial Blood pCO2 at Patient Temp 75 mmHg (35-46) 71 mmHg (35-46) Arterial Blood pO2 at Patient Temp 109 mmHg (65-108) 80 mmHg (65-108) Arterial Blood HCO3 40 mmol/L (21-28) 40 mmol/L (21-28) Arterial Blood Base Excess 13 mmol/L (-3-3) 13 mmol/L (-3-3) Oxyhemoglobin 96.2 % Methemoglobin 0.4 % (0.0-1.9) Carbon Monoxide, Quantitative 1.0 % (0.0-1.9) FiO2 100 45 Urine Collection Type Unknown Urine Color Yellow Urine Clarity Clear Urine pH 6.5 (<5.0-8.0) Urine Specific [place] 1.020 (1.000-1.030) Urine Protein 100 mg/dL (NEG-TRACE) Urine Glucose (UA) 100 mg/dL (NEG) Urine Ketones (Stick) Negative mg/dL (NEG) Urine Blood Negative (NEG) Urine Nitrite Negative (NEG) Urine Bilirubin Negative (NEG) Urine Urobilinogen Dipstick 1.0 mg/dL (0.2 mg/dL) Urine Leukocyte Esterase Negative (NEG) Urine RBC 0 /HPF (0-2) Urine WBC Rare /HPF (0-4) Urine Squamous Epithelial Cells None /LPF Urine Bacteria 0 /HPF (0-FEW) Coronavirus (PCR) Not detected (Not Detected) Influenza Type A Antigen Negative (NEGATIVE) Influenza Type B Antigen Negative (NEGATIVE) White Blood Count 9.0 x10^3/uL (4.0-11.0) Red Blood Count 2.54 x10^6/uL (4.30-5.70) Hemoglobin 7.1 g/dL (13.0-17.5) Hematocrit 22.3 % (39.0-53.0) Mean Corpuscular Volume 88 fL (79-100) Mean Corpuscular Hemoglobin 28 pg (25-35) Mean Corpuscular Hemoglobin Concent 32 g/dL (31-37) Red Cell Distribution Width 20.0 % (11.5-14.5) Platelet Count 177 x10^3/uL (140-400) Neutrophils (%) (Auto) 86 % (31-73) Lymphocytes (%) (Auto) 6 % (24-48) Monocytes (%) (Auto) 7 % (0-9) Eosinophils (%) (Auto) 1 % (0-3) Basophils (%) (Auto) 0 % (0-3) Neutrophils # (Auto) 7.8 x10^3/uL (1.8-7.7) Lymphocytes # (Auto) 0.6 x10^3/uL (1.0-4.8) Monocytes # (Auto) 0.6 x10^3/uL (0.0-1.1) Eosinophils # (Auto) 0.0 x10^3/uL (0.0-0.7) Basophils # (Auto) 0.0 x10^3/uL (0.0-0.2) Segmented Neutrophils % 81 % (35-66) Band Neutrophils % 7 % (0-9) Lymphocytes % 5 % (24-48) Monocytes % 5 % (0-10) Basophils % 1 % (0-3) Metamyelocytes % 1 % (0-0) Platelet Estimate Adequate (ADEQUATE) Polychromasia Slight Hypochromasia Slight Basophilic Stippling Present Anisocytosis Slight Ovalocytes Few Stomatocytes Few Sodium Level 131 mmol/L (136-145) Potassium Level 4.6 mmol/L (3.5-5.1) Chloride Level 92 mmol/L (98-107) Carbon Dioxide Level 40 mmol/L (21-32) Anion Gap (6-14) Blood Urea Nitrogen 21 mg/dL (8-26) Creatinine 0.6 mg/dL (0.7-1.3) Estimated GFR (Cockcroft-Gault) 129.3 BUN/Creatinine Ratio 35 (6-20) Glucose Level 239 mg/dL (70-99) Lactic Acid Level 1.6 mmol/L (0.4-2.0) Calcium Level 7.3 mg/dL (8.5-10.1) Phosphorus Level 3.2 mg/dL (2.6-4.7) Magnesium Level 1.9 mg/dL (1.8-2.4) Iron Level 20 ug/dL (65-175) Total Iron Binding Capacity 188 ug/dL (250-450) Iron Saturation 11 % (15-34) Total Bilirubin 0.6 mg/dL (0.2-1.0) Aspartate Amino Transf (AST/SGOT) 20 U/L (15-37) Alanine Aminotransferase (ALT/SGPT) 24 U/L (16-63) Alkaline Phosphatase 58 U/L (46-116) Creatine Kinase 15 U/L (39-308) Troponin I Quantitative < 0.017 ng/mL (0.000-0.055) VZ-Mth-F-Type Natriuretic Peptide 2261 pg/mL (0-449) Total Protein 5.8 g/dL (6.4-8.2) Albumin 2.1 g/dL (3.4-5.0) Albumin/Globulin Ratio 0.6 (1.0-1.7) Vitamin B12 Level 355 pg/mL (247-911) Thyroid Stimulating Hormone (TSH) 3.386 uIU/mL (0.358-3.74) Test 07/11/20 17:40 07/11/20 22:08 07/12/20 04:45 07/12/20 06:40 Glucose (Fingerstick) 152 mg/dL (70-99) 294 mg/dL (70-99) 142 mg/dL (70-99) White Blood Count 7.1 x10^3/uL (4.0-11.0) Red Blood Count 2.53 x10^6/uL (4.30-5.70) Hemoglobin 7.1 g/dL (13.0-17.5) Hematocrit 22.1 % (39.0-53.0) Mean Corpuscular Volume 87 fL (79-100) Mean Corpuscular Hemoglobin 28 pg (25-35) Mean Corpuscular Hemoglobin Concent 32 g/dL (31-37) Red Cell Distribution Width 19.6 % (11.5-14.5) Platelet Count 180 x10^3/uL (140-400) Neutrophils (%) (Auto) 85 % (31-73) Lymphocytes (%) (Auto) 8 % (24-48) Monocytes (%) (Auto) 7 % (0-9) Eosinophils (%) (Auto) 0 % (0-3) Basophils (%) (Auto) 0 % (0-3) Neutrophils # (Auto) 6.0 x10^3/uL (1.8-7.7) Lymphocytes # (Auto) 0.6 x10^3/uL (1.0-4.8) Monocytes # (Auto) 0.5 x10^3/uL (0.0-1.1) Eosinophils # (Auto) 0.0 x10^3/uL (0.0-0.7) Basophils # (Auto) 0.0 x10^3/uL (0.0-0.2) Prothrombin Time 14.9 SEC (11.7-14.0) Prothromb Time International Ratio 1.2 (0.8-1.1) Activated Partial Thromboplast Time 31 SEC (24-38) Sodium Level 133 mmol/L (136-145) Potassium Level 4.5 mmol/L (3.5-5.1) Chloride Level 97 mmol/L (98-107) Carbon Dioxide Level 41 mmol/L (21-32) Anion Gap (6-14) Blood Urea Nitrogen 21 mg/dL (8-26) Creatinine 0.5 mg/dL (0.7-1.3) Estimated GFR (Cockcroft-Gault) 159.6 BUN/Creatinine Ratio 42 (6-20) Glucose Level 131 mg/dL (70-99) Calcium Level 7.6 mg/dL (8.5-10.1) Total Bilirubin 0.4 mg/dL (0.2-1.0) Aspartate Amino Transf (AST/SGOT) 19 U/L (15-37) Alanine Aminotransferase (ALT/SGPT) 26 U/L (16-63) Alkaline Phosphatase 54 U/L (46-116) Total Protein 6.3 g/dL (6.4-8.2) Albumin 2.0 g/dL (3.4-5.0) Albumin/Globulin Ratio 0.5 (1.0-1.7) Micro IMPRESSION: Interval increase in the multifocal opacities throughout the bilateral lungs which could be secondary to multifocal infiltrate with a component of edema also possible. Repeat demonstration of cavitary lesion with thick eden within the right lung which again could be neoplastic or infectious in nature. There are some additional masslike regions within the bilateral lungs which could be related to consolidation but follow-up will be needed to ensure that these appropriately decreases to exclude neoplasm. Follow-up will be needed if the patient's lymphadenopathy is well since it could be reactive or neoplastic There is a large amount of motion which limits evaluation for pulmonary embolus. No embolus in the main, right main or left main pulmonary artery. More peripherally the vessels are poorly evaluated. There is some regions of relative low density seen at some of the peripheral pulmonary vessels but this is unrelia ble given the motion. Could be artifactual in nature but a follow-up could be obtained at a later time to better opacify the peripheral pulmonary arteries to ensure that there is not a peripheral embolus contributing. Electronically signed by: Arturo Zaragoza MD (07/11/2020 2:51 PM) [id number] Objective Assessment Anemia Cavitary lung disease Pulm fibrosis Acute Hypoxic Resp failure COVID - neg 07/11 [id number] mitral regurgitation, H/o Thyroid CA S/p Solumedrol times one Plan Plan of Care Recent Augmentin/Prednisone and prophylact Bactrim - OP rehab notes reviewed D/c Zosyn Add Meropenem/Micafungin/Zyvox D/c Vanc with Raysa and recent bactrim F/u labs and cults Await Pulm eval sputum cult D/w nursing 35 mins cc time Thank you # [id number] CT BAEZ MD Jul 12, 2020 07:08
[2020-07-12] MEDS: MEROPENEM 500 MG in IV NORMAL SALINE 50ML 50 ML IV SCH ×3 (07:55→18:03)
[2020-07-12] MEDS: MICAFUNGIN 100 MG in IV DEXTROSE 5% 100ML 100 ML IV SCH (08:18)
[2020-07-12] MEDS: DOCUSATE SODIUM 100 MG CAPSULE. PO SCH ×2 (08:58→20:55)
[2020-07-12] MEDS: PANTOPRAZOLE IV PUSH 40 MG VIAL. IVP SCH (08:58)
[2020-07-12] MEDS: FAMOTIDINE 20 MG/2 ML VIAL IVP SCH (08:58)
[2020-07-12] MEDS: SENNOSIDES/DOCUSATE 8.6/50MG TABLET. PO SCH ×2 (08:58→20:56)
[2020-07-12 09:08] LABS: BASE EXCESS ABG 16 mmol/L (-3-3); HCO3 ABG 44 mmol/L (21-28); PO2 ABG 61 mmHg (65-108); SAT O2 ABG 90 % (92-99)
[2020-07-12 09:14] LABS: PCO2 ABG 86 mmHg (35-46)
[2020-07-12 09:15] LABS: FIO2 ABG 8L NC/52%
--- NOTE | 2020-07-12 09:54 | CONS ---
DATE OF CONSULTATION: 07/12/2020 LOCATION: The patient is in Room 111. REQUESTING PHYSICIAN: Dr. Madhu Murphy. REASON FOR CONSULTATION: Aspiration pneumonia. HISTORY OF PRESENT ILLNESS: The patient is a gentleman with a history of thyroid cancer, pulmonary fibrosis with previous cavitary lesions and is followed by Pulmonary. He has been staying at [facility] and is noted to be on Augmentin, prednisone and Bactrim. Yesterday, he complained of increasing shortness of air and increasing sputum production with some hemoptysis and he was transferred to [facility]. He had been placed on BiPAP, but is currently on nasal cannula oxygen. Denies any gross fevers or chills or sweats. He has no history of vomiting. There is occasional nausea. No dysuria, frequency or urgency. He did have some loose stool the other day, but denies any bloating or cramping. Denies any rashes. PAST MEDICAL HISTORY: Positive for: 1. AFib. 2. Gastroesophageal reflux disease. 3. Diabetes. 4. Thyroid cancer. 5. Pneumonia. 6. Mitral regurgitation. 7. Pulmonary fibrosis. 8. Cavitary lesions. PAST SURGICAL HISTORY: Positive for: 1. Bronchoscopy. 2. Thyroidectomy. 3. Cholecystectomy. REVIEW OF SYSTEMS: Otherwise negative except for as mentioned above. SOCIAL HISTORY: He quit smoking. No alcohol. FAMILY HISTORY: Noncontributory. ALLERGIES: No known drug allergies. CURRENT MEDICATIONS: Include: 1. Vancomycin. 2. Zosyn. 3. Colace. 4. Lovenox. 5. Pepcid. 6. Solu-Medrol x 1. PHYSICAL EXAMINATION: VITAL SIGNS: Afebrile, temperature 97.8, pulse 106, respirations 31, blood pressure 106/70, satting 91% on nasal cannula. CONSTITUTIONAL: He was sleeping on arrival, but he awakened easily. He is in no acute distress. He is cooperative. HEENT: Pupils equal and reactive. He has normal conjunctivae. Oral cavity, pharynx is edentulous. No thrush. NECK: Supple. LUNGS: Some mild crackles. HEART: S1 and S2. ABDOMEN: Soft, nontender, nondistended with positive bowel sounds. EXTREMITIES: Without clubbing or cyanosis. No gross edema. SKIN: Warm to touch without signs of rash. Peripheral IV site is clean. LABORATORY DATA: White count 7.1, hemoglobin 7.1, platelets 180, neutrophils 85, creatinine 0.5, glucose 131. Normal liver function study tests. Urinalysis is not consistent with urinary tract infection. COVID test was negative. Influenza was negative. CT of the chest: Interval increase in multifocal opacities throughout bilateral lungs, could be secondary to multifocal infiltrate or component of edema. Redemonstration of cavitary lesions. Some additional mass-like lesions within the bilateral lungs which could be related to consolidation. IMPRESSION: 1. Anemia. 2. Cavitary lung disease. 3. Pulmonary fibrosis. 4. Acute hypoxic respiratory failure. 5. Moderate to severe mitral regurgitation. 6. History of thyroid cancer. 7. Status post Solu-Medrol x 1. RECOMMENDATIONS: [facility] has been on Augmentin, prednisone and prophylactic Bactrim. He does have a history of previous Zosyn use as well. Therefore, we will discontinue the Zosyn. We will add meropenem. We will also add micafungin as he is at risk for yeast infections given steroids and antibiotics. Additionally, he has been on Bactrim. He has got some acute renal insufficiency and therefore we will discontinue the vancomycin and begin Zyvox. We will follow up labs and cultures. Await pulmonary evaluation. Obtain a sputum culture. I spent 35 minutes of critical care time, reviewed previous notes and discussed with nursing. Thank you for the patient's care. If you have any questions, please do not hesitate to contact me. CT BAEZ MD DR: IZABELA/aaron JOB#: [id number] / [id number] COLBY
--- NOTE | 2020-07-12 11:09 | PDOC ---
[employer] PROGRESS NOTE Date of Service DOS: DATE: 07/12/20 TIME: 11:05 Chief Complaint Chief Complaint PNEUMONIA, aspiration type currently on Zyvox, meropenem and micafungin per ID SEVERE HYPERCAPNIC FAILURE currently on BiPAP as needed Moderate to severe mitral regurgitation. Trace tricuspid regurgitation. The PA pressure was estimated at 26 mmHg. Acute electrolyte derangementMILD HYPONATREMIA, hypochloremia suggesting volume depletion History of Present Illness History of Present Illness 07/12/2020 No acute events overnight. Afebrile. Patient is currently saturating in the low 90s while on 15 L nonrebreather. BiPAP as needed. Patient has no dyspnea or air hunger at this time. Patient's chart, labs, images were reviewed and discussed with RN 80-year-old unfortunate male with a history of pulmonary fibrosis, thyroid cancer, hypertension, recent pneumonia, discharged on 06/03 with post-influenza pneumonia, presented today to the ER with hypoxia, was on 15 liters nasal cannula. EMS placed the patient on nonrebreather facemask. Chest x-ray at the facility was concerning for pneumonia. He was recently admitted with hypoxia, hemoptysis and underwent a bronchoscopy. Echo showed a PA pressure of 50 mmHg. Bronchoscopy showed normal vocal cords, trachea. No endobronchial lesions with no active bleeding. His code status was changed to DNI. He was found to have moderate to severe mitral regurgitation. Vitals/I&O Vitals/I&O: Vital Signs Date Time Temp Pulse Resp B/P (MAP) Pulse Ox O2 Delivery O2 Flow Rate FiO2 07/12/20 08:04 Nasal Cannula 8.0 07/12/20 07:00 106 31 106/70 (82) 91 07/12/20 05:00 97.8 97.8 I & O 07/11/20 07/11/20 07/12/20 15:00 23:00 07:00 Intake Total 100 ml 625 ml 562 ml Output Total 476 ml 200 ml Balance 100 ml 149 ml 362 ml Physical Exam General: Alert, Oriented X3 Heart: No murmurs Lungs: Crackles Abdomen: Normal bowel sounds Skin: No significant lesion Labs Labs: Laboratory Tests Test 07/11/20 11:40 07/11/20 11:43 07/11/20 11:54 07/11/20 13:00 O2 Saturation 98 % (92-99) 95 % (92-99) Arterial Blood pH 7.35 (7.35-7.45) 7.37 (7.35-7.45) Arterial Blood pCO2 at Patient Temp 75 mmHg (35-46) 71 mmHg (35-46) Arterial Blood pO2 at Patient Temp 109 mmHg (65-108) 80 mmHg (65-108) Arterial Blood HCO3 40 mmol/L (21-28) 40 mmol/L (21-28) Arterial Blood Base Excess 13 mmol/L (-3-3) 13 mmol/L (-3-3) Oxyhemoglobin 96.2 % Methemoglobin 0.4 % (0.0-1.9) Carbon Monoxide, Quantitative 1.0 % (0.0-1.9) FiO2 100 45 Urine Collection Type Unknown Urine Color Yellow Urine Clarity Clear Urine pH 6.5 (<5.0-8.0) Urine Specific [place] 1.020 (1.000-1.030) Urine Protein 100 mg/dL (NEG-TRACE) Urine Glucose (UA) 100 mg/dL (NEG) Urine Ketones (Stick) Negative mg/dL (NEG) Urine Blood Negative (NEG) Urine Nitrite Negative (NEG) Urine Bilirubin Negative (NEG) Urine Urobilinogen Dipstick 1.0 mg/dL (0.2 mg/dL) Urine Leukocyte Esterase Negative (NEG) Urine RBC 0 /HPF (0-2) Urine WBC Rare /HPF (0-4) Urine Squamous Epithelial Cells None /LPF Urine Bacteria 0 /HPF (0-FEW) Coronavirus (PCR) Not detected (Not Detected) Influenza Type A Antigen Negative (NEGATIVE) Influenza Type B Antigen Negative (NEGATIVE) White Blood Count 9.0 x10^3/uL (4.0-11.0) Red Blood Count 2.54 x10^6/uL (4.30-5.70) Hemoglobin 7.1 g/dL (13.0-17.5) Hematocrit 22.3 % (39.0-53.0) Mean Corpuscular Volume 88 fL (79-100) Mean Corpuscular Hemoglobin 28 pg (25-35) Mean Corpuscular Hemoglobin Concent 32 g/dL (31-37) Red Cell Distribution Width 20.0 % (11.5-14.5) Platelet Count 177 x10^3/uL (140-400) Neutrophils (%) (Auto) 86 % (31-73) Lymphocytes (%) (Auto) 6 % (24-48) Monocytes (%) (Auto) 7 % (0-9) Eosinophils (%) (Auto) 1 % (0-3) Basophils (%) (Auto) 0 % (0-3) Neutrophils # (Auto) 7.8 x10^3/uL (1.8-7.7) Lymphocytes # (Auto) 0.6 x10^3/uL (1.0-4.8) Monocytes # (Auto) 0.6 x10^3/uL (0.0-1.1) Eosinophils # (Auto) 0.0 x10^3/uL (0.0-0.7) Basophils # (Auto) 0.0 x10^3/uL (0.0-0.2) Segmented Neutrophils % 81 % (35-66) Band Neutrophils % 7 % (0-9) Lymphocytes % 5 % (24-48) Monocytes % 5 % (0-10) Basophils % 1 % (0-3) Metamyelocytes % 1 % (0-0) Platelet Estimate Adequate (ADEQUATE) Polychromasia Slight Hypochromasia Slight Basophilic Stippling Present Anisocytosis Slight Ovalocytes Few Stomatocytes Few Sodium Level 131 mmol/L (136-145) Potassium Level 4.6 mmol/L (3.5-5.1) Chloride Level 92 mmol/L (98-107) Carbon Dioxide Level 40 mmol/L (21-32) Anion Gap (6-14) Blood Urea Nitrogen 21 mg/dL (8-26) Creatinine 0.6 mg/dL (0.7-1.3) Estimated GFR (Cockcroft-Gault) 129.3 BUN/Creatinine Ratio 35 (6-20) Glucose Level 239 mg/dL (70-99) Lactic Acid Level 1.6 mmol/L (0.4-2.0) Calcium Level 7.3 mg/dL (8.5-10.1) Phosphorus Level 3.2 mg/dL (2.6-4.7) Magnesium Level 1.9 mg/dL (1.8-2.4) Iron Level 20 ug/dL (65-175) Total Iron Binding Capacity 188 ug/dL (250-450) Iron Saturation 11 % (15-34) Total Bilirubin 0.6 mg/dL (0.2-1.0) Aspartate Amino Transf (AST/SGOT) 20 U/L (15-37) Alanine Aminotransferase (ALT/SGPT) 24 U/L (16-63) Alkaline Phosphatase 58 U/L (46-116) Creatine Kinase 15 U/L (39-308) Troponin I Quantitative < 0.017 ng/mL (0.000-0.055) IH-Edm-Y-Type Natriuretic Peptide 2261 pg/mL (0-449) Total Protein 5.8 g/dL (6.4-8.2) Albumin 2.1 g/dL (3.4-5.0) Albumin/Globulin Ratio 0.6 (1.0-1.7) Vitamin B12 Level 355 pg/mL (247-911) Thyroid Stimulating Hormone (TSH) 3.386 uIU/mL (0.358-3.74) Test 07/11/20 17:40 07/11/20 22:08 07/12/20 04:45 07/12/20 06:40 Glucose (Fingerstick) 152 mg/dL (70-99) 294 mg/dL (70-99) 142 mg/dL (70-99) White Blood Count 7.1 x10^3/uL (4.0-11.0) Red Blood Count 2.53 x10^6/uL (4.30-5.70) Hemoglobin 7.1 g/dL (13.0-17.5) Hematocrit 22.1 % (39.0-53.0) Mean Corpuscular Volume 87 fL (79-100) Mean Corpuscular Hemoglobin 28 pg (25-35) Mean Corpuscular Hemoglobin Concent 32 g/dL (31-37) Red Cell Distribution Width 19.6 % (11.5-14.5) Platelet Count 180 x10^3/uL (140-400) Neutrophils (%) (Auto) 85 % (31-73) Lymphocytes (%) (Auto) 8 % (24-48) Monocytes (%) (Auto) 7 % (0-9) Eosinophils (%) (Auto) 0 % (0-3) Basophils (%) (Auto) 0 % (0-3) Neutrophils # (Auto) 6.0 x10^3/uL (1.8-7.7) Lymphocytes # (Auto) 0.6 x10^3/uL (1.0-4.8) Monocytes # (Auto) 0.5 x10^3/uL (0.0-1.1) Eosinophils # (Auto) 0.0 x10^3/uL (0.0-0.7) Basophils # (Auto) 0.0 x10^3/uL (0.0-0.2) Prothrombin Time 14.9 SEC (11.7-14.0) Prothromb Time International Ratio 1.2 (0.8-1.1) Activated Partial Thromboplast Time 31 SEC (24-38) Sodium Level 133 mmol/L (136-145) Potassium Level 4.5 mmol/L (3.5-5.1) Chloride Level 97 mmol/L (98-107) Carbon Dioxide Level 41 mmol/L (21-32) Anion Gap (6-14) Blood Urea Nitrogen 21 mg/dL (8-26) Creatinine 0.5 mg/dL (0.7-1.3) Estimated GFR (Cockcroft-Gault) 159.6 BUN/Creatinine Ratio 42 (6-20) Glucose Level 131 mg/dL (70-99) Calcium Level 7.6 mg/dL (8.5-10.1) Total Bilirubin 0.4 mg/dL (0.2-1.0) Aspartate Amino Transf (AST/SGOT) 19 U/L (15-37) Alanine Aminotransferase (ALT/SGPT) 26 U/L (16-63) Alkaline Phosphatase 54 U/L (46-116) Total Protein 6.3 g/dL (6.4-8.2) Albumin 2.0 g/dL (3.4-5.0) Albumin/Globulin Ratio 0.5 (1.0-1.7) Procalcitonin < 0.10 ng/mL (0.00-0.10) Test 07/12/20 08:00 O2 Saturation 90 % (92-99) Arterial Blood pH 7.33 (7.35-7.45) Arterial Blood pCO2 at Patient Temp 86 mmHg (35-46) Arterial Blood pO2 at Patient Temp 61 mmHg (65-108) Arterial Blood HCO3 44 mmol/L (21-28) Arterial Blood Base Excess 16 mmol/L (-3-3) FiO2 8l nc/52% Assessment and Plan Assessmemt and Plan Problems Medical Problems: (1) Acute respiratory failure with hypoxia and hypercapnia Status: Acute (2) Normocytic anemia Status: Acute Comment Review of Relevant I have reviewed the following items tri (where applicable) has been applied. Medications: Current Medications Medications (Trade) Dose Ordered Sig/Wendi Route PRN Reason Start Time Stop Time Status Last Admin Dose Admin Sodium Chloride 1,000 ml @ 1,000 mls/hr Q1H IV 07/11/20 11:45 07/11/20 12:44 DC 07/11/20 12:04 Methylprednisolone Sodium Succinate (SOLU-Medrol 125MG VIAL) 125 mg 1X ONCE IV 07/11/20 11:45 07/11/20 11:46 DC 07/11/20 12:04 Piperacillin Sod/ Tazobactam Sod 4.5 gm/Sodium Chloride 100 ml @ 200 mls/hr 1X ONCE IV 07/11/20 11:45 07/11/20 12:14 DC 07/11/20 12:32 Vancomycin HCl (Vanco Per Pharmacy) 1 each PRN DAILY PRN MC SEE COMMENTS 07/11/20 11:45 07/12/20 07:28 DC 07/11/20 17:44 Iohexol (Omnipaque 350 Mg/ml) 100 ml 1X ONCE IV 07/11/20 13:00 07/11/20 13:01 DC 07/11/20 13:25 Vancomycin HCl 2 gm/Sodium Chloride 500 ml @ 250 mls/hr ONCE ONCE IV 07/11/20 14:45 07/11/20 16:44 DC 07/11/20 14:45 Pantoprazole Sodium (PROTONIX VIAL for IV PUSH) 40 mg DAILYAC IVP 07/11/20 15:45 07/12/20 08:58 Lorazepam (Ativan Inj) 0.5 mg PRN Q6HRS PRN IVP ANXIETY / AGITATION 07/11/20 16:30 07/11/20 22:22 Famotidine (Pepcid Vial) 20 mg BID IVP 07/11/20 21:00 07/12/20 08:58 Sodium Chloride 1,000 ml @ 50 mls/hr Q20H IV 07/11/20 16:30 07/11/20 19:51 Senna/Docusate Sodium (Senna Plus) 1 tab BID PO 07/11/20 21:00 07/12/20 08:58 Docusate Sodium (Colace) 100 mg BID PO 07/11/20 21:00 07/12/20 08:58 Vancomycin HCl 1.25 gm/Sodium Chloride 250 ml @ 167 mls/hr Q12H IV 07/12/20 04:30 07/12/20 07:28 DC 07/12/20 04:27 Piperacillin Sod/ Tazobactam Sod 3.375 gm/Sodium Chloride 50 ml @ 100 mls/hr Q6HRS IV 07/11/20 18:00 07/12/20 07:28 DC 07/12/20 06:44 Meropenem 500 mg/ Sodium Chloride 50 ml @ 100 mls/hr Q6HRS IV 07/12/20 08:00 07/12/20 07:55 Micafungin Sodium 100 mg/Dextrose 100 ml @ 100 mls/hr Q24H IV 07/12/20 09:00 07/12/20 08:18 Linezolid/Dextrose 300 ml @ 300 mls/hr Q12HR IV 07/12/20 09:00 07/12/20 09:20 Justifications for Admission Other Justification ANNALEE DOYLE MD Jul 12, 2020 11:09
--- NOTE | 2020-07-12 15:51 | CONS ---
DATE OF CONSULTATION: 07/12/2020 ATTENDING PHYSICIAN: Madhu Murphy MD. REASON FOR CONSULTATION: The patient is seen in pulmonary consultation at the request of Dr. Murphy for [id number] hypoxemic hypercapnic respiratory failure. HISTORY OF PRESENT ILLNESS: The patient is an 80-year-old well known to me from previous hospitalization. He was here at [facility]. He was transferred to [facility]. He subsequently went to acute rehab. The patient has had a marcio course over the last month or two. He has a prior history of interstitial lung disease and recurrent bacterial infection. He has been followed in the office in the past by my partner, Dr. Mike. He has been treated multiple times in the past with Augmentin. He has been on steroids. Back early part of May, the patient was admitted here with acute respiratory failure. At that time, he tested positive for influenza, he tested negative for COVID-19. He underwent a bronchoscopy on 05/28/2020. To date, all cultures have been negative. The patient slowly improved. He has been on and off on BiPAP and oxygen supplementation. He subsequently was transferred to [facility]. He did improve, he came off of his BiPAP. He was down to 6 liters of oxygen supplementation, he was transferred to [facility]. He was there for approximately a week. He deteriorated yesterday. He was reevaluated in the Emergency Department. The patient underwent a CT chest, which shows some increasing multifocal opacities throughout both lung sherman. After being discharged from [facility], the patient was placed on Augmentin 875 p.o. b.i.d., prednisone 30 mg daily, and I placed him on prophylaxis Bactrim. He was admitted last evening and he has been seen by Infectious Disease Service. For now, he has been placed on meropenem, micafungin was added. The patient is in the intensive care unit. He is off of BiPAP. He is on oxygen supplementation. He has a cough productive of some discolored sputum. PAST MEDICAL HISTORY: 1. Remarkable for interstitial lung disease, pulmonary fibrosis, recurrent infection. He has been followed in the outpatient department for several years now. 2. History of thyroid cancer. 3. Mitral regurgitation. 4. Hypertension. 5. Diabetes. 6. Recent influenza positive. 7. Chronic atrial fibrillation. PAST SURGICAL HISTORY: He has had previous bronchoscopy as indicated above, thyroidectomy, and cholecystectomy. REVIEW OF SYSTEMS: As indicated above, otherwise, a 10-point system was reviewed and negative. SOCIAL HISTORY: He is currently not smoking. ALLERGIES: No known drug allergies. CURRENT MEDICATION: List was reviewed. PHYSICAL EXAMINATION: VITAL SIGNS: Stable. O2 saturation was greater than 92%. LUNGS: Scattered rhonchi. CARDIOVASCULAR: Regular rate and rhythm with S1, S2, no S3. ABDOMEN: Soft, nontender, nondistended. EXTREMITIES: No clubbing, cyanosis or pitting edema. NEUROLOGICAL: The patient was awake, alert, following commands. A detailed neuro exam was not performed. LABORATORY DATA: BAL from 05/28/2020 was reviewed. AFB culture was negative. Final culture report revealed no yeast or mold is isolated. His Gram stain revealed no organisms. Respiratory culture final, no growth. Rare mixed upper respiratory gricel. Blood cultures were negative at that time. White count was normal. Serology for PCR of 07/11 was nondetected. His repeat influenza screen was negative. Arterial blood gas revealed a pH of 7.33, PaCO2 of 86, pO2 of 61. Currently on 8 [address]ers. IMAGING: CT chest revealed interval increase in multifocal opacities bilaterally. There was repeated demonstration of a cavitary thick walled lesion in the right lower lobe. There were some additional mass-like regions in both lungs related to I suspect mostly consolidation. There was no evidence of emboli in the main right and left pulmonary arteries. IMPRESSION: 1. [id number] hypercapnic hypoxemic respiratory failure. 2. Abnormal CT chest revealing increased multifocal opacities throughout both lung sherman. 3. Cavitary lesion in the right lower lobe. 4. Pulmonary fibrosis/interstitial lung disease. 5. History of thyroid cancer. 6. History of influenza A. 7. SARS-CoV-2 negative. DISCUSSION AND PLAN: As indicated above, the patient has had recurrent problems with what appears to be recurrent infection. I had placed him on Augmentin 875 b.i.d. along with chronic prednisone for the possibility of BOOP, bronchiolitis obliterans organizing pneumonia. He was also placed on Bactrim per PCP prophylaxis. He now comes in with worsening arterial blood gas, worsening chest x-ray and increasing symptoms. He has been seen by Infectious Disease Service. We will continue current coverage with meropenem, micafungin and continue steroids, continue oxygen supplementation. I have discussed the findings with the patient. I may proceed with bronchoscopy once his oxygen needs are diminished. Unfortunately, I think overall his long-term prognosis is poor. I suspect that he is progressing to further fibrosis. Ventilation is not the best over the last several weeks, his pCO2 is slowly rising. I do appreciate the privilege in sharing in the patient's care. Total cumulative critical care time of 45 minutes from 10:45 to 11:30 a.m. KAVITHA MCKENNA MD DR: YVETTE/aaron JOB#: [id number] / [id number]
[2020-07-12] MEDS: IV NORMAL SALINE 1000ML BAG 1,000 ML IV SCH (18:03)
[2020-07-12] MEDS: ENOXAPARIN 40 MG/0.4 ML SYRINGE. SQ SCH (18:04)
[2020-07-13] VITALS (9 sets, daily range): BP systolic 62–132; BP diastolic 38–74
[2020-07-13] MEDS: MEROPENEM 500 MG in IV NORMAL SALINE 50ML 50 ML IV SCH ×3 (00:39→11:59)
--- NOTE | 2020-07-13 02:25 | NUR ---
At the beginning of the shift pt was on high flow nasal cannula at 15L sats 88 to 94% while resting in bed. Around 1999 pt sats was consistently in the mid 80's, this nurse and Stacie RT encouraged pt to go on the bipap, pt refused stating it was "too early", pt was agitated and dismissive to teaching about risks of low oxygen saturation. Pt was adamant that he did not want Bipap at that time, he also refused Ativan. Around 2039 pt 's oxygen level went down in the lower 70's and pt was increasingly getting agitated, lowest reading seen was 48% with a good wave form and noted increased work of breathing. Pt was placed on Bipap at 100% fio2 then given Ativan for agitation and restlessness. Oxygen saturation gradually came up moments after being on the Bipap but stayed between 87 % to 90%, for the couple of hours following. Pt is DNR status. Currently pt is resting/sleeping with Bipap mask and sats are 95 to 98 %, fio2 still at 100%, Will continue to monitor.
[2020-07-13 05:46] LABS: BLOOD UREA NITROGEN 29 mg/dL (8-26); CALCIUM 7.9 mg/dL (8.5-10.1); CARBON DIOXIDE 37 mmol/L (21-32); CHLORIDE 97 mmol/L (98-107); CREATININE 0.9 mg/dL (0.7-1.3); GLUCOSE 184 mg/dL (70-99); POTASSIUM 4.9 mmol/L (3.5-5.1); SODIUM 132 mmol/L (136-145)
--- NOTE | 2020-07-13 06:09 | PDOC ---
Infectious Disease Note Subjective Subjective On bipap and unresponsive ROS ROS unable to obtain Vital Sign Vital Signs Vital Signs Date Time Temp Pulse Resp B/P (MAP) Pulse Ox O2 Delivery O2 Flow Rate FiO2 07/13/20 04:53 100 BiPAP/CPAP 07/13/20 03:30 97.5 96 27 106/61 (76) 97.5 07/12/20 20:00 15.0 Physical Exam PHYSICAL EXAM CONSTITUTIONAL: He on Bipap and in trendelenberg. Not responsive HEENT: Pupils equal and reactive. He has normal conjunctivae. Dry thru mask NECK: Supple. LUNGS: Some mild crackles. HEART: S1 and S2. ABDOMEN: Soft, nontender, nondistended with positive bowel sounds. EXTREMITIES: Without clubbing or cyanosis. 1 +edema. SKIN: Warm to touch without signs of rash. Peripheral IV site is clean. Labs Lab Laboratory Tests Test 07/12/20 06:40 07/12/20 08:00 07/12/20 21:27 07/13/20 04:30 Glucose (Fingerstick) 142 mg/dL (70-99) 164 mg/dL (70-99) O2 Saturation 90 % (92-99) Arterial Blood pH 7.33 (7.35-7.45) Arterial Blood pCO2 at Patient Temp 86 mmHg (35-46) Arterial Blood pO2 at Patient Temp 61 mmHg (65-108) Arterial Blood HCO3 44 mmol/L (21-28) Arterial Blood Base Excess 16 mmol/L (-3-3) FiO2 8l nc/52% Sodium Level 132 mmol/L (136-145) Potassium Level 4.9 mmol/L (3.5-5.1) Chloride Level 97 mmol/L (98-107) Carbon Dioxide Level 37 mmol/L (21-32) Anion Gap (6-14) Blood Urea Nitrogen 29 mg/dL (8-26) Creatinine 0.9 mg/dL (0.7-1.3) Estimated GFR (Cockcroft-Gault) 81.0 Glucose Level 184 mg/dL (70-99) Calcium Level 7.9 mg/dL (8.5-10.1) Micro IMPRESSION: Interval increase in the multifocal opacities throughout the bilateral lungs which could be secondary to multifocal infiltrate with a component of edema also possible. Repeat demonstration of cavitary lesion with thick eden within the right lung which again could be neoplastic or infectious in nature. There are some additional masslike regions within the bilateral lungs which could be related to consolidation but follow-up will be needed to ensure that these appropriately decreases to exclude neoplasm. Follow-up will be needed if the patient's lymphadenopathy is well since it could be reactive or neoplastic There is a large amount of motion which limits evaluation for pulmonary embolus. No embolus in the main, right main or left main pulmonary artery. More peripherally the vessels are poorly evaluated. There is some regions of relative low density seen at some of the peripheral pulmonary vessels but this is unreliable given the motion. Could be artifactual in nature but a follow-up could be obtained at a later time to better opacify the peripheral pulmonary arteries to ensure that there is not a peripheral embolus contributing. Electronically signed by: Arturo Zaragoza MD (07/11/2020 2:51 PM) [id number] Objective Assessment Hypotension - Levophed starting Anemia Cavitary lung disease Pulm fibrosis Acute Hypoxic Resp failure COVID - neg 07/11 [id number] mitral regurgitation, H/o Thyroid CA S/p Solumedrol times one 07/11 DNR Plan Plan of Care CBC now On Levophed now - per Pulm Recent Augmentin/Prednisone and prophylact Bactrim - OP rehab notes reviewed Added Meropenem/Micafungin/Zyvox 07/12 will continue D/c Vanc with Raysa and recent bactrim 07/12 F/u labs and cults Critically ill D/w nursing CT BAEZ MD Jul 13, 2020 06:09
--- NOTE | 2020-07-13 06:10 | NUR ---
PT Hypotensive BP 68/45, and unresponsive. Call placed to Dr Condon through answering service, no call back yet, Call also placed to Dr Guillory, no answer. 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 Called Racquel Conway (niece) left message in her voice box.
[2020-07-13] MEDS: NOREPINEPHRINE VIAL 8 MG in IV DEXTROSE 5% 250 ML IV PRN ×2 (06:38→11:58)
--- NOTE | 2020-07-13 06:40 | NUR ---
Pt was given fluid bolus and did not respond, now started LR and Levophed per orders from Dr Guillory. Pt responding to levo, BP gradually coming up, however pt is unresponsive, no call back from family yet.
[2020-07-13] MEDS ORDERED: IV RINGERS,LACTATED 500ML 500 ML IV ONE (07:00)
[2020-07-13] MEDS ORDERED: IV NORMAL SALINE 500ML BAG 500 ML IV ONE (07:00)
[2020-07-13 07:09] LABS: BASO # 0.1 x10^3/uL (0.0-0.2); BASO % 0 % (0-3); EOS % 0 % (0-3); HEMATOCRIT 25.6 % (39.0-53.0); HEMOGLOBIN 7.7 g/dL (13.0-17.5); LYMPH # 0.3 x10^3/uL (1.0-4.8); LYMPH % 2 % (24-48); MEAN CORPUSCULAR HEMOGLOBIN 28 pg (25-35); MEAN CORPUSCULAR HGB CONC 30 g/dL (31-37); MEAN CORPUSCULAR VOLUME 92 fL (79-100); MONO # 1.3 x10^3/uL (0.0-1.1); MONO % 8 % (0-9); NEUT # 14.1 x10^3/uL (1.8-7.7); NEUT % 89 % (31-73); PLATELET COUNT 266 x10^3/uL (140-400); RED CELL DISTRIBUTION WIDTH 19.3 % (11.5-14.5); WHITE BLOOD COUNT 15.8 x10^3/uL (4.0-11.0)
[2020-07-13] MEDS: DOCUSATE SODIUM 100 MG CAPSULE. PO SCH (08:36)
[2020-07-13] MEDS: SENNOSIDES/DOCUSATE 8.6/50MG TABLET. PO SCH (08:36)
[2020-07-13] MEDS: MICAFUNGIN 100 MG in IV DEXTROSE 5% 100ML 100 ML IV SCH (08:36)
[2020-07-13] MEDS: PANTOPRAZOLE IV PUSH 40 MG VIAL. IVP SCH (08:42)
[2020-07-13] MEDS: IV NORMAL SALINE 1000ML BAG 1,000 ML IV SCH (08:44)
--- NOTE | 2020-07-13 09:26 | PDOC ---
PULMONARY PROGRESS NOTES DATE: 07/13/20 TIME: 09:20 Subjective Pt. clinically decompensated overnight , hypoxia and hypotension despite IVF now on 100% BIPAP and levophed lethargic on exam Vitals Vital Signs Date Time Temp Pulse Resp B/P (MAP) Pulse Ox O2 Delivery O2 Flow Rate FiO2 07/13/20 07:37 97 BiPAP/CPAP 07/13/20 07:00 109/66 (80) 07/13/20 06:45 108 07/13/20 03:30 97.5 27 97.5 07/12/20 20:00 15.0 Comments unable to report ROS 2/2 clinical state General: Lethargic Lungs: Crackles Cardiovascular: S1, S2, Other (tachy ) Abdomen: Soft Extremities: No Edema Labs Laboratory Tests Test 07/11/20 11:40 07/11/20 11:43 07/11/20 11:54 07/11/20 13:00 O2 Saturation 98 % (92-99) 95 % (92-99) Arterial Blood pH 7.35 (7.35-7.45) 7.37 (7.35-7.45) Arterial Blood pCO2 at Patient Temp 75 mmHg (35-46) 71 mmHg (35-46) Arterial Blood pO2 at Patient Temp 109 mmHg (65-108) 80 mmHg (65-108) Arterial Blood HCO3 40 mmol/L (21-28) 40 mmol/L (21-28) Arterial Blood Base Excess 13 mmol/L (-3-3) 13 mmol/L (-3-3) Oxyhemoglobin 96.2 % Methemoglobin 0.4 % (0.0-1.9) Carbon Monoxide, Quantitative 1.0 % (0.0-1.9) FiO2 100 45 Urine Collection Type Unknown Urine Color Yellow Urine Clarity Clear Urine pH 6.5 (<5.0-8.0) Urine Specific [place] 1.020 (1.000-1.030) Urine Protein 100 mg/dL (NEG-TRACE) Urine Glucose (UA) 100 mg/dL (NEG) Urine Ketones (Stick) Negative mg/dL (NEG) Urine Blood Negative (NEG) Urine Nitrite Negative (NEG) Urine Bilirubin Negative (NEG) Urine Urobilinogen Dipstick 1.0 mg/dL (0.2 mg/dL) Urine Leukocyte Esterase Negative (NEG) Urine RBC 0 /HPF (0-2) Urine WBC Rare /HPF (0-4) Urine Squamous Epithelial Cells None /LPF Urine Bacteria 0 /HPF (0-FEW) Coronavirus (PCR) Not detected (Not Detected) Influenza Type A Antigen Negative (NEGATIVE) Influenza Type B Antigen Negative (NEGATIVE) White Blood Count 9.0 x10^3/uL (4.0-11.0) Red Blood Count 2.54 x10^6/uL (4.30-5.70) Hemoglobin 7.1 g/dL (13.0-17.5) Hematocrit 22.3 % (39.0-53.0) Mean Corpuscular Volume 88 fL (79-100) Mean Corpuscular Hemoglobin 28 pg (25-35) Mean Corpuscular Hemoglobin Concent 32 g/dL (31-37) Red Cell Distribution Width 20.0 % (11.5-14.5) Platelet Count 177 x10^3/uL (140-400) Neutrophils (%) (Auto) 86 % (31-73) Lymphocytes (%) (Auto) 6 % (24-48) Monocytes (%) (Auto) 7 % (0-9) Eosinophils (%) (Auto) 1 % (0-3) Basophils (%) (Auto) 0 % (0-3) Neutrophils # (Auto) 7.8 x10^3/uL (1.8-7.7) Lymphocytes # (Auto) 0.6 x10^3/uL (1.0-4.8) Monocytes # (Auto) 0.6 x10^3/uL (0.0-1.1) Eosinophils # (Auto) 0.0 x10^3/uL (0.0-0.7) Basophils # (Auto) 0.0 x10^3/uL (0.0-0.2) Segmented Neutrophils % 81 % (35-66) Band Neutrophils % 7 % (0-9) Lymphocytes % 5 % (24-48) Monocytes % 5 % (0-10) Basophils % 1 % (0-3) Metamyelocytes % 1 % (0-0) Platelet Estimate Adequate (ADEQUATE) Polychromasia Slight Hypochromasia Slight Basophilic Stippling Present Anisocytosis Slight Ovalocytes Few Stomatocytes Few Sodium Level 131 mmol/L (136-145) Potassium Level 4.6 mmol/L (3.5-5.1) Chloride Level 92 mmol/L (98-107) Carbon Dioxide Level 40 mmol/L (21-32) Anion Gap (6-14) Blood Urea Nitrogen 21 mg/dL (8-26) Creatinine 0.6 mg/dL (0.7-1.3) Estimated GFR (Cockcroft-Gault) 129.3 BUN/Creatinine Ratio 35 (6-20) Glucose Level 239 mg/dL (70-99) Lactic Acid Level 1.6 mmol/L (0.4-2.0) Calcium Level 7.3 mg/dL (8.5-10.1) Phosphorus Level 3.2 mg/dL (2.6-4.7) Magnesium Level 1.9 mg/dL (1.8-2.4) Iron Level 20 ug/dL (65-175) Total Iron Binding Capacity 188 ug/dL (250-450) Iron Saturation 11 % (15-34) Total Bilirubin 0.6 mg/dL (0.2-1.0) Aspartate Amino Transf (AST/SGOT) 20 U/L (15-37) Alanine Aminotransferase (ALT/SGPT) 24 U/L (16-63) Alkaline Phosphatase 58 U/L (46-116) Creatine Kinase 15 U/L (39-308) Troponin I Quantitative < 0.017 ng/mL (0.000-0.055) XF-Dpk-U-Type Natriuretic Peptide 2261 pg/mL (0-449) Total Protein 5.8 g/dL (6.4-8.2) Albumin 2.1 g/dL (3.4-5.0) Albumin/Globulin Ratio 0.6 (1.0-1.7) Vitamin B12 Level 355 pg/mL (247-911) Thyroid Stimulating Hormone (TSH) 3.386 uIU/mL (0.358-3.74) Test 07/11/20 17:40 07/11/20 22:08 07/12/20 04:45 07/12/20 06:40 Glucose (Fingerstick) 152 mg/dL (70-99) 294 mg/dL (70-99) 142 mg/dL (70-99) White Blood Count 7.1 x10^3/uL (4.0-11.0) Red Blood Count 2.53 x10^6/uL (4.30-5.70) Hemoglobin 7.1 g/dL (13.0-17.5) Hematocrit 22.1 % (39.0-53.0) Mean Corpuscular Volume 87 fL (79-100) Mean Corpuscular Hemoglobin 28 pg (25-35) Mean Corpuscular Hemoglobin Concent 32 g/dL (31-37) Red Cell Distribution Width 19.6 % (11.5-14.5) Platelet Count 180 x10^3/uL (140-400) Neutrophils (%) (Auto) 85 % (31-73) Lymphocytes (%) (Auto) 8 % (24-48) Monocytes (%) (Auto) 7 % (0-9) Eosinophils (%) (Auto) 0 % (0-3) Basophils (%) (Auto) 0 % (0-3) Neutrophils # (Auto) 6.0 x10^3/uL (1.8-7.7) Lymphocytes # (Auto) 0.6 x10^3/uL (1.0-4.8) Monocytes # (Auto) 0.5 x10^3/uL (0.0-1.1) Eosinophils # (Auto) 0.0 x10^3/uL (0.0-0.7) Basophils # (Auto) 0.0 x10^3/uL (0.0-0.2) Prothrombin Time 14.9 SEC (11.7-14.0) Prothromb Time International Ratio 1.2 (0.8-1.1) Activated Partial Thromboplast Time 31 SEC (24-38) Sodium Level 133 mmol/L (136-145) Potassium Level 4.5 mmol/L (3.5-5.1) Chloride Level 97 mmol/L (98-107) Carbon Dioxide Level 41 mmol/L (21-32) Anion Gap (6-14) Blood Urea Nitrogen 21 mg/dL (8-26) Creatinine 0.5 mg/dL (0.7-1.3) Estimated GFR (Cockcroft-Gault) 159.6 BUN/Creatinine Ratio 42 (6-20) Glucose Level 131 mg/dL (70-99) Calcium Level 7.6 mg/dL (8.5-10.1) Total Bilirubin 0.4 mg/dL (0.2-1.0) Aspartate Amino Transf (AST/SGOT) 19 U/L (15-37) Alanine Aminotransferase (ALT/SGPT) 26 U/L (16-63) Alkaline Phosphatase 54 U/L (46-116) Total Protein 6.3 g/dL (6.4-8.2) Albumin 2.0 g/dL (3.4-5.0) Albumin/Globulin Ratio 0.5 (1.0-1.7) Procalcitonin < 0.10 ng/mL (0.00-0.10) Test 07/12/20 08:00 07/12/20 21:27 07/13/20 04:30 O2 Saturation 90 % (92-99) Arterial Blood pH 7.33 (7.35-7.45) Arterial Blood pCO2 at Patient Temp 86 mmHg (35-46) Arterial Blood pO2 at Patient Temp 61 mmHg (65-108) Arterial Blood HCO3 44 mmol/L (21-28) Arterial Blood Base Excess 16 mmol/L (-3-3) FiO2 8l nc/52% Glucose (Fingerstick) 164 mg/dL (70-99) White Blood Count 15.8 x10^3/uL (4.0-11.0) Red Blood Count 2.80 x10^6/uL (4.30-5.70) Hemoglobin 7.7 g/dL (13.0-17.5) Hematocrit 25.6 % (39.0-53.0) Mean Corpuscular Volume 92 fL (79-100) Mean Corpuscular Hemoglobin 28 pg (25-35) Mean Corpuscular Hemoglobin Concent 30 g/dL (31-37) Red Cell Distribution Width 19.3 % (11.5-14.5) Platelet Count 266 x10^3/uL (140-400) Neutrophils (%) (Auto) 89 % (31-73) Lymphocytes (%) (Auto) 2 % (24-48) Monocytes (%) (Auto) 8 % (0-9) Eosinophils (%) (Auto) 0 % (0-3) Basophils (%) (Auto) 0 % (0-3) Neutrophils # (Auto) 14.1 x10^3/uL (1.8-7.7) Lymphocytes # (Auto) 0.3 x10^3/uL (1.0-4.8) Monocytes # (Auto) 1.3 x10^3/uL (0.0-1.1) Eosinophils # (Auto) 0.0 x10^3/uL (0.0-0.7) Basophils # (Auto) 0.1 x10^3/uL (0.0-0.2) Sodium Level 132 mmol/L (136-145) Potassium Level 4.9 mmol/L (3.5-5.1) Chloride Level 97 mmol/L (98-107) Carbon Dioxide Level 37 mmol/L (21-32) Anion Gap (6-14) Blood Urea Nitrogen 29 mg/dL (8-26) Creatinine 0.9 mg/dL (0.7-1.3) Estimated GFR (Cockcroft-Gault) 81.0 Glucose Level 184 mg/dL (70-99) Calcium Level 7.9 mg/dL (8.5-10.1) Laboratory Tests Test 07/12/20 21:27 07/13/20 04:30 Glucose (Fingerstick) 164 mg/dL (70-99) White Blood Count 15.8 x10^3/uL (4.0-11.0) Red Blood Count 2.80 x10^6/uL (4.30-5.70) Hemoglobin 7.7 g/dL (13.0-17.5) Hematocrit 25.6 % (39.0-53.0) Mean Corpuscular Volume 92 fL (79-100) Mean Corpuscular Hemoglobin 28 pg (25-35) Mean Corpuscular Hemoglobin Concent 30 g/dL (31-37) Red Cell Distribution Width 19.3 % (11.5-14.5) Platelet Count 266 x10^3/uL (140-400) Neutrophils (%) (Auto) 89 % (31-73) Lymphocytes (%) (Auto) 2 % (24-48) Monocytes (%) (Auto) 8 % (0-9) Eosinophils (%) (Auto) 0 % (0-3) Basophils (%) (Auto) 0 % (0-3) Neutrophils # (Auto) 14.1 x10^3/uL (1.8-7.7) Lymphocytes # (Auto) 0.3 x10^3/uL (1.0-4.8) Monocytes # (Auto) 1.3 x10^3/uL (0.0-1.1) Eosinophils # (Auto) 0.0 x10^3/uL (0.0-0.7) Basophils # (Auto) 0.1 x10^3/uL (0.0-0.2) Sodium Level 132 mmol/L (136-145) Potassium Level 4.9 mmol/L (3.5-5.1) Chloride Level 97 mmol/L (98-107) Carbon Dioxide Level 37 mmol/L (21-32) Anion Gap (6-14) Blood Urea Nitrogen 29 mg/dL (8-26) Creatinine 0.9 mg/dL (0.7-1.3) Estimated GFR (Cockcroft-Gault) 81.0 Glucose Level 184 mg/dL (70-99) Calcium Level 7.9 mg/dL (8.5-10.1) Medications Active Scripts Medications Dose Route/Sig Max Daily Dose Days Date Category Amox Tr-K Clv 875-125 Mg Tab (Amoxicillin/Potassium Clav) 1 Each Tablet 1 Tab PO BID 07/11/20 Reported Bactrim 400-80 Mg Tablet (Sulfamethoxazole/Trimethoprim) 1 Each Tablet 1 Tab PO DAILY 7 07/11/20 Reported Prednisone (Prednisone) 10 Mg Tablet 3 Tab PO BID 5 07/11/20 Reported Zofran (Ondansetron Hcl) 4 Mg Tablet 1 Tab PO PRN Q8HRS PRN 07/11/20 Reported Multivitamins With Minerals (Multivitamin With Minerals) 1 Each Tablet 1 Tab PO DAILY 30 07/11/20 Reported Melatonin 3 Mg Tablet 2 Tab PO QHS 07/11/20 Reported Mag-Al Plus Suspension (Mag Hydrox/Al Hydrox/Simeth) 30 Ml Oral.susp 30 Ml PO TIDWMEALS 07/11/20 Reported Mag-Al Plus Suspension (Mag Hydrox/Al Hydrox/Simeth) 30 Ml Oral.susp 30 Ml PO PRN Q4HRS PRN 07/11/20 Reported Atrovent Hfa (Ipratropium [place]) 12.9 Gm Hfa.aer.ad 2 Puff IH QID 07/11/20 Reported Atrovent Hfa (Ipratropium [place]) 12.9 Gm Hfa.aer.ad 1 Puff IH QID 07/11/20 Reported Insulin Lispro 100 Unit/1 Ml Vial 8 Unit SQ TIDAC 07/11/20 Reported Lantus Solostar (Insulin Glargine,Hum.rec.anlog) 100 Unit/1 Ml Insuln.pen 15 Unit SQ QHS 07/11/20 Reported Hydroxyzine Hcl 10 Mg/5 Ml Syrup 10 Mg PO TID 07/11/20 Reported Guaifen-Codeine 200-20 mg/10Ml (Codeine Phosphate/Guaifenesin) 10 Ml Liquid 10 Ml PO PRN Q6HRS PRN 07/11/20 Reported Vitamin D2 (Ergocalciferol (Vitamin D2)) 1,250 Mcg Capsule 5,000 Mcg PO QFR 07/11/20 Reported Proair Hfa Inhaler (Albuterol Sulfate) 8.5 Gm Hfa.aer.ad 2 Puff INH PRN Q6HRS PRN 07/11/20 Reported Proair Hfa Inhaler (Albuterol Sulfate) 8.5 Gm Hfa.aer.ad 1 Puff INH PRN Q6HRS PRN 07/11/20 Reported Acetaminophen 325 Mg Tablet 2 Tab PO PRN DAILY PRN 30 07/11/20 Reported Aspirin 81 Mg Tab.chew 1 Tab PO DAILY 06/03/20 Rx Metoprolol Tartrate 25 Mg Tablet 12.5 Mg PO BID 06/03/20 Rx Men 50 Plus Multivitamin Tab (Multivit-Min/FA/Lycopen/Lutein) 1 Each Tablet 1 Each PO DAILY 05/24/20 Reported Levothyroxine Sodium 125 Mcg Tablet 150 Mcg PO DAILY 07/30/13 Reported Impression . IMPRESSION: 1. Rzzpc-rp-[id number] hypercapnic hypoxemic respiratory failure-- worsening 2. Abnormal CT chest revealing increased multifocal opacities throughout both lung sherman. 3. Cavitary lesion in the right lower lobe. 4. Pulmonary fibrosis/interstitial lung disease. 5. History of thyroid cancer. 6. History of influenza A. 7. SARS-CoV-2 negative. 8. Hypotension Plan . DISCUSSION AND PLAN: Continue current BIPAP Support, 26/11 at 100% Follow ID recs for ABX, Follow cultures Continue IVF Continue vasopressors to keep MAP greater than 60, do not add additional pressors Not able to tolerate bronchoscopy 2/2 decline DVT/GI PPX PT. is likely not to survive, will not escalate care, Transition to comfort care with PRN morphine, will discuss with family PT. is DNR/DNI D/W RN and RT Critical Care Time [id number] KAVITHA HOLLAND MD Jul 13, 2020 09:26
--- NOTE | 2020-07-13 10:53 | PDOC ---
[facility] PROGRESS NOTE Date of Service DOS: DATE: 07/13/20 TIME: 10:52 Chief Complaint Chief Complaint PNEUMONIA, aspiration type currently on Zyvox, meropenem and micafungin per ID SEVERE HYPERCAPNIC FAILURE currently on BiPAP as needed Moderate to severe mitral regurgitation. Trace tricuspid regurgitation. The PA pressure was estimated at 26 mmHg. Acute electrolyte derangementMILD HYPONATREMIA, hypochloremia suggesting volume depletion History of Present Illness History of Present Illness 07/13/2020 Patient continues to have desaturations and hypotensive episodes requiring vasopressor support. Patient placed on BiPAP and is becoming more lethargic. Pending family discussion to proceed with comfort care. Morphine as needed has been initiated to provide some level of comfort until definitive decision for withdrawal of care. Patient's chart, labs, images were reviewed and discussed with RN 07/12/2020 No acute events overnight. Afebrile. Patient is currently saturating in the low 90s while on 15 L nonrebreather. BiPAP as needed. Patient has no dyspnea or air hunger at this time. Patient's chart, labs, images were reviewed and discussed with RN 80-year-old unfortunate male with a history of pulmonary fibrosis, thyroid cancer, hypertension, recent pneumonia, discharged on 06/03 with post-influenza pneumonia, presented today to the ER with hypoxia, was on 15 liters nasal cannula. EMS placed the patient on nonrebreather facemask. Chest x-ray at the facility was concerning for pneumonia. He was recently admitted with hypoxia, hemoptysis and underwent a bronchoscopy. Echo showed a PA pressure of 50 mmHg. Bronchoscopy showed normal vocal cords, trachea. No endobronchial lesions with no active bleeding. His code status was changed to DNI. He was found to have moderate to severe mitral regurgitation. Vitals/I&O Vitals/I&O: Vital Signs Date Time Temp Pulse Resp B/P (MAP) Pulse Ox O2 Delivery O2 Flow Rate FiO2 07/13/20 08:00 Bi-pap 07/13/20 07:37 97 07/13/20 07:00 109/66 (80) 07/13/20 06:45 108 07/13/20 03:30 97.5 27 97.5 07/12/20 20:00 15.0 I & O 07/12/20 07/12/20 07/13/20 15:00 23:00 07:00 Intake Total 500 ml 1700 ml 631 ml Output Total 100 ml 350 ml 225 ml Balance 400 ml 1350 ml 406 ml Physical Exam Physical Exam: CONSTITUTIONAL: He on Bipap and in trendelenberg. Not responsive HEENT: Pupils equal and reactive. He has normal conjunctivae. Dry thru mask NECK: Supple. LUNGS: Some mild crackles. HEART: S1 and S2. ABDOMEN: Soft, nontender, nondistended with positive bowel sounds. EXTREMITIES: Without clubbing or cyanosis. 1 +edema. SKIN: Warm to touch without signs of rash. Peripheral IV site is clean. General: Alert, Oriented X3 Heart: No murmurs Lungs: Crackles Abdomen: Normal bowel sounds Skin: No significant lesion Labs Labs: Laboratory Tests Test 07/12/20 21:27 07/13/20 04:30 Glucose (Fingerstick) 164 mg/dL (70-99) White Blood Count 15.8 x10^3/uL (4.0-11.0) Red Blood Count 2.80 x10^6/uL (4.30-5.70) Hemoglobin 7.7 g/dL (13.0-17.5) Hematocrit 25.6 % (39.0-53.0) Mean Corpuscular Volume 92 fL (79-100) Mean Corpuscular Hemoglobin 28 pg (25-35) Mean Corpuscular Hemoglobin Concent 30 g/dL (31-37) Red Cell Distribution Width 19.3 % (11.5-14.5) Platelet Count 266 x10^3/uL (140-400) Neutrophils (%) (Auto) 89 % (31-73) Lymphocytes (%) (Auto) 2 % (24-48) Monocytes (%) (Auto) 8 % (0-9) Eosinophils (%) (Auto) 0 % (0-3) Basophils (%) (Auto) 0 % (0-3) Neutrophils # (Auto) 14.1 x10^3/uL (1.8-7.7) Lymphocytes # (Auto) 0.3 x10^3/uL (1.0-4.8) Monocytes # (Auto) 1.3 x10^3/uL (0.0-1.1) Eosinophils # (Auto) 0.0 x10^3/uL (0.0-0.7) Basophils # (Auto) 0.1 x10^3/uL (0.0-0.2) Sodium Level 132 mmol/L (136-145) Potassium Level 4.9 mmol/L (3.5-5.1) Chloride Level 97 mmol/L (98-107) Carbon Dioxide Level 37 mmol/L (21-32) Anion Gap (6-14) Blood Urea Nitrogen 29 mg/dL (8-26) Creatinine 0.9 mg/dL (0.7-1.3) Estimated GFR (Cockcroft-Gault) 81.0 Glucose Level 184 mg/dL (70-99) Calcium Level 7.9 mg/dL (8.5-10.1) Assessment and Plan Assessmemt and Plan Problems Medical Problems: (1) Acute respiratory failure with hypoxia and hypercapnia Status: Acute (2) Normocytic anemia Status: Acute Comment Review of Relevant I have reviewed the following items tri (where applicable) has been applied. Medications: Current Medications Medications (Trade) Dose Ordered Sig/Wendi Route PRN Reason Start Time Stop Time Status Last Admin Dose Admin Norepinephrine Bitartrate 8 mg/ Dextrose 258 ml @ 13.293 mls/ hr CONT PRN IV PER PROTOCOL 07/13/20 06:30 07/13/20 06:38 Ringer's Solution 500 ml @ 125 mls/hr 1X ONCE IV 07/13/20 07:00 07/13/20 10:59 07/13/20 06:45 Sodium Chloride 500 ml @ 500 mls/hr 1X ONCE IV 07/13/20 07:00 07/13/20 07:59 DC 07/13/20 06:00 Justifications for Admission Other Justification ANNALEE DOYLE MD Jul 13, 2020 10:53
--- NOTE | 2020-07-13 15:13 | NUR ---
Patient's heart monitor dropped to half of what it had previously been (HR 48). Checked on patient and he continued to have a pulse at that time but shortly after the monitor alarmed HR 0 and when checked on patient found him to be PEA and no respiratory effort. Dain at the bedside. Joan Denton RN and this RN listened for heart beat for one full minute and none found. [place] notified of patient passing and not candidate for donation. All providers notified.
--- NOTE | 2020-07-17 12:33 | PDOC3 ---
[facility]-Discharge Summary Date of Admission: Date of Admission: Jul 11, 2020 Date of Discharge: Date of Discharge: Jul 13, 2020 Admission Diagnosis: Admitting Diagnosis: SUMMARY Discharge Diagnosis: Discharge Diagnosis: PNEUMONIA, aspiration type currently on Zyvox, meropenem and micafungin per ID SEVERE HYPERCAPNIC FAILURE currently on BiPAP as needed Moderate to severe mitral regurgitation. Trace tricuspid regurgitation. The PA pressure was estimated at 26 mmHg. Acute electrolyte derangementMILD HYPONATREMIA, hypochloremia suggesting volume depletion Hospital Course: Hospital Course: Patient's heart monitor dropped to half of what it had previously been (HR 48). Checked on patient and he continued to have a pulse at that time but shortly after the monitor alarmed HR 0 and when checked on patient found him to be PEA and no respiratory effort. Neice at the bedside. Joan Denton RN and this RN listened for heart beat for one full minute and none found. [place] notified of patient passing and not candidate for donation. 07/13/2020 Patient continues to have desaturations and hypotensive episodes requiring vasopressor support. Patient placed on BiPAP and is becoming more lethargic. Pending family discussion to proceed with comfort care. Morphine as needed has been initiated to provide some level of comfort until definitive decision for withdrawal of care. Patient's chart, labs, images were reviewed and discussed with RN 07/12/2020 No acute events overnight. Afebrile. Patient is currently saturating in the low 90s while on 15 L nonrebreather. BiPAP as needed. Patient has no dyspnea or air hunger at this time. Patient's chart, labs, images were reviewed and discussed with RN 80-year-old unfortunate male with a history of pulmonary fibrosis, thyroid cancer, hypertension, recent pneumonia, discharged on 06/03 with post-influenza pneumonia, presented today to the ER with hypoxia, was on 15 liters nasal cannula. EMS placed the patient on nonrebreather facemask. Chest x-ray at the facility was concerning for pneumonia. He was recently admitted with hypoxia, hemoptysis and underwent a bronchoscopy. Echo showed a PA pressure of 50 mmHg. Bronchoscopy showed normal vocal cords, trachea. No endobronchial lesions with no active bleeding. His code status was changed to DNI. He was found to have moderate to severe mitral regurgitation. Disposition: Disposition/Orders: Activity: Activity: Resume previous activity Medications: Home Meds Active Scripts Aspirin (ASPIRIN) 81 Mg Tab.chew, 1 TAB PO DAILY for Afib, #30 TAB 3 Refills Prov:ROYA ONEIL MD 06/03/20 Metoprolol Tartrate (METOPROLOL TARTRATE) 25 Mg Tablet, 12.5 MG PO BID for Afib, #60 TAB 2 Refills Prov:ROYA ONEIL MD 06/03/20 Reported Medications Amoxicillin/Potassium Clav (AMOX TR-K CLV 875-125 MG TAB) 1 Each Tablet, 1 TAB PO BID for PNEUMONIA, #20 TAB 07/11/20 Sulfamethoxazole/Trimethoprim (BACTRIM 400-80 MG TABLET) 1 Each Tablet, 1 TAB PO DAILY for PNEUMONIA for 7 Days, #7 TAB 0 Refills 07/11/20 Prednisone (PREDNISONE ) 10 Mg Tablet, 3 TAB PO BID for inflamation for 5 Days, #30 TAB 0 Refills 07/11/20 Ondansetron Hcl (ZOFRAN) 4 Mg Tablet, 1 TAB PO PRN Q8HRS PRN for NAUSEA, #30 TAB 07/11/20 Multivitamin With Minerals (MULTIVITAMINS WITH MINERALS) 1 Each Tablet, 1 TAB PO DAILY for vitamin supplements for 30 Days, #30 TAB 0 Refills 07/11/20 Melatonin (MELATONIN) 3 Mg Tablet, 2 TAB PO QHS for insomnia, #30 TAB 2 Refills 07/11/20 Mag Hydrox/Al Hydrox/Simeth (MAG-AL PLUS SUSPENSION) 30 Ml Oral.susp, 30 ML PO TIDWMEALS for dyspepsia, MISC 07/11/20 Mag Hydrox/Al Hydrox/Simeth (MAG-AL PLUS SUSPENSION) 30 Ml Oral.susp, 30 ML PO PRN Q4HRS PRN for HEARTBURN / GAS, MISC 07/11/20 Ipratropium [place] (ATROVENT HFA) 12.9 Gm Hfa.aer.ad, 2 PUFF IH QID for wheezing, #12.9 GM 5 Refills 07/11/20 Ipratropium [place] (ATROVENT HFA) 12.9 Gm Hfa.aer.ad, 1 PUFF IH QID for wheezing, #12.9 GM 5 Refills 07/11/20 Insulin Lispro (Insulin Lispro) 100 Unit/1 Ml Vial, 8 UNIT SQ TIDAC for hyperglycemia, EACH 07/11/20 Insulin Glargine,Hum.rec.anlog (LANTUS SOLOSTAR) 100 Unit/1 Ml Insuln.pen, 15 UNIT SQ QHS for Hyperglycemia, #15 ML 5 Refills 07/11/20 Hydroxyzine Hcl (HYDROXYZINE HCL) 10 Mg/5 Ml Syrup, 10 MG PO TID for arthritis, MISC 07/11/20 Codeine Phosphate/Guaifenesin (Guaifen-Codeine 200-20 mg/10Ml) 10 Ml Liquid, 10 ML PO PRN Q6HRS PRN for COUGH, LIQUID 07/11/20 Ergocalciferol (Vitamin D2) (Vitamin D2) 1,250 Mcg Capsule, 5000 MCG PO QFR for vit D deficiency, CAP 07/11/20 Albuterol Sulfate (PROAIR HFA INHALER) 8.5 Gm Hfa.aer.ad, 2 PUFF INH PRN Q6HRS PRN for SHORTNESS OF BREATH, EACH 0 Refills 07/11/20 Albuterol Sulfate (PROAIR HFA INHALER) 8.5 Gm Hfa.aer.ad, 1 PUFF INH PRN Q6HRS PRN for SHORTNESS OF BREATH, EACH 0 Refills 07/11/20 Acetaminophen (ACETAMINOPHEN) 325 Mg Tablet, 2 TAB PO PRN DAILY PRN for pain or fever for 30 Days, #30 TAB 0 Refills 07/11/20 Multivit-Min/FA/Lycopen/Lutein (Men 50 Plus Multivitamin Tab) 1 Each Tablet, 1 EACH PO DAILY for supplement, TAB 05/24/20 Levothyroxine Sodium (LEVOTHYROXINE SODIUM) 125 Mcg Tablet, 150 MCG PO DAILY for hypothyroidism 07/30/13 Scheduled Amoxicillin/Potassium Clav (Amox Tr-K Clv 875-125 Mg Tab), 1 TAB PO BID, (Reported) Aspirin (Aspirin), 1 TAB PO DAILY Ergocalciferol (Vitamin D2) (Vitamin D2), 5,000 MCG PO QFR, (Reported) Hydroxyzine Hcl (Hydroxyzine Hcl), 10 MG PO TID, (Reported) Insulin Glargine,Hum.rec.anlog (Lantus Solostar), 15 UNIT SQ QHS, (Reported) Insulin Lispro (Insulin Lispro), 8 UNIT SQ TIDAC, (Reported) Ipratropium [place] (Atrovent Hfa), 1 PUFF IH QID, (Reported) Ipratropium [place] (Atrovent Hfa), 2 PUFF IH QID, (Reported) Levothyroxine Sodium (Levothyroxine Sodium), 150 MCG PO DAILY, (Reported) Mag Hydrox/Al Hydrox/Simeth (Mag-Al Plus Suspension), 30 ML PO TIDWMEALS, (Reported) Melatonin (Melatonin), 2 TAB PO QHS, (Reported) Metoprolol Tartrate (Metoprolol Tartrate), 12.5 MG PO BID Multivit-Min/FA/Lycopen/Lutein (Men 50 Plus Multivitamin Tab), 1 EACH PO DAILY, (Reported) Multivitamin With Minerals (Multivitamins With Minerals), 1 TAB PO DAILY, (Reported) Prednisone (Prednisone ), 3 TAB PO BID, (Reported) Sulfamethoxazole/Trimethoprim (Bactrim 400-80 Mg Tablet), 1 TAB PO DAILY, (Reported) Scheduled PRN Acetaminophen (Acetaminophen), 2 TAB PO PRN DAILY PRN for pain or fever, (Reported) Albuterol Sulfate (Proair Hfa Inhaler), 1 PUFF INH PRN Q6HRS PRN for SHORTNESS OF BREATH, (Reported) Albuterol Sulfate (Proair Hfa Inhaler), 2 PUFF INH PRN Q6HRS PRN for SHORTNESS OF BREATH, (Reported) Codeine Phosphate/Guaifenesin (Guaifen-Codeine 200-20 mg/10Ml), 10 ML PO PRN Q6HRS PRN for COUGH, (Reported) Mag Hydrox/Al Hydrox/Simeth (Mag-Al Plus Suspension), 30 ML PO PRN Q4HRS PRN for HEARTBURN / GAS, (Reported) Ondansetron Hcl (Zofran), 1 TAB PO PRN Q8HRS PRN for NAUSEA, (Reported) Total Time: Total Time: Total time spent was 40 minutes in preparing this summary. Patient seen and examined on day of . Justicifation of Admission Dx: Justifications for Admission: Justification of Admission Dx: N/A ANNALEE DOYLE MD Jul 17, 2020 12:33
== END 2020-07-13 20:30 | DRG 177 ==
LOC: ER 11:34 → 1 WEST ICU 12:48
PROVIDERS: ADMIT Family Medicine; ATTEND Family Medicine
PROC: 5A09357 Assistance with Respiratory Ventilation, Less than 24 Consecutive Hours, Continuous Positive Airway Pressure (ICD-10-PCS; principal; 2020-07-11)
PROC: 5A09357 Assistance with Respiratory Ventilation, Less than 24 Consecutive Hours, Continuous Positive Airway Pressure (ICD-10-PCS; 2020-07-12)
PROC: 5A09357 Assistance with Respiratory Ventilation, Less than 24 Consecutive Hours, Continuous Positive Airway Pressure (ICD-10-PCS; 2020-07-13)
DX: J69.0 Pneumonitis due to inhalation of food and vomit (principal); J96.21 Acute and chronic respiratory failure with hypoxia; J96.22 Acute and chronic respiratory failure with hypercapnia; E87.1 Hypo-osmolality and hyponatremia; I48.20 Chronic atrial fibrillation, unspecified; J44.0 Chronic obstructive pulmonary disease with (acute) lower respiratory infection; R18.8 Other ascites; R04.2 Hemoptysis; C73 Malignant neoplasm of thyroid gland; D64.9 Anemia, unspecified; E11.9 Type 2 diabetes mellitus without complications; E78.5 Hyperlipidemia, unspecified; E87.8 Other disorders of electrolyte and fluid balance, not elsewhere classified; E89.0 Postprocedural hypothyroidism; I10 Essential (primary) hypertension; I25.10 Atherosclerotic heart disease of native coronary artery without angina pectoris; I27.20 Pulmonary hypertension, unspecified; I70.0 Atherosclerosis of aorta; J84.112 Idiopathic pulmonary fibrosis; K21.9 Gastro-esophageal reflux disease without esophagitis; K57.30 Diverticulosis of large intestine without perforation or abscess without bleeding; N40.0 Benign prostatic hyperplasia without lower urinary tract symptoms; Z20.822 Contact with and (suspected) exposure to COVID-19; Z66 Do not resuscitate; Z79.52 Long term (current) use of systemic steroids; Z82.49 Family history of ischemic heart disease and other diseases of the circulatory system; Z82.5 Family history of asthma and other chronic lower respiratory diseases; Z85.850 Personal history of malignant neoplasm of thyroid; Z87.01 Personal history of pneumonia (recurrent); Z87.891 Personal history of nicotine dependence; M19.90 Unspecified osteoarthritis, unspecified site; Z90.49 Acquired absence of other specified parts of digestive tract; I95.9 Hypotension, unspecified; I08.1 Rheumatic disorders of both mitral and tricuspid valves
CPT/HCPCS: 36415; 36600; 71045; 71275; 74176; 80048; 80053; 81001; 82550; 82565; 82607; 82805; 82962; 83540; 83550; 83605; 83735; 83880; 84100; 84145; 84443; 84484; 85007; 85025; 85610; 85730; 87040; 87070; 87077; 87186; 87205; 87804; 94660; 94760; 96365; 96366; 96367; 96375; 99291; C9113; J1650; J2020; J2060; J2185; J2248; J2543; J2930; J3370; J3490; J7030; J7040; J7050; J7060; J7120; Q9967; U0003; G0378